=== PATIENT | male | born 1965 | race Caucasian/White ===

== ENCOUNTER 2018-06-09 11:32 | Emergency (ER) | payer OTHER, SELFPAY ==
--- OUTSIDE RECORDS SUMMARY | 2018-06-09 11:49 | XMS REPORT | Clinical Summary ---
:1965 Author Organization [facility] Address [address] [place] [address] Care Team Providers Name Role Phone Asked, No Pcp Primary Care Provider Unavailable Allergies No Known Allergies Medications Medication Sig Dispensed Refills Start Date End Date Status esomeprazole (NexIUM) Take 20 mg by 0 Active 20 MG capsule mouth daily before breakfast. VITAMIN E ACETATE Take 1 tablet by 0 Active (VITAMIN E ORAL) mouth daily. cetirizine (ZyrTEC) 10 Take 10 mg by 0 Active MG tablet mouth daily. ASCORBATE CALCIUM Take 1 tablet by 0 Active (VITAMIN C ORAL) mouth daily. KRILL OIL ORAL Take 1 capsule by 0 Active mouth daily. Lactobacillus Take 1 tablet by 0 Active acidoph-L.bulgar mouth daily. (FLORANEX) 1 million cell tablet aspirin (ECOTRIN) 81 MG Take 81 mg by 0 Active enteric coated tablet mouth daily. Active Problems Problem Noted Date Chest pain at rest 03/11/2016 Social History Tobacco Use Types Packs/Day Years Used Date Never Smoker Alcohol Use Drinks/Week oz/Week Comments No Sex Assigned at Date Recorded Not on file Job Start Date Occupation Industry Not on file Not on file Not on file Travel History Travel Start Travel End No recent travel history available. Last Filed Vital Signs Not on file Plan of Treatment Health Maintenance Due Date Last Done Comments COLON CANCER SCREENING 02/28/2014 SHINGLES VACCINES (#1) 02/28/2014 INFLUENZA VACCINE 09/23/2018 Results Not on fileafter 06/08/2017 Insurance Payer Benefit Plan / Group Subscriber ID Type Phone Address [facility] CHOICE/CHOICE + xxxxxxxxx HMO/PPO Advance Directives Patient has advance care planning documents on file. For more information, please contact:Robert Boles[address] [place] [address]
--- OUTSIDE RECORDS SUMMARY | 2018-06-09 11:49 | XMS REPORT ---
:1965 Author Organization [employer]Works Care Team Providers Name Role Phone Mauricio Dyer Provider Role Unavailable Allergies No Known Allergies Problems Problem Type Condition Code Onset Dates Condition Status Problem Diabetes type 2, controlled E11.9 Active Problem Family history of ischemic heart Z82.49 Active disease and other diseases of the circulatory system Problem History of cholecystectomy Z90.49 Active Assessment Anxiety disorder F41.9 Active Problem Malaise and fatigue R53.81 Active Problem Gastro-esophageal reflux disease K21.9 Active without esophagitis Problem HTN (hypertension), benign I10 Active Problem Hyperlipemia, mixed E78.2 Active Problem Sleep apnea, obstructive G47.33 Active Problem Anxiety disorder F41.9 Active Problem Family history of colon cancer Z80.0 Active Medications Medication Code Code Instructions Start End Status Dosage System Date Date BusPIRone HCl [facility] 38638955489 10 MG Orally Active 1 tablet Twice a day PRN Anxiety HydrOXYzine ND 60066446195 25 MG Orally Active 1 capsule Pamoate every 8 hrs PRN as needed Anxiety Results No Known Results Summary Purpose eClinicalWorks Submission
--- OUTSIDE RECORDS SUMMARY | 2018-06-09 11:49 | XMS REPORT ---
:1965 Author Organization [employer] Care Team Providers Name Role Phone Gomez Mauricio Provider Role Unavailable Allergies No Known Allergies Problems Problem Type Condition Code Onset Dates Condition Status Problem Diabetes type 2, controlled E11.9 Active Problem Family history of ischemic heart Z82.49 Active disease and other diseases of the circulatory system Problem History of cholecystectomy Z90.49 Active Problem Malaise and fatigue R53.81 Active Problem Gastro-esophageal reflux disease K21.9 Active without esophagitis Problem HTN (hypertension), benign I10 Active Problem Hyperlipemia, mixed E78.2 Active Problem Sleep apnea, obstructive G47.33 Active Problem Anxiety disorder F41.9 Active Problem Family history of colon cancer Z80.0 Active Assessment Hyperlipemia, mixed E78.2 Active Assessment Sleep apnea, obstructive G47.33 Active Assessment HTN (hypertension), benign I10 Active Assessment Diabetes type 2, controlled E11.9 Active Assessment Anxiety disorder F41.9 Active Assessment Otalgia, right ear H92.01 Active Medications Medication Code Code Instructions Start End Status Dosage System Date Date Vitamin C [facility] 47102328657 500 MG Orally Active not defined Flax Seed Oil ND 75583995373 1000 MG Orally Active not defined BusPIRone HCl ND 79338100819 10 MG Orally Active 1 tablet Twice a day PRN Anxiety HydrOXYzine ND 68150005218 25 MG Orally Active 1 capsule Pamoate every 8 hrs PRN as needed Anxiety Vitamin E ND 56935309357 100 UNIT Orally Active 1 capsule Once a day Nexium ND 50261254811 40 MG Orally Active 1 capsule Once a day CPAP Machine ND 0 max pressure Mar 20, Mar 15, Active CPAP cm of water 2017 2018 machine pressure setting 10-12 cm HxO Nightly Aspir-[address] [facility] 53394945735 81 MG Orally Active 1 tablet Once a day Sertraline HCl ND 96161997579 50 MG Orally Inactive Take 1/2 Once a day tab once a day x 1 week then 1 tab daily Probiotic ND 15383739633 - Orally Active not defined Vitamin D-[address] [facility] 24132624846 1000 UNIT Active 1 capsule Orally Once a day Results No Known Results Summary Purpose eClinicalWorks Submission
--- OUTSIDE RECORDS SUMMARY | 2018-06-09 11:49 | XMS REPORT ---
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 disorder without prior episode Problem Family history of colon cancer Z80.0 Active Problem Hyperlipemia, mixed E78.2 Active Problem Gastro-esophageal reflux disease K21.9 Active without esophagitis Problem Anxiety disorder F41.9 Active Assessment Current moderate episode of major F32.1 Active depressive disorder without prior episode Assessment Anxiety disorder F41.9 Active Assessment Screening for venereal disease Z11.3 Active Problem Diabetes type 2, controlled E11.9 Active Medications Medication Code Code Instructions Start End Status Dosage System Date Date HydrOXYzine ND 66522363170 25 MG Orally Active 1 capsule Pamoate every 8 hrs PRN as needed Anxiety BusPIRone HCl ND 20099087683 10 MG Orally Active 1 tablet Twice a day PRN Anxiety Vitamin E ND 93631831252 100 UNIT Orally Active 1 capsule Once a day Vitamin C ND 66420901143 500 MG Orally Active not defined CPAP Machine NDC 0 max pressure 9 Mar 20, Mar 15, Active CPAP cm of water 2017 2018 machine pressure setting 10-12 cm HxO Nightly Aspir-81 ND 49816412938 81 MG Orally Active 1 tablet Once a day Trintellix ND 78022792938 20 MG Orally September 07, Active Take 1/2 Once a day 2018 tab once a day x 1 week then 1 tab QD Probiotic ND 37889039808 - Orally Active not defined Flax Seed Oil ND 07008671558 1000 MG Orally Active not defined Nexium ND 22573781109 40 MG Orally Active 1 capsule Once a day Vitamin D-3 [facility] 82889747097 1000 UNIT Orally Active 1 capsule Once a day Results No Known Results Summary Purpose eClinicalWorks Submission
--- OUTSIDE RECORDS SUMMARY | 2018-06-09 11:49 | XMS REPORT | Continuity of Care Document ---
:1965 Author Organization Interface Problems Problem Status Onset Date Classification Date Comments Source Reported Medications Medication Details Route Status Patient Ordering Order Source Instructions Provider Date Allergies, Adverse Reactions, Alerts Substance Category Reaction Severity Reaction Status Date Comments Source type Reported Immunizations Immunization Date Given Site Status Last Updated Comments Source Results Order Results Value Reference Date Interpretation Comments Source Name Range Vital Signs Vital Sign Value Date Comments Source Encounters Location Location Encounter Encounter Reason Attending ADM DC Status Source Details Type Number For Provider Date Date Visit Outpatient [id number] ADELFO 12/29 [facility] [place] [facility] [id number] JUANI FRANCES 01/31 [facility] [place] [facility] [id number] DIOGENES 07/24 [facility] [place] Procedures Procedure Code Date Perfomer Comments Source
--- OUTSIDE RECORDS SUMMARY | 2018-06-09 11:49 | XMS REPORT ---
:1965 [facility] Team Providers Name Role Phone Gomez [...] history of colon cancer Z80.0 Active Assessment Sleep apnea, obstructive G47.33 Active Assessment Diabetes type 2, controlled E11.9 Active Assessment Anxiety disorder F41.9 Active Assessment HTN (hypertension), benign I10 Active Assessment Hyperlipemia, mixed E78.2 Active Medications Medication Code Code Instructions Start End Status Dosage System Date Date Flax Seed Oil [facility] 21224819723 1000 MG Orally Active not defined Vitamin E ND 57443627288 100 UNIT Orally Active 1 capsule Once a day CPAP Machine ND 0 max pressure 9 Mar 20, Mar 15, Active CPAP cm of water 2017 2018 machine pressure setting 10-12 cm HxO Nightly Sertraline HCl ND 65556616034 50 MG Orally May Active Take 1/2 Once a day 2017 tab once a day x 1 week then 1 tab daily Vitamin D-3 ND 91786801635 1000 UNIT Active 1 capsule Orally Once a day Vitamin C ND 29328898695 500 MG Orally Active not defined HydrOXYzine ND 07805521953 25 MG Orally May Active 1 capsule Pamoate every 8 hrs PRN 2017 as needed Anxiety BusPIRone HCl ND 32923751457 10 MG Orally Inactive 1 tablet Twice a day PRN Anxiety Aspir-81 ND 07710355082 81 MG Orally Active 1 tablet Once a day Probiotic ND 55662083098 - Orally Active not defined Nexium [facility] 76562900676 40 MG Orally Active 1 capsule Once a day Results No Known Results Summary Purpose eClinicalWorks Submission
--- OUTSIDE RECORDS SUMMARY | 2018-06-09 11:49 | XMS REPORT ---
[...] other diseases of the circulatory system Problem Diabetes type 2, controlled E11.9 Active Problem HTN (hypertension), benign I10 Active Problem Malaise and fatigue R53.81 Active Problem Current moderate episode of major F32.1 Active depressive disorder without prior episode Problem Family history of colon cancer Z80.0 Active Problem Hyperlipemia, mixed E78.2 Active Problem Gastro-esophageal reflux disease K21.9 Active without esophagitis Problem Anxiety disorder F41.9 Active Medications No Known Medications Results No Known Results Summary Purpose [employer] Music Submission
--- OUTSIDE RECORDS SUMMARY | 2018-06-09 11:50 | XMS REPORT ---
:1965 Author Organization eClinicalWorks Care Team Providers Name Role Phone DyerMauricio Provider Role Unavailable Allergies No Known Allergies [...] Medications Results No Known Results Summary Purpose [email or web address] Submission
--- OUTSIDE RECORDS SUMMARY | 2018-06-09 11:50 | XMS REPORT ---
:1965 Author Organization eClinicalWorks Care Team Providers Name Role Phone DyerMauricio Provider Role Unavailable Allergies, Adverse Reactions, Alerts Substance Reaction Event Type N.K.D.A. Info Not Available Non Drug Allergy Problems Problem Type Condition Code Onset Dates Condition Status Problem Family history of ischemic heart Z82.49 Active disease and other diseases of the circulatory system Problem Hyperlipemia, mixed E78.2 Active Problem Sleep apnea, obstructive G47.33 Active Problem Current moderate episode of major F32.1 Active depressive disorder without prior episode Problem HTN (hypertension), benign I10 Active Problem Osteoarthritis of right foot, M19.071 Active unspecified osteoarthritis type Problem Anxiety disorder F41.9 Active Problem Family history of colon cancer Z80.0 Active Problem Malaise and fatigue R53.81 Active Problem Gastro-esophageal reflux disease K21.9 Active without esophagitis Assessment Foot pain, right M79.671 Active Problem Diabetes type 2, controlled E11.9 Active Assessment Osteoarthritis of right foot, M19.071 Active unspecified osteoarthritis type Problem History of cholecystectomy Z90.49 Active Medications Medication Code Code Instructions Start End Date Status Dosage System Date Azithromycin [facility] 48858313402 500 MG Orally Nov 17, Active 2 tablet once 2017 Probiotic [facility] 58984986215 - Orally Active not defined BusPIRone HCl [facility] 21283389983 10 MG Orally Active 1 tablet Twice a day PRN Anxiety Nexium [facility] 71005948913 40 MG Orally Active 1 capsule Once a day Aspir-81 [facility] 79339818850 81 MG Orally Active 1 tablet Once a day Vitamin E [facility] 93133014091 100 UNIT Orally Active 1 capsule Once a day Vitamin C [facility] 90689544740 500 MG Orally Active not defined HydrOXYzine [facility] 16200410956 25 MG Orally Active 1 capsule Pamoate every 8 hrs PRN as needed Anxiety Trintellix [facility] 05265055811 20 MG Orally September 07, Active Take 1/2 Once a day 2018 tab once a day x 1 week then 1 tab QD Vitamin D-3 NDC 19573263353 1000 UNIT Active 1 capsule Orally Once a day Duexis [facility] 22312922591 800-26.6 MG April Active 1 tablet Orally Three 2018 times a day PRN Pain Flax Seed Oil [facility] 24917572123 1000 MG Orally Active not defined Results No Known Results Summary Purpose eClinicalWorks Submission
--- OUTSIDE RECORDS SUMMARY | 2018-06-09 11:50 | XMS REPORT ---
:1965 Author Organization eClinicalWorks Care Team Providers Name Role Phone DyerMauricio Provider Role Unavailable Allergies, Adverse Reactions, Alerts Substance Reaction Event Type N.K.D.A. Info Not Available Non Drug Allergy Problems Problem Type Condition Code Onset Dates Condition Status Problem Sleep apnea, obstructive G47.33 Active Problem Family history of colon cancer Z80.0 Active Problem Hyperlipemia, mixed E78.2 Active Problem Osteoarthritis of right foot, M19.071 Active unspecified osteoarthritis type Problem Current moderate episode of major F32.1 Active depressive disorder without prior episode Problem Adult BMI 35.0-35.9 kg/sq m Z68.35 Active Problem Gastro-esophageal reflux disease K21.9 Active without esophagitis Problem Anxiety disorder F41.9 Active Problem HTN (hypertension), benign I10 Active Problem Malaise and fatigue R53.81 Active Assessment Malaise and fatigue R53.81 Active Assessment Adult BMI 35.0-35.9 kg/sq m Z68.35 Active Assessment Encounter for screening for other Z13.89 Active disorder Problem Diabetes type 2, controlled E11.9 Active Assessment Screening for colon cancer Z12.11 Active Problem History of cholecystectomy Z90.49 Active Assessment Well adult on routine health check Z00.00 Active Problem Family history of ischemic heart Z82.49 Active disease and other diseases of the circulatory system Medications Medication Code Code Instructions Start End Date Status Dosage System Date Flax Seed Oil [facility] 77282685551 1000 MG Orally Active not defined Vitamin D-3 ND 83590169461 1000 UNIT Orally Active 1 capsule Once a day Probiotic ND 33114519419 - Orally Active not defined Vitamin C ND 55387683589 500 MG Orally Active not defined Vitamin E ND 15689814624 100 UNIT Orally Active 1 capsule Once a day Duexis [facility] 22491071340 800-26.6 MG April Active 1 tablet Orally Three 2018 times a day PRN Pain Aspir-81 ND 72348270297 81 MG Orally Active 1 tablet Once a day Results No Known Results Summary Purpose eClinicalWorks Submission
--- OUTSIDE RECORDS SUMMARY | 2018-06-09 11:50 | XMS REPORT ---
[...] esophagitis Problem Anxiety disorder F41.9 Active Assessment High risk heterosexual behavior Z72.51 Active Assessment Penile discharge R36.9 Active Assessment Increased frequency of urination R35.0 Active Problem Diabetes type 2, controlled E11.9 Active Medications Medication Code Code Instructions Start End Status Dosage System Date Date Vitamin C [facility] 24956723091 500 MG Orally Active not defined Flax Seed Oil ND 19737314115 1000 MG Orally Active not defined HydrOXYzine ND 50234290329 25 MG Orally Active 1 capsule Pamoate every 8 hrs PRN as needed Anxiety BusPIRone HCl ND 37979161375 10 MG Orally Active 1 tablet Twice a day PRN Anxiety Azithromycin ND 65743258400 500 MG Orally Nov 17, Active 2 tablet once 2018 Nexium ND 55580157471 40 MG Orally Active 1 capsule Once a day Vitamin D-3 ND 36553716842 1000 UNIT Active 1 capsule Orally Once a day CPAP Machine ND 0 max pressure Mar 20, Mar 15, Active CPAP cm of water 2017 2018 machine pressure setting 10-12 cm HxO Nightly Aspir-81 ND 35114709032 81 MG Orally Active 1 tablet Once a day Trintellix ND 59801880487 20 MG Orally September 07, Active Take 1/2 Once a day 2018 tab once a day x 1 week then 1 tab QD Probiotic NDC 21235084526 - Orally Active not defined Vitamin E [facility] 23327039147 100 UNIT Orally Active 1 capsule Once a day Results Name Result Date Reference Range Unit Abnormality Flag UA W/MICROSCOPIC EXAM ----Glucose Neg 20171117 ----Ketone Neg 20171117 ----Specific [place] 1.020 20171117 ----Blood Neg 20171117 ----Leukocytes Neg 20171117 ----Nitrite Neg 20171117 ----Protein Neg 20171117 ----pH 6.5 20171117 Summary Purpose eClinicalWorks Submission
[2018-06-09 12:01] LABS: Absolute Lymphocytes (CBC) 2.6 K/uL (0.7-4.9); Absolute Monocytes 0.6 K/uL (0.1-1.3); Absolute Neutrophil 4.8 K/uL (1.8-8.0); Basophils % 0.5 % (0-1.3); Eosinophils % 2.9 % (0-4.4); Hematocrit 45.7 % (39.6-49.0); Lymphocytes % 31.1 % (15.3-44.8); MPV 10.7 fL (7.6-11.3); Monocytes % 7.4 % (3.3-12.3); RBC Red Blood Cell Count 5.19 M/uL (4.33-5.43)
--- NOTE | 2018-06-09 12:21 | RAD REPORT ---
EXAM DESCRIPTION: CT - Head Brain Wo Cont - 06/09/2018 12:11 pm CLINICAL HISTORY: headache, confusion Headache, drowsiness COMPARISON: Head angio dated 12/14/2015; Head Brain Wo Cont dated 10/28/2015 TECHNIQUE: All CT scans are performed using dose optimization technique as appropriate and may inclu de automated exposure control or mA/KV adjustment according to patient size. FINDINGS: No intracranial hemorrhage, hydrocephalus or extra-axial fluid collection.Streak artifact is present from left posterior communicating artery coil.No areas of brain edema or evidence of midli ne shift. The paranasal sinuses and mastoids are clear. The calvarium is intact. IMPRESSION: No acute intracranial abnormality.
[2018-06-09 12:23] LABS: Protime INR 0.96
[2018-06-09 12:33] LABS: BUN Blood Urea Nitrogen 17 mg/dL (7-18); Bicarbonate 29 mmol/L (21-32); CKMB Creatine Kinase MB < 1.0 ng/mL (0.3-3.6); Creatine Phosphokinase 130 U/L (39-308); Glucose Level 124 mg/dL (74-106); Magnesium 2.2 mg/dL (1.8-2.4); Potassium 4.1 mmol/L (3.5-5.1); Sodium Level 142 mmol/L (136-145); Troponin (Emerg Dept Use Only) < 0.02 ng/mL (0.0-0.045)
[2018-06-09 12:58] LABS: Urine Blood NEGATIVE (NEG); Urine Glucose NEGATIVE (NEG); Urine Protein NEGATIVE (NEG); Urine Specific Gravity 1.015 (1.005-1.030); Urine pH 6.5 (5.0-7.0)
[2018-06-09] MEDS ORDERED: DIPHENHYDRAMINE 50 MG/ML VIAL ONE (13:02)
--- NOTE | 2018-06-09 13:55 | RAD REPORT ---
EXAM DESCRIPTION: CT - Head angio - 06/09/2018 1:44 pm CLINICAL HISTORY: headache, confused, hx of aneurysm COMPARISON: Head Brain Wo Cont dated 06/09/2018; Head angio dated 12/14/2015 TECHNIQUE: CT angiography of the head was performed with MIPs. All CT scans are performed using dose optimization technique as appropriate and may include automated exposure control or mA/KV adjustment according to patient size. FINDINGS: Coils are present in the region of the left posterior communicating artery, presumably rel ated to previous aneurysm coiling. No evidence of aneurysm is detected. No flow-limiting stenosis or vascular malformation identified. Antegrade flow is seen in the vertebral arteries. The vertebral arteries are codominant. The visualized dural venous sinuses are patent. IMPRESSION: No significant flow abnormality is detected. Evidence of previous coiling procedure in t he region left posterior communicating artery.
--- NOTE | 2018-06-09 13:59 | RAD REPORT ---
EXAM DESCRIPTION: CT - Neck Angio - 06/09/2018 1:44 pm CLINICAL HISTORY: headache, confusion, hx of aneurysm COMPARISON: No comparisons TECHNIQUE: CT angiography of the neck vessels was performed with MIPs. All CT scans are performed using dose optimization technique as appropriate and may include automated exposure control or mA/KV adjustment according to patient size. FINDINGS: The aortic arch is incompletely included on the examination. No significant flow abnormality is seen of the common carotid bilaterally. No significant stenosis is identified involving the cervical segments of both internal carotid arteri es. Normal flow is seen within both vertebral arteries. IMPRESSION: No significant flow abnormality of the neck vessels is identified.
--- NOTE | 2018-06-09 14:26 | ER ---
Nurse's Notes [facility] Name: You Sanchez Age: 53 yrs Sex: Male : 1965 Arrival Date: 06/09/2018 Time: 11:35 Bed 3 Private MD: Diagnosis: Headache;Dizziness and giddiness Presentation: 06/09 11:39 Presenting complaint: Patient states: dizziness and confusion started Thursday and went sv away and today he woke up around 0730 and noticed an occipital headache, dizziness and confusion. Transition of care: patient was not received from another setting of care. Onset of symptoms was June 05, 2018. Care prior to arrival: None. 11:39 Method Of Arrival: Wheelchair sv 11:39 Acuity: SEPIDEH 3 sv 11:40 Risk Assessment: Do you want to hurt yourself or someone else? Patient reports no aa5 desire to harm self or others. Initial Sepsis Screen: Does the patient meet any 2 criteria? No. Patient's initial sepsis screen is negative. Does the patient have a suspected source of infection? No. Patient's initial sepsis screen is negative. Triage Assessment: 11:40 Headache History: The patient has had previous headaches and this one is different than aa5 previous episodes, and this one is less severe than previous episodes. Historical: - Allergies: 11:44 No Known Allergies; sv - PMHx: 11:44 Aneurysm; Sleep Apnea; sv - PSHx: 11:44 Cholecystectomy; Brain aneurysm; sv - Family history:: not pertinent. - Ebola Screening: : No symptoms or risks identified at this time. - Hospitalizations: : No recent hospitalization is reported. Screenin:50 Abuse screen: Denies threats or abuse. Nutritional screening: No deficits noted. aa5 Tuberculosis screening: No symptoms or risk factors identified. Fall Risk None identified. Assessment: 11:39 VAN Scoring: Arm Drift: Patients demonstrates NO arm weakness. Patient is VAN Negative. sv Visual Disturbance: No visual disturbance noted. Aphasia: No aphasia noted. Neglect: No neglect noted. 11:40 General: Appears comfortable, Behavior is calm, cooperative. Pain: Complains of pain in aa5 right occipital area Pain currently is 0 out of 10 on a pain scale. Quality of pain is described as aching, Pain began 2-3 days ago. Pt states "I only get the headache when I am walking and doing stuff" Alleviated by rest. Neuro: Level of Consciousness is awake, alert, obeys commands, Oriented to person, place, time, situation, Electrolog Operator are equal bilaterally Moves all extremities. Speech is normal, Facial symmetry appears normal, Pupils are PERRLA, Pt reports confusion and states "my head feels foggy" . Cardiovascular: Heart tones S1 S2 present Rhythm is regular. Respiratory: Airway is patent Respiratory effort is even, unlabored, Respiratory pattern is regular, symmetrical. GI: No signs and/or symptoms were reported involving the gastrointestinal system. : No signs and/or symptoms were reported regarding the genitourinary system. EENT: No signs and/or symptoms were reported regarding the EENT system. Derm: Skin is pink, warm \\T\\ dry. Musculoskeletal: Range of motion: intact in all extremities. 12:02 Reassessment: Pt taken to CT via stretcher . aa5 12:22 Reassessment: Patient and/or family updated on plan of care and expected duration. Pain aa5 level reassessed. Patient is alert, oriented x 3, equal unlabored respirations, skin warm/dry/pink. 12:22 Cardiovascular: Rhythm is sinus rhythm. aa5 13:30 Reassessment: Patient is alert, oriented x 3, equal unlabored respirations, skin aa5 warm/dry/pink. Pt to CTA via stretcher . 14:15 Reassessment: Patient is alert, oriented x 3, equal unlabored respirations, skin aa5 warm/dry/pink. Vital Signs: 11:39 BP 149 / 68; sv 11:50 BP 140 / 90; Pulse 72; Resp 18 S; Temp 98.3(O); Pulse Ox 99% on R/A; Pain 0/10; aa5 12:22 BP 126 / 82; Pulse 62; Resp 18 S; Pulse Ox 98% on R/A; aa5 12:59 BP 142 / 88; Pulse 72; Resp 16 S; Pulse Ox 97% on R/A; aa5 13:12 BP 140 / 88; Pulse 64; Resp 16; Pulse Ox 99% on R/A; aa5 14:15 BP 125 / 76; Pulse 65; Resp 16 S; Pulse Ox 98% on R/A; Pain 0/10; aa5 Surinder Coma Score: 14:22 Eye Response: spontaneous(4). Verbal Response: oriented(5). Motor Response: obeys rn commands(6). Total: 15. ED Course: 11:35 Patient arrived in ED. mr 11:39 Juan Ramon Crocker MD is Attending Physician. rn 11:39 Arm band placed on Patient placed in an exam room, on a stretcher, on cafeteria monitor, sv on pulse oximetry. 11:40 Dnona Honeycutt RN is Primary Nurse. aa5 11:40 Patient has correct armband on for positive identification. Placed in gown. Bed in low aa5 position. Call light in reach. Side rails up X2. surveillance system monitor on. Pulse ox on. NIBP on. 11:43 Triage completed. sv 11:45 Initial lab(s) drawn, by me, sent to lab. Inserted saline lock: 20 gauge in right aa5 forearm, using aseptic technique. Blood collected. 11:45 No provider procedures requiring assistance completed. aa5 12:[address] via stretcher. ls3 12:13 CT Head Brain wo Cont In Process Unspecified. EDMS 12:19 EKG done, by diet technician registered. reviewed by Juan Ramon Crocker MD. sm3 12:51 Radiology exam delayed due to pt to be pre medicated. to call when ready. kw1 13:45 CT Head Angio In Process Unspecified. EDMS 13:[address] In Process Unspecified. EDMS 14:24 Bakari Collier MD is Referral Physician. rn 14:25 IV discontinued, intact, bleeding controlled, No redness/swelling at site. Pressure aa5 dressing applied. Administered Medications: 12:55 Drug: Benadryl 50 mg Route: IVP; Site: right forearm; aa5 13:05 Follow up: Response: No adverse reaction aa5 Point of Care Testing: Blood Glucose: 11:49 Blood Glucose: 140 mg/dL; jl7 Ranges: Outcome: 14:25 Discharge ordered by MD. rn 14:30 Discharged to home ambulatory, with significant other. aa5 14:30 Condition: stable 14:30 Discharge instructions given to patient, Instructed on discharge instructions, follow up and referral plans. Demonstrated understanding of instructions, follow-up care. 14:40 Patient left the ED. aa5 Signatures: Dispatcher [employer] EDMS Zaria Mcdaniel RN RN sv Rivera, Mary mr Juan Ramon Crocker MD MD rn Calderon, Audri RN RN aa5 Manjula Lynn RN RN jl7 Liv Macdonald wi Mignon Watts 1 Kim Berkowitz 3 Annette Lockett 3 Corrections: (The following items were deleted from the chart) 14:38 13:12 BP 155 / 97; Pulse 64bpm; Resp 16bpm; Pulse Ox 99% RA; mt aa5
--- NOTE | 2018-06-09 14:26 | EDPHYS ---
Physician Documentation [facility] Name: You Sanchez Age: 53 yrs Sex: Male : 1965 Arrival Date: 06/09/2018 Time: 11:35 Bed 3 Private MD: ED Physician Juan Ramon Crocker HPI: 06/09 12:00 This 53 yrs old Male presents to ER via Wheelchair with complaints of rn Headache, Dizziness, Altered Mental Status. 12:00 The patient complains of pain to the right occipital area. The patient describes the rn headache as aching. Onset: The symptoms/episode began/occurred 1 week(s) ago. Severity of symptoms: At its worst the pain was moderate, in the emergency department the pain has improved. The symptoms are alleviated by nothing. the symptoms are aggravated by nothing. The patient has experienced a previous episode. Reports hx of aneurysm, this feels different, states more pain last time, no focal neurological complaint, + headache and slow thought process, reports dizziness when standing, but not having trouble walking. . Historical: - Allergies: 11:44 No Known Allergies; sv - PMHx: 11:44 Aneurysm; Sleep Apnea; sv - PSHx: 11:44 Cholecystectomy; Brain aneurysm; sv - Family history:: not pertinent. - Ebola Screening: : No symptoms or risks identified at this time. - Hospitalizations: : No recent hospitalization is reported. ROS: 12:00 Constitutional: Negative for fever, chills, and weight loss, Eyes: Negative for injury, rn pain, redness, and discharge, Neck: Negative for injury, pain, and swelling, Cardiovascular: Negative for chest pain, palpitations, and edema, Respiratory: Negative for shortness of breath, cough, wheezing, and pleuritic chest pain, Abdomen/GI: Negative for abdominal pain, nausea, vomiting, diarrhea, and constipation, Back: Negative for injury and pain, : Negative for injury, bleeding, discharge, and swelling, MS/Extremity: Negative for injury and deformity, Skin: Negative for injury, rash, and discoloration, Neuro: Negative for weakness, numbness, tingling, and seizure. Exam: 12:00 Constitutional: This is a well developed, well nourished patient who is awake, alert, rn and in no acute distress. Head/Face: Normocephalic, atraumatic. Eyes: Pupils equal round and reactive to light, extra-ocular motions intact. Lids and lashes normal. Conjunctiva and sclera are non-icteric and not injected. Cornea within normal limits. Periorbital areas with no swelling, redness, or edema. ENT: dry MM Neck: Trachea midline, no thyromegaly or masses palpated, and no cervical lymphadenopathy. Supple, full range of motion without nuchal rigidity, or vertebral point tenderness. No Meningismus. Cardiovascular: Regular rate and rhythm. No pulse deficits. Respiratory: Lungs have equal breath sounds bilaterally, clear to auscultation. No increased work of breathing, no retractions or nasal flaring. Abdomen/GI: soft, non-tender MS/ Extremity: Pulses equal, no cyanosis. Neurovascular intact. Full, normal range of motion. Equal circumference. Neuro: Awake and alert, GCS 15, oriented to person, place, time, and situation. Cranial nerves II-XII grossly intact. Motor strength 5/5 in all extremities. Sensory grossly intact. Cerebellar exam normal. Vital Signs: 11:39 BP 149 / 68; sv 11:50 BP 140 / 90; Pulse 72; Resp 18 S; Temp 98.3(O); Pulse Ox 99% on R/A; Pain 0/10; aa5 12:22 BP 126 / 82; Pulse 62; Resp 18 S; Pulse Ox 98% on R/A; aa5 12:59 BP 142 / 88; Pulse 72; Resp 16 S; Pulse Ox 97% on R/A; aa5 13:12 BP 140 / 88; Pulse 64; Resp 16; Pulse Ox 99% on R/A; aa5 14:15 BP 125 / 76; Pulse 65; Resp 16 S; Pulse Ox 98% on R/A; Pain 0/10; aa5 Surinder Coma Score: 14:22 Eye Response: spontaneous(4). Verbal Response: oriented(5). Motor Response: obeys rn commands(6). Total: 15. MDM: 11:39 Patient medically screened. rn 11:50 ED course: Onset of symptoms Thursday per patient, family member with him states this rn has been going on for about 1.5 weeks, NIH 0. Other than slow to respond and self reported confusion, normal neuro exam. . 12:56 ED course: Pt without known allergy to contrast, states had tuna the other day, and rn broke out in rash, after this discussion given benadryl 50mg IV to be cautious. . 14:22 Differential diagnosis: hypertensive headache, intracerebral hemorrhage, migraine, rn subarachnoid bleed, tension headache, vasomotor headache, cerebral aneurysm. Data reviewed: vital signs, nurses notes, lab test result(s), EKG, radiologic studies, CT scan, and as a result, I will discharge patient. Counseling: I had a detailed discussion with the patient and/or guardian regarding: the historical points, exam findings, and any diagnostic results supporting the discharge/admit diagnosis, lab results, radiology results, the need for outpatient follow up, to return to the emergency department if symptoms worsen or persist or if there are any questions or concerns that arise at home. Response to treatment: the patient's symptoms have markedly improved after treatment, and as a result, I will discharge patient. Special discussion: I discussed with the patient/guardian in detail that at this point there is no indication for admission to the hospital. It is understood, however, that if the symptoms persist or worsen the patient needs to return immediately for re-evaluation. Based on the history and exam findings, there is no indication for further emergent testing or inpatient evaluation. I discussed with the patient/guardian the need to see the neurologist for further evaluation of the symptoms. ED course: Pt improved, no acute findings on w/u including ct head without and angio. Trop and ecg normal. Ambulatory to bathroom without difficulty. Still normal neuro exam. . 06/09 11:50 Order name: Basic Metabolic Panel 06/09 11:50 Order name: CBC with Diff; Complete Time: 12:06/09 11:50 Order name: Ckmb; Complete Time: 12:06/09 11:50 Order name: CPK; Complete Time: 12:38 06/09 11:50 Order name: Magnesium; Complete Time: 12:38 06/09 11:50 Order name: Protime (+inr); Complete Time: 12:06/09 11:50 Order name: CT Head Brain wo Cont; Complete Time: 12:06/09 11:50 Order name: Ptt, Activated; Complete Time: 12:06/09 11:50 Order name: Troponin (emerg Dept Use Only); Complete Time: 12:06/09 11:50 Order name: AMMONIA; Complete Time: 12:38 rn 06/09 11:50 Order name: Basic Metabolic Panel; Complete Time: 12:38 EDMS 06/09 12:38 Order name: CT Head Angio; Complete Time: 14:01 rn 06/09 12:39 Order name: Neck Angio CT; Complete Time: 14:01 rn 06/09 12:44 Order name: Urine Dipstick--Ancillary (enter results); Complete Time: 14:01 bd 06/09 11:50 Order name: EKG; Complete Time: 11:51 rn 06/09 11:50 Order name: Cardiac monitoring; Complete Time: 11:52 rn 06/09 11:50 Order name: EKG - Nurse/Tech; Complete Time: 12:24 rn 06/09 11:50 Order name: IV Saline Lock; Complete Time: 11:51 rn 06/09 11:50 Order name: Labs collected and sent; Complete Time: 11:51 rn 06/09 11:50 Order name: NPO; Complete Time: 11:51 rn 06/09 11:50 Order name: O2 Per Protocol; Complete Time: 11:51 rn 06/09 11:50 Order name: O2 Sat Monitoring; Complete Time: 11:51 rn 06/09 11:50 Order name: Urine Dipstick-Ancillary (obtain specimen); Complete Time: 12:59 rn 06/09 11:50 Order name: Glucose Level; Complete Time: 11:51 rn Administered Medications: 12:55 Drug: Benadryl 50 mg Route: IVP; Site: right forearm; aa5 13:05 Follow up: Response: No adverse reaction aa5 Point of Care Testing: Blood Glucose: 11:49 Blood Glucose: 140 mg/dL; jl7 Ranges: Critical Glucose Levels:Adult <50 mg/dl or >400 mg/dl <40 mg/dl or >180 mg/dl Disposition: 06/09/18 14:25 Discharged to Home. Impression: Headache, Dizziness and giddiness. - Condition is Stable. - Discharge Instructions: Dizziness, General Headache Without Cause. - Medication Reconciliation Form, Thank You Letter, Antibiotic Education, Prescription Opioid Use form. - Follow up: Bakari Collier MD; When: As needed; Reason: Recheck today's complaints, Re-evaluation by your physician. - Problem is an ongoing problem. - Symptoms have improved. Signatures: Dispatcher [employer] Zaria Ventura RN RN sv Nieto, Roman, MD MD rn Calderon, Audri, RN RN aa5 Corrections: (The following items were deleted from the chart) 14:40 14:25 06/09/2018 14:25 Discharged to Home. Impression: Headache; Dizziness and aa5 giddiness. Condition is Stable. Forms are Medication Reconciliation Form, Thank You Letter, Antibiotic Education, Prescription Opioid Use. Follow up: Bakari Collier; When: As needed; Reason: Recheck today's complaints, Re-evaluation by your physician. Problem is an ongoing problem. Symptoms have improved. rn
[2018-06-09 14:52] VITALS: TEMP 98.3
[2018-06-09 14:57] VITALS: BP 125/76; O2SAT 98
--- NOTE | 2018-06-09 17:50 | EKG ---
Test Date: 2018-06-09 Test Time: 12:15:50 Trench Trimmer Fine: VALERIE MEASUREMENT RESULTS: Intervals: Rate: 67 WV: 160 QRSD: 86 QT: 380 QTc: 401 [place]: P: 34 WV: 160 QRS: 40 T: 51 INTERPRETIVE STATEMENTS: Normal sinus rhythm with sinus arrhythmia Normal ECG Compared to ECG 02/27/2017 23:49:30 No significant changes Electronically Signed On 06-09-18 17:49:52 CDT by Bean Lara
== END 2018-06-09 14:40 | disposition home or self-care (01) ==
LOC: ER 11:32
DX: R51 Headache (principal); R42 Dizziness and giddiness
CPT/HCPCS: 36415; 70450; 70496; 70498; 80048; 81003; 82140; 82550; 82553; 82962; 83735; 84484; 85025; 85610; 85730; 93005; 96374; 99285

== ENCOUNTER 2019-03-02 19:30 | Emergency (ER) | payer OTHER ==
--- OUTSIDE RECORDS SUMMARY | 2019-03-02 19:32 | XMS REPORT ---
:1965 Author Organization e[employer]Works Care Team Providers Name Role Phone Gomez Mauricio Provider Role Unavailable Allergies, Adverse Reactions, Alerts Substance Reaction Event Type N.K.D.A. Info Not Available Non Drug Allergy Problems Problem Type Condition Code Onset Dates Condition Status Problem Family history of colon cancer Z80.0 Active Problem Gastro-esophageal reflux disease K21.9 Active without esophagitis Problem Anxiety disorder F41.9 Active Problem Adult BMI 36.0-36.9 kg/sq m Z68.36 Active Assessment HTN (hypertension), benign I10 Active Problem Adult BMI 35.0-35.9 kg/sq m Z68.35 Active Assessment Vitamin D deficiency E55.9 Active Assessment Adult BMI 36.0-36.9 kg/sq m Z68.36 Active Problem Vitamin D deficiency E55.9 Active Problem HTN (hypertension), benign I10 Active Problem Malaise and fatigue R53.81 Active Problem Osteoarthritis of right foot, M19.071 Active unspecified osteoarthritis type Problem Current moderate episode of major F32.1 Active depressive disorder without prior episode Assessment Hyperlipemia, mixed E78.2 Active Assessment Diabetes type 2, controlled E11.9 Active Assessment Sleep apnea, obstructive G47.33 Active Assessment Anxiety disorder F41.9 Active Problem History of cholecystectomy Z90.49 Active Problem Family history of ischemic heart Z82.49 Active disease and other diseases of the circulatory system Problem Sleep apnea, obstructive G47.33 Active Assessment Need for influenza vaccination Z23 Active Problem Diabetes type 2, controlled E11.9 Active Problem Hyperlipemia, mixed E78.2 Active Medications Medication Code Code Instructions Start End Status Dosage System Date Date Vitamin D-3 [facility] 61050546394 1000 UNIT Orally Active 1 capsule Once a day Vitamin C ND 47004641977 500 MG Orally Active not defined Flax Seed Oil ND 67803814006 1000 MG Orally Active not defined Lipitor ND 82182385523 10 MG Orally Active 1 tablet Once a day Vitamin E ND 25791598106 100 UNIT Orally Active 1 capsule Once a day Aspir-81 NDC 27241431307 81 MG Orally Active 1 tablet Once a day MetFORMIN HCl [facility] 51458201428 500 MG Orally Active 2 tabs ER BID Lipitor [facility] 13325325988 10 MG Orally Active 1 tablet Once a day Losartan [facility] 62106660689 25 MG Orally Active take 1 tab Potassium Once a day Probiotic [facility] 30124773256 - Orally Active not defined Results No Known Results Immunizations Vaccine Administration Date Afluria Nov 04, 2018 Summary Purpose [employer]ClinicalWorks Submission
--- OUTSIDE RECORDS SUMMARY | 2019-03-02 19:32 | XMS REPORT ---
[...] BMI 36.0-36.9 kg/sq m Z68.36 Active Problem Adult BMI 35.0-35.9 kg/sq m Z68.35 Active Problem Vitamin D deficiency E55.9 Active Problem HTN (hypertension), benign I10 Active Problem Malaise and fatigue R53.81 Active Problem Osteoarthritis of right foot, M19.071 Active unspecified osteoarthritis type Problem Current moderate episode of major F32.1 Active depressive disorder without prior episode Assessment Hyperlipemia, mixed E78.2 Active Assessment Diabetes type 2, controlled E11.9 Active Problem History of cholecystectomy Z90.49 Active Problem Family history of ischemic heart Z82.49 Active disease and other diseases of the circulatory system Problem Sleep apnea, obstructive G47.33 Active Problem Diabetes type 2, controlled E11.9 Active Problem Hyperlipemia, mixed E78.2 Active Medications No Known Medications Results No Known Results Summary Purpose [employer] Submission
--- OUTSIDE RECORDS SUMMARY | 2019-03-02 19:33 | XMS REPORT ---
[...] Start End Status Dosage System Date Date Lipitor ND 86236095022 10 MG Orally Active 1 tablet Once a day MetFORMIN HCl ER ND 85820645374 500 MG Orally Active 2 tabs BID Atorvastatin ND 54097543815 10 MG Active TAKE 1 Calcium TABLET BY MOUTH EVERY DAY Losartan ND 21060345186 25 MG Orally Active take 1 tab Potassium Once a day Probiotic FORMER[facility] NAMED [facility] 45182470446 - Orally Active not defined Vitamin E FORMERLY NAMED [facility] 67508618468 100 UNIT Orally Active 1 capsule Once a day MetFORMIN HCl ER FORMERLY NAMED [facility] 70045168261 500 MG Active TAKE 2 TABLETS BY MOUTH TWICE A DAY Flax Seed Oil FORMERLY NAMED [facility] 29187985053 1000 MG Orally Active not defined Vitamin D-3 FORMERLY NAMED [facility] 30424635412 1000 UNIT Active 1 capsule Orally Once a day Aspir-81 FORMERLY NAMED [facility] 62641476645 81 MG Orally Active 1 tablet Once a day Vitamin C FORMERLY NAMED [facility] 76282748162 500 MG Orally Active not defined Results No Known Results Summary Purpose [employer]ClinicalWorks Submission
--- OUTSIDE RECORDS SUMMARY | 2019-03-02 19:33 | XMS REPORT ---
[...] Active depressive disorder without prior episode Problem History of cholecystectomy Z90.49 Active Problem Family history of ischemic heart Z82.49 Active disease and other diseases of the circulatory system Problem Sleep apnea, obstructive G47.33 Active Problem Diabetes type 2, controlled E11.9 Active Problem Hyperlipemia, mixed E78.2 Active Medications No Known Medications Results No Known Results Summary Purpose [employer]ClinicalWorks Submission
[2019-03-02] MEDS ORDERED: NA CHLORIDE 0.9% 1,000 ML ONE (20:12)
[2019-03-02 20:24] LABS: Absolute Lymphocytes (CBC) 1.7 K/uL (0.7-4.9); Basophils % 0.4 % (0-1.3); Hematocrit 43.5 % (39.6-49.0); Lymphocytes % 16.9 % (15.3-44.8); MPV 10.1 fL (7.6-11.3); RBC Red Blood Cell Count 4.93 M/uL (4.33-5.43)
--- NOTE | 2019-03-02 20:36 | RAD REPORT ---
EXAM DESCRIPTION: [facility] Single View03/02/2019 8:22 pm CLINICAL HISTORY: Chest pain COMPARISON: 2017 FINDINGS: The lungs appear clear of acute infiltrate. The heart is normal size IMPRESSION: No acute abnormalities displayed
[2019-03-02 20:47] LABS: ALT/SGPT 41 U/L (12-78); AST/SGOT 21 U/L (15-37); Albumin 4.4 g/dL (3.4-5.0); Alkaline Phosphatase 113 U/L (45-117); BUN Blood Urea Nitrogen 9 mg/dL (7-18); Bicarbonate 28 mmol/L (21-32); Bilirubin Direct 0.1 mg/dL (0-0.2); Bilirubin Total 0.6 mg/dL (0.2-1.0); Glucose Level 168 mg/dL (74-106); Lipase 126 U/L (73-393); Potassium 3.6 mmol/L (3.5-5.1); Protein, Total 8.5 g/dL (6.4-8.2); Sodium Level 136 mmol/L (136-145); Troponin (Emerg Dept Use Only) < 0.02 ng/mL (0.0-0.045)
--- NOTE | 2019-03-02 21:07 | EDPHYS ---
Physician Documentation [facility] Name: You Sanchez Age: 54 yrs Sex: Male : 1965 Arrival Date: 03/02/2019 Time: 19:33 Bed 6 Private MD: ED Physician Juan Ramon Crocker HPI: 03/02 20:16 This 54 yrs old Male presents to ER via Ambulatory with complaints of abd rn pain. 20:16 The patient presents with abdominal pain that is diffuse. Onset: The symptoms/episode rn began/occurred 3 hour(s) ago. The symptoms radiate to chest. The symptoms are described as crampy. Modifying factors: The symptoms are alleviated by nothing, the symptoms are aggravated by nothing. Severity of pain: At its worst the pain was moderate in the emergency department the pain has resolved. The patient has experienced a previous episode. 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 No fever/sob/cough/vomiting. + non-bloody diarrhea. No water today. Has had before, seen here, with neg workup, never happened again. Currently asymptomatic. . Historical: - Allergies: 19:52 No Known Allergies; bb - Home Meds: 19:52 losartan oral oral [Active]; Metformin Oral [Active]; atorvastatin oral oral [Active]; bb Nexium Oral [Active]; Zyrtec Oral [Active]; - PMHx: 19:52 Aneurysm; Sleep Apnea; Diabetes - NIDDM; GERD; Anxiety; bb - PSHx: 19:52 Brain aneurysm surgery; Cholecystectomy; bb - Immunization history:: Adult Immunizations up to date, Flu vaccine is up to date. - Social history:: Smoking status: Patient/guardian denies using tobacco, Patient/guardian denies using alcohol. - Ebola Screening: : No symptoms or risks identified at this time. - Family history:: not pertinent. - Hospitalizations: : No recent hospitalization is reported. ROS: 20:16 Constitutional: Negative for fever, chills, and weight loss, Eyes: Negative for injury, rn pain, redness, and discharge, Neck: Negative for injury, pain, and swelling, Cardiovascular: Negative for palpitations, and edema, Respiratory: Negative for shortness of breath, cough, wheezing, and pleuritic chest pain, Abdomen/GI: Negative for nausea, vomiting, and constipation, Back: Negative for injury and pain, MS/Extremity: Negative for injury and deformity, Skin: Negative for injury, rash, and discoloration, Neuro: Negative for headache, numbness, tingling, and seizure. Exam: 20:16 Constitutional: This is a well developed, well nourished patient who is awake, alert, rn and in no acute distress. Head/Face: Normocephalic, atraumatic. Eyes: Pupils equal round and reactive to light, extra-ocular motions intact. Lids and lashes normal. Conjunctiva and sclera are non-icteric and not injected. Cornea within normal limits. Periorbital areas with no swelling, redness, or edema. ENT: dry MM Cardiovascular: Regular rate and rhythm. No pulse deficits. Respiratory: No increased work of breathing, no retractions or nasal flaring. Abdomen/GI: soft, non-tender MS/ Extremity: Pulses equal, no cyanosis. Neurovascular intact. Full, normal range of motion. Equal circumference. Neuro: Awake and alert, GCS 15, oriented to person, place, time, and situation. Cranial nerves II-XII grossly intact. Motor strength 5/5 in all extremities. Sensory grossly intact. 21:03 ECG was reviewed by the Attending Physician. rn Vital Signs: 19:52 BP 161 / 89; Pulse 85; Resp 14 S; Temp 97.5(O); Pulse Ox 98% on R/A; Weight 108.86 kg bb (R); Height 5 ft. 9 in. (175.26 cm) (R); Pain 0/10; 20:20 BP 139 / 75; Pulse 71; Resp 18; Pulse Ox 97% on R/A; ea 21:00 BP 129 / 74; Pulse 74; Resp 18; Temp 97.4; Pulse Ox 96% on R/A; ea 19:52 Body Mass Index 35.44 (108.86 kg, 175.26 cm) bb MDM: 19:43 Patient medically screened. rn 21:03 Differential diagnosis: gastroesophageal reflux disease, non-specific abd pain, rn pancreatitis, cramping, gas pain, indigestion. Data reviewed: vital signs, nurses notes, lab test result(s), radiologic studies, plain films, and as a result, I will discharge patient. Counseling: I had a detailed discussion with the patient and/or guardian regarding: the historical points, exam findings, and any diagnostic results supporting the discharge/admit diagnosis, lab results, radiology results, the need for outpatient follow up, to return to the emergency department if symptoms worsen or persist or if there are any questions or concerns that arise at home. Response to treatment: the patient's symptoms have markedly improved after treatment, the patient's condition has returned to base line, and as a result, I will discharge patient. Special discussion: Based on the patient's history, exam, and Dx evaluation, there is no indication for emergent intervention or inpatient Tx. It is understood by the patient/guardian that if the Sx's persist or worsen they need to return immediately for re-evaluation. Based on the patient's Hx, exam, and Dx evaluation, there is no indication for emergent surgery or inpatient Tx. It is understood by the patient/guardian that if the Sx's persist or worsen they need to return immediately for re-evaluation. I discussed with the patient/guardian in detail that at this point there is no indication for admission to the hospital. It is understood, however, that if the symptoms persist or worsen the patient needs to return immediately for re-evaluation. 03/02 19:56 Order name: Glucose, Ancillary Testing; Complete Time: 21: EDOR 03/02 19:59 Order name: CBC with Diff; Complete Time: : rn 03/02 19:59 Order name: Basic Metabolic Panel; Complete Time: 21: rn 03/02 19:59 Order name: Troponin (emerg Dept Use Only); Complete Time: 21: rn 03/02 19:59 Order name: Hepatic Function; Complete Time: 21: rn 03/02 19:59 Order name: Lipase; Complete Time: 21: rn 03/02 19:59 Order name: IV Start; Complete Time: 20: rn 03/02 19:59 Order name: Labs collected and sent; Complete Time: 20: rn 03/02 19:59 Order name: XRAY Chest (1 view); Complete Time: 21: rn 03/02 19:59 Order name: EKG; Complete Time: 20:00 rn 03/02 19:59 Order name: EKG - Nurse/Tech; Complete Time: 20:07 rn 03/02 19:59 Order name: Urine Dipstick-Ancillary (obtain specimen); Complete Time: 20:18 rn 03/02 20:14 Order name: Urine Dipstick--Ancillary (enter results); Complete Time: 21:18 ar5 EC:03 Rate is 81 beats/min. Rhythm is regular. QRS [place] is Normal. [place] interval is normal. QRS rn interval is normal. QT interval is normal. No Q waves. T waves are Normal. No ST changes noted. Clinical impression: Normal ECG. Interpreted by me. Reviewed by me. Administered Medications: :18 Drug: NS 0.9% 1000 ml Route: IV; Rate: 1000 ml; Site: right antecubital; ea Point of Care Testing: Blood Glucose: 19:52 Blood Glucose: 155 mg/dL; bb Ranges: Critical Glucose Levels:Adult <50 mg/dl or >400 mg/dl <40 mg/dl or >180 mg/dl Disposition: 03/02/19 21:06 Discharged to Home. Impression: Unspecified abdominal pain, Chest pain, unspecified, Hyperventilation. - Condition is Stable. - Discharge Instructions: Abdominal Pain, Adult, Nonspecific Chest Pain, Hyperventilation, Pain Without a Known Cause. - Medication Reconciliation Form, Thank You Letter, Antibiotic Education, Prescription Opioid Use form. - Follow up: Private Physician; When: As needed; Reason: Recheck today's complaints, Re-evaluation by your physician. - Problem is new. - Symptoms have improved. Signatures: Dispatcher [employer] EDMS Tiffany Balderas RN RN Juan Ramon Thorpe MD MD rn Antunez, Elena, RN RN ea Corrections: (The following items were deleted from the chart) 21:35 21:06 03/02/2019 21:06 Discharged to Home. Impression: Unspecified abdominal pain; ea Chest pain, unspecified; Hyperventilation. Condition is Stable. Forms are Medication Reconciliation Form, Thank You Letter, Antibiotic Education, Prescription Opioid Use. Follow up: Private Physician; When: As needed; Reason: Recheck today's complaints, Re-evaluation by your physician. Problem is new. Symptoms have improved. rn
--- NOTE | 2019-03-02 21:07 | ER ---
Nurse's Notes [facility] Name: You Sanchez Age: 54 yrs Sex: Male : 1965 Arrival Date: 03/02/2019 Time: 19:33 Bed 6 Private MD: Diagnosis: Unspecified abdominal pain;Chest pain, unspecified;Hyperventilation Presentation: 03/02 19:47 Presenting complaint: Patient states: he was at his desk at work and felt a sudden bb chest and abdominal pain "like a shock" lasting a few seconds he took 2 baby aspirin then started feeling week, he thought his blood sugar may be low and ate at [employer] on the way here, he is just not feeling right. Transition of care: patient was not received from another setting of care. Onset of symptoms was March 02, 2019 at 17:00. Risk Assessment: Do you want to hurt yourself or someone else? Patient reports no desire to harm self or others. Initial Sepsis Screen: Does the patient meet any 2 criteria? No. Patient's initial sepsis screen is negative. Does the patient have a suspected source of infection? No. Patient's initial sepsis screen is negative. Care prior to arrival: Medication(s) given: ASA, 81 mg, x 2. 19:47 Method Of Arrival: Ambulatory bb 19:47 Acuity: SEPIDEH 3 bb Historical: - Allergies: 19:52 No Known Allergies; bb - Home Meds: 19:52 losartan oral oral [Active]; Metformin Oral [Active]; atorvastatin oral oral [Active]; bb Nexium Oral [Active]; Zyrtec Oral [Active]; - PMHx: 19:52 Aneurysm; Sleep Apnea; Diabetes - NIDDM; GERD; Anxiety; bb - PSHx: 19:52 Brain aneurysm surgery; Cholecystectomy; bb - Immunization history:: Adult Immunizations up to date, Flu vaccine is up to date. - Social history:: Smoking status: Patient/guardian denies using tobacco, Patient/guardian denies using alcohol. - Ebola Screening: : No symptoms or risks identified at this time. - Family history:: not pertinent. - Hospitalizations: : No recent hospitalization is reported. Screenin:20 Abuse screen: Denies threats or abuse. Nutritional screening: No deficits noted. ea Tuberculosis screening: No symptoms or risk factors identified. Fall Risk IV access (20 points). Assessment: 20:18 General: Appears in no apparent distress. Behavior is calm, cooperative. Pain: ea Complains of pain in chest. Neuro: Level of Consciousness is awake, alert, obeys commands, Oriented to person, place, time, situation. Respiratory: Airway is patent Respiratory effort is even, unlabored, Respiratory pattern is regular, symmetrical. Derm: Skin is pink, warm \\T\\ dry. 21:33 Reassessment: Patient and/or family updated on plan of care and expected duration. Pain ea level reassessed. Patient is alert, oriented x 3, equal unlabored respirations, skin warm/dry/pink. Discharge instruction given to patient, verbalized the understanding of instruction. Pt left ED ambulatory accompanied by family. Vital Signs: 19:52 BP 161 / 89; Pulse 85; Resp 14 S; Temp 97.5(O); Pulse Ox 98% on R/A; Weight 108.86 kg bb (R); Height 5 ft. 9 in. (175.26 cm) (R); Pain 0/10; 20:20 BP 139 / 75; Pulse 71; Resp 18; Pulse Ox 97% on R/A; ea 21:00 BP 129 / 74; Pulse 74; Resp 18; Temp 97.4; Pulse Ox 96% on R/A; ea 19:52 Body Mass Index 35.44 (108.86 kg, 175.26 cm) bb ED Course: 19:33 Patient arrived in ED. cf2 19:43 Juan Ramon Crocker MD is Attending Physician. rn 19:45 EKG done, by ED staff, reviewed by Juan Ramon Crocker MD. ds4 19:50 Triage completed. bb 19:52 Arm band placed on Patient placed in an exam room, on a stretcher, on baseball hand sewer, bb on pulse oximetry. Family accompanied patient. 20:18 Flora Garcia, CANDIDO is Primary Nurse. ea 20:20 Inserted saline lock: 20 gauge in right antecubital area, using aseptic technique. ds4 Blood collected. 20:20 Patient has correct armband on for positive identification. Bed in low position. Call ea light in reach. 20:22 XRAY Chest (1 view) In Process Unspecified. EDMS 21:25 IV discontinued, intact, bleeding controlled, No redness/swelling at site. Pressure ea dressing applied. 21:34 No provider procedures requiring assistance completed. ea Administered Medications: 20:18 Drug: NS 0.9% 1000 ml Route: IV; Rate: 1000 ml; Site: right antecubital; elizabeth Point of Care Testing: Blood Glucose: 19:52 Blood Glucose: 155 mg/dL; madhavi Ranges: Outcome: 21:06 Discharge ordered by . rn 21:34 Discharged to home ambulatory, with family. elizabeth 21:34 Condition: stable 21:34 Discharge instructions given to patient, Instructed on discharge instructions, follow up and referral plans. Demonstrated understanding of instructions, follow-up care. 21:35 Patient left the ED. ea Signatures: Dispatcher [employer] Tiffany Casanova RN RN bb Nieto, Roman, MD MD rn Swanson, Donovan ds4 Flora Garcia RN RN ea Frazier, Celesta cf2
[2019-03-02 21:13] LABS: Urine Blood NEGATIVE (NEG); Urine Glucose NEGATIVE (NEG); Urine Protein NEGATIVE (NEG); Urine Specific Gravity 1.015 (1.005-1.030); Urine pH 6.5 (5.0-7.0)
[2019-03-02 21:52] VITALS: BP 161/89; TEMP 97.5; O2SAT 98
--- NOTE | 2019-03-03 06:45 | EKG ---
Test Date: 2019-03-02 Test Time: 19:45:46 Cardiothoracic Icu Rn: BRENDA MEASUREMENT RESULTS: Intervals: Rate: 81 VA: 156 QRSD: 84 QT: 372 QTc: 432 [place]: P: 53 VA: 156 QRS: 46 T: 54 INTERPRETIVE STATEMENTS: Normal sinus rhythm Normal ECG Compared to ECG 06/09/2018 12:15:50 Sinus arrhythmia no longer present Electronically Signed On 03-03-19 06:44:59 DATABASE TESTER by Jae Howard
== END 2019-03-02 21:35 | disposition home or self-care (01) ==
LOC: ER 19:30
DX: R06.4 Hyperventilation (principal); R07.9 Chest pain, unspecified; E11.9 Type 2 diabetes mellitus without complications; F41.9 Anxiety disorder, unspecified; K21.9 Gastro-esophageal reflux disease without esophagitis
CPT/HCPCS: 93005; 85025; 80048; 36415; 82947; 80076; 81003; 84484; 83690; 71045; 99284; J7030

== ENCOUNTER 2019-03-22 16:44 | Emergency (ER) | payer OTHER ==
--- OUTSIDE RECORDS SUMMARY | 2019-03-22 16:49 | XMS REPORT ---
[...] Status Dosage System Date Date Vitamin D-3 [facility] 06753132149 1000 UNIT Orally Active 1 capsule Once a day Vitamin C ND 80816371717 500 MG Orally Active not defined Flax Seed Oil ND 03735267744 1000 MG Orally Active not defined Lipitor ND 61450869074 10 MG Orally Active 1 tablet Once a day Vitamin E ND 85468597260 100 UNIT Orally Active 1 capsule Once a day Aspir-81 NDC 35311316896 81 MG Orally Active 1 tablet Once a day MetFORMIN HCl [facility] 33597391068 500 MG Orally Active 2 tabs ER BID Lipitor [facility] 17785082765 10 MG Orally Active 1 tablet Once a day Losartan [facility] 53792964775 25 MG Orally Active take 1 tab Potassium Once a day Probiotic [facility] 97957165598 - Orally Active not defined Results No Known Results Immunizations Vaccine Administration Date Afluria Nov 04, 2018 Summary Purpose eClinicalWorks Submission
--- OUTSIDE RECORDS SUMMARY | 2019-03-22 16:49 | XMS REPORT ---
[...] Medications Results No Known Results Summary Purpose [facility] Submission
--- OUTSIDE RECORDS SUMMARY | 2019-03-22 16:50 | XMS REPORT ---
[...] Status Dosage System Date Date Lipitor ND 44485879587 10 MG Orally Active 1 tablet Once a day MetFORMIN HCl ER ND 59092711162 500 MG Orally Active 2 tabs BID Atorvastatin ND 50788354239 10 MG Active TAKE 1 Calcium TABLET BY MOUTH EVERY DAY Losartan ND 43398514686 25 MG Orally Active take 1 tab Potassium Once a day Probiotic [facility] 85680855887 - Orally Active not defined Vitamin E [facility] 41498432281 100 UNIT Orally Active 1 capsule Once a day MetFORMIN HCl ER [facility] 52227043534 500 MG Active TAKE 2 TABLETS BY MOUTH TWICE A DAY Flax Seed Oil [facility] 00508575224 1000 MG Orally Active not defined Vitamin D-3 [facility] 37437788892 1000 UNIT Active 1 capsule Orally Once a day Aspir-81 [facility] 11016246432 81 MG Orally Active 1 tablet Once a day Vitamin C [facility] 62151294724 500 MG Orally Active not defined Results No Known Results Summary Purpose eClinicalWorks Submission
--- OUTSIDE RECORDS SUMMARY | 2019-03-22 16:50 | XMS REPORT ---
[...] Hyperlipemia, mixed E78.2 Active Medications Medication Code System Code Instructions Start End Date Status Dosage Date Tamiflu [facility] 02741880997 75 MG Orally once Mar 21, Active 1 capsule a day 2019 Results No Known Results Summary Purpose eClinicalWorks Submission
[2019-03-22 17:36] LABS: Absolute Lymphocytes (CBC) 1.7 K/uL (0.7-4.9); Basophils % 0.5 % (0-1.3); Hematocrit 42.8 % (39.6-49.0); Lymphocytes % 18.6 % (15.3-44.8); MPV 10.5 fL (7.6-11.3); RBC Red Blood Cell Count 4.92 M/uL (4.33-5.43)
--- NOTE | 2019-03-22 17:56 | RAD REPORT ---
EXAM DESCRIPTION: RAD - Chest Single View - 03/22/2019 5:21 pm CLINICAL HISTORY: COUGH COMPARISON: Chest Single View dated 03/02/2019; Chest Single View dated 02/27/2017 TECHNIQUE: AP portable chest image was obtained 03/22/2019 5:21 pm . FINDINGS: Low lung volumes noted. No acute lung parenchymal process. Interstitial pattern matches co mparison. Heart and vasculature are normal. No measurable pleural effusion and no pneumothorax. No ac deepika bony abnormality seen. No acute aortic findings suspected. IMPRESSION: No acute cardiopulmonary process. No significant interval change.
[2019-03-22 17:58] LABS: ALT/SGPT 30 U/L (12-78); AST/SGOT 13 U/L (15-37); Albumin 3.9 g/dL (3.4-5.0); Alkaline Phosphatase 95 U/L (45-117); BUN Blood Urea Nitrogen 13 mg/dL (7-18); Bicarbonate 28 mmol/L (21-32); Bilirubin Direct 0.1 mg/dL (0-0.2); Bilirubin Total 0.4 mg/dL (0.2-1.0); Glucose Level 128 mg/dL (74-106); Magnesium 2.1 mg/dL (1.8-2.4); NT PRO-BNP 20 pg/mL (<125); Potassium 3.8 mmol/L (3.5-5.1); Protein, Total 7.8 g/dL (6.4-8.2); Sodium Level 139 mmol/L (136-145); Troponin (Emerg Dept Use Only) < 0.02 ng/mL (0.0-0.045)
[2019-03-22] MEDS ORDERED: NA CHLORIDE 0.9% 1,000 ML ONE (18:17)
--- NOTE | 2019-03-22 18:38 | RAD REPORT ---
EXAM DESCRIPTION: CT - Chest For Pe Angio - 03/22/2019 6:16 pm CLINICAL HISTORY: CHEST PAIN COMPARISON: Chest Single View dated 03/22/2019; Neck Angio dated 06/09/2018 TECHNIQUE: Dynamically enhanced 3 mm thick images of the chest were obtained during administration o f approximately 150mL Isovue 370 IV contrast. Coronal and oblique MIP reconstruction images were gene rated and reviewed. Exam utilizes a protocol to evaluate the pulmonary arterial tree. All CT scans are performed using dose optimization technique as appropriate and may include automated exposure control or mA/KV adjustment according to patient size. FINDINGS: No pulmonary emboli are identified. Far peripheral branch assessment in each base limited due to motion. Likelihood of pulmonary embolic disease is felt to be low. The aorta as imaged shows no acute or suspicious finding. No pericardial thickening or effusion. No mass or consolidation. Interstitial minimal edema or infiltrate changes are possible. No pleural e ffusion or pleural thickening. No mediastinal or hilar suspicious masses. No chest wall masses or abnormal axillary lymphadenopathy. IMPRESSION: No pulmonary emboli identified. No other significant or suspicious findings.
[2019-03-22 20:12] LABS: Urine Blood NEGATIVE (NEG); Urine Glucose NEGATIVE (NEG); Urine Protein NEGATIVE (NEG); Urine Specific Gravity 1.015 (1.005-1.030)
--- NOTE | 2019-03-22 20:14 | ER ---
Nurse's Notes [facility] Name: You Sanchez Age: 54 yrs Sex: Male : 1965 Arrival Date: 03/22/2019 Time: 16:56 Bed 30 Private MD: Diagnosis: Other chest pain;Syncope and collapse-near Presentation: 03/22 18:35 Presenting complaint: EMS states: PT HAS BEEN SEEN FOR THIS A FEW TIMES. PT GETS A PAIN ls4 IN LEFT UPPER QUAD UNDER RIB CAGE, THEN IT TRAVELS UP TO HIS FACE. THIS GOES AWAY. PT WAS FOUND TO BE HYPERVENTILATING UPON EMS ARRIVAL AND HE RECEIVED 1 MG ATIVAN IV. Transition of care: patient was not received from another setting of care. Onset of symptoms is unknown. Risk Assessment: Do you want to hurt yourself or someone else? Patient reports no desire to harm self or others. Initial Sepsis Screen: Does the patient meet any 2 criteria? No. Patient's initial sepsis screen is negative. Does the patient have a suspected source of infection? No. Patient's initial sepsis screen is negative. Care prior to arrival: None. 18:35 Method Of Arrival: EMS: [facility] ls4 18:35 Acuity: SEPIDEH 3 ls4 Triage Assessment: 18:41 General: Appears in no apparent distress. Behavior is calm, cooperative. Pain: Denies ls4 pain. Historical: - Allergies: 18:41 No Known Allergies; ls4 - PMHx: 18:41 Aneurysm; Anxiety; Diabetes - NIDDM; GERD; Sleep Apnea; ls4 - PSHx: 18:41 Brain aneurysm surgery; Cholecystectomy; ls4 - Immunization history:: Adult Immunizations up to date, Last tetanus immunization: up to date. - Coronavirus screen:: The patient has NOT traveled to [place], [place], or [place] in the past 14 days. The patient has NOT had contact with known/suspected case of Coronavirus?. - Family history:: not pertinent. - Social history:: Smoking status: Patient denies any tobacco usage or history of. - Ebola Screening: : No symptoms or risks identified at this time. Screenin:35 Abuse screen: Denies threats or abuse. Denies injuries from another. ls4 18:35 Nutritional screening: No deficits noted. Tuberculosis screening: No symptoms or risk ls4 factors identified. Fall Risk None identified. Vital Signs: 17:00 BP 125 / 84; Pulse 73; Resp 14; Temp 98.4; Pulse Ox 99% ; Pain 0/10; ls4 18:00 BP 145 / 86; Pulse 91; Resp 14; Temp 98.3; Pulse Ox 94% ; Pain 0/10; ls4 19:00 BP 144 / 66; Pulse 84; Resp 14; Temp 98.3; Pulse Ox 94% on R/A; Pain 0/10; ls4 ED Course: 16:56 Patient arrived in ED. ls4 16:56 Tanvir Boone MD is Attending Physician. ashley 17:04 Pamela Marie, CANDIDO is Primary Nurse. ls4 17:21 XRAY Chest (1 view) In Process Unspecified. EDMS 17:30 Radiology exam delayed due to lab results not completed at this time. (BUN/Creatinine) nj IV insertion attempt and/or patient not having appropriate IV at this time. 17:59 Radiology exam delayed due to lab results not completed at this time. (BUN/Creatinine). vm2 18:19 CT Chest For PE Angio In Process Unspecified. EDMS 18:35 Patient has correct armband on for positive identification. Placed in gown. Bed in low ls4 position. Call light in reach. Side rails up X2. patient monitor on. Pulse ox on. NIBP on. Warm blanket given. Verbal reassurance given. Diet: Patient is NPO. 18:35 Arm band placed on. ls4 18:35 No provider procedures requiring assistance completed. Initial lab(s) drawn, by ak, ls4 sent to lab. EKG done, reviewed by Tanvir Boone MD. Maintain EMS IV. Dressing intact. Site clean \T\ dry. Gauge \T\ site: 20 G LAC. Patient maintains SpO2 saturation greater than 95% on room air. 18:37 Triage completed. ls4 20:14 Jae Howard MD is Referral Physician. ashley 21:41 IV discontinued, intact, bleeding controlled, No redness/swelling at site. Pressure ls4 dressing applied. Administered Medications: 17:35 Drug: NS 0.9% 1000 ml Route: IV; Rate: 1 bolus; Site: right antecubital; ls4 18:20 Drug: NS 0.9% 1000 ml Route: IV; Rate: 125 ml/hr; Site: right antecubital; ls4 Outcome: 20:14 Discharge ordered by . ashley 21:41 Patient left the ED. 21:41 Discharged to home ambulatory, with family. ls4 21:41 Condition: good ls4 21:41 Discharge instructions given to patient, family, Instructed on discharge instructions, follow up and referral plans. Demonstrated understanding of instructions, follow-up care, medications. Signatures: Dispatcher [employer] EDWA Tanvir Boone MD MD cha Chretien, Felicia, RN RN Alin Flower [facility] Pamela Marie RN RN ls4
--- NOTE | 2019-03-22 20:14 | EDPHYS ---
Physician Documentation [facility] Name: You Sanchez Age: 54 yrs Sex: Male : 1965 Arrival Date: 03/22/2019 Time: 16:56 Bed 30 Private MD: ED Physician Tanvir Boone HPI: 03/22 17:51 This 54 yrs old Male presents to ER via Unassigned with complaints of Near ashley Syncope. 17:51 The patient has experienced near-syncope, felt dizzy. Onset: The symptoms/episode ashley began/occurred just prior to arrival. Context: the episode(s) was witnessed, by a bystander. Associated injury: The patient did not suffer any apparent associated injury. Associated injury: Chest:. The patient has experienced similar episodes in the past, this week. 17:53 Duration: The patient has had multiple episodes, that last 5 second(s). Associated ashley signs and symptoms: Pertinent positives: chest pain, pleuritic chest pain. Historical: - Allergies: 18:41 No Known Allergies; ls4 - PMHx: 18:41 Aneurysm; Anxiety; Diabetes - NIDDM; GERD; Sleep Apnea; ls4 - PSHx: 18:41 Brain aneurysm surgery; Cholecystectomy; ls4 - Immunization history:: Adult Immunizations up to date, Last tetanus immunization: up to date. - Coronavirus screen:: The patient has NOT traveled to [place], [place], or [place] in the past 14 days. The patient has NOT had contact with known/suspected case of Coronavirus?. - Family history:: not pertinent. - Social history:: Smoking status: Patient denies any tobacco usage or history of. - Ebola Screening: : No symptoms or risks identified at this time. ROS: 17:51 Constitutional: Negative for fever, chills, and weight loss, Eyes: Negative for injury, ashley pain, redness, and discharge, ENT: Negative for injury, pain, and discharge, Neck: Negative for injury, pain, and swelling, Respiratory: Negative for shortness of breath, cough, wheezing, and pleuritic chest pain, Abdomen/GI: Negative for abdominal pain, nausea, vomiting, diarrhea, and constipation, Back: Negative for injury and pain, : Negative for injury, bleeding, discharge, and swelling, MS/Extremity: Negative for injury and deformity, Skin: Negative for injury, rash, and discoloration, Neuro: Negative for headache, weakness, numbness, tingling, and seizure, Psych: Negative for depression, anxiety, suicide ideation, homicidal ideation, and hallucinations, Allergy/Immunology: Negative for hives, rash, and allergies, Endocrine: Negative for neck swelling, polydipsia, polyuria, polyphagia, and marked weight changes, Hematologic/Lymphatic: Negative for swollen nodes, abnormal bleeding, and unusual bruising. 17:51 Cardiovascular: Positive for chest pain. Exam: 17:51 Constitutional: This is a well developed, well nourished patient who is awake, alert, ashley and in no acute distress. Head/Face: Normocephalic, atraumatic. Eyes: Pupils equal round and reactive to light, extra-ocular motions intact. Lids and lashes normal. Conjunctiva and sclera are non-icteric and not injected. Cornea within normal limits. Periorbital areas with no swelling, redness, or edema. ENT: Nares patent. No nasal discharge, no septal abnormalities noted. Tympanic membranes are normal and external auditory canals are clear. Oropharynx with no redness, swelling, or masses, exudates, or evidence of obstruction, uvula midline. Mucous membranes moist. Neck: Trachea midline, no thyromegaly or masses palpated, and no cervical lymphadenopathy. Supple, full range of motion without nuchal rigidity, or vertebral point tenderness. No Meningismus. Chest/axilla: Normal chest wall appearance and motion. Nontender with no deformity. No lesions are appreciated. Cardiovascular: Regular rate and rhythm with a normal S1 and S2. No gallops, murmurs, or rubs. Normal PMI, no JVD. No pulse deficits. Respiratory: Lungs have equal breath sounds bilaterally, clear to auscultation and percussion. No rales, rhonchi or wheezes noted. No increased work of breathing, no retractions or nasal flaring. Abdomen/GI: Soft, non-tender, with normal bowel sounds. No distension or tympany. No guarding or rebound. No evidence of tenderness throughout. Back: No spinal tenderness. No costovertebral tenderness. Full range of motion. Male : Normal genitalia with no discharge or lesions. Skin: Warm, dry with normal turgor. Normal color with no rashes, no lesions, and no evidence of cellulitis. MS/ Extremity: Pulses equal, no cyanosis. Neurovascular intact. Full, normal range of motion. Neuro: Awake and alert, GCS 15, oriented to person, place, time, and situation. Cranial nerves II-XII grossly intact. Motor strength 5/5 in all extremities. Sensory grossly intact. Cerebellar exam normal. Normal gait. Psych: Awake, alert, with orientation to person, place and time. Behavior, mood, and affect are within normal limits. 17:51 Musculoskeletal/extremity: Extremities: all appear grossly normal, with no appreciated pain with palpation, ROM: no acute changes, Circulation is intact in all extremities. DVT Exam: No signs of deep vein thrombosis. no pain, no swelling, no tenderness, negative Homans' sign noted on exam, no appreciated bluish discoloration, no erythema, no increased warmth. Vital Signs: 17:00 BP 125 / 84; Pulse 73; Resp 14; Temp 98.4; Pulse Ox 99% ; Pain 0/10; ls4 18:00 BP 145 / 86; Pulse 91; Resp 14; Temp 98.3; Pulse Ox 94% ; Pain 0/10; ls4 19:00 BP 144 / 66; Pulse 84; Resp 14; Temp 98.3; Pulse Ox 94% on R/A; Pain 0/10; ls4 MDM: 16:56 Patient medically screened. [facility] 17:54 Data reviewed: vital signs, nurses notes, lab test result(s), EKG, radiologic studies, [facility] CT scan, plain films. 03/22 17:05 Order name: Basic Metabolic Panel [facility] 03/22 17:05 Order name: CBC with Diff; Complete Time: 18:55 [facility] 03/22 17:05 Order name: LFT's [facility] 03/22 17:05 Order name: Magnesium [facility] 03/22 17:05 Order name: NT PRO-BNP [facility] 03/22 17:05 Order name: PT-INR [facility] 03/22 17:05 Order name: Troponin (emerg Dept Use Only) [facility] 03/22 17:05 Order name: XRAY Chest (1 view); Complete Time: 18:55 [facility] 03/22 17:05 Order name: EKG; Complete Time: 17:06 [facility] 03/22 17:05 Order name: Cardiac monitoring; Complete Time: 17:57 [facility] 03/22 17:05 Order name: EKG - Nurse/Tech; Complete Time: 17:57 [facility] 03/22 17:05 Order name: IV Saline Lock; Complete Time: 17:57 [facility] 03/22 17:05 Order name: Labs collected and sent; Complete Time: 17:57 [facility] 03/22 17:05 Order name: O2 Per Protocol; Complete Time: 17:57 [facility] 03/22 17:25 Order name: CT Chest For PE Angio; Complete Time: 18:55 [facility] 03/22 18:43 Order name: Urine Dipstick--Ancillary (enter results); Complete Time: 20:13 03/22 18:56 Order name: Troponin (emerg Dept Use Only): 730pm; Complete Time: 20:13 [facility] 03/22 17:05 Order name: O2 Sat Monitoring; Complete Time: 17:57 [facility] 03/22 17:05 Order name: Urine Dipstick-Ancillary (obtain specimen); Complete Time: 17:59 [facility] 03/22 17:16 Order name: Cardiac monitoring; Complete Time: 17:58 [facility] 03/22 17:16 Order name: EKG - Nurse/Tech; Complete Time: 17:58 [facility] 03/22 17:16 Order name: IV Saline Lock; Complete Time: 17:58 [facility] 03/22 17:16 Order name: Labs collected and sent; Complete Time: 17:58 [facility] 03/22 17:16 Order name: NPO; Complete Time: 17:58 [facility] 03/22 17:16 Order name: O2 Per Protocol; Complete Time: 17:58 [facility] 03/22 17:16 Order name: O2 Sat Monitoring; Complete Time: 17:58 [facility] 03/22 17:16 Order name: Urine Dipstick-Ancillary (obtain specimen); Complete Time: 17:59 4 Administered Medications: 17:35 Drug: NS 0.9% 1000 ml Route: IV; Rate: 1 bolus; Site: right antecubital; ls4 18:20 Drug: NS 0.9% 1000 ml Route: IV; Rate: 125 ml/hr; Site: right antecubital; ls4 Disposition: 03/22/19 20:14 Discharged to Home. Impression: Other chest pain, Syncope and collapse - near. - Condition is Stable. - Discharge Instructions: Nonspecific Chest Pain, Near-Syncope, Syncope, Weakness, Near-Syncope, Etep-up-[id number], Syncope, Kfzd-[id number]-Ciom, Weakness, Hrcu-ie-Jigk, Aspirin and Your Heart. - Medication Reconciliation Form, Thank You Letter, Antibiotic Education, Prescription Opioid Use, SBAR form form. - Follow up: Private Physician; When: 2 - 3 days; Reason: Recheck today's complaints, Continuance of care, Re-evaluation by your physician. Follow up: Jae Howard; When: 2 - 3 days; Reason: Recheck today's complaints, Continuance of care, Re-evaluation by your physician. - Problem is new. - Symptoms have improved. Signatures: Dispatcher [employer] EDMN Tanvir Boone MD MD cha Chretien, Felicia RN RN Pamela Vuong RN RN ls4 Corrections: (The following items were deleted from the chart) 19:23 17:17 BASIC METABOLIC PANEL+C.LAB.BRZ ordered. [facility] EDMN 19:23 17:17 CBC+H.LAB.BRZ ordered. [facility] EDMN 19:23 17:17 HEPATIC FUNCTION+C.LAB.BRZ ordered. [facility] EDMN 19:23 17:17 PROTIME (+INR)+COAG.LAB.BRZ ordered. [facility] 21:41 20:14 03/22/2019 20:14 Discharged to Home. Impression: Other chest pain; Syncope and fc collapse - near. Condition is Stable. Discharge Instructions: Nonspecific Chest Pain, Near-Syncope, Syncope, Weakness, Near-Syncope, Mhfq-kl-Sdbq, Syncope, Xzbd-ay-Dwtf, Weakness, Hyyk-ho-Wstq, Aspirin and Your Heart. Forms are SBAR form, Medication Reconciliation Form, Thank You Letter, Antibiotic Education, Prescription Opioid Use. Follow up: Private Physician; When: 2 - 3 days; Reason: Recheck today's complaints, Continuance of care, Re-evaluation by your physician. Follow up: Jae Howard; When: 2 - 3 days; Reason: Recheck today's complaints, Continuance of care, Re-evaluation by your physician. Problem is new. Symptoms have improved. ashley
[2019-03-22 22:06] VITALS: TEMP 98.3; O2SAT 94
[2019-03-22 22:08] VITALS: BP 144/66
[2019-03-22 22:33] LABS: CKMB Creatine Kinase MB < 1.0 ng/mL (0.3-3.6); Creatine Phosphokinase 122 U/L (39-308); Lipase 148 U/L (73-393)
--- NOTE | 2019-03-23 09:39 | EKG ---
Test Date: 2019-03-22 Test Time: 17:10:13 Crushing Machine Operator: TM MEASUREMENT RESULTS: Intervals: Rate: 79 WI: 152 QRSD: 80 QT: 360 QTc: 412 [place]: P: 41 WI: 152 QRS: 37 T: 54 INTERPRETIVE STATEMENTS: Normal sinus rhythm Normal ECG Compared to ECG 03/02/2019 19:45:46 No significant changes Electronically Signed On 03-23-19 09:38:43 FLIPPING MACHINE OPERATOR by Bean Lara
== END 2019-03-22 21:41 | disposition home or self-care (01) ==
LOC: ER 16:44
DX: R07.89 Other chest pain (principal)
CPT/HCPCS: 93005; 85025; 80048; 36415; 83735; 82550; 85610; 80076; 85730; 81003; 84484 ×2; 82553; 83690; 83880; 71275; 71045; 99285; Q9967; J7030

== ENCOUNTER 2020-03-27 17:21 | Emergency (ER) | payer BC, OTHER ==
--- OUTSIDE RECORDS SUMMARY | 2020-03-27 17:24 | XMS REPORT | Clinical Summary ---
:1965 Author Organization [facility] Address [address] [place] [address] Care Team Providers Name Role Phone Mauricio Dyer DO Primary Care Provider [phone] Allergies No Known Active Allergies Medications Medication Sig Dispensed Refills Start Date End Date Status esomeprazole Take 20 mg by 0 Act rebekah (NexIUM) 20 MG mouth daily capsule before breakfast. VITAMIN E ACETATE Take 1 tablet 0 Active (VITAMIN E ORAL) by mouth daily. cetirizine Take 10 mg by 0 Activ e (ZyrTEC) 10 MG mouth daily. tablet Lactobacillus Take 1 tablet 0 Ac tive acidoph-L.bulgar by mouth (FLORANEX) 1 daily. million cell tablet aspirin (ECOTRIN) Take 81 mg by 0 Active 81 MG enteric mouth daily. coated tablet atorvastatin Take 10 mg by 0 Act rebekah (LIPITOR) 10 MG mouth daily. tablet busPIRone (BUSPAR) Take 10 mg by 0 Active 10 MG tablet mouth 2 (two) times a day. losartan (COZAAR) Take 12.5 mg 0 Active 25 MG tablet by mouth daily. metFORMIN XR Take 500 mg 0 Activ e (GLUCOPHAGE-XR) by mouth 2 500 mg 24 hr (two) times a tablet day. cholecalciferol, Take 1 tablet 0 Active vitamin D3, by mouth (VITAMIN D3 ORAL) daily. divalproex Take 2 360 capsule 3 04/28/2019 04/28/19 Active (DEPAKOTE capsules (250 21 SPRINKLE) 125 mg mg total) by mouth 2 (two) times a day. ASCORBATE CALCIUM Take 1 tablet 0 04/27/19 Discontinued (VITAMIN C ORAL) by mouth 20 (Me d List daily. Cleanup) KRILL OIL ORAL Take 1 0 04/27/19 Disco ntinued capsule by 20 (Med List mouth daily. Cleanup ) Active Problems Problem Noted Date Acute confusion 04/27/2019 Chest pain at rest 03/11/2016 Encounters Date Type Specialty Care Team Description 03/26/2020 Emergency Emergency Baylee Tyler Elevated bl ood pressure reading (Primary Dx); Kim Jimenez MD Lightheadedness 03/26/2020 Travel 05/03/2019 Travel 05/02/2019 Patient Outreach Quality Molly Cramer RN 04/27/2019 - Emergency General Internal Bean Saab Acute con fusion (Primary Dx); 04/28/2019 Kim Richardson MD FH: cerebral aneurysm Gautam Davis MD after 03/27/2019 Surgical History Surgery Date Site/Laterality Comments CEREBRAL ANEURYSM REPAIR 05/22/2011 CHOLECYSTECTOMY 02/15/2016 Medical History Medical History Date Comments Brain aneurysm 2011 Diabetes mellitus (HCC) Social History Tobacco Use Types Packs/Day Years Used Date Never Smoker Smokeless Tobacco: Never Used Alcohol Use Drinks/Week oz/Week Comments No Sex Assigned at Date Recorded Not on file Job Start Date Occupation Industry Not on file Not on file Not on file COVID-19 Exposure Response Date Recorded In the last month, have you been in contact with No / Unsure 03/26/2020 6:58 PM COMMUNITY OUTREACH WORKER someone who was confirmed or suspected to have Coronavirus / COVID-19? Last Filed Vital Signs Vital Sign Reading Time Taken Comments Blood Pressure 141/77 03/26/2020 8:30 PM COMMUNITY OUTREACH WORKER Pulse 76 03/26/2020 8:30 PM COMMUNITY OUTREACH WORKER Temperature 36.7 C (98 F) 03/26/2020 6:27 PM COMMUNITY OUTREACH WORKER Respiratory Rate 18 03/26/2020 8:30 PM COMMUNITY OUTREACH WORKER Oxygen Saturation 99% 03/26/2020 8:30 PM COMMUNITY OUTREACH WORKER Inhaled Oxygen Concentration - - Weight 113 kg (250 lb) 03/26/2020 6:27 PM COMMUNITY OUTREACH WORKER Height 172.7 cm (5' 8") 03/26/2020 6:27 PM COMMUNITY OUTREACH WORKER Body Mass Index 38.01 03/26/2020 6:27 PM COMMUNITY OUTREACH WORKER Plan of Treatment Health Maintenance Due Date Last Done Comments DIABETES: RETINAL EYE EXAM 02/28/1974 DIABETIC FOOT EXAM 02/28/1974 URINE MICROALBUMIN 02/28/1974 COVID-19 VACCINE (1 of 2) 1980 COLONOSCOPY SCREENING 02/28/2014 SHINGLES VACCINES (#1) 02/28/2014 INFLUENZA VACCINE 09/24/2019 11/04/2018, 02/15/2016 Implants Implanted Type Area Loan Clerk Device Identifier Shelf Exp iration Model / Date Serial / L ot Aneurysm Coil Procedures Procedure Name Priority Date/Time Associated Comments Diagnosis URINALYSIS SCREEN AND STAT 03/26/2020 7:59 Re sults for this MICROSCOPY, WITH REFLEX PM COMMUNITY OUTREACH WORKER proc edure are in TO CULTURE the results section. URINE CULTURE STAT 03/26/2020 7:59 Results fo r this PM [employer]RE[employer] WORKER procedure are i n the results section. CT HEAD WO CONTRAST STAT 03/26/2020 7:21 Resu lts for this PM [employer]RE[employer] WORKER procedure are i n the results section. XR CHEST 1 VW PORTABLE STAT 03/26/2020 7:19 R esults for this PM COMM[employer]RE[employer] WORKER procedure are i n the results section. ECG 12-LEAD STAT 03/26/2020 7:01 Results for this PM COMM[employer]ITY OUTRE[employer] WORKER procedure are i n the results section. ESTIMATED GFR STAT 03/26/2020 7:01 Results fo r this PM COMM[employer]REACH WORKER procedure are i n the results section. B NATRIURETIC PEPTIDE STAT 03/26/2020 7:01 Re sults for this PM COMMUNITY OUTREACH WORKER procedure are i n the results section. TROPONIN STAT 03/26/2020 7:01 Results for this PM COMMUNITY OUTREACH WORKER procedure are i n the results section. COMPREHENSIVE METABOLIC STAT 03/26/2020 7:01 Results for this PANEL PM COMMUNITY OUTREACH WORKER procedure are i n the results section. CBC WITH PLATELET AND STAT 03/26/2020 7:01 Re sults for this DIFFERENTIAL PM COMMUNITY OUTREACH WORKER procedure are i n the results section. ECG ED PRELIMINARY Routine 03/26/2020 6:43 Resul ts for this INTERPRETATION PM COMMUNITY OUTREACH WORKER procedure are in the results section. POC GLUCOSE Routine 04/28/2019 11:23 Results for this AM COMMUNITY OUTREACH WORKER procedure are i n the results section. POC GLUCOSE Routine 04/28/2019 8:18 Results for this AM COMMUNITY OUTREACH WORKER procedure are i n the results section. MRI BRAIN W WO CONTRAST Routine 04/28/2019 5:11 Results for this AM COMMUNITY OUTREACH WORKER procedure are i n the results section. POC GLUCOSE Routine 04/27/2019 8:25 Results for this PM COMMUNITY OUTREACH WORKER procedure are i n the results section. EEG AWAKE/DROWSY LESS Routine 04/27/2019 7:08 Re sults for this THAN 41 MIN PM COMMUNITY OUTREACH WORKER procedure are i n the results section. HEMOGLOBIN A1C Routine 04/27/2019 4:40 Results f or this PM COMMUNITY [employer]RE[employer] WORKER procedure are i n the results section. SEDIMENTATION RATE Routine 04/27/2019 4:40 Resul ts for this PM COMMUNITY OUTREACH WORKER procedure are i n the results section. C-REACTIVE PROTEIN Routine 04/27/2019 4:40 Resul ts for this PM COMMUNITY OUTREACH WORKER procedure are i n the results section. FAISAL Routine 04/27/2019 4:40 Results for this PM COMMUNITY OUTREACH WORKER procedure are i n the results section. TROPONIN Timed 04/27/2019 4:40 Results for this PM COMMUNITY OUTREACH WORKER procedure are i n the results section. POC GLUCOSE Routine 04/27/2019 4:34 Results for this PM COMMUNITY OUTREACH WORKER procedure are i n the results section. WEST NILE VIRUS Routine 04/27/2019 3:10 Results for this ANTIBODY PANEL, CSF PM COMMUNITY OUTREACH WORKER procedur e are in the results section. WEST NILE VIRUS BY PCR, Routine 04/27/2019 3:10 Results for this CSF PM COMMUNITY OUTREACH WORKER procedure are i n the results section. OLIGOCLONAL BANDING, Routine 04/27/2019 3:10 Res ults for this CSF PM COMMUNITY OUTREACH WORKER procedure are i n the results section. HERPES SIMPLEX VIRUS BY Routine 04/27/2019 3:10 Results for this PCR PM COMMUNITY OUTREACH WORKER procedure are i n the results section. VDRL, CSF SCREEN Routine 04/27/2019 3:10 Results for this PM COMMUNITY OUTREACH WORKER procedure are i n the results section. IGG SYNTHESIS RATE Routine 04/27/2019 3:10 Resul ts for this STUDY PM COMMUNITY OUTREACH WORKER procedure are i n the results section. GLUCOSE LEVEL, CSF Routine 04/27/2019 3:10 Resul ts for this PM COMMUNITY OUTREACH WORKER procedure are i n the results section. PROTEIN, CSF Routine 04/27/2019 3:10 Results for this PM COMM[employer]ITY [employer]REACH WORKER procedure are i n the results section. CSF CELL COUNT WITH Routine 04/27/2019 3:10 Resu lts for this DIFFERENTIAL PM COMMUNITY OUTREACH WORKER procedure are i n the results section. CRYPTOCOCCAL ANTIGEN Routine 04/27/2019 3:10 Res ults for this SCREEN PM COMMUNITY OUTREACH WORKER procedure are i n the results section. IR LUMBAR PUNCTURE Routine 04/27/2019 3:05 Resul ts for this PM COMMUNITY OUTREACH WORKER procedure are i n the results section. GRAM STAIN Routine 04/27/2019 2:10 Results for this PM COMMUNITY OUTREACH WORKER procedure are i n the results section. AFB CULTURE Routine 04/27/2019 2:10 Results for this PM COMMUNITY OUTREACH WORKER procedure are i n the results section. FUNGUS CULTURE Routine 04/27/2019 2:10 Results f or this PM COMMUNITY OUTREACH WORKER procedure are i n the results section. CSF CULTURE Routine 04/27/2019 2:10 Results for this PM COMMUNITY OUTREACH WORKER procedure are i n the results section. HEMOGLOBIN A1C Routine 04/27/2019 1:07 Results f or this PM COMMUNITY [employer]REACH WORKER procedure are i n the results section. LIPID PANEL Routine 04/27/2019 1:07 Results for this PM COMMUNITY [employer]REACH WORKER procedure are i n the results section. T4, FREE Routine 04/27/2019 1:07 Results for this PM COMMUNITY OUTREACH WORKER procedure are i n the results section. THYROID STIMULATING Routine 04/27/2019 1:07 Resu lts for this HORMONE PM COMMUNITY OUTREACH WORKER procedure are i n the results section. VITAMIN B12 LEVEL Routine 04/27/2019 1:07 Result s for this PM COMMUNITY OUTREACH WORKER procedure are i n the results section. TROPONIN Timed 04/27/2019 1:07 Results for this PM COMMUNITY OUTREACH WORKER procedure are i n the results section. VITAMIN B1 LEVEL, WHOLE STAT 04/27/2019 12:28 Results for this BLOOD PM COMMUNITY OUTREACH WORKER procedure are i n the results section. CT ANGIOGRAM NECK W WO STAT 04/27/2019 10:55 R esults for this CONTRAST AM COMMUNITY OUTREACH WORKER procedure are i n the results section. CT ANGIOGRAM HEAD W WO STAT 04/27/2019 10:53 R esults for this CONTRAST AM COMMUNITY OUTREACH WORKER procedure are i n the results section. URINE DRUGS OF ABUSE Routine 04/27/2019 10:46 Res ults for this SCREEN AM COMMUNITY OUTREACH WORKER procedure are i n the results section. URINALYSIS SCREEN AND STAT 04/27/2019 10:46 Re sults for this MICROSCOPY, WITH REFLEX AM COMMUNITY OUTREACH WORKER proc edure are in TO CULTURE the results section. ECG 12-LEAD STAT 04/27/2019 10:40 Results for this AM COMMUNITY OUTREACH WORKER procedure are i n the results section. URINE CULTURE STAT 04/27/2019 10:35 Results fo r this AM COMMUNITY OUTREACH WORKER procedure are i n the results section. POC GLUCOSE Routine 04/27/2019 10:32 Results for this AM COMMUNITY OUTREACH WORKER procedure are i n the results section. CT STROKE BRAIN WO STAT 04/27/2019 10:24 Resul ts for this CONTRAST AM COMMUNITY OUTREACH WORKER procedure are i n the results section. CREATINE KINASE, TOTAL STAT 04/27/2019 10:14 R esults for this (CPK) AM COMMUNITY OUTREACH WORKER procedure are i n the results section. ESTIMATED GFR STAT 04/27/2019 10:14 Results fo r this AM COMMUNITY OUTREACH WORKER procedure are i n the results section. TROPONIN STAT 04/27/2019 10:14 Results for this AM COMMUNITY OUTREACH WORKER procedure are i n the results section. COMPREHENSIVE METABOLIC STAT 04/27/2019 10:14 Results for this PANEL AM COMMUNITY OUTREACH WORKER procedure are i n the results section. PROTHROMBIN TIME WITH STAT 04/27/2019 10:14 Re sults for this INR AM COMMUNITY OUTREACH WORKER procedure are i n the results section. PARTIAL THROMBOPLASTIN STAT 04/27/2019 10:14 R esults for this TIME (PTT) AM COMMUNITY OUTREACH WORKER procedure are i n the results section. HC COMPLETE BLD COUNT STAT 04/27/2019 10:14 Re sults for this W/AUTO DIFF AM COMMUNITY OUTREACH WORKER procedure are i n the results section. ECG ED PRELIMINARY Routine 04/27/2019 10:13 Resul ts for this INTERPRETATION AM COMMUNITY OUTREACH WORKER procedure are in the results section. after 03/27/2019 Results Urinalysis screen and microscopy, with reflex to culture (03/26/2020 7:59 PM COMMUNITY OUTREACH WORKER)Only the most recent of2 resultswithin the time period is included. Pathologist Sig nature Specimen site Clean catch [facility] Color, UA Straw [facility] Appearance, UA Clear [facility] Specific gravity, 1.017 1.001 - 1.[address] [facility] pH, UA 6.0 5.0 - 9.0 [facility] Protein, UA Negative Negative [facility] Glucose, UA 3+ (A) Negative [facility] Ketones, UA Trace (A) Negative [facility] Bilirubin, UA Negative Negative [facility] Blood, UA Negative Negative [facility] Nitrite, UA Negative Negative [facility] Urobilinogen, UA <2.0 <2.0 E.U./dL [facility] Leukocyte esterase, Negative Negative [facility] WBC, UA <1 0 - 1 /HPF [facility] RBC, UA 2 0 - 5 /HPF [facility] Bacteria, UA None seen None seen [facility] Yeast, UA None seen [facility] Yeast with None seen [facility] pseudohyphae, UA [facility] Specimen Urine Performing Organization Address City/[facility]/ZIP Code Phon e Number [facility] DEPARTMENT OF PATHOLOGY [id number] [facility]. [facility] X [address] [facility] [id number] [place] [address] X [address] [facility] Urine culture (03/26/2020 7:59 PM COMMUNITY OUTREACH WORKER)Only the most recent of2 resultswithin the time period is included. Pathologist Sig nature Urine culture SEE COMMENTComment: [facility] Bacteriuria screen [facility] negative. Specimen Performing Organization Address City/[facility] Phon e Number [facility] DEPARTMENT OF PATHOLOGY [address] [facility]. [facility] X [address] [facility] [id number] [place] [address] X [phone] [facility] CT Head Wo Contrast (03/26/2020 7:21 PM COMMUNITY OUTREACH WORKER) Specimen Narrative Performed At EXAMINATION: CT HEAD WO CONTRAST [facility] CLINICAL HISTORY: HTN dizziness COMPARISON: Brain MR April 28, 2019. He ad CT April 27, 2019 TECHNIQUE: Noncontrast head CT performed using radiati on dose reduction techniques. Technical factors are evaluated and adju sted to ensure appropriate moderation of exposure. Automated dose m anagement technology is applied to adjust radiatio n exposure while achieving a diagnostic quality reed ge. FINDINGS: No evidence of acute intracranial hemorrhage, mass, ma ss effect, midline shift, or acute infarct. Beam hardening artifact about the left terminal ICA aneurysm coiling. Ventricles and sulci are normal in appearance for colby ent's age. Basal cisterns are clear. Calvarium is intact. Orbits are normal in appearance. No significant parana ian sinus mucosal thickening. Mastoid air cells are clear. IMPRESSION: 1. No CT evidence of acute intracranial abnormality. [id number] Procedure Note Hm Interface, Radiology Results Incoming - 03/26/2020 7:30 PM COMMUNITY OUTREACH WORKER EXAMINATION: CT HEAD WO CONTRAST CLINICAL HISTORY: HTN dizziness COMPARISON: Brain MR April 28, 2019. Hea d CT April 27, 2019 TECHNIQUE: Noncontrast head CT performed using radiation dose reduction techniques. Technical factors are evaluated and adjusted to ensure appropriate moderation of exposure. Automated dose management technology is applied to adjust radiation exposure while achieving a diagnostic quality reed ge. FINDINGS: No evidence of acute intracranial hemorr cesar, mass, mass effect, midline shift, or acute infarct. Beam hardening artifact about the left terminal ICA aneurysm coiling. Ventricles and sulci are normal in appea gibran for patient's age. Basal cisterns are clear. Calvarium is intact. Orbits are normal in appearance. No sign ificant paranasal sinus mucosal thickening. Mastoid air cells are clear. IMPRESSION: 1. No CT evidence of acute intracranial abnormality. [id number] Performing Organization Address [facility]/ZIP Code Phon e Number [facility] [address] [place] [address] XR Chest 1 Vw Portable (03/26/2020 7:19 PM COMMUNITY OUTREACH WORKER) Specimen Narrative Performed At EXAMINATION: XR CHEST 1 VW PORTABLE [facility] CLINICAL HISTORY: HTN COMPARISON: 03/11/2016 IMPRESSION: No active disease in the chest. Lungs are clear. Cardiomediastinal silhouette is within n ormal limits. No effusion or pneumothorax noted. Visualized osseous structures are intact . [id number] Procedure Note Hm Interface, Radiology Results Incoming - 03/26/2020 7:28 PM COMMUNITY OUTREACH WORKER EXAMINATION: XR CHEST 1 VW PORTABLE CLINICAL HISTORY: HTN COMPARISON: 03/11/2016 IMPRESSION: No active disease in the chest. Lungs are clear. Cardiomediastinal silhouette is within n ormal limits. No effusion or pneumothorax noted. Visualized osseous structures are intact . [id number] Performing Organization Address [facility] Phon e Number [facility] [address] [place] [address] ECG 12 lead (03/26/2020 7:01 PM COMMUNITY OUTREACH WORKER)Only the most recent of2 resultswithin the time period is included. Pathologist Sig nature Ventricular rate 79 [facility] Atrial rate 79 [facility] SC interval 150 [facility] QRSD interval 86 [facility] QT interval 362 [facility] QTC interval 415 [facility] P axis 1 49 [facility] QRS axis 1 46 [facility] T wave axis 26 [facility] EKG impression Normal sinus [facility] rhythm-Normal ECG-In automated comparison with ECG of 27-APR-2019 10:40,-No significant change was found- Specimen Narrative Performed At This result has an attachment that is no t available. Performing Organization Address City/State/ZIP Code Phon e Number [facility] MUSE [address] [place] [address] Estimated GFR (03/26/2020 7:01 PM COMMUNITY OUTREACH WORKER)Only the most recent of2 resultswithin the time period is included. Estimated GFR >=90 mL/min/1.73 FLANAGAN RASTAFARI Comment: m2 [facility] [employer] Interpretation [facility]OS PITAL G1 >=90 Normal or high G2 60-89 Mildly decreased G3a 45-59 Mildly to moderately decreas ed G3b 30-44 Moderately to severely decre ased G4 15-29 Severely decreased G5 <15 Kidney failure The eGFR was calculated using the Chronic Kidney Disea se Epidemiology Collaboration (CKD-EPI) equation. Interpretation is based on recommendations of the National Kidney Foundation-Kidney Disease Outcomes Vinay lity Initiative (NKF-KDOQI) published in 2014. Specimen Performing Organization Address City/[facility]/ZIP Code Phon e Number [facility] DEPARTMENT OF PATHOLOGY [address] [facility] [place] [address] AND [facility] MEDICINE [facility] [address] [facility] [place] [address] HOSPITAL Troponin (03/26/2020 7:01 PM COMMUNITY OUTREACH WORKER)Only the most recent of4 resultswithin the time period is included. Pathologist [facility] Troponin <0.006 0.000 - 0.040 MASHA LESLIE Comment: ng/mL [facility] In patients suspected of having a myocardial infarctio n, along with all other appropriate clinical measures and actions includ ing ECG and other diagnostics as appropriate, measure Ultra TnI at 0 hrs and at 3 hrs. Myocardial infarction VERY LIKELY The 0 hr TnI level is > 0.10 ng/mL Myocardial infarction LIKELY The 0 hr TnI level is > 0.04 ng/mL and 3 hr level is i ncreased or decreased by at least 0.020 ng/mL Myocardial infarction VERY UNLIKELY Both the 0 hr and 3 hr TnI levels <= 0.04 ng/mL(within normal limits) OR 0 hr is > 0.04 ng/mL and 3 hr is increased OR decreased by less than 0.020 ng/mL Specimen Blood Performing Organization Address City/State/[facility] Code Phon e Number [facility] DEPARTMENT OF PATHOLOGY [address] [facility] X [address] AND GENOMIC MEDICINE [facility] [address] [facility] X [address] HOSPITAL CBC with platelet and differential (03/26/2020 7:01 PM COMMUNITY OUTREACH WORKER)Only the most recent of2 resultswithin the time period is included. WBC 10.2 4.5 - 11.0 k/uL [facility] RBC 5.11 4.40 - 6.00 [facility] m/uL [facility] HGB 14.8 14.0 - 18.0 [facility] g/dL [facility] HCT 45.5 41.0 - 51.0 % [facility] MCV 89.0 82.0 - 100.0 fL [facility] MCH 29.0 27.0 - 34.0 pg [facility] MCHC 32.5 31.0 - 37.0 [facility] g/dL [facility] RDW - SD 40.9 37.0 - 55.0 fL [facility] MPV 11.6 (H) 6.9 - 11.0 fL [facility] Platelet count 216 150 - 400 K/uL [facility] Nucleated RBC 0.00 /100 WBC [facility] Neutrophils 73.2 (H) 39.0 - 69.0 % [facility] Lymphocytes 18.8 (L) 25.0 - 45.0 % [facility] Monocytes 6.2 0.0 - 10.0 % [facility] Eosinophils 1.1 0.0 - 5.0 % [facility] Basophils 0.3 0.0 - 1.0 % [facility] Immature granulocytes 0.4 0.0 - 1.0 % [facility] Specimen Blood Performing Organization Address City/[facility]/ZIP Code Phon e Number [facility] DEPARTMENT OF PATHOLOGY [id number] [place] [address] [facility] [id number] [place] [address] B natriuretic peptide (03/26/2020 7:01 PM COMMUNITY OUTREACH WORKER) Pathologist Sig nature BNP 17 0 - 100 pg/mL [facility] Specimen Blood Performing Organization Address City/[facility]/ZIP Code Phon e Number [facility] DEPARTMENT OF PATHOLOGY [id number] [place] [address] Comprehensive metabolic panel (03/26/2020 7:01 PM COMMUNITY OUTREACH WORKER)Only the most recent of2 resultswithin the time period is included. Pathologist Sig [facility] Sodium 136 135 - 148 mEq/L [facility] Potassium 4.0 3.5 - 5.0 mEq/L [facility] Chloride 101 98 - 112 mEq/L [facility] CO2 25 24 - 31 mEq/L [facility] Anion gap 10@ANIO 7 - 15 mEq/L [facility] BUN 9 6 - 20 mg/dL [facility] Creatinine 0.85 0.70 - 1.20 [facility] mg/dL [facility] Glucose 125 (H) 65 - 99 mg/dL [facility] Calcium 10.3 (H) 8.3 - 10.2 [facility] mg/dL [facility] Protein 8.2 6.3 - 8.3 g/dL [facility] Albumin 4.6 3.5 - 5.0 g/dL [facility] A/G ratio 1.3 0.7 - 3.8 [facility] Alkaline phosphatase 101 40 - 129 U/L [facility] AST 24 10 - 50 U/L [facility] ALT 31 5 - 50 U/L [facility] Total bilirubin 0.7 0.2 - 1.2 mg/dL [facility] Specimen Blood Performing Organization Address City/[facility]/ZIP [place] [facility] Phon e Number [facility] DEPARTMENT OF PATHOLOGY [address] [facility]. [facility] [facility] [address] [facility] [id number] [place] [id number] [place] [address] ECG ED Preliminary Interpretation - Not an Order (03/26/2020 6:43 PM COMMUNITY OUTREACH WORKER)Only the most recent of2 resultswithin the time period is included. Narrative Performed At Baylee Tyler MD 021 11:23 PM ECG ED Preliminary Interpretation - Not an Order Performed by: Lorna Contreras PA-C Authorized by: Baylee Tyler MD ECG reviewed by ED Physician in the abse nce of a web search evaluator: yes Rate: ECG rate: 79 ECG rate assessment: normal Rhythm: Rhythm: sinus rhythm QRS: QRS intervals: Normal Conduction: Conduction: normal ST segments: ST segments: Normal T waves: T waves: normal POC glucose (04/28/2019 11:23 AM COMMUNITY OUTREACH WORKER)Only the most recent of5 resultswithin the time period is included. Pathologist Sig nature POC glucose 158 (H) 65 - 99 mg/dL [facility] Comment: [facility] Package Sealer Machine Name: Virgilio Colon Device ID: [id number] Chartable: RN Notified Specimen Performing Organization Address City/[facility] Code Phon e Number [facility] DEPARTMENT OF PATHOLOGY [address] [facility] [place] [address] [place] [address] [facility] MRI Brain W Wo Contrast (04/28/2019 5:11 AM COMMUNITY OUTREACH WORKER) Specimen Narrative Performed At This result has an attachment that is no t available. EXAMINATION: MRI BRAIN W WO CONTRAST HM [facility] CLINICAL HISTORY: Focal neuro deficit > 6 hrs stroke suspected, Altered level of consciousness (LOC) unexplained, PLEASE SCREEN FOR CEREBRAL ANEURYSM COILS COMPARISON: CT 04/27/2019. TECHNIQUE: Multiplanar and multisequence MRI imaging of the brain was obtained with and without contrast. FINDINGS: No diffusion restriction to suggest acut e ischemia. Pre and postcontrast enhanced images shows no intracranial mass or abnormal enhancing brain lesion. Susceptibility in left paraclinoid region related to embolization coils. No other abnormal susceptibility to suggest intracranial hemorrhage. Brain volume is normal. No acute hydrocephalus or extra-axial fl uid collection identified. Midline structures are maintained. Major flow voids in the skull base are identified. Paranasal sinuses and mastoid air cells are clear. Orbits are normal. Visualized soft tissue shows no gross abnormalities. IMPRESSION: No acute intracranial abnormality identified. No enhan cing lesion appreciated. [facility]-[id number] Procedure Note Hm Interface, Radiology Results Incoming - 04/28/2019 5:20 AM COMMUNITY OUTREACH WORKER EXAMINATION: MRI BRAIN W WO CONTRAST CLINICAL HISTORY: Focal neuro deficit > 6 hrs stroke suspected, Altered level of consciousness (LOC) unexplained, PLEASE SCREEN FOR CEREBRAL ANEURYSM COILS COMPARISON: CT 04/27/2019. TECHNIQUE: Multiplanar and multisequence MRI imaging of the brain was obtained with and without contrast. FINDINGS: No diffusion restriction to suggest acut e ischemia. Pre and postcontrast enhanced images shows no intracranial mass or abnormal enhancing brain lesion. Susceptibility in left paraclinoid region related to embolization coils. No other abnormal susceptibility to suggest intracranial h emorrhage. Brain volume is normal. No acute hydrocephalus or extra-axial fl uid collection identified. Midline structures are maintained. Major flow voids in the skull base are identified. Paranasal sinuses and mastoid air cells are clear. Orbits are normal. Visualized soft tissue shows no gross abnormalities. IMPRESSION: No acute intracranial abnormality identi fied. No enhancing lesion appreciated. [facility]-[id number] Performing Organization Address City/State/ZIP Code Phon e Number [facility] [address] [place] [address] EEG (routine) (04/27/2019 7:08 PM COMMUNITY OUTREACH WORKER) Narrative Performed At This result has an attachment that is no t available. Date of Study Completion: April 27, 2019 Date of Interpretation: April 28, 2019 Ordering Provider: Dr. Abhijit Alexander Inpatient Electroencephalogram Report History: 54 year old man being treated for a brain les ion leading to periods of encephalopathy. Please evaluate the underly ing cerebral activity and rule out interictal epileptiform discharg es. Technical Description: The recording was started at 17:42 and ended at 18:02 on 04/27/2019. It was a digitally recorded multi-montage EEG with 21 electro ayaz placed according to the International 10/20 system. An EKG strip was re corded continuously. True eye leads were not employed. True temporal lead s were not employed. EEG Description: When maximally aroused, the awake background was ludwig cterized by a well-developed 9 to 10 Hz, 20 to 40 microvolts symmetr ic posterior rhythm that attenuated appropriately to eye opening. The colby ent becomes drowsy over the course of the recording as evidenced by the d ropout of the posterior rhythm and the emergence of a diffuse 2 to 7 Hz, 40 to 60 microvolts irregular slow activity. No definitive interictal epileptiform discharges or el ectrographic seizures were appreciated. Sleep Recording: Stage II sleep was not recorded. Activation Procedures: Hyperventilation was not attempted. Photic stimulation utilizing flash frequencies ranging from 5 to 30 Hz did not elicit a d riving response. EEG Interpretation: This was a normal awake and drow sy EEG. 1. No paroxysmal discharges were observed. Clinical Correlation: 1. The absence of interictal epileptiform discharges d oes not rule out an underlying tendency for unprovoked seizures (epilepsy) . Note, however, that an EEG recording preceded by sleep deprivation or a prolonged recording during sleep would increase the statistical likelihood of detecting interictal discharges, and should be conside red if pursuing a diagnosis of epilepsy. Sedimentation rate (04/27/2019 4:40 PM COMMUNITY OUTREACH WORKER) [facility]ologist [facility] Sedimentation rate 9 0 - 10 mm/hr [facility] Specimen Blood Performing Organization Address [facility] Phon e Number [facility] DEPARTMENT OF PATHOLOGY [address] [facility] X [address] [facility] [id number] [place] [id number] [place] [address] C-reactive protein (04/27/2019 4:40 PM COMMUNITY OUTREACH WORKER) [facility] CRP <0.30 0.00 - 0.50 mg/dL [facility] Specimen Plasma specimen Performing Organization Address [facility]/ZIP [facility] Phon e Number [facility] DEPARTMENT OF PATHOLOGY AND [address] [place], [place] [address] [address] FAISAL (04/27/2019 4:40 PM COMMUNITY OUTREACH WORKER) Pathologist [facility] FAISAL screen Negative Negative [facility] Comment: HOSPITAL Test performed using NOVA YABUYe DAPI FAISAL kit (Indirect Immunofluorescence Assay) for Anti-Nuclear Antibody on ExopriseA-Lyser 160 Analyzer. Specimen Blood Performing Organization Address City/[facility]/ZIP [facility] Phon e Number [facility] DEPARTMENT OF PATHOLOGY AND [address] [place] [address] [phone] [address] Hemoglobin A1c (04/27/2019 4:40 PM COMMUNITY OUTREACH WORKER)Only the most recent of2 resultswithin the time period is included. Hemoglobin A1C 6.6 (H) 4.0 - 5.6 % [facility] Comment: [facility] HbA1c cutoffs for diagnosing diabetes: HO SPITAL 4.0% - 5.6% = normal 5.7% - 6.4% = increased risk for diabetes (prediabetes )9 >=6.5% = diabetes9 Goals for glycemic control (ADA 2016) < 7.0% Target for non adults with diabetes. More or less stringent targets may be appropriate for individual patients. <7.5% Target for Children and adolescents with type 1 diabetes. Specimen Blood Performing Organization Address [facility] Phon e Number [facility] DEPARTMENT OF PATHOLOGY [address] [facility] [place] [address] [facility] [address] [facility] [address] HOSPITAL IgG synthesis rate study (04/27/2019 3:10 PM COMMUNITY OUTREACH WORKER) Pathologist Sig nature IgG albumin ratio, 0.14 0.00 - 0.23 [facility] IgG index, CSF 0.41 0.01 - 0.63 [facility] IgG synthetic rate -1.73 -9.90 - 3.30 [facility] mg/day HOSPITAL Q-albumin ratio, CSF 5.98 2.00 - 7.50 [facility] IgG, CSF 3.11 (H) 1.00 - 3.00 [facility] mg/dL HOSPITAL Albumin, CSF 22.71 10.00 - 30.00 [facility] mg/dL HOSPITAL IgG 1,281 700 - 1,600 [facility] mg/dL [facility] Albumin, S 3,800.0 3,640.0 - [facility] 5,304.0 mg/dL HOSPITAL Specimen Serum Performing Organization Address City/[facility]/ZIP [facility] Phon e Number [facility] DEPARTMENT OF PATHOLOGY AND [address] [place], [place] [address] [place] [address] West Nile virus by PCR, CSF (04/27/2019 3:10 PM COMMUNITY OUTREACH WORKER) West Nile virus Not-Detected Not-Detected [facility] PCR, CSF [facility] West Nile virus See link below [facility] PCR, CSF for PDF Lab HOSPITAL ReportComment: Specimen Cerebrospinal fluid Performing Organization Address City/State/ZIP Code Phon e Number [facility] DEPARTMENT OF PATHOLOGY AND [address] [place], [place] [address] GENOMIC MEDICINE [facility] [address] [place] [address] [facility] West Nile virus antibody panel, CSF (04/27/2019 3:10 PM COMMUNITY OUTREACH WORKER) West Nile IgG, 0.09 <=1.29 IV [facility] CSF Comment: INTERPRETIVE INFORMATION: West Nile Virus Ab IgG by ESME GIBBONS, CSF 1.29 IV or less ....... Negative: No significant level of West N ile virus IgG antibody de tected. 1.30 - 1.49 IV ........ Equivocal: Questionable presence of Tani t Nile virus IgG antib mercedez detected. Repeat testing in 10-14 days may be helpful. 1.50 IV or greater .... Positive: Presence of IgG antibody to Tani t Nile virus detected, sugge stive of current or past infection. This test is intended to be used as a semi-quantitativ e means of detecting West Nile virus-specific IgG in CSF samples in which there is a clinical suspicion of West Nile Virus infec tion. This test should not be used solely for quantitative purpos es, nor should the results be used without correlation to clin ical history or other data. Because other members of the Flavivirid ae family, such as [place] encephalitis virus, show extensive cross-reactivity with West Nile virus, serologic testi ng specific for these species should be considered. The detection of antibodies to West Nile virus in cere brospinal fluid may indicate central nervous system infection. H owever, consideration must be given to possible contamination by blood or transfer of serum antibodies across the blood-brain ba rrier. Test developed and characteristics determined by [employer]. See Compliance Statement B: [email or web address] STEPHAN West Nile IgM, 0.00 <=0.89 IV [facility] CSF Comment: INTERPRETIVE INFORMATION: West Nile Virus Ab IgM by ESME SHAI, CSF 0.89 IV or less ...... Negative - No significant level of West Nile virus I gM antibody detected. 0.90-1.10 IV ......... Equivocal - Questionable presen ce of West Nile virus I gM antibody detected. Repeat tamie ting in 10-14 days may be he lpful. 1.11 IV or greater ... Positive - Presence of IgM antibody to West Nil e virus detected, suggestive of current or recent infection. This test is intended to be used as a semi-quantitativ e means of detecting West Nile virus-specific IgM in CSF samples in which there is a clinical suspicion of West Nile virus infec tion. This test should not be used solely for quantitative purpos es, nor should the results be used without correlation to clin ical history or other data. Because other members of the Flavivirid ae family, such as [place] encephalitis virus, show extensive cross-reactivity with West Nile virus, serologic testi ng specific for these species should be considered. The detection of antibodies to West Nile virus in cere brospinal fluid may indicate central nervous system infection. H owever, consideration must be given to possible contamination by blood or transfer of serum antibodies across the blood-brain ba rrier. Test developed and characteristics determined by [employer]. See Compliance Statement B: [email or web address]/ CS Performed by [employer], [address] [place] [id number] [email or web address], Chi Pugh MD, Lab. Director Specimen Cerebrospinal fluid Performing Organization Address City/[facility] Phon e Number [facility] [address] [place] [address] [facility] [address] [place] [address] Herpes simplex virus by PCR (04/27/2019 3:10 PM COMMUNITY OUTREACH WORKER) Herpes virus, PCR Not-Detected Not-Detected [facility] Herpes virus, PCR See link below [facility] for PDF Lab HOSPITAL ReportComment: Specimen Performing Organization Address City/[facility] Phon e Number [facility] DEPARTMENT OF PATHOLOGY AND [address] [place] [phone] GENOMIC MEDICINE [address] [address] [facility] Cryptococcal antigen, screen (04/27/2019 3:10 PM COMMUNITY OUTREACH WORKER) Cryptococcal Ag Negative - No Cryptococcus antigen detected. MASHA MALAGONIST Comment: HOSPITAL Specimen Information Specimen Source: CSF (Spinal Fluid) Specimen Site: Lumbar puncture Specimen Cerebrospinal fluid - Lumbar puncture Performing Organization Address [facility] Phon e Number [facility] DEPARTMENT OF PATHOLOGY AND [address] [place] [address] [phone] [address] Oligoclonal banding, CSF (04/27/2019 3:10 PM COMMUNITY OUTREACH WORKER) Pathologist Jenn Protein, CSF 37 15 - 45 [facility] mg/dL [facility] Prealbumin, CSF (%) 3.6 3.5 - 11.1 % [facility] Albumin, CSF 61.8 40.8 - 66.2 [facility] Alpha 1, CSF (%) 2.6 2.3 - 6.4 % [facility] Alpha 2, CSF (%) 7.8 6.1 - 12.6 % [facility] Beta, CSF (%) 15.8 11.7 - 24.1 [facility] Gamma, CSF (%) 8.4 5.6 - 12.2 % [facility] CSF extended See [facility] interpretation CommentComment: An [facility] normal [facility] CSF protein study. No oligoclonal bands seen. CSF interpretation See [facility] CommentComment: RASTAFARI Morales Noble MD; [facility] Sasha Wang, PhD; Suhail Fuentes MD, PhD Specimen Cerebrospinal fluid Performing Organization Address City/[facility] Phon e Number [facility] DEPARTMENT OF PATHOLOGY AND [address] [place] [address] [phone] [address] CSF cell count with differential (04/27/2019 3:10 PM COMMUNITY OUTREACH WORKER) Pathologist Sig nature CSF tube number Tube 2 [facility] Color, CSF Colorless [facility] Appearance, CSF Clear [facility] RBC, CSF 1 0 - 1 /CMM [facility] WBC, CSF 2 0 - 5 /CMM [facility] CSF mononuclear cell 2/CMM [facility] Specimen Cerebrospinal fluid Performing Organization Address City/[facility]/ZIP [facility] Phon e Number [facility] DEPARTMENT OF PATHOLOGY [id number] [place] [address] VDRL, CSF screen (04/27/2019 3:10 PM COMMUNITY OUTREACH WORKER) Pathologist Sig nature VDRL, CSF screen Non-reactive Non-reactive [facility] Specimen Cerebrospinal fluid Performing Organization Address City/[facility]/ZIP [facility] Phon e Number [facility] DEPARTMENT OF PATHOLOGY AND [address] [place] [address] [phone] [address] Protein, CSF (04/27/2019 3:10 PM COMMUNITY OUTREACH WORKER) Pathologist Sig nature Protein, CSF 43 15 - 45 mg/dL [facility] Specimen Cerebrospinal fluid Performing Organization Address City/[facility] Phon e Number [facility] DEPARTMENT OF PATHOLOGY [id number] [place] [address]. [place] [address] Glucose level, CSF (04/27/2019 3:10 PM COMMUNITY OUTREACH WORKER) Pathologist Sig nature Glucose, CSF 93 (H) 40 - 70 mg/dL [facility] Specimen Cerebrospinal fluid Performing Organization Address City/[facility] Phon e Number [facility] DEPARTMENT OF PATHOLOGY [id number] [place] [address] IR Lumbar Puncture by Radiology (04/27/2019 3:05 PM COMMUNITY OUTREACH WORKER) Specimen Narrative Performed At EXAMINATION: IR LUMBAR PUNCTURE HM [facility] CLINICAL HISTORY: Cerebral aneurysm SAH cerebral vasospasm eval, Headache acute severe worst GUERRERO of life COMPARISON: None. TECHNIQUE: Informed consent was obtained from the patient prior t o exam. Total fluoroscopy time registered 0 minutes. Total radiation dosage was 1.9 mGy. 2 images were stored during fluoroscopy to docu ment the level of needle placement. The patient was prepped in a sterile fashion in the pr one position. 1% Xylocaine was utilized for local anesthesia. 1 mg P.O. Ativan was given for sedation. Utilizing fluoroscopic guidance, a 22-gauge spinal nee dle was placed into the subarachnoid space at the L2-3 level. The o pening pressure was 12 cm. 20 mL of cerebrospinal fluid was withdrawn and sent to the laboratory for analysis. There were no complications. The primary surgeon was Dr. Gan. The re were no assistants. There was no significant blood loss. The patient was sent to the recovery room after the procedure and discharge d after he met discharge criteria. IMPRESSION: Successful fluoroscopic-guided lumbar puncture to eval uate the patient's headaches and treated aneurysm. [facility]-[id number] Procedure Note Hm Interface, Radiology Results Incoming - 04/27/2019 4:07 PM COMMUNITY OUTREACH WORKER EXAMINATION: IR LUMBAR PUNCTURE CLINICAL HISTORY: Cerebral aneurysm SA H cerebral vasospasm eval, Headache acute severe worst GUERRERO of life COMPARISON: None. TECHNIQUE: Informed [facility]. Total fluoroscopy time registered 0 minutes. Total radiation dosage was 1.9 mGy. 2 images were stored during fluoroscopy to document the level of needle placement. The patient was prepped in a sterile fas hion in the prone position. 1% Xylocaine was utilized for local anesthesia. 1 mg P.O. Ativan was given for sedation. Utilizing fluoroscopic guidance, a 22-ga uge spinal needle was placed into the subarachnoid space at the L2-3 level. The opening pressure was 12 cm. 20 mL of cerebrospinal fluid was withdrawn and sent to the laboratory for analysis. There were no complications. The primary surgeon was Brandt Gan. There were no assistants. There was no significant blood loss. The patient was sent to the recovery room after the procedure and discharged after he met discharge criteria. IMPRESSION: Successful fluoroscopic-guided lumbar pu ncture to evaluate the patient's headaches and treated aneurysm. [facility]-[id number] Performing Organization Address City/State/ZIP Code Phon e Number [facility] [address] [place] [address] AFB culture (04/27/2019 2:10 PM COMMUNITY OUTREACH WORKER) AFB culture No growth after 6 weeks of incubation. VJ LESLIE isolate Comment: HOSPITAL Specimen Information Specimen Source: CSF (Spinal Fluid) Specimen Site: Lumbar puncture Specimen Cerebrospinal fluid - Lumbar puncture Performing Organization Address City/State/ZIP Code Phon e Number [facility] DEPARTMENT OF PATHOLOGY AND [address] [place] [address] [phone] [address] Gram stain (04/27/2019 2:10 PM COMMUNITY OUTREACH WORKER) Gram stain isolate No WBC's or organisms seen. MASHA LESLIE Comment: HOSPITAL Specimen Information Specimen Source: CSF (Spinal Fluid) Specimen Site: Lumbar puncture Specimen Cerebrospinal fluid - Lumbar puncture Performing Organization Address [facility] Phon e Number [facility] DEPARTMENT OF PATHOLOGY AND [address] [place] [address] [phone] [address] CSF culture (04/27/2019 2:10 PM COMMUNITY OUTREACH WORKER) CSF culture No growth after 3 days. MASHA LESLIE isolate Comment: HOSPITAL Specimen Information Specimen Source: CSF (Spinal Fluid) Specimen Site: Lumbar puncture Specimen Cerebrospinal fluid - Lumbar puncture Performing Organization Address [facility] Phon e Number [facility] DEPARTMENT OF PATHOLOGY AND [address] [place] [address] [phone] [address] Fungus culture (04/27/2019 2:10 PM COMMUNITY OUTREACH WORKER) Fungus culture No growth after 4 weeks of incubation. MASHA LESLIE isolate Comment: HOSPITAL Specimen Information Specimen Source: CSF (Spinal Fluid) Specimen Site: Lumbar puncture Specimen Cerebrospinal fluid - Lumbar puncture Performing Organization Address [facility] Phon e Number [facility] DEPARTMENT OF PATHOLOGY AND [address] [place] [address] [phone] [address] Thyroid stimulating hormone (04/27/2019 1:07 PM COMMUNITY OUTREACH WORKER) Pathologist Sig nature TSH 1.32 0.27 - 4.20 uIU/mL [facility] Specimen Blood Performing Organization Address City/[facility]/ZIP [facility] Phon e Number [facility] DEPARTMENT OF PATHOLOGY [address] [facility] [address] [facility] [address] [facility] [place] [address] [facility] T4, free (04/27/2019 1:07 PM COMMUNITY OUTREACH WORKER) Pathologist Sig nature T4, free 1.1 0.9 - 1.7 ng/dL [facility] Specimen Blood Performing Organization Address City/[facility] Phon e Number [facility] DEPARTMENT OF PATHOLOGY [address] [facility] [place] [address] AND [facility] MEDICINE [facility] [address] [facility] [place] [address] HOSPITAL Vitamin B12 level (04/27/2019 1:07 PM COMMUNITY OUTREACH WORKER) Vitamin B12 516 211 [phone] 946 [facility] Comment: pg/mL [facility] Significant overlap exists between normal and deficien cy states. However, most patients with deficiencies will have Ser um B12 <200 pg/mL. Specimen Serum Performing Organization Address [facility] Phon e Number [facility] DEPARTMENT OF PATHOLOGY AND [address] [place], [place] [address] [facility] [address] [place] [address] Lipid panel (04/27/2019 1:07 PM COMMUNITY OUTREACH WORKER) Cholesterol 137 0 - 199 [place] mg/dL [facility] Triglycerides 111 0 - 149 [place] mg/dL [facility] HDL cholesterol 47 40 - 99,999 [place] mg/dL [facility] LDL cholesterol 82 0 - 99 mg/dL [facility] Lipid panel See below [place] interpretation Comment: [facility] Total Cholesterol (mg/dL) [facility] <200 Desirable 200-239 Borderline-high >=240 High Triglycerides (mg/dL) <150 Normal 150-199 Borderline-high 200-499 High >=500 Very high HDL Cholesterol (mg/dL) <40 Low (male) <50 Low (female) LDL Cholesterol (mg/dL) <100 Optimal 100-129 Near or above optimal 130-159 Borderline-high 160-189 High >=190 Very high Risk Catergories that modify LDL goals. Risk Catergories LDL goal (mg/d L) CHD and CHD risk equivalent <100 (10-year risk >20%) Multiple (2+) risk factors <130 (10-year risk =<20%) 0-1 risk factors <160 (<10-year risk) Defining levels of lipids in metabolic syndrome Triglycerides >=150 mg/dL HDL Cholesterol Men <40 mg /dL Women <50 mg/ dL Non-HDL cholesterol is a second target for therapy in persons with high triglycerides (>=200 mg/dL) Specimen Blood Performing Organization Address City/[facility]/ZIP [facility] Phon e Number [facility] DEPARTMENT OF PATHOLOGY [address] [facility] [address] [place] [address] AND GENOMIC MEDICINE [place] [facility] [place] [address] [facility] [address] [place] [address] [facility] Vitamin B1 level, whole blood (04/27/2019 12:28 PM COMMUNITY OUTREACH WORKER) Vitamin B1 128 70 - 180 [facility] Comment: nmol/L INTERPRETIVE INFORMATION: Vitamin B1, Whole Blood This assay measures the concentration of thiamine diph osphate (TDP), the primary active form of vitamin B1. Approxim ately 90 percent of vitamin B1 present in whole blood is TDP. T hiamine and thiamine monophosphate, which comprise the remaining 1 0 percent, are not measured. Test developed and characteristics determined by [facility]. See Compliance Statement B: [employer]/ CS Performed by [facility], [address] [place] [address] [email or web address] Chi Pugh MD, Lab. Director Specimen Plasma specimen Performing Organization Address City/State/ZIP Code Phon e Number [facility] [address] [place] [address] [facility] [address] [place] [address] CTA Neck W Wo Contrast (04/27/2019 10:55 AM COMMUNITY OUTREACH WORKER) Specimen Narrative Performed At EXAMINATION: CT ANGIOGRAM NECK W WO CONT RAST [facility] CLINICAL HISTORY: STROKE COMPARISON: None TECHNIQUE: Imaging of the cervical circulation was obt ained from the upper thorax to the skull base during the arterial pha se of enhancement. Postprocessing was performed with MIP multiplanar and 3D reconstructed images. CT imaging was performed with iterative reconstruction technique and/or automated ex posure control to reduce radiation dose. FINDINGS: Visualized upper mediastinum shows no mass lesion. Deisy g apices are clear. Visualized soft tissues shows no mass, a denopathy or fluid collection. Visualized osseous structures shows no a cute fracture or dislocation. The common carotid arteries, carotid bulbs, internal c arotid arteries and external carotid arteries are opacified with 0% st enosis by NASCET criteria. The vertebral arteries are patent throughout the visua lized cervical segments without significant stenosis. The right vertebral artery is dominant. Visualized intracranial regions left paraclinoid coils are noted with some streak artifacts. Please see CTA he ad for further details. IMPRESSION: No hemodynamically significant narrowing of the cervic al vessels by NASCET criteria. [facility]-[id number] Procedure Note Hm Interface, Radiology Results Incoming - 04/27/2019 11:03 AM COMMUNITY OUTREACH WORKER EXAMINATION: CT ANGIOGRAM NECK W WO CONTRAST CLINICAL HISTORY: STROKE COMPARISON: None TECHNIQUE: Imaging of the cervical circu lation was obtained from the upper thorax to the skull base during the arterial phase of enhancement. Postprocessing was performed with MIP multiplanar and 3D reconstructed images. CT imaging was performed with iterative reconstruction technique and/o r automated exposure control to reduce radiation dose. FINDINGS: Visualized upper mediastinum shows no ma ss lesion. Lung apices are clear. Visualized soft tissues shows no mass, a denopathy or fluid collection. Visualized osseous structures shows no a cute fracture or dislocation. The common carotid arteries, carotid bul bs, internal carotid arteries and external carotid arteries are opacified with 0% stenosis by NASCET criteria. The vertebral arteries are patent throug hout the visualized cervical segments without significant stenosis. The right vertebral artery is dominant. Visualized intracranial regions left par aclinoid coils are noted with some streak artifacts. Please see CTA head for further details. IMPRESSION: No hemodynamically significant narrowing of the cervical vessels by NASCET criteria. [facility]-[id number] Performing Organization Address City/State/ZIP Code Phon e Number [facility] [address] [place] [address] CTA Head W Wo Contrast (04/27/2019 10:53 AM COMMUNITY OUTREACH WORKER) Specimen Narrative Performed At EXAMINATION: CT ANGIOGRAM HEAD W WO CONT RAST [facility] CLINICAL HISTORY: STROKE COMPARISON: CT brain dated April 26 TECHNIQUE: Imaging of the intracranial circulation w as obtained from the skull base to the vertex during the arterial phase of enhancement. Postprocessing was performed with MIP multiplanar and 3D reconstructed images. CT imaging was performed with iterative reconstruction technique and/or automated ex posure control to reduce radiation dose. FINDINGS: There are no gross brain parenchymal abnormalities. Th ere is no midline shift, hydrocephalus or extra-axial flui d collection. The major dural sinuses are opacified no rmally. Soft tissue shows no evidence of lacerat ion or hematoma. No hemodynamically significant stenosis is identified of the intracranial internal carotid arteries, middle cerebra l arteries, anterior cerebral arteries, intracranial vertebral art eries, basilar artery or posterior cerebral arteries. T here is no aneurysmal dilatation or vascular malfor mation of the [place]. Note is made of multiple embolization coils in the lef t paraclinoid region. No residual aneurysm is appreciated but there is some streak artifact in this area limiting evaluation of the vesse ls directly adjacent to the coils. IMPRESSION: No hemodynamically significant narrowing of the [place] vessels. Multiple embolization coils are noted in the left paraclinoid region with no discrete aneurysm identif ied. [facility]-[id number] Procedure Note Hm Interface, Radiology Results Incoming - 04/27/2019 11:15 AM COMMUNITY OUTREACH WORKER EXAMINATION: CT ANGIOGRAM HEAD W WO CONTRAST CLINICAL HISTORY: STROKE COMPARISON: CT brain dated April 26 0 TECHNIQUE: Imaging of the intracranial circulation was obtained from the skull base to the vertex during the arterial phase of enhancement. Postprocessing was performed with MIP multiplanar and 3D reconstructed images. CT imaging was performed with iterative reconstruction technique and/o r automated exposure control to reduce radiation dose. FINDINGS: There are no gross brain parenchymal abn ormalities. There is no midline shift, hydrocephalus or extra-axial fluid collection. The major dural sinuses are opacified no rmally. Soft tissue shows no evidence of lacerat ion or hematoma. No hemodynamically significant stenosis is identified of the intracranial internal carotid arteries, middle cerebral arteries, anterior cerebral arteries, intracranial vertebral arteries, basilar artery or posterior cerebral arteries. There is no aneurysmal dilatation or vascular malfor mation of the [place]. Note is made of multiple embolization co ils in the left paraclinoid region. No residual aneurysm is appreciated but there is some streak artifact in this area limiting evaluation of the vessels directly adjacent to the coils. IMPRESSION: No hemodynamically significant narrowing of the [place] vessels. Multiple embolization coils are noted in the left paraclinoid region with no discrete aneurysm identified. [facility]-[id number] Performing Organization Address City/State/ZIP Code Phon e Number [facility] [address] [place] [address] Urine drugs of abuse screen (04/27/2019 10:46 AM COMMUNITY OUTREACH WORKER) Amphetamine screen, Negative [place] urine [facility] Barbiturate screen, Negative [place] urine [facility] Benzodiazepine Negative [place] screen, urine [facility] Cocaine screen, urine Negative [facility] Methadone metabolite Negative [place] (EDDP), urine [facility] Opiates screen, urine Negative [facility] Phencyclidine screen, Negative [place] urine [facility] Tricyclic screen, Negative [place] urine [facility] Cannabinoid screen, Negative [place] urine Comment: [facility] Drug screen minimum concentration of detectability [facility] Amphetamines 1000 ng/mL Barbiturates 200 ng/mL Benzodiazepines 300 ng/mL Cocaine 300 ng/mL Methadone 300 ng/mL Opiates 300 ng/mL Phencyclidine 25 ng/mL Cannabinoids 50 ng/mL Tricyclics 1000 ng/mL Results are from screening tests and should only be used for medical evaluation. Drug testing for legal purposes requires definitive (or confirmatory) testing methods, which are available upon request. Contact the laboratory if definitive testing is requir ed. Specimen Urine Performing Organization Address City/State/ZIP Code Phon e Number [facility] DEPARTMENT OF PATHOLOGY [address] [facility], [place] [address] AND GENOMIC MEDICINE [facility] [address] [facility] [place] [address] [facility] [address] Stroke Brain Wo Contrast (04/27/2019 10:24 AM COMMUNITY OUTREACH WORKER) Specimen Narrative Performed At EXAMINATION: CT STROKE BRAIN WO CONTRA [facility] CLINICAL HISTORY: STROKE COMPARISON: CT of the head dated May 19, 2001 FINDINGS: There is no evidence of acute hemorrhage, mass lesion, or midline shift. The appiah-white matter differentiation is preserved wit h no evidence of acute territorial infarction. Ventricles, sulci, and c isterns are age-appropriate in size and configuratio n. There is no extra-axial fluid collection . 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 Visualized paranasal sinuses and mastoid air cells are clear. Bones, orbits, and soft tissues are unremarkabl e All CT images were acquired using low-dose technique w ith automated exposure control. IMPRESSION: No acute intracranial hemorrhage or mass effect. Findings discussed with Dr. SAAB on 04/27/2019 10:2 7 AM , and he verbalized understanding of the report. [facility]-[id number] Procedure Note Interface, Radiology Results Incoming - 04/27/2019 10:32 AM COMMUNITY OUTREACH WORKER EXAMINATION: CT STROKE BRAIN WO CONTRAST CLINICAL HISTORY: STROKE COMPARISON: CT of the head dated May 19, 2001 FINDINGS: There is no evidence of acute hemorrhage , mass lesion, or midline shift. The appiah-white matter differentiation is preserved with no evidence of acute territorial infarction. Ventricles, sulci, and cisterns are age-appropriate in size and configuratio n. There is no extra-axial fluid collection . 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 Visualized paranasal sinuses and mastoid air cells are clear. Bones, orbits, and soft tissues are unremarkable All CT images were acquired using low-do se technique with automated exposure control. IMPRESSION: No acute intracranial hemorrhage or mass effect. Findings discussed with Dr. SAAB on 04/27/2019 10:27 AM , and he verbalized understanding of the report. [facility]-[id number] Performing Organization Address [facility] Code Phon e Number [facility] [address] [place] [address] Partial thromboplastin time, activated (04/27/2019 10:14 AM COMMUNITY OUTREACH WORKER) PTT 29.7 23.0 - 36.0 [place] [facility] Comment: [facility] PTT therapeutic range for unfractionated heparin is HOSPITAL 61.0-112.0 seconds which corresponds to Anti-Xa 0.3-0.7 U/ml. Specimen Blood Performing Organization Address [facility] Phon e Number [facility] DEPARTMENT OF PATHOLOGY [address] [place] [address] [place] [id number] [facility] Prothrombin time with INR (04/27/2019 10:14 AM COMMUNITY OUTREACH WORKER) Prothrombin time 13.0 11.5 - 14.5 [facility] INR 1.0 [place] Comment: MARIAMA CORREIA [facility] International Normalized Ratio (INR) is a [facility] monitoring tool for patients who are stable on oral anticoagulant therapy. An INR of 2.0-3.0 is suggested for deep vein thrombosis/pulmonary embolism. Specimen Blood Performing Organization Address City/[facility] Code Phon e Number [facility] DEPARTMENT OF PATHOLOGY [address] [place] [address] [place] [id number] [facility] Creatine kinase, total (CPK) (04/27/2019 10:14 AM COMMUNITY OUTREACH WORKER) Pathologist Sig nature Creatine kinase 169 39 - 308 U/L [facility] Specimen Plasma specimen Performing Organization Address City/State/ZIP Code Phon e Number [facility] DEPARTMENT [facility] [address] [facility] [place] [address] AND GENOMIC MEDICINE [place] [address] [facility] [place], [place] [address] HOSPITAL after 03/27/2019 Advance Directives For more information, please contact: [phone] Type Date Recorded Patient Hydropulper Operator Explanati on Advance Directives, Living Will 04/27/2019 11:27 AM and Medical Power of Sticker Hand
--- OUTSIDE RECORDS SUMMARY | 2020-03-27 17:24 | XMS REPORT | Continuity of Care Document ---
:1965 Author Organization [facility] t Address [address] [place] [address] Care Team Providers Name Role Phone Musa Dyer DO Primary Care Physician Tony Tyler MD Attending Clinician Shoaib REY Attending Clinician Unavailable Debra Enriquez MD Attending Clinician Tanya PANIAGUA Attending Clinician TANYA Admitting Clinician Unavailable Payers Payer Name Policy Type Policy Effective Date Expiration Date Sour ce Number [id number] 2019 [place] ACTIVECARE 00:00:00 [employer] PRIMARY /HMO BLUE ESSENTIALSxxxxxx [id number] 2019-P resentHMO Problems Condition Condition Condition Status Onset Resolution Last Treating Co mments Source Name Details Category Date Date Treatment Clinician Date Acute Acute Disease Active [place] confusion confusion 3-04 Meth regla 00:00: st 00 Chest pain Chest pain Disease Active [place] at rest at rest -17 Methodi 00:00: st 00 Allergies, Adverse Reactions, Alerts This patient has no known allergies or adverse reactions. Social History Social Habit Start Date Stop Date Quantity Comments Source Sex Assigned At [place] M ethodist Exposure to Not sure [place] Metho dist SARS-CoV-2 (event) Tobacco use and 2020-03-26 2020-03-26 Never used Robert Snow ethodist exposure 00:00:00 00:00:00 Alcohol intake 2020-03-26 2020-03-26 Current Robert Novak thodist 00:00:00 00:00:00 non-drinker of alcohol (finding) Smoking Status Start Date Stop Date Source Never smoker Robert Helmis t Medications Ordered Filled Start Stop Current Ordering Indication Dosage Frequency Signature Comments Components Source Medication Medication Date Date Medication? Clinician (SIG) Name Name esomeprazol 2020-0 Yes 20mg QD Take 20 mg Jones e (NexIUM) 3-05 by mouth Metho di 20 MG 16:30: daily st capsule 48 before breakfast. VITAMIN E 2020-0 Yes 1{tbl} QD Take 1 [place] ACETATE 3-05 tablet by Methodi (VITAMIN E 16:30: mouth st ORAL) 48 daily. cetirizine 2020-0 Yes 10mg QD Take 10 mg [place] (ZyrTEC) 10 3-05 by mouth Meth regla MG tablet 16:30: daily. st 48 Lactobacill 2020-0 Yes 1{tbl} QD Take 1 [place] us 3-05 tablet by Methodi acidoph-L.b 16:30: mouth st ulgar 48 daily. (FLORANEX) 1 million cell tablet aspirin 2020-0 Yes 81mg QD Take 81 mg [place] (ECOTRIN) 3-05 by mouth Method i 81 MG 16:30: daily. st enteric 48 coated tablet atorvastati 2020-0 Yes 10mg QD Take 10 mg Jones n (LIPITOR) 3-05 by mouth Meth regla 10 MG 16:30: daily. st tablet 48 busPIRone 2020-0 Yes 10mg Q.5D Take 10 mg [place] (BUSPAR) 10 3-05 by mouth 2 Me thodi MG tablet 16:30: (two) st 48 times a day. losartan 2020-0 Yes 12.5mg QD Take 12.5 [place] (COZAAR) 25 3-05 mg by Methodi MG tablet 16:30: mouth st 48 daily. metFORMIN 2020-0 Yes 500mg Q.5D Take [address] XR 3-05 mg by Methodi (GLUCOPHAGE 16:30: mouth 2 st -XR) 500 mg 48 (two) 24 hr times a tablet day. cholecalcif 2020-0 Yes 1{tbl} QD Take 1 [place] sonia, 3-05 tablet by Methodi vitamin D3, 16:30: mouth st (VITAMIN D3 48 daily. ORAL) divalproex 2020- No 250mg Q.5D Take 2 [address] [facility] (DEPAKOTE 3-05 03-05 capsules Metho di SPRINKLE) 00:00: 23:59 ([address] 125 mg 00 :00 total) by mouth 2 (two) times a day. KRILL OIL 2019- No 1{capsu QD Take 1 [place] ORAL 3-04 03-04 le} capsule by Methodi 13:29: 00:[address] 01 :00 daily. ASCORBATE 2019- No 1{tbl} QD Take 1 [facility] CALCIUM 3-04 03-04 tablet by Method i (VITAMIN C 13:28: 00:[address] ORAL) 40 :00 daily. BusPIRone BusPIRone Yes Mauricio [address] [facility] HCl HCl 1-29 [facility] Vitamin D-3 Vitamin D-3 Yes Mauricio [address] [facility] Probiotic Probiotic Yes Mauricio not [facility] MetFORMIN MetFORMIN Yes Mauricio [address] [facility] HCl ER HCl ER [facility] Lipitor Lipitor Yes Mauricio [address] [facility] Vitamin E Vitamin E Yes Mauricio [address] [facility] Vitamin C Vitamin C Yes Mauricio not [facility] Flax Seed Flax Seed Yes Mauricio not [facility] Oil Oil [facility] Losartan Losartan Yes Mauricio take [address] [facility] Potassium Potassium [facility] Aspir-81 Aspir-81 Yes Mauricio [address] [facility] Accu-Chek Accu-Chek Yes Mauricio USE TO C HI [facility] FastClix FastClix [facility] - Lancets Lancets GLUCOSE [facility] Depakote Depakote Yes Mauricio [address] [facility] Accu-Chek Accu-Chek Yes Mauricio USE TO C HI [facility] Guide Guide [facility] - GLUCOSE Memoria TWICE l DAILY [facility] ent [facility] Immunizations Ordered Filled Immunization Date Status Comments Sour e Immunization Name Name Cecille Oden 2018-11-[address] [facility]00 [facility] Vital Signs Vital Name Observation Time Observation Value Comments Source Systolic blood 2020-03-26 20:30:00 141 mm[Hg] Gilmar Boles pressure Diastolic blood 2020-03-26 20:30:00 77 mm[Hg] Mason Boles pressure Heart rate 2020-03-26 20:30:00 76 /min Robert Boles Respiratory rate 2020-03-26 20:30:00 18 /min Agustin Boles Oxygen saturation in 2020-03-26 20:30:00 99 /min Robert Boles Arterial blood by Pulse oximetry Body temperature 2020-03-26 18:27:00 36.67 Ankita Agustin Boles Body height 2020-03-26 18:27:00 172.7 cm Robert Boles Body weight 2020-03-26 18:27:00 113.399 kg Robert Boles BMI 2020-03-26 18:27:00 38.01 kg/m2 Robert Boles Procedures Procedure Date / Time Performing Clinician Source Performed URINE CULTURE 2020-03-26 19:59:00 Lorna Contreras URINALYSIS SCREEN AND 2020-03-26 19:59:00 Lorna Contreras MICROSCOPY, WITH REFLEX TO CULTURE CT HEAD WO CONTRAST 2020-03-26 19:21:11 Lorna Contreras XR CHEST 1 VW PORTABLE 2020-03-26 19:19:06 Lorna Contreras ECG 12-LEAD 2020-03-26 19:01:04 Lorna Contreras CBC WITH PLATELET AND 2020-03-26 19:01:00 Lorna Contreras DIFFERENTIAL COMPREHENSIVE METABOLIC 2020-03-26 19:01:00 Lorna Contreras PANEL TROPONIN 2020-03-26 19:01:00 Ben Lornamichael coon B NATRIURETIC PEPTIDE 2020-03-26 19:01:00 Lorna Contreras n Judaism ESTIMATED GFR 2020-03-26 19:01:00 Ben Lorna Robert Tse odjosé antonio ECG ED PRELIMINARY 2020-03-26 18:43:08 Ben Lornamichael Snow ethodist INTERPRETATION POC GLUCOSE 2019-04-28 11:23:00 Gautam Davis ethodist POC GLUCOSE 2019-04-28 08:18:00 Gautam Davis ethodist MRI BRAIN W WO CONTRAST 2019-04-28 05:11:09 Abhijit Alexander Judaism POC GLUCOSE 2019-04-27 20:25:00 Gautam Davis ethodist EEG AWAKE/DROWSY LESS THAN 2019-04-27 19:08:33 Abhijit Alexander 41 MIN TROPONIN 2019-04-27 16:40:00 Bean Enriquez De thodist FAISAL 2019-04-27 16:40:00 Mj Segura De thodist C-REACTIVE PROTEIN 2019-04-27 16:40:00 Mj Segura SEDIMENTATION RATE 2019-04-27 16:40:00 Mj Segura HEMOGLOBIN A1C 2019-04-27 16:40:00 Mj Segura Me thodist POC GLUCOSE 2019-04-27 16:34:00 Gautam Davis ethodist CRYPTOCOCCAL ANTIGEN 2019-04-27 15:10:00 Abhijit Alexander SCREEN CSF CELL COUNT WITH 2019-04-27 15:10:00 Abhijit Alexander DIFFERENTIAL PROTEIN, CSF 2019-04-27 15:10:00 Abhijit Alexander GLUCOSE LEVEL, CSF 2019-04-27 15:10:00 Abhijit Alexander IGG SYNTHESIS RATE STUDY 2019-04-27 15:10:00 Abhijit Alexander VDRL, CSF SCREEN 2019-04-27 15:10:00 Abhijit Alexander HERPES SIMPLEX VIRUS BY 2019-04-27 15:10:00 Abhijit Alexander PCR OLIGOCLONAL BANDING, CSF 2019-04-27 15:10:00 Abhijit Alexander [place] VIRUS BY PCR, 2019-04-27 15:10:00 Abhijit Alexander CSF [place] VIRUS ANTIBODY 2019-04-27 15:10:00 Abhijit Alexander PANEL, CSF IR LUMBAR PUNCTURE 2019-04-27 15:05:46 Abhijit Alexander M ethodist CSF CULTURE 2019-04-27 14:10:00 Abhijit Alexander odist FUNGUS CULTURE 2019-04-27 14:10:00 Abhijit Alexander odjosé antonio AFB CULTURE 2019-04-27 14:10:00 Abhijit Aelxander GRAM STAIN 2019-04-27 14:10:00 Abhijit Alexander odist TROPONIN 2019-04-27 13:07:00 Bean Enriquez De thodist VITAMIN B12 LEVEL 2019-04-27 13:07:00 Abhijit Alexander thodist THYROID STIMULATING 2019-04-27 13:07:00 Abhijit Alexander HORMONE T4, FREE 2019-04-27 13:07:00 Abhijit Alexander LIPID PANEL 2019-04-27 13:07:00 Abhijit Alexander HEMOGLOBIN A1C 2019-04-27 13:07:00 Abhijit Alexander VITAMIN B1 LEVEL, WHOLE 2019-04-27 12:28:[address] ANGIOGRAM NECK W WO 2019-04-27 10:55:[address] ANGIOGRAM HEAD W WO 2019-04-27 10:53:06 Bean Enriquez CONTRAST URINALYSIS SCREEN AND 2019-04-27 10:46:00 Bean Enriquez MICROSCOPY, WITH REFLEX TO CULTURE URINE DRUGS OF ABUSE 2019-04-27 10:46:00 Abhijit Alexander SCREEN ECG 12-LEAD 2019-04-27 10:40:32 Bean Enriquez De thodist URINE CULTURE 2019-04-27 10:35:00 Bean Enriquez De thodist POC GLUCOSE 2019-04-27 10:32:00 Bean Enriquez De thodist CT STROKE BRAIN WO 2019-04-27 10:24:59 Bean Enriquez CONTRAST HC COMPLETE BLD COUNT 2019-04-27 10:14:00 Bean Enriquez W/AUTO DIFF PARTIAL THROMBOPLASTIN 2019-04-27 10:14:00 Bean Enriquez TIME (PTT) PROTHROMBIN TIME WITH INR 2019-04-27 10:14:00 Bean Enriquez COMPREHENSIVE METABOLIC 2019-04-27 10:14:00 Bean Enriquez PANEL TROPONIN 2019-04-27 10:14:00 Bean Enriquez thodist ESTIMATED GFR 2019-04-27 10:14:00 Bean Enriquez De joséodi CREATINE KINASE, TOTAL 2019-04-27 10:14:00 Bean Enriquez (CPK) ECG ED PRELIMINARY 2019-04-27 10:13:35 Bean Enriquez INTERPRETATION Plan of Care Planned Activity Planned Date Details Comments Source Future Scheduled 2019-09-24 INFLUENZA VACCINE [place] [facility] 00:00:00 [code = INFLUENZA VACCINE] Future Scheduled 2014-02-28 COLONOSCOPY SCREENING [place] [facility] 00:00:00 [code = COLONOSCOPY SCREENING] Future Scheduled 2014-02-28 SHINGLES VACCINES (#1) [place] [facility] Test 00:00:00 [code = SHINGLES VACCINES (#1)] Future Scheduled 1980 COVID-19 VACCINE (1 of [place] [facility] Test 00:00:00 2) [code = COVID-19 VACCINE (1 of 2)] Future Scheduled 1974-02-28 DIABETES: RETINAL EYE [place] [facility] 00:00:00 EXAM [code = DIABETES: RETINAL EYE EXAM] Future Scheduled 1974-02-28 DIABETIC FOOT EXAM [place] [facility] 00:00:00 [code = DIABETIC FOOT EXAM] Future Scheduled 1974-02-28 URINE MICROALBUMIN [place] [facility] 00:00:00 [code = URINE MICROALBUMIN] Encounters Start End Encounter Admission Attending Care Care Encounter Source Date/Time Date/Time Type Type Clinicians Facility Department ID 2020-03-26 2020-03-26 Emergency [facility], [facility] [id number] [place] [address] 00:00:00 00:00:00 BAYLEE Kebede [facility] 2020-03-06 2020-03-06 Outpatient [facility] [id number] 2020-03-05 2020-03-05 Outpatient [facility] [id number] [facility] 2020-02-27 2020-02-27 Outpatient [facility] [id number] [facility] 2020-01-03 2020-01-03 Outpatient [facility] [id number] [facility] 2019-11-29 2019-11-29 Outpatient [facility] [id number] [facility] 2019-08-31 2019-08-31 [facility] [id number] [facility] 09:30:00 09:30:00 t [employer] s - Drive [facility] Out[facility] Clinics 2019-08-15 2019-08-15 [facility] [id number] 10:15:00 10:15:00 t [employer] s - [facility] Clin[facility] 2019-08-10 2019-08-10 [facility] [id number] 08:15:00 08:15:00 t [employer] s - [facility] 2019-05-12 2019-05-12 [facility] [id number] [facility] 08:15:00 08:15:00 t [employer] s - Drive [facility] Clin[facility] 2019-05-02 2019-05-02 [facility] [id number] 14:16:00 14:16:00 t [place] Viigo LuAvesthagen s - Drive [facility] Medicine Medicine Outpati ent Clinics 2019-04-27 2019-04-28 Outpatient TANYA [facility] [id number] 3332 [place] 00:00:00 00:00:00 GAUTAM Morris Meth regla st 2019-04-27 2019-04-27 [facility] [id number] 08:34:00 08:34:00 t [place] Viigo LuAvesthagen s - Drive [facility] Medicine l Medicine Outpati ent Clinics 2019-03-23 2019-03-23 [facility] [id number] 13:15:00 13:15:00 t [place] Viigo LuAvesthagen s - Drive [facility] l Medicine Outpati ent Clinics 2019-03-21 2019-03-21 [facility] [id number] 15:24:00 15:24:00 t [place] Viigo LuAvesthagen s - Drive [facility] Medicine Outpati ent Clinics 2019-03-21 2019-03-21 [facility] [id number] 10:23:00 10:23:00 t [place] Viigo LuAvesthagen s - Drive [facility] Medicine Medicine Outpati ent Clinics 2019-03-09 2019-03-09 [facility] [id number] 16:04:00 16:04:00 t [place] Viigo LuAvesthagen s - Drive [facility] Medicine l Medicine Outpati ent Clinics 2019-03-03 2019-03-03 [facility] [id number] [facility] 17:22:00 17:22:00 t [place] Viigo LuAvesthagen s - Drive [facility] Medicine l Medicine Outpati ent Clinics 2019-02-10 2019-02-10 [facility] [id number] 08:00:00 08:00:00 t [place] Viigo LuAvesthagen s - Drive [facility] l Medicine Outpati ent Clinics 2019-02-04 2019-02-04 [facility] [id number] 11:43:00 11:43:00 t [place] Viigo LuAvesthagen s - Drive [facility] Medicine Outpati ent Clinics 2019-02-03 2019-02-03 [facility] [id number] [facility] 16:19:00 16:19:[address] Luke s - Drive [facility] l Medicine Outpati ent Clinics 2018-11-04 2018-11-04 [facility] [id number] 09:30:00 09:30:[address] Luke s - Drive [facility] Medicine l Medicine Outpati ent Clinics 2018-10-06 2018-10-06 [facility] [id number] 08:12:00 08:12:[address] Luke s - Drive [facility] Medicine l Medicine Outpati ent Clinics 2018-10-01 2018-10-01 [facility] [id number] 14:25:00 14:25:[address] Luke s - Drive [facility] Medicine l Medicine Outpati ent Clinics 2018-09-13 2018-09-13 [facility] [id number] 10:05:00 10:05:[address] Luke s - Drive [facility] Medicine l Medicine Outpati ent Clinics 2018-09-06 2018-09-06 [facility] [id number] 10:45:00 10:45:[address] Luke s - Drive [facility] Medicine Medicine Outpati ent Clinics 2018-09-03 2018-09-03 [facility] [id number] 13:08:00 13:08:[address] Luke s - Drive [facility] Medicine l Medicine Outpati ent Clinics 2018-08-13 2018-08-13 [facility] [id number] 10:01:00 10:01:[address] Luke s - Drive [facility] Medicine l Medicine Outpati ent Clinics 2018-08-04 2018-08-04 [facility] [id number] 13:45:00 13:45:[address] Luke s - Drive [facility] Medicine l Medicine Outpati ent Clinics 2018-05-25 2018-05-25 [facility] [id number] 09:30:00 09:30:[address] Luke s - [facility] 2018-05-04 2018-05-04 [facility] [id number] 11:00:00 11:00:00 t [place] Viigo LuAvesthagen s - Drive [facility] Medicine l Medicine Outpati ent Clinics 2017-11-20 2017-11-20 [facility] [id number] 10:09:00 10:09:00 t [place] Viigo LuAvesthagen s - Drive [facility] Medicine Medicine Outpati ent Clinics 2017-11-17 2017-11-17 [facility] [id number] 08:30:00 08:30:00 t [place] Viigo LuAvesthagen s - Drive [facility] Medicine l Medicine Outpati ent Clinics 2017-09-17 2017-09-17 [facility] [id number] 10:02:00 10:02:00 t [place] Devario s - Drive [facility] Medicine l Medicine Outpati ent Clinics 2017-09-07 2017-09-07 [facility] [id number] 10:00:00 10:00:00 [place] Devario s - Drive [facility] Medicine Medicine Outpati ent Clinics 2017-08-20 2017-08-20 [facility] [id number] 13:48:00 13:48:00 [place] Devario s - Drive [facility] Medicine l Medicine Outpati ent Clinics 2017-08-05 2017-08-05 [facility] [id number] 08:45:00 08:45:00 [place] Devario s - Drive [facility] Medicine Medicine Outpati ent Clinics 2017-06-17 2017-06-17 [facility] [id number] 09:15:00 09:15:00 t [place] Devario s - Drive [facility] Medicine Medicine Outpati ent Clinics 2017-05-11 2017-05-11 [facility] [id number] 11:15:00 11:15:00 t [place] Devario s - Drive [facility] Medicine Medicine Outpati ent Clinics Results Test Description Test Time Test Comments Results Result Comments Source ECG 12 lead 2020-03-27 11:13:01 Test Item Value Reference Range Interpretation Comme nts Ventricular rate (test code = 253) 79 Atrial rate (test code = 255) 79 DC interval (test code = 266) 150 QRSD interval (test code = 260) 86 QT interval (test code = 264) 362 QTC interval (test code = 265) 415 P axis 1 (test code = 267) 49 QRS axis 1 (test code = 268) 46 T wave axis (test code = 270) 26 EKG impression (test code = 273) Normal sinus rhythm-Normal ECG-In automated comparison with ECG of 27-APR-2019 10:40,-No significant change was found- Robert BolesUrine [id number] 20:22:35 Test Item Value Reference Range Interpretation Comments Urine culture (test SEE COMMENT Bacteriu frandy screen code = 1274607) negative. Robert MethodistUrinalysis screen and microscopy, with reflex to culture 2020-03-26 20:22:35 Test Item Value Reference Range Interpretation Comments Specimen site (test code = Clean catch 3434167) Color, UA (test code = 5778-6) Straw Appearance, UA (test code = Clear 5767-9) Specific gravity, UA (test code = 1.017 1.001-1.030 5811-5) pH, UA (test code = 5803-2) 6.0 5.0-9.0 Protein, UA (test code = 40613-5) Negative Negative Glucose, UA (test code = 51765-7) 3+ Negative A Ketones, UA (test code = 2514-8) Trace Negative A Bilirubin, UA (test code = Negative Negative 5770-3) Blood, UA (test code = 5794-3) Negative Negative Nitrite, UA (test code = 5802-4) Negative Negative Urobilinogen, UA (test code = <2.0 <2.0 E.U./dL 00748-3) Leukocyte esterase, UA (test code Negative Negative = 5799-2) WBC, UA (test code = 5821-4) <1 0- 1 /HPF RBC, UA (test code = 52581-7) 2 0- 5 /HPF Bacteria, UA (test code = None seen None seen 01962-7) Yeast, UA (test code = 80453-1) None seen Yeast with pseudohyphae, UA (test None seen code = 87684-8) Lab Interpretation (test code = Abnormal 99090-0) Jones JudaismB natriuretic [id number] 19:38:00 Test Item Value Reference Range Interpretation Comments BNP (test code = 97620-7) 17 pg/mL 0-100 [place] [id number] 19:37:37 Test Item Value Reference Range Interpretation Comments Troponin (test code = <0.006 0-0.04 [place] [address]-9) having a myocar dial infarction, lamont ng with all other appro priate clinical measur es and actions includi ng ECG and other diagnosti cs as appropriate, me asure Ultra TnI at 0 hrs and at 3 hrs.Myocardia l infarction VERY LIKELYThe 0 hr TnI level is > 0.10 ng/mL --Myocardial in farction LIKELYThe 0 hr TnI level is > 0.04 ng/mL and 3 hr level is increa sed or decreased by at least 0.020 ng/mL -------Yung cardial infarct ion VERY UNLIKELYBoth th e 0 hr and 3 hr TnI levels <= 0.04 ng/mL(within no rmal limits) OR 0 hr is > 0.04 ng/mL and 3 hr is increased OR de creased by less than 0.020 ng/mL [place] Methodjosé antonioComprehensive metabolic [id number] 19:31:39 Test Item Value Reference Range Interpretation Comments Sodium (test code = 2951-2) 136 135- 148 mEq/L Potassium (test code = 2823-3) 4.0 3.5- 5.0 mEq/L Chloride (test code = 5-0) 101 98- 112 mEq/L CO2 (test code = 2027-9) 25 24- 31 mEq/L Anion gap (test code = 24949-7) 10@ANIO 7- 15 mEq/L BUN (test code = 3094-0) 9 mg/dL 6-20 Creatinine (test code = 2160-0) 0.85 mg/dL 0.7-1.2 Glucose (test code = 2345-7) 125 mg/dL 65-99 H Calcium (test code = 38529-6) 10.3 mg/dL 8.3-10.2 H Protein (test code = 2885-2) 8.2 g/dL 6.3-8.3 Albumin (test code = 1751-7) 4.6 g/dL 3.5-5 A/G ratio (test code = 1759-0) 1.3 0.7-3.8 Alkaline phosphatase (test code = 101 U/L 40-129 6768-6) AST (test code = 1920-8) 24 U/L 10-50 ALT (test code = 1742-6) 31 U/L 5-50 Total bilirubin (test code = 0.7 mg/dL 0.2-1.2 1974-03) Lab Interpretation (test code = Abnormal 79768-6) Robert MethodistEstimated [id number] 19:31:39 Test Item Value Reference Range Interpretation Comments Estimated GFR (test >=90 mL/min/1.73 m2 [facility] or Units code = 5488) InterpretationG 1 >=90 Normal or highG2 60-89 Mildly cmevckxygE6f 45-59 Mildly to mode rately vuuetzizsQ1l 30-44 Moderately to severely decreasedG4 15-29 Severely decre asedG5 <15 Kidn ey failureThe eGFR was calculated philippe gimenez the Chronic Kidney Disease Epidemiology Co llaboration (CKD-EPI) equat ion. Interpretation is based on recommendations of the National Kidney Foundation-Kidn ey Disease Outcomes Qualit y Initiative (NKF-KDOQI) pub lished in 2014. Robert MethodistCT Head Wo [id number] 19:27:01Hm Interface, Radiology Results 03/26/2020 7:30 PM CSTEXAMINATION: CT HEAD WO CONTRASTCL INICAL HISTORY: HTN dizzinessCOMPARISON: Brain MR April 28, 2019. Head CT April 27, 2019TECHNIQUE: Noncontrast head CT performed using radiation dose reduction techniques. Technical factors are evaluated and adjusted to ensure appropriate moderation of exposure. Automated dose management technologyis applied to adjust radiation exposure while achieving a diagnostic quality image. FINDINGS:No evidence of acute intracranial hemorrhage, mass, mass effect, midline shift, or acute infarct. Beam hardening artifact about the left terminal ICA aneurysm coiling.Ventricles and sulci are normal in appearance for patient's age. Basal cisterns are clear. Calvarium is intact.Orbits are normal in appearance. No significant paranasal sinus mucosal thickening. Mastoid air cells are clear. IMPRESSION:1. No CT evidence of acute intracranial abnormality.[id number] MethodistXR Chest 1 Vw [id number] 19:25:08Hm Interface, Radiology Results - 03/26/2020 7:28 PM CSTEXAMINATION: XR CHEST 1 PORTABLECLINICAL HISTORY: HTNCOMPARISON: 03/11/2016IMPRESSION:No active disease in the chest.Lungs are clear. Cardiomediastinal silhouette is within normal limits.No effusion or pneumothorax noted.Visualized osseous structures are intact.[id number] Judaism CBC with platelet and [id number] 19:08:49 Test Item Value Reference Range Interpretation Comments WBC (test code = 87853-4) 10.2 4.5- 11.0 k/uL RBC (test code = 85284-0) 5.11 m/uL 4.4-6 HGB (test code = 718-7) 14.8 g/dL 14-18 HCT (test code = 4544-3) 45.5 % 41-51 MCV (test code = 787-2) 89.0 fL 82-100 MCH (test code = 785-6) 29.0 pg 27-34 MCHC (test code = 786-4) 32.5 g/dL 31-37 RDW - SD (test code = 31038-1) 40.9 fL 37-55 MPV (test code = 46250-9) 11.6 fL 6.9-11 H Platelet count (test code = 216 K/uL 150-400 98886-7) Nucleated RBC (test code = 88032-9) 0.00 /100 WBC Neutrophils (test code = 77512-4) 73.2 % 39-69 H Lymphocytes (test code = 55124-4) 18.8 % 25-45 L Monocytes (test code = 86057-3) 6.2 % 0-10 Eosinophils (test code = 78786-5) 1.1 % 0-5 Basophils (test code = 03548-0) 0.3 % 0-1 Immature granulocytes (test code = 0.4 % 0-1 76581-0) Lab Interpretation (test code = Abnormal 55468-9) [place] [facility] Preliminary Interpretation - Not an [id number] 18:43:08Baylee Tyler MD 03/26/2020 11:23 [facility] [place], [place] ED Preliminary Interpretation - Not an OrderPerformed by: Lorna Contreras PA-CAuthorized by: Baylee Tyler MD ECG reviewed by ED Physician in the absence of a draw operator: yes Rate: ECG rate: 79 ECG rate assessment: normal Rhythm: Rhythm: sinus rhythm QRS: QRS intervals: NormalConduction: Conduction: normal ST segments: ST segments: NormalT waves: T waves: normalD[place] MethodistAFB [id number] 00:14:26 Test Item Value Reference Range Interpretation Comments AFB culture No growth Specimen isolate (test after 6 weeks InformationSp ecimen code = 543-9) of Source: CSF (S malissa incubation. Fluid)Specimen Site: Lumbar puncture [place] MethodistFungus [id number] 00:16:10 Test Item Value Reference Range Interpretation Comments Fungus culture No growth Specimen isolate (test after 4 weeks InformationSp ecimen code = 1441) of Source: CSF (Sp inal incubation. Fluid)Specimen Site: Lumbar puncture [place] MethodistGram [id number] 10:47:17 Test Item Value Reference Range Interpretation Comments Gram stain No WBC's or Specimen isolate (test organisms seen. Information Specimen code = 1469) Source: CSF (Sp inal Fluid)Specimen Site: Lumbar puncture [place] MethodistCSF [id number] 10:47:13 Test Item Value Reference Range Interpretation Comments CSF culture No growth Specimen isolate (test after 3 days. InformationSp ecimen code = 606-4) Source: CSF (S malissa Fluid)Specimen Site: Lumbar puncture [place] JudaismVitamin B1 level, whole [id number] 09:08:14 Test Item Value Reference Range Interpretation Comments Vitamin B1 (test 128 nmol/L 70-180 INTERPRETIV E INFORMATION: code = 48894-7) Vitamin B1, Whole BloodThis assay measures the concentrati on of thiamine diphos phate (TDP), the prim veronika active form of vitamin B1. Approximately 9 0 percent of vitamin B1 p resent in whole blood is TDP. Thiamine and th iamine monophosphate, which comprise the re maining 10 percent, are no t measured.Test d eveloped and characteris tics determined by [facility]. S ee Compliance Stat ement B: [employer] erformed by MARIO rowland,[address] [facility], [place] [address] iky .[employer] Chi dobson do, MD, Lab. Director [facility] CenterWest Nile virus antibody panel, [id number] 00:48:15 Test Item Value Reference Range Interpretation Comments West Nile IgG, CSF 0.09 <=1.29 IV INTERPRET ROSAS INFORMATION: (test code = [place] [address]-7) ANNIE, CSF 1.2 9 IV or less ....... Negativ e: No significant level of West Nile virus IgG antibody d etected. 1.30 - 1.49 IV ..... ... Equivocal: Questionable presenc e of West Nile virus IgG antib mercedez detected. Repeat testing in 10-14 days may be helpful. 1. 50 IV or greater .... Po sitive: Presence of IgG anti body to West Nile virus detected, suggestive of current or past infection.This test is intended to be used as a semi-quantitati ve means of detecting West Nile virus-specific IgG in CSF samples in [facility] h there is a clinical suspic ion of West Nile Virus infe ction. This test should not be used solely for lian titative purposes, nor s hould the results be used without correlation to clinical history or othe r data. Because other m embers of the Flaviviridae fa shyam, such as Gilmer encep halitis virus, show extensive cross-reactivit y with West Nile virus, ser ologic testing specific for th michelle species should be consi dered.The detection of an tibodies to West Nile virus in cerebrospinal f luid may indicate centra l nervous system infectio n. However, consideration m ust be given to possible con tamination by blood or transf er of serum antibodies acro ss the blood-brain bar rier.Test developed and c haracteristics determined by [facility]. S ee Compliance Statement B: [employer]/ West Nile IgM, CSF 0.00 <=0.89 IV INTERPRET ROSAS INFORMATION: (test code = [place] [address]-5) ANNIE, CSF0.89 IV or less ...... Negative - No significant lev el of W est Nile virus IgM antibody detected. 0.90-1.10 IV ......... Equiv ocal - Questionable pr esence of West Nile virus IgM antib mercedez det ected. Repeat testing in 10-14 days may be helpful.1.11 IV or greater ... Positive - Presence of IgM antibody to Tani t Nile virus detected, suggestive of c urrent o r recent infection.This test is intended to be used as a semi-quantitati ve means of detecting West Nile virus-specific IgM in CSF samples in ic h there is a clinical suspic ion of West Nile virus infe ction. This test should not be used solely for lian titative purposes, nor s hould the results be used without correlation to clinical history or othe r data. Because other m embers of the Flaviviridae fa shyam, such as Gilmer encep halitis virus, show extensive cross-reactivit y with West Nile virus, ser ologic testing specific for th michelle species should be consi dered.The detection of an tibodies to West Nile virus in cerebrospinal f luid may indicate centra l nervous system infectio n. However, consideration m ust be given to possible con tamination by blood or transf er of serum antibodies acro ss the blood-brain bar rier.Test developed and c haracteristics determined by [facility]. S ee Compliance Statement B: [employer]/[facility] erformed by [employer] Alexis ,[address] [facility],[place] [address] .[employer], Chi Pugh MD, Lab. Director [place] Volodymyrjosé antonioWest Nile virus by PCR, [id number] 07:02:47 Test Item Value Reference Range Interpretation Comments West Nile virus Not-Detected Not-Detected PCR, CSF (test code = 41838-8) West Nile virus See link below for Case N umber: PCR, CSF (test PDF Lab Report [id number] 4 code = 2510) [place] MethodistOligoclonal banding, [id number] 19:46:59 Test Item Value Reference Range Interpretation Comments Protein, CSF (test code 37 mg/dL 15-45 = 2880-3) Prealbumin, CSF (%) 3.6 % 3.5-11.1 (test code = 18289-0) Albumin, CSF (test code 61.8 % 40.8-66.2 = 58753-3) Alpha 1, CSF (%) (test 2.6 % 2.3-6.4 code = 94717-1) Alpha 2, CSF (%) (test 7.8 % 6.1-12.6 code = 32731-4) Beta, CSF (%) (test 15.8 % 11.7-24.1 code = 76487-3) Gamma, CSF (%) (test 8.4 % 5.6-12.2 code = 02131-0) CSF extended See Comment An essentially interpretation (test normal CSF protein code = 99921-4) study. No oligoclonal ban ds seen. CSF interpretation See Comment Morales shukla MD; (test code = 1163) Derian Fermin ; Suhail Fuentes MD, Ph D [place] MethodistCryptococcal antigen, [id number] 18:36:50 Test Item Value Reference Interpretation Comments Range Cryptococcal Ag Negative - No Specimen (test code = Cryptococcus InformationSpec imen 9820-2) antigen detected. Source: CS F (Spinal Fluid)Specimen Site: Lumbar puncture [place] MethodistHerpes simplex virus by [id number] 15:46:51 Test Item Value Reference Range Interpretation Comments Herpes virus, PCR Not-Detected Not-Detected (test code = 95396-4) Herpes virus, PCR See link below Case Num evan: (test code = 1523) for PDF Lab [id number] Report Robert [id number] 15:10:33 Test Item Value Reference Range Interpretation Comments FAISAL screen (test Negative Negative Test perfor med using NOVA code = 550) Lite DAPI FAISAL k it (Indirect Immunofluoresce nce Assay) for Anti-Nuclea r Antibody on [employer] QUANTA-Ly ser 160 Analyzer. Robert BolesST. [facility] [id number] 11:24:50 Test Item Value Reference Range Interpretation Comments POC glucose (test code = 158 mg/dL 65-99 H Ope rator Name: Virgilio 92818-8) [employer] ID: [id number] able: RN Notified Lab Interpretation (test Abnormal code = 82117-3) Robert BolesEEG (routine)2019-04-28 07:43:40Date of Study Completion: April 27, 2019Date of Interpretation: April 28, 2019Ordering Provider: Dr. Abhijit Alexander Inpatient Electroencephalogram Report History: 54 year old man being treated for a brain lesion leading to periods of encephalopathy. Please evaluate the underlying cerebral activity and rule out interictal epileptiform discharges. Technical Description: The recording was started at 17:42 and ended at 18:02 on 04/27/2019. It was a digitally recorded multi-montage EEG with 21 electrodes placedaccording to the International 10/20 system. An EKG strip was recorded continuously. True eye leads were not employed. True temporal leads were not employed. EEG Description:When maximally aroused, the awake background was characterized by a well-developed 9 to 10 Hz, 20 to 40 microvolts symmetric pos terior rhythm that attenuated appropriately to eye opening. The patient becomes drowsy over the course of the recording as evidenced by the dropout of the posterior rhythm and the emergence of a diffuse 2 to 7 Hz, 40 to 60 microvolts irregular slow activity. No definitive interictal epileptiform discharges or electrographic seizures were appreciated. Sleep Recording:Stage II sleep was not recorded.Activation Procedures:Hyperventilation was not attempted. Photic stimulation utilizing flash frequencies ranging from 5 to 30 Hz did not elicit a driving response. EEG Interpretation: This was a normal awake and drowsy EEG.1. No paroxysmal discharges were observed. Clinical Correlation:1. The absenceof interictal epileptiform discharges does not rule out an underlying tendency for unprovoked seizures (epilepsy). Note, however, that an EEG recording preceded by sleep deprivation or a prolonged recording during sleep would increase the statistical likelihood of detecting interictal discharges, andshould be considered if pursuing a diagnosis of epilepsy.[facility] CenterMRI Brain W Wo [id number] 05:17:23Hm Interface, Radiology Results 04/28/2019 5:20 AM CSTEXAMINATION: MRI BRAIN W WO CONTRASTCLINICAL HISTORY: Focal neuro deficit > 6 hrs stroke suspected, Altered level of consciousness(LOC) unexplained, PLEASE SCREEN FOR CEREBRAL ANEURYSM COILSCOMPARISON: CT 04/27/2019.TECHNIQUE: Multiplanar and multisequence MRI imaging of the brain was obtained with and without contrast.FINDINGS:No diffusion restriction to suggest acute ischemia. Pre and postcontrast enhanced images shows no intracranial mass or abnormal enhancing brain lesion. Susceptibility in left paraclinoid region related to embolization coils. No other abnormal susceptibility to suggest intracranial hemorrhage.Brain volume is normal.No acute hydrocephalus or extra- axial fluid collection identified. Midline structures aremaintained. Major flow voids in the skull base are identified. Paranasal sinuses and mastoid air cells are clear. Orbits are normal. Visualized soft tissue shows no gross abnormalities. IMPRESSION:No acute intracranial abnormality identified. No enhancing lesion appreciated.[facility]-[id number] MethodistC-reactive protein 2019-04-28 01:09:58 Test Item Value Reference Range Interpretation Comments CRP (test code = 1988-5) <0.30 0-0.5 [place] MethodistVDRL, CSF [id number] 20:51:39 Test Item Value Reference Range Interpretation Comments VDRL, CSF screen (test code = Non-reactive Non-reactive 3046) [place] MethodistHemoglobin [id number] 20:26:21 Test Item Value Reference Range Interpretation Comments Hemoglobin A1C (test 6.6 % 4-5.6 H HbA1c c utoffs for code = 23344-2) diagnosing diabetes:4.0% - 5.6% = normal5.7% - 6.4% = increased risk for diabetes (prediabetes)9> =6.5% = eturiqch1Nwaw s for glycemic contro l (ADA 2016)< 7.0% Ta rget for non adults with iker betes. More or less stringent targe ts may be appropriate for individual colby ents. <7.5% Target for Children and adolescents wit h type 1 diabetes. Lab Interpretation (test Abnormal code = 52373-5) Robert BolesIgG synthesis rate [id number] 19:53:07 Test Item Value Reference Range Interpretation Comments IgG albumin ratio, CSF (test 0.14 0.00-0.23 code = 1588) IgG index, CSF (test code = 0.41 0.01-0.63 93865-4) IgG synthetic rate (test -1.73 -9.90 - 3.30 mg-day code = 25682-4) Q-albumin ratio, CSF (test 5.98 2.00-7.50 code = 1756-6) IgG, CSF (test code = 3.11 mg/dL 1-3 H 2464-6) Albumin, CSF (test code = 22.71 mg/dL 10-30 56578-8) IgG (test code = 2465-3) 1281 mg/dL 700-1600 Albumin, S (test code = 3800.0 mg/dL 3153-6988 00377-6) Lab Interpretation (test Abnormal code = 19228-9) Robert HelmistSedimentation [id number] 18:59:41 Test Item Value Reference Range Interpretation Comments Sedimentation rate (test code = 9 0- 10 mm/hr 78134-3) Robert BolesCSF cell count with [id number] 16:44:34 Test Item Value Reference Range Interpretation Comments CSF tube number (test code = Tube 2 2608442) Color, CSF (test code = 55192-0) Colorless Appearance, CSF (test code = Clear 23458-0) RBC, CSF (test code = 43966-4) 1 0- 1 /CMM WBC, CSF (test code = 27024-5) 2 0- 5 /CMM CSF mononuclear cell (test code = 2/CMM 23712-6) Robert BolesGlucose level, [id number] 16:25:04 Test Item Value Reference Range Interpretation Comments Glucose, CSF (test code = 2342-4) 93 mg/dL 40-70 H Lab Interpretation (test code = Abnormal 57540-2) Robert BolesProtein, [id number] 16:25:04 Test Item Value Reference Range Interpretation Comments Protein, CSF (test code = 2880-3) 43 mg/dL 15-45 Robert BolesVitamin B12 [id number] 16:08:12 Test Item Value Reference Range Interpretation Comments Vitamin B12 (test 516 pg/mL 211-946 Significan t overlap code = 2132-9) exists betwee n normal and deficiency states.However, most patients with deficiencies wi ll have Serum B12 <2 00 pg/mL. Robert BolesIR Lumbar Puncture by [id number] 16:04:12Hm Interface, Radiology Results - 04/27/2019 4:07 PM CSTEXAMINATION: IR LUMBAR PUNCTURECLINICAL HISTORY: Cerebral aneurysm SAH cerebral vasospasm eval, Headache acute severe worst GUERRERO of lifeCOMPARISON: None.TECHNIQUE:Informed consent was obtained from the patient prior to exam. Totalfluoroscopy time registered 0 minutes. Total radiation dosage was 1.9 mGy. 2 images were stored during fluoroscopy to document the level of needle placement.The patient was prepped in a sterile fashion in the prone position. 1% Xylocaine was utilized for local anesthesia. 1 mg P.O. Ativan was given for sedation.Utilizing fluoroscopic guidance, a 22-gauge spinal needle was placed into the subarachnoid space at the L2-3 level. The opening pressure was 12 cm. 20 mL of cerebrospinal fluid was withdrawn and sent to the laboratory for analysis. There were no complications. The primary surgeon was Dr. Gan. There were no assistants. There was no significant blood loss. The patient was sent to the recovery room after the procedure and discharged after he met discharge criteria.IMPRESSION:Successful fluoroscopic-guided lumbar puncture to evaluate the patient's headaches and treated aneurysm.[facility]-[id number] Methodist Thyroid stimulating [id number] 13:50:36 Test Item Value Reference Range Interpretation Comments TSH (test code = 3016-3) 1.32 0.27- 4.20 uIU/mL Robert BolesT4, [id number] 13:50:35 Test Item Value Reference Range Interpretation Comments T4, free (test code = 3024-7) 1.1 ng/dL 0.9-1.7 Robert Mendoza drugs of abuse [id number] 13:42:53 Test Item Value Reference Interpretation Comments Range Amphetamine screen, Negative urine (test code = 3349-8) Barbiturate screen, Negative urine (test code = 3377-9) Benzodiazepine Negative screen, urine (test code = 3390-2) Cocaine screen, Negative urine (test code = 3397-7) Methadone Negative metabolite (EDDP), urine (test code = 44724-8) Opiates screen, Negative urine (test code = 3879-4) Phencyclidine Negative screen, urine (test code = 3936-2) Tricyclic screen, Negative urine (test code = 68595-4) Cannabinoid screen, Negative Drug scr een minimum urine (test code = concentra tion of 3427-2) detectabilityAm phetamines 1000 ng/mLBarbiturat es 200 ng/mLBe nzodiazepines 300 ng/mLCocaine 300 ng/mLMethadone 300 ng/mLOp iates 300 ng/mLPhencyclid ine 25 ng/mLCa nnabinoids 50 ng/mLTricyclics 1000 ng/mLRe sults are from screening tests and should only be used fo r medical evaluation. Narinder gimenez testing for legal purposes requires definitive (or confirmatory) testing methods , which are available upon request. Contact the lab oratory if definitive test ing is required. [place] MethodistLipid [id number] 13:39:52 Test Item Value Reference Interpretation Comments Range Cholesterol (test 137 mg/dL 0-199 code = 2093-3) Triglycerides (test 111 mg/dL 0-149 code = 2571-8) HDL cholesterol 47 mg/dL 40-51388 (test code = 2085-9) LDL cholesterol 82 mg/dL 0-99 (test code = 2089-1) Lipid panel See below Total Cholester ol (mg/dL) interpretation (test < 200 code = 46356-6) Desirable 200-239 Borderline -high >=240 Hi gh Triglyceri ayaz (mg/dL) <150 No rmal 150-199 Borderline-high 200-499 High >=500 Very high HDL Choles terol (mg/dL) <40 Low (male) < 50 Low (female) L DL Cholesterol (mg /dL) <100 Optimal 1 00-129 Near or above o ptimal 130-159 Borderline-high 160-189 High >=190 Very high Risk Cat ergories that modify LDL goals.Risk Catergories LDL goal (mg/dL )CHD and CHD risk equiva lent <100 (10-year risk >20%)Multiple ( 2+) risk factors < 130 (10-year risk = <20%)0-1 risk factors <160 (<10-ye ar risk) Defining levels of lipids in metabolic syndromeTriglyc erides > =150 mg/dLHDL Choles terol Men <40 mg/dL Women <50 mg/dL Non-HDL cholest sonia is a second target f or therapy in personswith high triglycerides ( >=200 mg/dL) [facility] MethodistCTA Head W Wo [id number] 11:11:58Hm Interface, Radiology Results 04/27/2019 11:15 AM CSTEXAMINATION: CT ANGIOGRAM HEAD W WO CONTRASTCLINICAL HISTORY: STROKECOMPARISON: CT brain dated April 27, 2019TECHNIQUE: Imaging of theintracranial circulation was obtained from the skull base to the vertex during the arterial phase ofenhancement. Postprocessing was performed with MIP multiplanar and 3D reconstructed images. CT imaging was performed with iterative reconstruction technique and/or automated exposure control to reduceradiation dose.FINDINGS:There are no gross brain parenchymal abnormalities. There is no midline shift, hydrocephalus or extra-axial fluid collection.The major dural sinuses are opacified normally.Soft tissue shows no evidence of laceration or hematoma.No hemodynamically significant stenosis is identified of the intracranial internal carotid arteries, middle cerebral arteries, anterior cerebral arteries, intracranial vertebral arteries, basilar artery or posterior cerebral arteries. There is no aneurysmal dilatation or vascular malformation of the tetlin of [place].Note is made of multiple embolization coils in the left paraclinoid region. No residual aneurysm is appreciated but there is some streakartifact in this area limiting evaluation of the vessels directly adjacent to the coils.IMPRESSION:No hemodynamically significant narrowing of the tetlin of [place] vessels. Multiple embolization coils are noted in the left paraclinoid region with no discrete aneurysm identified.[facility]-[id number] MethodistCTA Neck W Wo [id number] 11:00:09Hm Interface, Radiology Results 04/27/2019 11:03 AM CSTEXAMINATION: CT ANGIOGRAM NECK W WO CONTRASTCLINICAL HISTORY: STROKECOMPARISON: NoneTECHNIQUE: Imaging of the cervical circulation was obtained from the upper thorax to the skull base during the arterial phase of enhancement. Postprocessing was performed with MIP multiplanar and 3D reconstructed images. CT imaging was performed with iterative reconstruction technique and/or automated exposure control to reduce radiation dose.FINDINGS :Visualized upper mediastinum shows no mass lesion. Lung apices are clear.Visualized soft tissues shows no mass, adenopathy or fluid collection.Visualized osseous structures shows no acute fracture or d islocation.The common carotid arteries, carotid bulbs, internal carotid arteries and external carotid arteries are opacified with 0% stenosis by NASCET criteria. The vertebral arteries are patent throughout the visualized cervical segments without significant stenosis.The right vertebral artery is dominant.Visualized intracranial regions left paraclinoid coils are noted with some streak artifacts. Please see CTA head for further details.IMPRESSION:No hemodynamically significant narrowing of the cervical vessels by NASCET criteria.[facility]-[id number] [place] MethodistCreatine kinase, total (CPK)2019-04-27 10:47:44 Test Item Value Reference Range Interpretation Comments Creatine kinase (test code = 2157-6) 169 U/L 39-308 [place] MethodistPartial thromboplastin time, [id number] 10:38:45 Test Item Value Reference Range Interpretation Comments PTT (test code = 29.7 23.0- 36.0 sec PTT thera peutic range for 3173-2) unfractionated heparin is61.0-112.0 se conds which corresponds to Anti-Xa0.3-0.7 U/ml. [place] VolodymyristProthrombin time with [id number] 10:38:38 Test Item Value Reference Range Interpretation Comments Prothrombin time (test 13.0 11.5- 14.5 sec code = 5902-2) INR (test code = 1.0 The Interna tional 85701-9) Normalized Rati o (INR) is a therapeutic m onitoring tool for patien ts who are stable on oral anticoagulant t herapy. An INR of 2.0-3.0 is suggested for d eep vein thrombosis/pulm onary embolism. Robert BolesCT Stroke Brain Wo [id number] 10:29:22Hm Interface, Radiology Results - 04/27/2019 10:32 AM CSTEXAMINATION: CT STROKE BRAIN WO CONTRASTCLINICAL HISTORY: STROKECOMPARISON: CT of the head dated May 19, 2001FINDINGS: There is noevidence of acute hemorrhage, mass lesion, or midline shift. The appiah-white matter differentiation is preserved with no evidence of acute territorial infarction. Ventricles, sulci, and cisterns are age-appropriate in size and configuration. There is no extra-axial fluid collection.Endovascular aneurysm coiling is seen in the left supraclinoid ICA with associated surrounding streak artifact.Visualizedparanasal sinuses and mastoid air cells are clear. Bones, orbits, and soft tissues are unremarkableAll CT images were acquired using low-dose technique with automated exposure control.IMPRESSION: No acute intracranial hemorrhage or mass effect.Findings discussed with Dr. ENRIQUEZ on 04/27/2019 10:27 AM , and he verbalized understanding of the report.[facility]-[id number] Methodist
--- OUTSIDE RECORDS SUMMARY | 2020-03-27 17:25 | XMS REPORT ---
:1965 Author Organization [facility] Address [address], [address] [place] [address] Care Team Providers Name Role Phone Dyer Unavailable [phone] PROBLEMS Type Condition ICD9-CM [id number] Onset Condition SNOMED Code Notes Code Code Dates Status Problem History of Z90.49 Active 601669486 cholecystectomy Problem Family history of Z82.49 Active 778388390 ischemic heart disease and other diseases of the circulatory system Problem Diabetes type 2, E11.9 Active 924641309 controlled Problem Hyperlipemia, E78.2 Active 576921549 mixed Problem Sleep apnea, G47.33 Active 97737657 obstructive Problem Anxiety disorder F41.9 Active 888318967 Problem Family history of Z80.0 Active 001345412 colon cancer Problem HTN I10 Active 92603431 (hypertension), benign Problem Current moderate F32.1 Active 00535328 episode of major depressive disorder without prior episode Problem Osteoarthritis of M19.071 Active 11227270056016 00 right foot, unspecified osteoarthritis type Problem CPAP (continuous Z99.89 Active 171397035 positive airway pressure) dependence Problem Malaise and R53.81 Active 670250240 fatigue Problem Erectile N52.9 Active 667662609 dysfunction, unspecified erectile dysfunction type Problem Gastro-esophageal K21.9 Active 854555995 reflux disease without esophagitis Problem Adult BMI Z68.35 Active 856307990 35.0-35.9 kg/sq m Problem Vitamin D E55.9 Active 22275566 deficiency Problem Adult BMI Z68.36 Active 778177274 36.0-36.9 kg/sq m Problem Complicated G43.109 Active 319183139 migraine ALLERGIES No Known Allergies ENCOUNTERS from 1965 to 2020-03-02 Encounter Location Date Provider Diagnosis [facility] Ravi Cook [address], [place] [address] IMMUNIZATIONS Vaccine Route Administration Date Status Afluria IM Intramuscular Nov 04, 2018 Administered Rocephin (Ceftriaxone) IM Intramuscular Nov 17, 2017 Administ ered SOCIAL HISTORY Tobacco Use: Social History Observation Description Date Details (start date - stop date) Never Smoker Sex Assigned At : Social History Observation Description Sex Assigned At Unknown Alcohol Screen Question Answer Notes Did you have a drink containing alcohol in Yes the past year? Points 4 Interpretation Positive How many drinks did you have on a typical 1 or 2 (0 points) day when you were drinking in the past year? How often did you have a drink containing Four or more times a week (4 points) alcohol in the past year? Tobacco Use/Smoking Question Answer Notes Are you a never smoker REASON FOR REFERRAL No Information VITAL SIGNS No information MEDICATIONS Medication SIG (Take, Route, Notes Start Date End Date Status Frequency, Duration) Lipitor 10 MG 1 tablet Orally Once a Active day for 30 day(s) Accu-Chek FastClix USE TO CHECK GLUCOSE Active Lancets - TWICE A DAY Accu-Chek Guide - USE TO CHECK GLUCOSE Active TWICE DAILY MetFORMIN HCl ER 500 MG TAKE 1 TABLET BY MOUTH Active TWICE A DAY Sildenafil Citrate 50 MG 1 tablet as needed Active Orally Once a day for 25 Vitamin E 100 UNIT 1 capsule Orally Once a Active day Aspir-81 81 MG 1 tablet Orally Once a Not-Taking day Dicyclomine HCl 20 MG TAKE 1 TABLET BY MOUTH Active THREE TIMES A DAY Flax Seed Oil 1000 MG Orally Act rebekah Lipitor 10 MG 1 tablet Orally Once a Active day for 90 Depakote 250 MG 1 tablet Orally Once a Active day Losartan Potassium 25 MG take 1 tab Orally Once Active a day for 90 Vitamin C 500 MG Orally Active Vitamin D-3 1000 UNIT 1 capsule Orally Once a Active day Losartan Potassium 25 MG take 1 tab Orally Once Active a day for 30 days PROCEDURES No Information RESULTS No Results REASON FOR VISIT 02/28sore on foot MEDICAL (GENERAL) HISTORY Type Description Date Medical History Diabetes type 2, controlled Medical History History of cholecystectomy Medical History Gastro-esophageal reflux disease without esophagitis Medical History Family history of colon cancer Medical History Malaise and fatigue Medical History Family history of ischemic heart disease and other diseases of the circulatory system Medical History Hyperlipemia, mixed Medical History Anxiety disorder Medical History HTN (hypertension), benign Surgical History Neurosugery-Brain aneurysm 2002 Surgical History Cholecystectomy Hospitalization History No Hospitalization history informati on Goals Section No Information Health Concerns No Information MEDICAL EQUIPMENT No Information MENTAL STATUS No Information FUNCTIONAL STATUS No Information ASSESSMENTS No Information PLAN OF TREATMENT Medication Medication Name Sig Start Date Stop Date Vitamin E 100 UNIT 1 capsule Orally Once a day Vitamin C 500 MG Orally Sildenafil Citrate 50 MG 1 tablet as needed Orally Once a day for 25 Losartan Potassium 25 MG take 1 tab Orally Once a day for 30 days MetFORMIN HCl ER 500 MG TAKE 1 TABLET BY MOUTH TWICE A DAY Lipitor 10 MG 1 tablet Orally Once a day for 30 day(s) Dicyclomine HCl 20 MG TAKE 1 TABLET BY MOUTH THREE TIMES A DAY Accu-Chek FastClix Lancets - USE TO CHECK GLUCOSE TWICE A DAY Flax Seed Oil 1000 MG Orally Accu-Chek Guide - USE TO CHECK GLUCOSE TWICE DAILY Depakote 250 MG 1 tablet Orally Once a day Vitamin D-3 1000 UNIT 1 capsule Orally Once a day Next Appt Details Provider Name:[facility] Edy Dyer, 2020-03-05 08:50:00 AM, [address], [place], [address], Insurance Providers Payer Name Payer Payer Insured Name Patient Coverage Covera End Address Phone Relationship to Start Date Kamar e Insured [employer] [phone] Warner Sanchez 2020 and Marcello [id number] [place] [id number]
--- OUTSIDE RECORDS SUMMARY | 2020-03-27 17:25 | XMS REPORT ---
:1965 Author Organization [facility] Address [address], [address] [place] [address] Care Team Providers Name Role Phone Dyer Unavailable [phone] PROBLEMS Type Condition ICD9-CM [id number] Onset Condition SNOMED Code Notes Code Code Dates Status Problem Diabetes type 2, E11.9 Active 841863569 controlled Problem Family history of Z82.49 Active 576960857 ischemic heart disease and other diseases of the circulatory system Problem History of Z90.49 Active 188474050 cholecystectomy Problem Hyperlipemia, E78.2 Active 610693362 mixed Problem Sleep apnea, G47.33 Active 26830070 obstructive Problem Anxiety disorder F41.9 Active 714539914 Problem Family history of Z80.0 Active 381571118 colon cancer Problem Current moderate F32.1 Active 12031786 episode of major depressive disorder without prior episode Problem Osteoarthritis of M19.071 Active 25038017922460 00 right foot, unspecified osteoarthritis type Problem Adult BMI Z68.35 Active 611868620 35.0-35.9 kg/sq m Problem Erectile N52.9 Active 055772929 dysfunction, unspecified erectile dysfunction type Problem HTN I10 Active 03760771 (hypertension), benign Problem GERD without K21.9 Active 817696880 esophagitis Problem Malaise and R53.81 Active 483344642 fatigue Problem Adult BMI Z68.36 Active 041563420 36.0-36.9 kg/sq m Problem Vitamin D E55.9 Active 63512775 deficiency Problem Complicated G43.109 Active 897912927 migraine Problem CPAP (continuous Z99.89 Active 333011375 positive airway pressure) dependence ALLERGIES No Known Allergies ENCOUNTERS from 1965 to 2020-03-05 Encounter Location Date Provider Diagnosis [facility] [address], [facility] [address], [facility] [address], [address] ; [place] [address] Complicated mi graine G43.109 ; Hyperlipemia, m ixed E78.2 ; Anxiety disorder F41.9 ; Malaise and fat igue R53.81 ; Sleep apnea, obstructive G47 .33 ; HTN (hypertensi on), benign I10 ; Vi tamin D deficiency E5 5.9 ; CPAP (continuou s positive airway pressure) depen dence Z99.89 ; Erecti le dysfunction, unspecified ere ctile dysfunction typ e N52.9 ; Adult B AL 35.0-35.9 kg/sq m Z68.35 ; GERD w ithout esophagitis K21 .9 and Family history of cancer Z80.9 IMMUNIZATIONS Vaccine Route Administration Date Status Afluria [...] REASON FOR REFERRAL No Information VITAL SIGNS Height 69 in Feb, Weight 251.5 lbs Feb, Temperature 97.2 degrees Fahrenheit Feb, BMI 37.14 kg/m2 Feb, Oximetry 98 % Feb, Respiratory Rate 17 /min Feb, Blood pressure systolic 138 mm Hg Feb, Blood pressure diastolic 76 mm Hg Feb, MEDICATIONS Medication SIG (Take, Route, Notes Start Date End Date Status Frequency, Duration) Flax Seed Oil 1000 MG Orally Act rebekah Accu-Chek Guide - USE TO CHECK GLUCOSE Active TWICE DAILY Vitamin D-3 1000 UNIT 1 capsule Orally Active Once a day Losartan Potassium 25 take 1 tab Orally Active MG Once a day for 90 Aspir-81 81 MG 1 tablet Orally Once Not-Taking a day Lipitor 10 MG 1 tablet Orally Once A ctive a day for 30 day(s) Omeprazole 40 MG 1 capsule 30 minutes Feb, Active before morning meal Orally Once a day for 30 day(s) Sildenafil Citrate 50 1 tablet as needed Active MG Orally Once a day for 25 Dicyclomine HCl 20 MG TAKE 1 TABLET BY Active MOUTH THREE TIMES A DAY Lipitor 10 MG 1 tablet Orally Once A ctive a day for 90 Depakote 250 MG 1 tablet Orally Once Active a day Fish Oil 1000 MG 1 capsule Orally Ac tive Once a day Vitamin E 100 UNIT 1 capsule Orally Active Once a day MetFORMIN HCl ER 500 TAKE 1 TABLET BY Active MG MOUTH TWICE A DAY Losartan Potassium 25 take 1 tab Orally Active MG Once a day for 30 days Accu-Chek FastClix USE TO CHECK GLUCOSE Active Lancets - TWICE A DAY Vitamin C 500 MG Orally Active Multi Vitamin Active Synjardy XR 10-1000 MG 1 tablet with Feb, Mar, Active breakfast Orally Once a day for 90 days PROCEDURES No Information RESULTS No Results REASON FOR VISIT 3 [facility] lab f/u MEDICAL (GENERAL) HISTORY Type Description Date Medical [...] HTN (hypertension), benign Surgical History Neurosugery-Brain aneurysm 2001 Surgical History Cholecystectomy Hospitalization History No Hospitalization history informati on Goals Section No Information Health Concerns No Information MEDICAL EQUIPMENT No Information MENTAL STATUS No Information FUNCTIONAL STATUS No Information ASSESSMENTS Encounter Date Diagnosis Assessment Notes Treatment Notes Treatm ent Clinical Notes Feb, Diabetes type 2, Wanting to resume controlled (ICD-10 Synjardy. Side - E11.9) effect panel discussed extensively. Stop Metformin.. Diabetes Education Diabetes is a disorder that disrupts the way your body uses glucose (sugar). It is a chronic medication condition that requires regular monitoring and treatment throughout your life. Treatment includes: lifestyle modification, self-care measures, and medication. Fortunately, these treatments can keep the blood sugar levels close to normal and minimize the risk of developing complications. The primary blood test to measure the progress of diabetes is the Hemoglobin A1c. Normal levels is less than 7.0 but less than 6.5 is considered excellent control. Fasting blood sugars should be in the range of 80-120 while random blood sugars should range below 200 especially after meals. Carbohydrate (sugar) intake for diabetics should be below 45 grams per meal and 15 grams per snack. Diabetic preventive care is vital to prevent complications, so it is important to have yearly diabetic eye and foot exams with specialists. If your diabetes is not controlled, then contact your doctor to further address.Medication may need to be adjusted and/or added. Feb, Complicated Recent admission at [facility] (ICD-10 - [facility]. Medical G43.109) release form signed. Patient taking Depakote. Managed by neurology. Feb, Hyperlipemia, Continue Lipitor due mixed (ICD-10 - to Dx od DM. Side E78.2) effect discussed. Will monitor. , Hyperlipidemia Education: Hyperlipidemia refers to increased levels of lipids(fats) in the blood, including cholesterol and triglycerides. This can significantly increase your risk of developing coronary artery disease and peripheral artery disease. This can cause chest pain, heart attack, stroke, and fatigue. Treatment is recommended to decrease your risk. Treatment includes: lifestyle modification, low salt/low fat diet, exercise, tobacco cessation, low alcohol intake and sometimes medication. Blood tests (TC,TG, HDL, LDL) are utilized to determine treatment regimens. TC(Total cholesterol) should be below 200. TG(Total Triglycerides) should be below 150. HDL(Good cholesterol) should be above 40. LDL(Bad Cholesterol) should be below 130(if you have one risk factor) or less than 100( if you have more than one risk factor or have DM/CAD/PVD). Compliance with medication and treatment is vital. If you have questions, talk to your doctor. Feb, Anxiety disorder Stopped BuSpar while (ICD-10 - F41.9) being on Depakote. Side effect panel discussed. Instructions given , -- Anxiety Education: Anxiety is a feeling of anxiousness or nervousness. Being extremely anxious or worried on most days for 6 months or longer is not normal. This is a type of anxiety disorder. This disorder can make it hard to do everyday tasks. Other types of anxiety include: post traumatic stress disorder, panic disorder, and phobias. Symptoms of anxiety may include: feeling worried or on the edge, trouble sleeping, or forgetting things. Feelings of stomach aches or chest tightness is another common symptom. Medicine, exercise, and other treatments like counseling, talk therapy, yoga, and massages maybe necessary to treat this disorder. Feb, Malaise and fatigue (ICD-10 - R53.81) Feb, Sleep apnea, Reports of compliant obstructive with CPAP. (ICD-10 - G47.33) Feb, HTN Start Losartan for (hypertension), renal protection + benign (ICD-10 - HTN. Side effect I10) discussed. , DASH Diet discussed. Instructed to measure BP at home and bring in log to f/u appt. Instructions and logs given. Education given. Feb, Vitamin D Discussed on causes deficiency (ICD-10 of Vit D Def. - E55.9) Increase sunlight + Hydration + Exercise + Food High in Vit D and OTC supplements. Feb, CPAP (continuous positive airway pressure) dependence (ICD-10 - Z99.89) Feb, Erectile Discussed DDX. dysfunction, Education given. Will unspecified trial Viagra. Side erectile effect discussed. dysfunction type Instructions given. (ICD-10 - N52.9) Feb, Adult BMI Counseling given. 35.0-35.9 kg/sq m Education given. (ICD-10 - Z68.35) Discussed weight, diet, exercise with patient in relation to health conditions. Used motivational interviewing to illcit change talk and establised initial goals with patient, including but not limited to : Walking daily, reducing soda and increased hydration with water of at least 64 ounces. the pateint expressed a desire to change. Feb, GERD without Will try omeprazole. esophagitis Discussed long-term (ICD-10 - K21.9) impact of PPI usage. Side panel discussed., We have discussed the pathophysiology of reflux disease and we discussed lifestyle modifications to avoid reflux that include elevation head of the bed, avoid alcohol, avoid caffeine, avoid maintenance, avoid tight clothing, avoid eating within 3-4 hours before bedtime, and avoiding smoking. Feb, Family history of . Referral to cancer (ICD-10 - genetic counseling Z80.9) and testing Feb, Other -- Medication reviewed and updated. -- Dietary and Lifestyle modifications addressed regarding diet, exercise and weight managemen t. -- Treatment options, risks and benefits, side effects reviewed in detail. -- Advised on signs/symptoms to monitor and when to call clinic and/or visit the nearest ER. Patient verbalized understanding and agreeable with plan. PLAN OF TREATMENT Medication Medication Name Sig Start Date Stop Date Losartan Potassium 25 MG take 1 tab Orally Once a day for 30 days Lipitor 10 MG 1 tablet Orally Once a day for 30 day(s) Omeprazole 40 MG 1 capsule 30 minutes before Feb, morning meal Orally Once a day for 30 day(s) Synjardy XR 10-1000 MG 1 tablet with breakfast Orally Feb,Mar, Once a day for 90 days Treatment Notes Assessment Notes Clinical Notes Diabetes type 2, controlled Wanting to resume Synjardy. Wolf e effect panel discussed extensively. Stop Metformin.. Diabetes Education Diabetes is a disorder that disrupts the way your body uses glucose (sugar). It is a chronic medication condition that requires regular monitoring and treatment throughout your life. Treatment includes: lifestyle modification, self-care measures, and medication. Fortunately, these treatments can keep the blood sugar levels close to normal and minimize the risk of developing complications. The primary blood test to measure the progress of diabetes is the Hemoglobin A1c. Normal levels is less than 7.0 but less than 6.5 is considered excellent control. Fasting blood sugars should be in the range of 80-120 while random blood sugars should range below 200 especially after meals. Carbohydrate (sugar) intake for diabetics should be below 45 grams per meal and 15 grams per snack. Diabetic preventive care is vital to prevent complications, so it is important to have yearly diabetic eye and foot exams with specialists. If your diabetes is not controlled, then contact your doctor to further address.Medication may need to be adjusted and/or added. Complicated migraine Recent admission at [facility]. Medical release form signed. Patient taking Depakote. Managed by neurology. Hyperlipemia, mixed Continue Lipitor due to Dx od DM. Side effect discussed. Will monitor. , Hyperlipidemia Education: Hyperlipidemia refers to increased levels of lipids(fats) in the blood, including cholesterol and triglycerides. This can significantly increase your risk of developing coronary artery disease and peripheral artery disease. This can cause chest pain, heart attack, stroke, and fatigue. Treatment is recommended to decrease your risk. Treatment includes: lifestyle modification, low salt/low fat diet, exercise, tobacco cessation, low alcohol intake and sometimes medication. Blood tests (TC,TG, HDL, LDL) are utilized to determine treatment regimens. TC(Total cholesterol) should be below 200. TG(Total Triglycerides) should be below 150. HDL(Good cholesterol) should be above 40. LDL(Bad Cholesterol) should be below 130(if you have one risk factor) or less than 100( if you have more than one risk factor or have DM/CAD/PVD). Compliance with medication and treatment is vital. If you have questions, talk to your doctor. Anxiety disorder Stopped BuSpar while being on Depakote. Side effect panel discussed. Instructions given , -- Anxiety Education: Anxiety is a feeling of anxiousness or nervousness. Being extremely anxious or worried on most days for 6 months or longer is not normal. This is a type of anxiety disorder. This disorder can make it hard to do everyday tasks. Other types of anxiety include: post traumatic stress disorder, panic disorder, and phobias. Symptoms of anxiety may include: feeling worried or on the edge, trouble sleeping, or forgetting things. Feelings of stomach aches or chest tightness is another common symptom. Medicine, exercise, and other treatments like counseling, talk therapy, yoga, and massages maybe necessary to treat this disorder. Sleep apnea, obstructive Reports of compliant with CPAP. HTN (hypertension), benign Start Losartan for renal protecti on + HTN. Side effect discussed. , DASH Diet discussed. Instructed to measure BP at home and bring in log to f/u appt. Instructions and logs given. Education given. Vitamin D deficiency Discussed on causes of Vit D Def. Increase sunlight + Hydration + Exercise + Food High in Vit D and OTC supplements. Erectile dysfunction, unspecified Discussed DDX. Education pernell callaway. Will erectile dysfunction type trial Viagra. Side effect discusse d. Instructions given. Adult BMI 35.0-35.9 kg/sq m Counseling given. Education give n. Discussed weight, diet, exercise with patient in relation to health conditions. Used motivational interviewing to illcit change talk and establised initial goals with patient, including but not limited to : Walking daily, reducing soda and increased hydration with water of at least 64 ounces. the pateint expressed a desire to change. GERD without esophagitis Will try omeprazole. Discussed long-term impact of PPI usage. Side panel discussed., We have discussed the pathophysiology of reflux disease and we discussed lifestyle modifications to avoid reflux that include elevation head of the bed, avoid alcohol, avoid caffeine, avoid maintenance, avoid tight clothing, avoid eating within 3-4 hours before bedtime, and avoiding smoking. Family history of cancer . Referral to genetic counseling a nd testing Treatment Notes Test Name Order Date Lipid Panel With LDL/HDL Ratio 2020-03-05 Microalbumin/Creat Ratio, Random Ur 2020-03-05 Hemoglobin A1c 2020-03-05 Comp. Metabolic Panel (14) (CMP) 2020-03-05 Vitamin D, 25-Hydroxy 2020-03-05 Next Appt Details 3 Months + Labs 1 week Reason: Insurance Providers Payer Name Payer Payer Insured Name Patient Coverage Covera ge End Address Phone Relationship to Start Date Kamar e Insured [employer] [phone] Warner Sanchez and Marcello [id number] [facility] [phone]
--- OUTSIDE RECORDS SUMMARY | 2020-03-27 17:25 | XMS REPORT ---
:1965 Author Organization [facility] Address [address] [place], [address] [place] [address] Care Team Providers Name Role Phone Didi Unavailable [phone] PROBLEMS Type Condition ICD9-CM [id number] Onset Condition SNOMED Code Notes Code Code Dates Status Problem History of Z90.49 Active 266850823 cholecystectomy Problem Family history of Z82.49 Active 204732490 ischemic heart disease and other diseases of the circulatory system Problem Diabetes type 2, E11.9 Active 623041474 controlled Problem Hyperlipemia, E78.2 Active 381654198 mixed Problem Sleep apnea, G47.33 Active 46167255 obstructive Problem Anxiety disorder F41.9 Active 605647496 Problem Family history of Z80.0 Active 514537930 colon cancer Problem HTN I10 Active 92927944 (hypertension), benign Problem Current moderate F32.1 Active 95188519 episode of major depressive disorder without prior episode Problem Osteoarthritis of M19.071 Active 21090705382662 00 right foot, unspecified osteoarthritis type Problem CPAP (continuous Z99.89 Active 271860050 positive airway pressure) dependence Problem Malaise and R53.81 Active 187315155 fatigue Problem Erectile N52.9 Active 912327347 dysfunction, unspecified erectile dysfunction type Problem Gastro-esophageal K21.9 Active 300874192 reflux disease without esophagitis Problem Adult BMI Z68.35 Active 748547381 35.0-35.9 kg/sq m Problem Vitamin D E55.9 Active 51100162 deficiency Problem Adult BMI Z68.36 Active 576059207 36.0-36.9 kg/sq m Problem Complicated G43.109 Active 149862419 migraine ALLERGIES No Known Allergies ENCOUNTERS from 1965 to 2020-01-03 Encounter Location Date Provider Diagnosis [facility] [address] [place] Dec, Suzanne Tolbert Blo ating R14.0 ; Family Medicine [address] [place], [place] [address] [address] controlled E11 .9 ; Complicated martha ana G43.109 ; Hyperlipemia, m ixed E78.2 ; Anxiety disorder F41.9 ; Malaise and fat igue R53.81 ; Sleep apnea, obstructive G47 .33 ; HTN (hypertensi on), benign I10 ; Vi tamin D deficiency E5 5.9 ; CPAP (continuou s positive airway pressure) depen anishce Z99.89 ; Erecti le dysfunction, unspecified ere ctile dysfunction typ e N52.9 and Adult BMI 35.0-35.9 kg/sq m Z68.35 IMMUNIZATIONS Vaccine Route Administration Date Status Afluria [...] No Information VITAL SIGNS Height 69 in Dec, Weight 245.8 lbs Dec, Temperature 97.5 degrees Fahrenheit Dec, BMI 36.29 kg/m2 Dec, Oximetry 94 % Dec, Respiratory Rate 18 /min Dec, Blood pressure systolic 135 mm Hg Dec, Blood pressure diastolic 83 mm Hg Dec, MEDICATIONS Medication SIG (Take, Route, Start Date End Date Status Frequency, Duration) Losartan Potassium 25 MG take 1 tab Orally Once Active a day for 90 Vitamin D-3 1000 UNIT 1 capsule Orally Once a Active day Accu-Chek Guide - USE TO CHECK GLUCOSE Ac tive TWICE DAILY Flax Seed Oil 1000 MG Orally Active Vitamin E 100 UNIT 1 capsule Orally Once a Active day Dicyclomine HCl 20 MG 1 tablet Orally Three 10 Dec, 2019 10 Dec, 20 20 Active times a day for 30 day(s) Lipitor 10 MG 1 tablet Orally Once a Acti ve day for 90 Depakote 250 MG 1 tablet Orally Once a Ac tive day Lipitor 10 MG 1 tablet Orally Once a Acti ve day for 30 day(s) Aspir-81 81 MG 1 tablet Orally Once a Not -Taking day Losartan Potassium 25 MG take 1 tab Orally Once Active a day for 30 days Vitamin C 500 MG Orally Active Accu-Chek FastClix USE TO CHECK GLUCOSE A ctive Lancets - TWICE A DAY MetFORMIN HCl ER 500 MG 1 tablet l Orally BID Active for 30 days PROCEDURES No Information RESULTS No Results REASON FOR VISIT bloated stomach, requesting to be seen today [facility] MED[facility] (GENERAL) HISTORY Type Description Date Medical [...] STATUS No Information ASSESSMENTS Encounter Date Diagnosis Notes Dec, Sleep apnea, obstructive (ICD-10 - G47.3 3) Dec, Malaise and fatigue (ICD-10 - R53.81) Dec, Vitamin D deficiency (ICD-10 - E55.9) Dec, HTN (hypertension), benign (ICD-10 - I10 ) Dec, Complicated migraine (ICD-10 - G43.109) Dec, Anxiety disorder (ICD-10 - F41.9) Dec, Hyperlipemia, mixed (ICD-10 - E78.2) Dec, Erectile dysfunction, unspecified erecti le dysfunction type (ICD-10 - N52.9) Dec, CPAP (continuous positive airway pressur e) dependence (ICD-10 - Z99.89) Dec, Diabetes type 2, controlled (ICD-10 - E1 1.9) Dec, Bloating (ICD-10 - R14.0) Dec, Adult BMI 35.0-35.9 kg/sq m (ICD-10 - Z6 8.35) PLAN OF TREATMENT Medication Medication Name Sig Start Date Stop Date Vitamin E 100 UNIT 1 capsule Orally Once a day Vitamin C 500 MG Orally Flax Seed Oil 1000 MG Orally MetFORMIN HCl ER 500 MG 1 tablet l Orally BID for 30 days Accu-Chek Guide - USE TO CHECK GLUCOSE TWICE DAILY Lipitor 10 MG 1 tablet Orally Once a day for 30 day(s) Losartan Potassium 25 MG take 1 tab Orally Once a day for 30 days Depakote 250 MG 1 tablet Orally Once a day Vitamin D-3 1000 UNIT 1 capsule Orally Once a day Dicyclomine HCl 20 MG 1 tablet Orally Three times a Dec, Jan, day for 30 day(s) Accu-Chek FastClix Lancets - USE TO CHECK GLUCOSE TWICE A DAY Treatment Notes Assessment Notes Clinical Notes Bloating imrpoving per ptreassured most likely not liver CA due to normal LFTs for the past two years. no heptomegaly or juandice on examstop the probiotics which may be worsening his symptomshigh fiber dietavoid beans and legumesrx supportive med. make sure DM is under control.RTC in 2-4 weeks if no improvement, consider xray (U/S not ideal when gassy) Diabetes type 2, controlled Resumed metformin 1 tablet twice daily. Diabetes Education Diabetes is a disorder that [...] and/or added. Complicated migraine Recent admission at [facility]. Medical release form signed. Patient taking Depakote. Managed by neurology.requesting referral to go back Hyperlipemia, mixed Continue Lipitor due to Dx [...] compliant with CPAP. HTN (hypertension), benign Start Lisinopril for renal protection + HTN. Side effect discussed. , DASH Diet discussed. Instructed to measure BP at home and bring in log to f/u appt. Instructions and logs given. Education given. Vitamin D deficiency Discussed on causes of Vit D Def. Increase sunlight + Hydration + Exercise + Food High in Vit D and OTC supplements. CPAP (continuous positive airway as mentioned above pressure) dependence Erectile dysfunction, unspecified Discussed DDX. Education perenll call[place]. Will erectile dysfunction type trial Viagra. [...] the pateint expressed a desire to change. Next Appt Details Provider Name:Mauricio Gomez, 2020-02-28 0 9:00:00 AM, [address], [address], [place], [address], Provider Name:Mauricio Dyer 2020-03-05 0 8:50:00 AM, [address], [address], [place], [address], Insurance Providers Payer Name Payer Payer Insured Name Patient Coverage Covera ge End Address Phone Relationship to Start Date Kamar e Insured [employer] [phone] Warner Sanchez 2020 and Marcello [id number] [address] [place] [id number]
--- OUTSIDE RECORDS SUMMARY | 2020-03-27 17:25 | XMS REPORT ---
:1965 Author Organization [facility] Address [address] [place], [address] [place] [address] Care Team Providers Name Role Phone Dyer Unavailable [phone] PROBLEMS Type Condition ICD9-CM IHT45-PV Onset Condition SNOMED Code Notes Code Code Dates Status Problem Diabetes type 2, E11.9 Active 826538161 controlled Problem Family history of Z82.49 Active 535974871 ischemic heart disease and other diseases of the circulatory system Problem History of Z90.49 Active 440270636 cholecystectomy Problem Hyperlipemia, E78.2 Active 245227653 mixed Problem Sleep apnea, G47.33 Active 30900872 obstructive Problem Anxiety disorder F41.9 Active 618968297 Problem Family history of Z80.0 Active 471709052 colon cancer Problem Current moderate F32.1 Active 34232119 episode of major depressive disorder without prior episode Problem Osteoarthritis of M19.071 Active 54170056749944 00 right foot, unspecified osteoarthritis type Problem Adult BMI Z68.35 Active 414411857 35.0-35.9 kg/sq m Problem Erectile N52.9 Active 392254857 dysfunction, unspecified erectile dysfunction type Problem HTN I10 Active 06604231 (hypertension), benign Problem GERD without K21.9 Active 840458023 esophagitis Problem Malaise and R53.81 Active 156278065 fatigue Problem Adult BMI Z68.36 Active 659230360 36.0-36.9 kg/sq m Problem Vitamin D E55.9 Active 35922627 deficiency Problem Complicated G43.109 Active 426352613 migraine Problem CPAP (continuous Z99.89 Active 999631901 positive airway pressure) dependence ALLERGIES No Known Allergies ENCOUNTERS from 1965 to 2020-03-06 Encounter Location Date Provider Diagnosis [facility] [address] [place] Feb, [facility] [place] [address], Family Medicine [address], control led E11.9 ; [place] [address] Complicated mi graine G43.109 ; Hyperlipemia, m ixed E78.2 ; Anxiety disorder F41.9 ; Malaise and fat igue R53.81 ; Sleep apnea, obstructive G47 .33 ; HTN (hypertensi on), benign I10 ; Vi tamin D deficiency E5 5.9 ; CPAP (continuou s positive airway pressure) depen dence Z99.89 ; Erecti le dysfunction, unspecified ere ctile dysfunction typ e N52.9 ; Adult B NV 35.0-35.9 kg/sq m Z68.35 ; GERD w ithout esophagitis K21 .9 ; Family history of cancer Z80.9 an d Lesion of nose J34.89 IMMUNIZATIONS Vaccine Route Administration Date Status Afluria [...] VITAL SIGNS Height 69 in Feb, Weight 249.2 lbs Feb, Temperature 97.2 degrees Fahrenheit Feb, BMI 36.8 kg/m2 Feb, Oximetry 98 % Feb, Respiratory Rate 18 /min Feb, Blood pressure systolic 134 mm Hg Feb, Blood pressure diastolic 70 mm Hg Feb, MEDICATIONS Medication SIG (Take, Route, Notes Start Date End Date Status Frequency, Duration) Synjardy XR 10-1000 MG 1 tablet with breakfast Active Orally Once a day for 90 days Vitamin C 500 MG Orally Active Flax Seed Oil 1000 MG Orally Act rebekah Depakote 250 MG 1 tablet Orally Once a Active day Vitamin D-3 1000 UNIT 1 capsule Orally Once a Active day Lipitor 10 MG 1 tablet Orally Once a Active day for 30 day(s) Lipitor 10 MG 1 tablet Orally Once a Not-Taking day for 90 Sildenafil Citrate 50 MG 1 tablet as needed Active Orally Once a day for 25 Losartan Potassium 25 MG take 1 tab Orally Once Not-Taking a day for 90 Dicyclomine HCl 20 MG TAKE 1 TABLET BY MOUTH Active THREE TIMES A DAY MetFORMIN HCl ER 500 MG TAKE 1 TABLET BY MOUTH Active TWICE A DAY Accu-Chek Guide - USE TO CHECK GLUCOSE Active TWICE DAILY Accu-Chek FastClix USE TO CHECK GLUCOSE Active Lancets - TWICE A DAY Multi Vitamin Active Omeprazole 40 MG 1 capsule 30 minutes Active before morning meal Orally Once a day for 30 day(s) Vitamin E 100 UNIT 1 capsule Orally Once a Active day Fish Oil 1000 MG 1 capsule Orally Once a Active day Aspir-81 81 MG 1 tablet Orally Once a Not-Taking day Losartan Potassium 25 MG take 1 tab Orally Once Active a day for 30 days PROCEDURES No Information RESULTS No Results REASON FOR VISIT DM Check Sugar elevated MEDICAL (GENERAL) HISTORY Type Description Date Medical [...] Feb, Diabetes type 2, Wanting to resume Sample s given. controlled Synjardy. Side Side effect (ICD-10 - E11.9) effect panel panel discu ssed. discussed Encourage extensively. Stop patient t o check Metformin.. Diabetes sugars daily and Education Diabetes is make d ietary a disorder that lifestyle disrupts the way your change s. Call body uses glucose clinic wit hin 1 (sugar). It is a week with chronic medication results. condition that Patient requires regular vocalized monitoring and understanding . treatment throughout Advised on signs your life. Treatment symptom s to includes: lifestyle monitor when to modification, visit the self-care measures, nearest ED. and medication. Fortunately, these treatments can keep [...] and/or added. Feb, Complicated Recent admission at [facility] (ICD-10 [facility] Medical - G43.109) release form signed. Patient taking Depakote. [...] Feb, Vitamin D Discussed on causes deficiency of Vit D Def. (ICD-10 - E55.9) Increase sunlight + Hydration + [...] - genetic counseling Z80.9) and testing Feb, Lesion of nose Referral to (ICD-10 - J34.89) dermatolog y for further evaluation management. Feb, Other -- Medication reviewed and updated. [...] Medication Name Sig Start Date Stop Date Omeprazole 40 MG 1 capsule 30 minutes before morning meal Orally Once a day for 30 day(s) Lipitor 10 MG 1 tablet Orally Once a day for 30 day(s) Synjardy XR 10-1000 MG 1 tablet with breakfast Orally Once a day for 90 days Losartan Potassium 25 MG take 1 tab Orally Once a day for 30 days Treatment Notes Assessment Notes Clinical Notes Diabetes type 2, controlled Wanting to resume Synjardy. Samp les given. Side effect Side effect panel discussed panel discus sed. Encourage extensively. Stop Metformin.. patient t o check sugars Diabetes Education Diabetes is daily and make dietary a disorder that disrupts the lifestyle c hanges. Call way your body uses glucose clinic within 1 week with (sugar). It is a chronic results. Patie nt vocalized medication condition that understanding. Advised on requires regular monitoring and signs sy mptoms to monitor treatment throughout your life. when to visit the nearest Treatment includes: lifestyle ED. modification, self-care measures, and medication. Fortunately, these [...] and/or added. Complicated migraine Recent admission at [facility]. Medical release form signed. Patient taking Depakote. [...] HTN (hypertension), benign Start Losartan for renal protection + HTN. Side effect discussed. , DASH Diet discussed. Instructed to measure BP at home and bring in log to f/u appt. Instructions and logs given. Education given. Vitamin D deficiency Discussed on causes of Vit D Def. Increase sunlight + Hydration + Exercise + Food High in Vit D and OTC supplements. Erectile dysfunction, Discussed DDX. Education given. unspecified erectile Will trial Viagra. Side effect dysfunction type discussed. Instructions given. Adult BMI 35.0-35.9 kg/sq m Counseling given. Education given. Discussed weight, diet, exercise with patient in [...] 3-4 hours before bedtime, and avoiding smoking. Lesion of nose Referral to dermatol gary for further evaluation management. Family history of cancer . Referral to genetic counseling and testing Treatment Notes Test Name Order Date Lipid Panel With LDL/HDL Ratio 2020-03-06 Microalbumin/Creat Ratio, Random Ur 2020-03-06 Hemoglobin A1c 2020-03-06 Comp. Metabolic Panel (14) (CMP) 2020-03-06 CBC With Differential/Platelet 2020-03-06 Vitamin D, 25-Hydroxy 2020-03-06 Next Appt Details as scheduled Reason: Provider Name:[facility] Dyer, 2020-06-04 11:30:00 AM, [address], [address], [place], [address], Insurance Providers Payer Name Payer Payer Insured Name Patient Coverage Covera ge End Address Phone Relationship to Start Date Kamar e Insured [employer] [phone] Warner Sanchez [id number] [place], [place] [address]O [facility] [id number]
--- NOTE | 2020-03-27 22:16 | ER ---
Nurse's Notes [facility] Name: You Sanchez Age: 55 yrs Sex: Male : 1965 Arrival Date: 03/27/2020 Time: 17:23 Bed 27 Private MD: Mauricio Dyer Diagnosis: Presentation: 03/27 17:53 Chief complaint: Patient states: BP was 199 systolic and he took two of his losartans iw that he is prescribed for diabetes, was seen at [facility] for high BP and had EKG, CT, labs done and was told everything was normal .Pt is having headache when he stands and pain behind his eyes and his smart watch it said "Afib". Coronavirus screen: At this time, the client does not indicate any symptoms associated with coronavirus-19. Ebola Screen: Patient negative for fever greater than or equal to 101.5 degrees Fahrenheit, and additional compatible Ebola Virus Disease symptoms Patient denies exposure to infectious person. Patient denies travel to an Ebola-affected area in the 21 days before illness onset. No symptoms or risks identified at this time. Initial Sepsis Screen: Does the patient meet any 2 criteria? No. Patient's initial sepsis screen is negative. Does the patient have a suspected source of infection? No. Patient's initial sepsis screen is negative. Risk Assessment: Do you want to hurt yourself or someone else? Patient reports no desire to harm self or others. Onset of symptoms was March 27, 2020. 17:53 Method Of Arrival: Ambulatory iw 17:53 Acuity: SEPIDEH 3 iw Historical: - Allergies: 18:00 No Known Allergies; iw - Home Meds: 18:00 Zyrtec 10 mg oral cap daily [Active]; losartan 25 mg oral tab 1 tab once daily iw [Active]; synjardy xr daily [Active]; divalproex 250 mg oral Tb24 once daily [Active]; - PMHx: 17:52 Aneurysm; Anxiety; Diabetes - NIDDM; GERD; Sleep Apnea; iw - PSHx: 17:52 Brain aneurysm surgery; Cholecystectomy; iw - Immunization history:: Adult Immunizations not up to date. - Social history:: Smoking status: Patient denies any tobacco usage or history of. Assessment: 22:13 Reassessment: called to come to room, no answer. em Vital Signs: 17:53 BP 163 / 88; Pulse 88; Resp 16 S; Temp 98.4; Pulse Ox 97% on R/A; Weight 111.13 kg; iw Height 5 ft. 9 in. (175.26 cm); 17:53 Body Mass Index 36.18 (111.13 kg, 175.26 cm) iw ED Course: 17:23 Patient arrived in ED. mr 17:23 Mauricio Dyer, is Private Physician. mr 17:56 Triage completed. iw 18:00 Arm band placed on. iw Administered Medications: No medications were administered Outcome: 22:16 Patient left the ED. em Signatures: Gisel Kumar mr Maxime Arredondo, RN RN em Mara Lynn RN RN iw
[2020-03-27 22:42] VITALS: BP 163/88; TEMP 98.4; O2SAT 97
== END 2020-03-27 22:16 | disposition left against medical advice (07) ==
LOC: ER 17:21
DX: R51.9 Headache, unspecified (principal); E11.9 Type 2 diabetes mellitus without complications; F41.9 Anxiety disorder, unspecified; K21.9 Gastro-esophageal reflux disease without esophagitis; G47.33 Obstructive sleep apnea (adult) (pediatric); Z53.21 Procedure and treatment not carried out due to patient leaving prior to being seen by health care provider
CPT/HCPCS: 99281

== ENCOUNTER 2020-04-02 10:41 | Day surgery (SDC) | payer BC ==
[2020-03-30 16:14] LABS: Protime INR 0.97
[2020-04-02] MEDS ORDERED: NA CHLORIDE 0.9% 500 ML ONE (10:59)
[2020-04-02] MEDS ORDERED: HEPA 1000U/500MLS 2,000 UNIT/1,000 ML BAG IV ONE (11:31)
[2020-04-02] MEDS ORDERED: LIDOCAINE 1% MPF 30 ML VIAL ONE (11:31)
[2020-04-02] MEDS ORDERED: MIDAZOLAM HCL 2 MG/2 ML INJ ONE (12:05)
[2020-04-02] MEDS ORDERED: HEPARIN 5000 UNIT/ML 1 ML VIAL ONE (12:05)
[2020-04-02] MEDS ORDERED: NITROGLYCERIN 100 MCG/ML SYR (for cath lab use only) IV ONE (12:06)
[2020-04-02] MEDS ORDERED: VERAPAMIL HCL 10 MG/4 ML VIAL IV ONE (12:06)
[2020-04-02] MEDS ORDERED: FENTANYL CITR 100 MCG/2 ML ONE (12:06)
[2020-04-02] MEDS ORDERED: NITROGLYCERIN/D5W 25 MG/250 ML BTL IV ONE (12:06)
[2020-04-02] MEDS ORDERED: ATROPINE SULF 1 MG/10 ML SYR IV ONE (12:06)
[2020-04-02 14:12] VITALS: O2SAT 96
[2020-04-02 14:41] VITALS: BP 121/68; TEMP 98
--- NOTE | 2020-04-02 17:54 | OP ---
Date of Procedure: 04/02/2020 Surgeon: SHASHI CASTAÑEDA Procedure Performed: 1.Selective coronary angiogram. 2.Left heart catheterization. Indication: Unstable angina and shortness of breath. Access: Right radial artery 6-Bruneian closed with TR band. Complications: None. Bleeding: Less than 5 mL. Description Of Procedure: After risks, benefits, and alternatives were explained, patient agreed to proceed and signed informed consent. We brought the patient to the cardiac catheterization laborator y, prepped and draped in usual sterile fashion. Then used fentanyl Versed in incremental doses and a chieved adequate moderate sedation. Then, we accessed the right radial artery using pediatric microp uncture kit and placed slender sheath and then took 5-Bruneian Pierpont catheter into the aortic root, eng aged the right coronary artery, took standard views and could not engage the left coronary system. U sing a Pierpont or a JL3.5 and was exchanged for EBU 3.5 and engaged the left coronary system and took s tandard views. Catheter also was pushed over the wire across the aortic valve to measure the LVEDP a nd then upon pullback, there was no difference in gradient. Catheter was removed. Sheath was remove d and placed TR band with good hemostasis. Findings: 1.Left main, large, long and normal. 2.LAD, moderate size and normal. 3.Left circumflex, moderate size and normal. 4.RCA large dominant and normal. 5.LVEDP of 14 mmHg. Impression: 1.Normal coronary arteries. 2.Borderline elevated LVEDP of 14 mmHg. Recommendations: 1.Medical management. Low-salt diet. One might use low-dose diuretics as an outpatient. 2.Discharge home once criteria met. SR/MODL Voice ID: [id number] Report ID: [id number]
--- OUTSIDE RECORDS SUMMARY | 2020-04-03 21:43 | XMS REPORT | Clinical Summary ---
:1965 Author Organization [facility] Address [address] [place] [address] Care Team Providers Name Role Phone Mauricio Dyer DO Primary Care Provider [phone] Allergies No Known Active Allergies Medications [...] FH: cerebral aneurysm Gautam Davis MD after 04/03/2019 Surgical History Surgery Date Site/Laterality Comments CEREBRAL [...] with No / Unsure 03/26/2020 6:58 PM ALUMINUM CAN COLLECTOR someone who was confirmed or suspected to have Coronavirus / COVID-19? Last Filed Vital Signs Vital Sign Reading Time Taken Comments Blood Pressure 141/77 03/26/2020 8:30 PM ALUMINUM CAN COLLECTOR Pulse 76 03/26/2020 8:30 PM ALUMINUM CAN COLLECTOR Temperature 36.7 C (98 F) 03/26/2020 6:27 PM ALUMINUM CAN COLLECTOR Respiratory Rate 18 03/26/2020 8:30 PM ALUMINUM CAN COLLECTOR Oxygen Saturation 99% 03/26/2020 8:30 PM ALUMINUM CAN COLLECTOR Inhaled Oxygen Concentration - - Weight 113 kg (250 lb) 03/26/2020 6:27 PM ALUMINUM CAN COLLECTOR Height 172.7 cm (5' 8") 03/26/2020 6:27 PM ALUMINUM CAN COLLECTOR Body Mass Index 38.01 03/26/2020 6:27 PM ALUMINUM CAN COLLECTOR Plan of Treatment Health Maintenance Due Date Last Done Comments DIABETES: RETINAL EYE EXAM 02/28/1974 DIABETIC FOOT EXAM 02/28/1974 URINE MICROALBUMIN 02/28/1974 COVID-19 VACCINE (1 of 2) 1980 HEPATITIS C SCREENING 02/28/1982 COLONOSCOPY SCREENING 02/28/2014 SHINGLES VACCINES (#1) 02/28/2014 INFLUENZA VACCINE 09/24/2019 11/04/2018, 02/15/2016 Implants Implanted Type Area Roof Painter Device Identifier Shelf Exp iration Model / Date Serial / L ot Aneurysm Coil Procedures Procedure Name Priority Date/Time Associated Comments Diagnosis URINALYSIS SCREEN AND STAT 03/26/2020 7:59 Re sults for this MICROSCOPY, WITH REFLEX PM ALUMINUM CAN COLLECTOR proc edure are in TO CULTURE the results section. URINE CULTURE STAT 03/26/2020 7:59 Results fo r this PM [employer]UM CAN COLLECTOR procedure are i n the results section. CT HEAD WO CONTRAST STAT 03/26/2020 7:21 Resu lts for this PM AL[employer]INUM CAN COLLECTOR procedure are i n the results section. XR CHEST 1 VW PORTABLE STAT 03/26/2020 7:19 R esults for this PM [employer]UM CAN COLLECTOR procedure are i n the results section. ECG 12-LEAD STAT 03/26/2020 7:01 Results for this PM AL[employer]INUM CAN COLLECTOR procedure are i n the results section. ESTIMATED GFR STAT 03/26/2020 7:01 Results fo r this PM [employer]INUM CAN COLLECTOR procedure are i n the results section. B NATRIURETIC PEPTIDE STAT 03/26/2020 7:01 Re sults for this PM [employer]INUM CAN COLLECTOR procedure are i n the results section. TROPONIN STAT 03/26/2020 7:01 Results for this PM AL[employer]INUM CAN COLLECTOR procedure are i n the results section. COMPREHENSIVE METABOLIC STAT 03/26/2020 7:01 Results for this PANEL PM ALUMINUM CAN COLLECTOR procedure are i n the results section. HC COMPLETE BLD COUNT STAT 03/26/2020 7:01 Re sults for this W/AUTO DIFF PM [employer]INUM CAN COLLECTOR procedure are i n the results section. ECG ED PRELIMINARY Routine 03/26/2020 6:43 Resul ts for this INTERPRETATION PM AL[employer]INUM CAN COLLECTOR procedure are in the results section. POC GLUCOSE Routine 04/28/2019 11:23 Results for this AM ALUMINUM CAN COLLECTOR procedure are i n the results section. POC GLUCOSE Routine 04/28/2019 8:18 Results for this AM ALUMINUM CAN COLLECTOR procedure are i n the results section. MRI BRAIN W WO CONTRAST Routine 04/28/2019 5:11 Results for this AM AL[employer]INUM CAN COLLECTOR procedure are i n the results section. POC GLUCOSE Routine 04/27/2019 8:25 Results for this PM ALUMINUM CAN COLLECTOR procedure are i n the results section. EEG AWAKE/DROWSY LESS Routine 04/27/2019 7:08 Re sults for this THAN 41 MIN PM ALUMINUM CAN COLLECTOR procedure are i n the results section. HEMOGLOBIN A1C Routine 04/27/2019 4:40 Results f or this PM ALUMINUM CAN COLLECTOR procedure are i n the results section. SEDIMENTATION RATE Routine 04/27/2019 4:40 Resul ts for this PM ALUMINUM CAN COLLECTOR procedure are i n the results section. C-REACTIVE PROTEIN Routine 04/27/2019 4:40 Resul ts for this PM ALUMINUM CAN COLLECTOR procedure are i n the results section. FAISAL Routine 04/27/2019 4:40 Results for this PM ALUMINUM CAN COLLECTOR procedure are i n the results section. TROPONIN Timed 04/27/2019 4:40 Results for this PM AL[employer]INUM CAN COLLECTOR procedure are i n the results section. POC GLUCOSE Routine 04/27/2019 4:34 Results for this PM ALUMINUM CAN COLLECTOR procedure are i n the results section. WEST NILE VIRUS Routine 04/27/2019 3:10 Results for this ANTIBODY PANEL, CSF PM ALUMINUM CAN COLLECTOR procedur e are in the results section. WEST NILE VIRUS BY PCR, Routine 04/27/2019 3:10 Results for this CSF PM ALUMINUM CAN COLLECTOR procedure are i n the results section. OLIGOCLONAL BANDING, Routine 04/27/2019 3:10 Res ults for this CSF PM ALUMINUM CAN COLLECTOR procedure are i n the results section. HERPES SIMPLEX VIRUS BY Routine 04/27/2019 3:10 Results for this PCR PM ALUMINUM CAN COLLECTOR procedure are i n the results section. VDRL, CSF SCREEN Routine 04/27/2019 3:10 Results for this PM ALUMINUM [employer] COLLECTOR procedure are i n the results section. IGG SYNTHESIS RATE Routine 04/27/2019 3:10 Resul ts for this STUDY PM ALUMINUM CAN COLLECTOR procedure are i n the results section. GLUCOSE LEVEL, CSF Routine 04/27/2019 3:10 Resul ts for this PM ALUMINUM CAN COLLECTOR procedure are i n the results section. PROTEIN, CSF Routine 04/27/2019 3:10 Results for this PM ALUMINUM [employer] COLLECTOR procedure are i n the results section. CSF CELL COUNT WITH Routine 04/27/2019 3:10 Resu lts for this DIFFERENTIAL PM ALUMINUM CAN COLLECTOR procedure are i n the results section. CRYPTOCOCCAL ANTIGEN Routine 04/27/2019 3:10 Res ults for this SCREEN PM ALUMINUM CAN COLLECTOR procedure are i n the results section. IR LUMBAR PUNCTURE Routine 04/27/2019 3:05 Resul ts for this PM ALUMINUM CAN COLLECTOR procedure are i n the results section. GRAM STAIN Routine 04/27/2019 2:10 Results for this PM ALUMINUM CAN COLLECTOR procedure are i n the results section. AFB CULTURE Routine 04/27/2019 2:10 Results for this PM ALUMINUM CAN COLLECTOR procedure are i n the results section. FUNGUS CULTURE Routine 04/27/2019 2:10 Results f or this PM ALUMINUM CAN COLLECTOR procedure are i n the results section. CSF CULTURE Routine 04/27/2019 2:10 Results for this PM ALUMINUM CAN COLLECTOR procedure are i n the results section. HEMOGLOBIN A1C Routine 04/27/2019 1:07 Results f or this PM ALUMINUM CAN COLLECTOR procedure are i n the results section. LIPID PANEL Routine 04/27/2019 1:07 Results for this PM ALUMINUM CAN COLLECTOR procedure are i n the results section. T4, FREE Routine 04/27/2019 1:07 Results for this PM ALUMINUM CAN COLLECTOR procedure are i n the results section. THYROID STIMULATING Routine 04/27/2019 1:07 Resu lts for this HORMONE PM ALUMINUM CAN COLLECTOR procedure are i n the results section. VITAMIN B12 LEVEL Routine 04/27/2019 1:07 Result s for this PM AL[employer]INUM CAN COLLECTOR procedure are i n the results section. TROPONIN Timed 04/27/2019 1:07 Results for this PM ALUMINUM CAN COLLECTOR procedure are i n the results section. VITAMIN B1 LEVEL, WHOLE STAT 04/27/2019 12:28 Results for this BLOOD PM ALUMINUM CAN COLLECTOR procedure are i n the results section. CT ANGIOGRAM NECK W WO STAT 04/27/2019 10:55 R esults for this CONTRAST AM ALUMINUM CAN COLLECTOR procedure are i n the results section. CT ANGIOGRAM HEAD W WO STAT 04/27/2019 10:53 R esults for this CONTRAST AM ALUMINUM CAN COLLECTOR procedure are i n the results section. URINE DRUGS OF ABUSE Routine 04/27/2019 10:46 Res ults for this SCREEN AM ALUMINUM CAN COLLECTOR procedure are i n the results section. URINALYSIS SCREEN AND STAT 04/27/2019 10:46 Re sults for this MICROSCOPY, WITH REFLEX AM ALUMINUM CAN COLLECTOR proc edure are in TO CULTURE the results section. ECG 12-LEAD STAT 04/27/2019 10:40 Results for this AM ALUMINUM CAN COLLECTOR procedure are i n the results section. URINE CULTURE STAT 04/27/2019 10:35 Results fo r this AM ALUMINUM CAN COLLECTOR procedure are i n the results section. POC GLUCOSE Routine 04/27/2019 10:32 Results for this AM ALUMINUM CAN COLLECTOR procedure are i n the results section. CT STROKE BRAIN WO STAT 04/27/2019 10:24 Resul ts for this CONTRAST AM ALUMINUM CAN COLLECTOR procedure are i n the results section. CREATINE KINASE, TOTAL STAT 04/27/2019 10:14 R esults for this (CPK) AM ALUMINUM CAN COLLECTOR procedure are i n the results section. ESTIMATED GFR STAT 04/27/2019 10:14 Results fo r this AM ALUMINUM CAN COLLECTOR procedure are i n the results section. TROPONIN STAT 04/27/2019 10:14 Results for this AM ALUMINUM CAN COLLECTOR procedure are i n the results section. COMPREHENSIVE METABOLIC STAT 04/27/2019 10:14 Results for this PANEL AM ALUMINUM CAN COLLECTOR procedure are i n the results section. PROTHROMBIN TIME WITH STAT 04/27/2019 10:14 Re sults for this INR AM ALUMINUM CAN COLLECTOR procedure are i n the results section. PARTIAL THROMBOPLASTIN STAT 04/27/2019 10:14 R esults for this TIME (PTT) AM ALUMINUM CAN COLLECTOR procedure are i n the results section. HC COMPLETE BLD COUNT STAT 04/27/2019 10:14 Re sults for this W/AUTO DIFF AM ALUMINUM CAN COLLECTOR procedure are i n the results section. ECG ED PRELIMINARY Routine 04/27/2019 10:13 Resul ts for this INTERPRETATION AM ALUMINUM CAN COLLECTOR procedure are in the results section. after 04/03/2019 Results Urinalysis screen and microscopy, with reflex to culture (03/26/2020 7:59 PM ALUMINUM CAN COLLECTOR)Only the most recent of2 resultswithin the time period is included. Pathologist Sig nature Specimen site Clean catch [facility] Color, UA Straw [facility] Appearance, UA Clear [facility] Specific gravity, 1.017 1.001 - 1.030 [facility] pH, UA 6.0 5.0 - 9.0 [facility] Protein, UA Negative Negative [facility] Glucose, UA 3+ (A) Negative [facility] Ketones, UA Trace (A) Negative [facility] Bilirubin, UA Negative Negative [facility] Blood, UA Negative Negative [facility] Nitrite, UA Negative Negative [facility] Urobilinogen, UA <2.0 <2.0 E.U./dL [facility] Leukocyte esterase, Negative Negative [facility] WBC, UA <1 0 - 1 /HPF [facility] RBC, UA 2 0 - 5 /HPF [facility] Bacteria, UA None seen None seen [facility] Yeast, UA None seen [facility] Yeast with None seen [facility] pseudohyphae, UA [facility] Specimen Urine Performing Organization Address City/[facility]/ZIP Code Phon e Number [facility] DEPARTMENT OF PATHOLOGY [id number] [place] [address] X [phone] [address] [facility] [id number] [place] [address] X [address] [facility] Urine culture (03/26/2020 7:59 PM ALUMINUM CAN COLLECTOR)Only the most recent of2 resultswithin the time period is included. Pathologist Sig nature Urine culture SEE COMMENTComment: [facility] Bacteriuria screen [facility] negative. Specimen Performing Organization Address City/[facility] Phon e Number [facility] DEPARTMENT OF PATHOLOGY [id number] [place] [address] X [address] AND [facility] [id number] [place] [address] X [address] [facility] [address] Head Wo Contrast (03/26/2020 7:21 PM ALUMINUM CAN COLLECTOR) Specimen Narrative Performed At EXAMINATION: CT HEAD [...] No CT evidence of acute intracranial abnormality. [id number] Procedure Note Hm Interface, Radiology Results Incoming - 03/26/2020 7:30 PM ALUMINUM CAN COLLECTOR EXAMINATION: CT HEAD WO CONTRAST CLINICAL HISTORY: [...] No CT evidence of acute intracranial abnormality. [id number] Performing Organization Address [facility] Phon e Number [facility] [address] [place] [address] XR Chest 1 Vw Portable (03/26/2020 7:19 PM ALUMINUM CAN COLLECTOR) Specimen Narrative Performed At EXAMINATION: XR CHEST 1 VW PORTABLE HM [facility] CLINICAL HISTORY: HTN COMPARISON: 03/11/2016 IMPRESSION: No active disease in the chest. Lungs are clear. Cardiomediastinal silhouette is within n ormal limits. No effusion or pneumothorax noted. Visualized osseous structures are intact . [id number] Procedure Note Hm Interface, Radiology Results Incoming - 03/26/2020 7:28 PM ALUMINUM CAN COLLECTOR EXAMINATION: XR CHEST 1 VW PORTABLE CLINICAL HISTORY: HTN COMPARISON: 03/11/2016 IMPRESSION: No active disease in the chest. Lungs are clear. Cardiomediastinal silhouette is within n ormal limits. No effusion or pneumothorax noted. Visualized osseous structures are intact . [id number] Performing Organization Address [facility] Phon e Number [facility] [address] [place] [address] ECG 12 lead (03/26/2020 7:01 PM ALUMINUM CAN COLLECTOR)Only the most recent of2 resultswithin the time period is included. Pathologist Sig nature Ventricular rate 79 [facility]USE Atrial rate 79 [facility] AK interval 150 [facility] QRSD interval 86 [...] Organization Address City/State/ZIP Code Phon e Number [facility] MUSE [address] [place] [address] Estimated GFR (03/26/2020 7:01 PM ALUMINUM CAN COLLECTOR)Only the most recent of2 resultswithin the time period is included. Estimated GFR >=90 mL/min/1.73 MASHA LESLIE Comment: m2 [place] Catergory Units Interpretation HOS PITAL G1 >=90 [...] published in 2014. Specimen Performing Organization Address City/[facility]/ZIP Code Phon e Number [facility] DEPARTMENT OF PATHOLOGY [address] [facility] [address] AND GENOMIC MEDICINE [facility] [place] [address] [facility] [address] HOSPITAL Troponin (03/26/2020 7:01 PM ALUMINUM CAN COLLECTOR)Only the most recent of4 resultswithin the time period is included. Pathologist [facility] Troponin <0.006 0.000 - 0.040 MASHA LESLIE Comment: ng/mL [facility] In patients suspected of having a myocardial [...] 0.020 ng/mL Specimen Blood Performing Organization Address City/State/ZIP Code Phon e Number [facility] DEPARTMENT OF PATHOLOGY [address] [facility] X [address] AND GENOMIC MEDICINE [facility] [place] [address] [facility] X [address] HOSPITAL CBC with platelet and differential (03/26/2020 7:01 PM ALUMINUM CAN COLLECTOR)Only the most recent of2 resultswithin the time period is included. WBC 10.2 4.5 - 11.0 k/uL [facility] RBC 5.11 4.40 - 6.00 [facility] m/uL [facility] HGB 14.8 14.0 - 18.0 [facility] g/dL [facility] HCT 45.5 41.0 - 51.0 % [facility] MCV 89.0 82.0 - 100.0 fL [facility] MCH 29.0 27.0 - 34.0 pg [facility] MCHC 32.5 31.0 - 37.0 [facility] g/dL [facility] RDW - SD 40.9 37.0 - 55.0 fL [facility] MPV 11.6 (H) 6.9 - 11.0 fL [facility] Platelet count 216 150 - 400 K/uL [facility] Nucleated RBC 0.00 /100 WBC [facility] Neutrophils 73.2 (H) 39.0 - 69.0 % [facility] Lymphocytes 18.8 (L) 25.0 - 45.0 % [facility] Monocytes 6.2 0.0 - 10.0 % [facility] Eosinophils 1.1 0.0 - 5.0 % [facility] Basophils 0.3 0.0 - 1.0 % [facility] Immature granulocytes 0.4 0.0 - 1.0 % [facility] Specimen Blood Performing Organization Address City/State/ZIP Code Phon e Number [facility] DEPARTMENT OF PATHOLOGY [id number] [place] [address] B natriuretic peptide (03/26/2020 7:01 PM ALUMINUM CAN COLLECTOR) Pathologist [facility] BNP 17 0 - 100 pg/mL [facility] Specimen Blood Performing Organization Address City/[facility]/ZIP Code Phon e Number [facility] DEPARTMENT OF PATHOLOGY [address] [place] [address] Comprehensive metabolic panel (03/26/2020 7:01 PM ALUMINUM CAN COLLECTOR)Only the most recent of2 resultswithin the time period is included. Pathologist Sig [facility] Sodium 136 135 - 148 mEq/L [facility] Potassium 4.0 3.5 - 5.0 mEq/L [facility] Chloride 101 98 - 112 mEq/L [facility] CO2 25 24 - 31 mEq/L [facility] Anion gap 10@ANIO 7 - 15 mEq/L [facility] BUN 9 6 - 20 mg/dL [facility] Creatinine 0.85 0.70 - 1.20 [facility] mg/dL [facility] Glucose 125 (H) 65 - 99 mg/dL [facility] Calcium 10.3 (H) 8.3 - 10.2 [facility] mg/dL [facility] Protein 8.2 6.3 - 8.3 g/dL [facility] Albumin 4.6 3.5 - 5.0 g/dL [facility] A/G ratio 1.3 0.7 - 3.8 [facility] Alkaline phosphatase 101 40 - 129 U/L [facility] AST 24 10 - 50 U/L [facility] ALT 31 5 - 50 U/L [facility] Total bilirubin 0.7 0.2 - 1.2 mg/dL [facility] Specimen Blood Performing Organization Address City/[facility]/ZIP [facility] Phon e Number [facility] DEPARTMENT OF PATHOLOGY [address] [facility] [address] [address] [facility] [id number] [place] [phone] [place] [address] ECG ED Preliminary Interpretation - Not an Order (03/26/2020 6:43 PM ALUMINUM CAN COLLECTOR)Only the most recent of2 resultswithin the time period is included. 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 Pathologist Sig nature POC glucose 158 (H) 65 - 99 mg/dL [facility] Comment: [facility] Pantograph I Engraver Name: Virgilio Colon Device ID: [id number] Chartable: RN Notified Specimen Performing Organization Address City/[facility]/ZIP Code Phon e Number [facility] DEPARTMENT OF PATHOLOGY [address] [facility] [id number] [place] [address] MRI Brain W Wo Contrast (04/28/2019 5:11 AM ALUMINUM CAN COLLECTOR) Specimen Narrative Performed At This result has [...] abnormality identified. No enhan cing lesion appreciated. [facility]-[id number] Procedure Note Hm Interface, Radiology Results Incoming - 04/28/2019 5:20 AM ALUMINUM CAN COLLECTOR EXAMINATION: MRI BRAIN W WO CONTRAST CLINICAL [...] abnormality identi fied. No enhancing lesion appreciated. [facility]-[id number] Performing Organization Address City/State/ZIP Code Phon e Number [facility] [address] [place] [address] EEG (routine) (04/27/2019 7:08 PM ALUMINUM CAN COLLECTOR) Narrative Performed At This result has an [...] of epilepsy. Sedimentation rate (04/27/2019 4:40 PM ALUMINUM CAN COLLECTOR) Pathologist [facility] Sedimentation rate 9 0 - 10 mm/hr [facility] Specimen Blood Performing Organization Address [facility] Phon e Number [facility] DEPARTMENT OF PATHOLOGY [address] [facility] X [address] [address] [facility] [id number] [place] [address] X [address] HOSPITAL C-reactive protein (04/27/2019 4:40 PM ALUMINUM CAN COLLECTOR) Pathologist [facility] CRP <0.30 0.00 - 0.50 mg/dL [facility] Specimen Plasma specimen Performing Organization Address [facility]/ZIP Code Phon e Number [facility] DEPARTMENT OF PATHOLOGY AND [address] [place], [place] [address] [address] FAISAL (04/27/2019 4:40 PM ALUMINUM CAN COLLECTOR) FAISAL screen Negative Negative [facility] Comment: HOSPITAL Test performed using NOVA Jump or Falle DAPI FAISAL kit (Indirect Immunofluorescence Assay) for Anti-Nuclear Antibody on TerranovaA-Lyser 160 Analyzer. Specimen Blood Performing Organization Address City/State/ZIP Code Phon e Number [facility] DEPARTMENT OF PATHOLOGY AND [address] [place] [address] [address] [address] Hemoglobin A1c (04/27/2019 4:40 PM ALUMINUM CAN COLLECTOR)Only the most recent of2 resultswithin the time period is included. Hemoglobin A1C 6.6 (H) 4.0 - 5.6 % [facility] Comment: [place] HbA1c cutoffs for diagnosing diabetes: HO SPITAL [...] 1 diabetes. Specimen Blood Performing Organization Address City/[facility] Code Phon e Number [facility] DEPARTMENT OF PATHOLOGY [address] [facility] [place] [address] AND [facility] [id number] [place] [address], X [address] HOSPITAL IgG synthesis rate study (04/27/2019 3:10 PM ALUMINUM CAN COLLECTOR) Pathologist Sig nature IgG albumin ratio, 0.14 0.00 - 0.23 [facility] IgG index, CSF 0.41 0.01 - 0.63 [facility] IgG synthetic rate -1.73 -9.90 - 3.30 [facility] mg/day [facility] Q-albumin ratio, CSF 5.98 2.00 - 7.50 [facility] IgG, CSF 3.11 (H) 1.00 - 3.00 [facility] mg/dL HOSPITAL Albumin, CSF 22.71 10.00 - 30.00 [facility] mg/dL HOSPITAL IgG 1,281 700 - 1,600 [facility] mg/dL [facility] Albumin, S 3,800.0 3,640.0 - [facility] 5,304.0 mg/dL HOSPITAL Specimen Serum Performing Organization Address City/[facility]/ZIP Code Phon e Number [facility] DEPARTMENT OF PATHOLOGY AND [address] [place], [place] [address] [facility] [address] [place] [address] West Nile virus by PCR, CSF (04/27/2019 3:10 PM ALUMINUM CAN COLLECTOR) West Nile virus Not-Detected Not-Detected [facility] PCR, CSF [facility] West Nile virus See link below [facility] PCR, CSF for PDF Lab HOSPITAL ReportComment: Specimen Cerebrospinal fluid Performing Organization Address City/State/ZIP Code Phon e Number [facility] DEPARTMENT OF PATHOLOGY AND [address] [place] [phone] [facility] [address] [place] [address] [facility] West Nile virus antibody panel, CSF (04/27/2019 3:10 PM ALUMINUM CAN COLLECTOR) Pathologist [facility] West Nile IgG, 0.09 <=1.29 IV [facility] REF LAB CSF Comment: INTERPRETIVE INFORMATION: West [...] of the Flavivirid ae family, such as Saline encephalitis virus, show extensive cross-reactivity with West [...] rrier. Test developed and characteristics determined by [employer]. See Compliance Statement B: [employer]kn[employer].CONEXANCE MD/ CS West Nile IgM, 0.00 <=0.89 IV AR REF LAB CSF Comment: INTERPRETIVE INFORMATION: West Nile Virus Ab IgM by ESME GIBBONS, CSF 0.89 IV or less ...... Negative [...] of the Flavivirid ae family, such as Saline encephalitis virus, show extensive cross-reactivity with West [...] rrier. Test developed and characteristics determined by [employer]. See Compliance Statement B: [employer]CONEXANCE MD/ CS Performed by [employer], [address] [place] [id number] [email or web address], Chi Pugh MD, Lab. Director Specimen Cerebrospinal fluid Performing Organization Address City/[facility] Phon e Number [facility] [address] [place] [address] [facility] RE[facility] LAB [address] [place] [address] Herpes simplex virus by PCR (04/27/2019 3:10 PM ALUMINUM CAN COLLECTOR) Herpes virus, PCR Not-Detected Not-Detected [facility] Herpes virus, PCR See link below [facility] for PDF Lab HOSPITAL ReportComment: Specimen Performing Organization Address City/[facility] Phon e Number [facility] DEPARTMENT OF PATHOLOGY AND [address] [place] [address] [address] [address] [facility] Cryptococcal antigen, screen (04/27/2019 3:10 PM ALUMINUM CAN COLLECTOR) Pathologist [facility] Cryptococcal Ag Negative - No Cryptococcus antigen detected. [facility] Comment: HOSPITAL Specimen Information Specimen Source: CSF (Spinal Fluid) Specimen Site: Lumbar puncture Specimen Cerebrospinal fluid - Lumbar puncture Performing Organization Address [facility] Phon e Number [facility] DEPARTMENT OF PATHOLOGY AND [address] [place] [address] [address] Oligoclonal banding, CSF (04/27/2019 3:10 PM ALUMINUM CAN COLLECTOR) [facility] Protein, CSF 37 15 - 45 [place] mg/dL [facility] Prealbumin, CSF (%) 3.6 3.5 - 11.1 % [facility] Albumin, CSF 61.8 40.8 - 66.2 [place] % [facility] Alpha 1, CSF (%) 2.6 2.3 - 6.4 % [facility] Alpha 2, CSF (%) 7.8 6.1 - 12.6 % [facility] Beta, CSF (%) 15.8 11.7 - 24.1 [facility] Gamma, CSF (%) 8.4 5.6 - 12.2 % [facility] CSF extended See [place] interpretation CommentComment: An [facility] normal [facility] CSF protein study. No oligoclonal bands seen. CSF interpretation See [place] CommentComment: BAPTISTBEA Noble MD; MAYR Wang, PhD; Suhail Fuentes MD, PhD Specimen Cerebrospinal fluid Performing Organization Address City/[facility] Phon e Number [facility] DEPARTMENT OF PATHOLOGY AND [address] [place] [address] [address] CSF cell count with differential (04/27/2019 3:10 PM ALUMINUM CAN COLLECTOR) Pathologist Nasir saucedo CSF tube number Tube 2 [facility] Color, CSF Colorless [facility] Appearance, CSF Clear [facility] RBC, CSF 1 0 - 1 /CMM [facility] WBC, CSF 2 0 - 5 /CMM [facility] CSF mononuclear cell 2/CMM [facility] Specimen Cerebrospinal fluid Performing Organization Address City/[facility] Phon e Number [facility] DEPARTMENT OF PATHOLOGY [id number] [place] [address] VDRL, CSF screen (04/27/2019 3:10 PM ALUMINUM CAN COLLECTOR) Pathologist Sig nature VDRL, CSF screen Non-reactive Non-reactive [facility] Specimen Cerebrospinal fluid Performing Organization Address City/[facility] Phon e Number [facility] DEPARTMENT OF PATHOLOGY AND [address] [place], [place] [address] [address] Protein, CSF (04/27/2019 3:10 PM ALUMINUM CAN COLLECTOR) Pathologist Sig sheryl Protein, CSF 43 15 - 45 mg/dL [facility] Specimen Cerebrospinal fluid Performing Organization Address City/[facility]/ZIP [facility] Phon e Number [facility] DEPARTMENT OF PATHOLOGY [id number] [place] [address] Glucose level, CSF (04/27/2019 3:10 PM ALUMINUM CAN COLLECTOR) Pathologist Sig sheryl Glucose, CSF 93 (H) 40 - 70 mg/dL [facility] Specimen Cerebrospinal fluid Performing Organization Address [facility] Phon e Number [facility] DEPARTMENT OF PATHOLOGY [id number] [place] [address] IR Lumbar Puncture by Radiology (04/27/2019 3:05 PM ALUMINUM CAN COLLECTOR) Specimen Narrative Performed At EXAMINATION: IR LUMBAR [...] uate the patient's headaches and treated aneurysm. [facility]-[id number] Procedure Note Hm Interface, Radiology Results Incoming - 04/27/2019 4:07 PM ALUMINUM CAN COLLECTOR EXAMINATION: IR LUMBAR PUNCTURE CLINICAL HISTORY: Cerebral aneurysm SA H cerebral vasospasm eval, Headache acute severe worst GUERRERO of life COMPARISON: None. TECHNIQUE: Informed consent was obtained from the p atient prior to exam. Total fluoroscopy time registered [...] evaluate the patient's headaches and treated aneurysm. [facility]-[id number] Performing Organization Address City/State/ZIP Code Phon e Number [facility] [address] [place] [address] AFB culture (04/27/2019 2:10 PM ALUMINUM CAN COLLECTOR) AFB culture No growth after 6 weeks of incubation. VJ AGUIRRE [facility] isolate Comment: HOSPITAL Specimen Information Specimen Source: CSF (Spinal Fluid) Specimen Site: Lumbar puncture Specimen Cerebrospinal fluid - Lumbar puncture Performing Organization Address City/State/ZIP Code Phon e Number [facility] DEPARTMENT OF PATHOLOGY AND [address] [place] [address] [address] [address] Gram stain (04/27/2019 2:10 PM ALUMINUM CAN COLLECTOR) Gram stain isolate No WBC's or organisms seen. MASHA LESLIE Comment: HOSPITAL Specimen Information Specimen Source: CSF (Spinal Fluid) Specimen Site: Lumbar puncture Specimen Cerebrospinal fluid - Lumbar puncture Performing Organization Address City/[facility] Phon e Number [facility] DEPARTMENT OF PATHOLOGY AND [address] [place] [address] [address] [address] CSF culture (04/27/2019 2:10 PM ALUMINUM CAN COLLECTOR) CSF culture No growth after 3 days. MASHA LESLIE isolate Comment: HOSPITAL Specimen Information Specimen Source: CSF (Spinal Fluid) Specimen Site: Lumbar puncture Specimen Cerebrospinal fluid - Lumbar puncture Performing Organization Address [facility] Phon e Number [facility] DEPARTMENT OF PATHOLOGY AND [address] [place] [address] [address] [address] Fungus culture (04/27/2019 2:10 PM ALUMINUM CAN COLLECTOR) Fungus culture No growth after 4 weeks of incubation. MASHA LESLIE isolate Comment: HOSPITAL Specimen Information Specimen Source: CSF (Spinal Fluid) Specimen Site: Lumbar puncture Specimen Cerebrospinal fluid - Lumbar puncture Performing Organization Address [facility] Phon e Number [facility] DEPARTMENT OF PATHOLOGY AND [address] [place] [address] [address] [address] Thyroid stimulating hormone (04/27/2019 1:07 PM ALUMINUM CAN COLLECTOR) Pathologist Sig nature TSH 1.32 0.27 - 4.20 uIU/mL [facility] Specimen Blood Performing Organization Address City/[facility]/ZIP [facility] Phon e Number [facility] DEPARTMENT OF PATHOLOGY [address] [facility] X [address] AND [facility] [address] [facility] X [address] [facility] T4, free (04/27/2019 1:07 PM ALUMINUM CAN COLLECTOR) Pathologist Sig nature T4, free 1.1 0.9 - 1.7 ng/dL [facility] Specimen Blood Performing Organization Address City/State/ZIP Code Phon e Number [facility] DEPARTMENT OF PATHOLOGY [address] [facility] [place] [address] AND [facility] [address] [facility] [place] [address] [facility] Vitamin B12 level (04/27/2019 1:07 PM ALUMINUM CAN COLLECTOR) Vitamin B12 516 211 - 946 [facility] Comment: pg/mL HOSPITAL Significant overlap exists between normal and deficien cy states. However, most patients with deficiencies will have Ser um B12 <200 pg/mL. Specimen Serum Performing Organization Address City/State/ZIP Code Phon e Number [facility] DEPARTMENT OF PATHOLOGY AND [address] [place], [place] [address] [facility] [address] [place] [address] Lipid panel (04/27/2019 1:07 PM ALUMINUM CAN COLLECTOR) Cholesterol 137 0 - 199 [place] mg/dL [facility] Triglycerides 111 0 - 149 [place] mg/dL [facility] HDL cholesterol 47 40 - 99,999 [place] mg/dL [facility] LDL cholesterol 82 0 - 99 mg/dL [facility] Lipid panel See below [place] interpretation Comment: BAPTIST SUGAR Total Cholesterol (mg/dL) [facility] <200 Desirable 200-239 Borderline-high >=240 High [...] (>=200 mg/dL) Specimen Blood Performing Organization Address City/State/ZIP Code Phon e Number [facility] DEPARTMENT OF PATHOLOGY [address] [facility] [place] [place] [address] AND [facility]OMIC [facility] [place] [address] [facility] [place] [address] [facility] Vitamin B1 level, whole blood (04/27/2019 12:28 PM ALUMINUM CAN COLLECTOR) Vitamin B1 128 70 - 180 HM [...] measured. Test developed and characteristics determined by [employer]. See Compliance Statement B: [employer]/ CS Performed by [employer], [address] [place] [address] [email or web address], Chi Pugh MD, Lab. Director Specimen Plasma specimen Performing Organization Address City/[facility]/ZIP Code Phon e Number [facility] [address] [place] [address] [facility] [address] [place] [address] CTA Neck W Wo Contrast (04/27/2019 10:55 AM ALUMINUM CAN COLLECTOR) Specimen Narrative Performed At EXAMINATION: CT ANGIOGRAM [...] the cervic al vessels by NASCET criteria. [facility]-[id number] Procedure Note Hm Interface, Radiology Results Incoming - 04/27/2019 11:03 AM ALUMINUM CAN COLLECTOR EXAMINATION: CT ANGIOGRAM NECK W WO CONTRAST [...] of the cervical vessels by NASCET criteria. [id number] Performing Organization Address City/State/ZIP Code Phon e Number [facility] [address] [place] [address] CTA Head W Wo Contrast (04/27/2019 10:53 AM ALUMINUM CAN COLLECTOR) Specimen Narrative Performed At EXAMINATION: CT ANGIOGRAM [...] dilatation or vascular malfor mation of the [place]. Note is made of multiple embolization coils in the lef t paraclinoid region. No residual aneurysm is appreciated but there is some streak artifact in this area limiting evaluation of the vesse ls directly adjacent to the coils. IMPRESSION: No hemodynamically significant narrowing of the [place] vessels. Multiple embolization coils are noted in the left paraclinoid region with no discrete aneurysm identif ied. [id number] Procedure Note Interface, Radiology Results Incoming - 04/27/2019 11:15 AM ALUMINUM CAN COLLECTOR EXAMINATION: CT ANGIOGRAM HEAD W WO CONTRAST [...] dilatation or vascular malfor mation of the [place]. Note is made of multiple embolization co ils in the left paraclinoid region. No residual aneurysm is appreciated but there is some streak artifact in this area limiting evaluation of the vessels directly adjacent to the coils. IMPRESSION: No hemodynamically significant narrowing of the [place] vessels. Multiple embolization coils are noted in the left paraclinoid region with no discrete aneurysm identified. [facility]-[id number] Performing Organization Address City/State/ZIP Code Phon e Number [facility] [address] [place] [address] Urine drugs of abuse screen (04/27/2019 10:46 AM ALUMINUM CAN COLLECTOR) [facility] Amphetamine screen, Negative [place] urine [facility] Barbiturate screen, Negative [place] urine [facility] Benzodiazepine Negative [place] screen, urine [facility] Cocaine screen, urine Negative [facility] Methadone metabolite Negative [place] (EDDP), urine [facility] Opiates screen, urine Negative [facility] Phencyclidine screen, Negative [place] urine [facility] Tricyclic screen, Negative [place] urine [facility] Cannabinoid screen, Negative [place] urine Comment: [facility] Drug screen minimum concentration of detectability [facility] Amphetamines 1000 ng/mL Barbiturates 200 ng/mL Benzodiazepines [...] Organization Address City/State/ZIP Code Phon e Number [facility] DEPARTMENT OF PATHOLOGY [address] [facility] [address] AND GENOMIC MEDICINE [facility] [place] [address] [facility] [address] [facility] [address] Stroke Brain Wo Contrast (04/27/2019 10:24 AM ALUMINUM CAN COLLECTOR) Specimen Narrative Performed At EXAMINATION: CT STROKE BRAIN WO CONTRA ST [facility] CLINICAL HISTORY: STROKE COMPARISON: CT of [...] and he verbalized understanding of the report. [facility]-[id number] Procedure Note Hm Interface, Radiology Results Incoming - 04/27/2019 10:32 AM ALUMINUM CAN COLLECTOR EXAMINATION: CT STROKE BRAIN WO CONTRAST CLINICAL [...] and he verbalized understanding of the report. [facility]-[id number] Performing Organization Address [facility] Phon e Number [facility] [address] [place] [address] Partial thromboplastin time, activated (04/27/2019 10:14 AM ALUMINUM CAN COLLECTOR) PTT 29.7 23.0 - 36.0 [place] [facility] Comment: [facility] PTT therapeutic range for unfractionated heparin is HOSPITAL 61.0-112.0 seconds which corresponds to Anti-Xa 0.3-0.7 U/ml. Specimen Blood Performing Organization Address [facility] Phon e Number [facility] DEPARTMENT OF PATHOLOGY [address] [place] [address] Prothrombin time with INR (04/27/2019 10:14 AM ALUMINUM CAN COLLECTOR) Prothrombin time 13.0 11.5 - 14.5 [facility] INR 1.0 [place] Comment: [facility] International Normalized Ratio (INR) is a [facility] monitoring tool for patients who are stable on oral anticoagulant therapy. An INR of 2.0-3.0 is suggested for deep vein thrombosis/pulmonary embolism. Specimen Blood Performing Organization Address [facility] Phon e Number [facility] DEPARTMENT OF PATHOLOGY [address] [place] [address] Creatine kinase, total (CPK) (04/27/2019 10:14 AM ALUMINUM CAN COLLECTOR) Pathologist Sig nature Creatine kinase 169 39 - 308 U/L [facility] Specimen Plasma specimen Performing Organization Address City/State/ZIP Code Phon e Number [facility] DEPARTMENT OF PATHOLOGY [address] [facility] [address] AND GENOMIC MEDICINE [place] [address] 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
--- OUTSIDE RECORDS SUMMARY | 2020-04-03 21:45 | XMS REPORT | Continuity of Care Document ---
:1965 Author Organization [facility] t Address [address] [place] [address] Care Team Providers Name Role Phone Dyer Musa NIEVES Primary Care Physician Tony Tyler MD Attending Clinician Shoaib REY Attending Clinician Unavailable Debra Saab MD Attending Clinician Tanya PANIAGUA Attending Clinician TANYA Admitting Clinician Unavailable Payers Payer Name Policy Type Policy Effective Date Expiration Date Sour ce Number [id number] 2019 [place] ACTIVECARE 00:00:00 [facility] PRIMARY /HMO BLUE ESSENTIALSxxxxxx [id number] 2019-P resentHMO Problems Condition Condition Condition Status Onset Resolution Last Treating Co mments Source Name Details Category Date Date Treatment Clinician Date Acute Acute Disease Active [place] confusion confusion 3-04 Meth regla 00:00: st 00 Chest pain Chest pain Disease Active [place] at rest at rest 1-17 [facility] 00:00: st 00 Allergies, Adverse Reactions, Alerts This patient has no known allergies or adverse reactions. Social History Social Habit Start Date Stop Date Quantity Comments Source Sex Assigned At [place] M ethodist Exposure to Not sure [place] Metho dist SARS-CoV-2 (event) Alcohol intake 2020-03-26 2020-03-26 Current Robert Novak thodist 00:00:00 00:00:00 non-drinker of alcohol (finding) Tobacco use and 2020-03-26 2020-03-26 Never used Robert Snow ethodist exposure 00:00:00 00:00:00 Smoking Status Start Date Stop Date Source [...] 24 hr times a tablet day. cholecalcif Yes 1{tbl} QD Take 1 [place] sonia, 3-05 tablet by Methodi vitamin D3, 16:30: mouth st (VITAMIN D3 48 daily. ORAL) divalproex 2020- No 250mg Q.5D Take [address] (DEPAKOTE 3-05 03-05 capsules Metho di SPRINKLE) 00:00: 23:59 ([address] 125 mg 00 :00 total) by mouth 2 (two) times a day. KRILL OIL No 1{capsu QD Take 1 [place] ORAL 3-04 03-04 le} capsule by Methodi 13:29: 00:[address] 01 :00 daily. ASCORBATE No 1{tbl} QD Take 1 [facility] [...] GLUCOSE Memori a TWICE A l DAY [facility] ent [facility] Depakote Depakote Yes Mauricio [address] [facility] Accu-Chek Accu-Chek Yes Mauricio USE TO C HI [facility] Guide Guide [facility] GLUCOSE Memoria TWICE l DAILY [facility] Immunizations Ordered Filled Immunization Date Status Comments Sourc e Immunization Name Name Cecille Oden 2018-11-[address] [facility] Vital Signs Vital Name Observation Time Observation [...] Contreras ECG 12-LEAD 2020-03-26 19:01:04 Lorna Contreras HC COMPLETE BLD COUNT 2020-03-26 19:01:00 Lorna Contreras W/AUTO DIFF COMPREHENSIVE METABOLIC 2020-03-26 19:01:00 Lorna Contreras [facility] PANEL TROPONIN 2020-03-26 19:01:00 Lorna Contreras B NATRIURETIC PEPTIDE 2020-03-26 19:01:00 Lorna Contreras ESTIMATED GFR 2020-03-26 19:01:00 Lorna Contreras odjosé antonio ECG ED PRELIMINARY 2020-03-26 18:43:08 Lorna Contreras ethodist INTERPRETATION POC GLUCOSE 2019-04-28 11:23:00 José ManuelGautam rodas ethodist POC GLUCOSE 2019-04-28 08:18:00 FaheemmarciaGautam rodas ethodist MRI BRAIN W WO CONTRAST 2019-04-28 05:11:09 Abhijit Alexander POC GLUCOSE 2019-04-27 20:25:00 Gautam Davis ethodist EEG AWAKE/DROWSY LESS THAN 2019-04-27 19:08:33 Abhijit Alexander 41 MIN TROPONIN 2019-04-27 16:40:00 Bean Saab Nv thodist FAISAL 2019-04-27 16:40:00 Mj Segura Nv thodist C-REACTIVE PROTEIN 2019-04-27 16:40:00 Mj Segura SEDIMENTATION RATE 2019-04-27 16:40:00 Mj Segura HEMOGLOBIN A1C 2019-04-27 16:40:00 Mj Segura Nv thodist POC GLUCOSE 2019-04-27 16:34:00 Fatimah Davisalessandra Snow ethodist CSF CELL COUNT WITH 2019-04-27 15:10:00 Abhijit [...] ANTIBODY 2019-04-27 15:10:00 Abhijit Alexander PANEL, CSF CRYPTOCOCCAL ANTIGEN 2019-04-27 15:10:00 Abhijit Alexander SCREEN IR LUMBAR PUNCTURE 2019-04-27 15:05:46 Abhijit Alexander ethodist CSF CULTURE 2019-04-27 14:10:00 Abhijit Alexander odjosé antonio FUNGUS CULTURE 2019-04-27 14:10:00 Abhijit Alexander odjosé antonio AFB CULTURE 2019-04-27 14:10:00 Abhijit Alexander GRAM STAIN 2019-04-27 14:10:00 Abhijit Alexander odjosé antonio TROPONIN 2019-04-27 13:07:00 Bean Saab Nv thodist VITAMIN B12 LEVEL 2019-04-27 13:07:00 Abhijit Alexander Nv thodist THYROID STIMULATING 2019-04-27 13:07:00 Abhijit Alexander HORMONE T4, FREE 2019-04-27 13:07:00 Abhijit Alexander LIPID PANEL 2019-04-27 13:07:00 Abhijit Alexander HEMOGLOBIN A1C 2019-04-27 13:07:00 Abhijit Alexander VITAMIN B1 LEVEL, WHOLE 2019-04-27 12:28:[address] ANGIOGRAM NECK W WO 2019-04-27 10:55:[address] ANGIOGRAM HEAD W WO 2019-04-27 10:53:06 Bean Saab CONTRAST URINALYSIS SCREEN AND 2019-04-27 10:46:00 Bean Saab MICROSCOPY, WITH REFLEX TO CULTURE URINE DRUGS OF ABUSE 2019-04-27 10:46:00 Abhijit Alxeander SCREEN ECG 12-LEAD 2019-04-27 10:40:32 Bean Saab Nv thodist URINE CULTURE 2019-04-27 10:35:00 Bean Saab Nv thodist POC GLUCOSE 2019-04-27 10:32:[address]v thodist [address] STROKE BRAIN WO 2019-04-27 10:24:59 Bean Saab CONTRAST HC COMPLETE BLD COUNT 2019-04-27 10:14:00 Bean Saab W/AUTO DIFF PARTIAL THROMBOPLASTIN 2019-04-27 10:14:00 Bean Saab TIME (PTT) PROTHROMBIN TIME WITH INR 2019-04-27 10:14:00 Bean Saab COMPREHENSIVE METABOLIC 2019-04-27 10:14:00 Bean Saab PANEL TROPONIN 2019-04-27 10:14:00 Bean Saab Nv thodist ESTIMATED GFR 2019-04-27 10:14:00 Bean Saab Nv thodist CREATINE KINASE, TOTAL 2019-04-27 10:14:00 Bean Saab (CPK) ECG ED PRELIMINARY 2019-04-27 10:13:35 Bean Saab INTERPRETATION Plan of Care Planned Activity Planned Date Details Comments Source Future Scheduled 2019-09-24 INFLUENZA VACCINE [place] [facility] 00:00:00 [code = INFLUENZA VACCINE] Future Scheduled 2014-02-28 COLONOSCOPY SCREENING [place] [facility] Test 00:00:00 [code = COLONOSCOPY SCREENING] Future Scheduled 2014-02-28 SHINGLES VACCINES (#1) [place] [facility] Test 00:00:00 [code = SHINGLES VACCINES (#1)] Future Scheduled 1982-02-28 Hepatitis C screening [place] [facility] Test 00:00:00 (procedure) [code = 143394907] Future Scheduled 1980 COVID-19 VACCINE (1 of [place] [facility] Test 00:00:00 2) [code = COVID-19 VACCINE (1 of 2)] Future Scheduled 1974-02-28 DIABETES: RETINAL EYE [place] [facility] Test 00:00:00 EXAM [code = DIABETES: RETINAL EYE EXAM] Future Scheduled 1974-02-28 DIABETIC FOOT EXAM [place] [facility] Test 00:00:00 [code = DIABETIC FOOT EXAM] Future Scheduled 1974-02-28 URINE MICROALBUMIN [place] [facility] Test 00:00:00 [code = URINE MICROALBUMIN] Encounters Start End Encounter Admission Attending Care Care Encounter Source Date/Time Date/Time Type Type Clinicians Facility Department ID 2020-03-27 2020-03-27 Outpatient [facility] [id number] 2020-03-26 2020-03-26 Emergency [place] [id number] [place] [address] 00:00:00 00:00:00 BAYLEE Segal[address] 2020-03-06 2020-03-06 Outpatient [facility] [id number] [facility] 2020-03-05 2020-03-05 Outpatient [facility] [id number] [facility] 2020-02-27 2020-02-27 Outpatient [facility] [id number] [facility] 2020-01-03 2020-01-03 Outpatient [facility] [id number] [facility] 2019-11-29 2019-11-29 Outpatient [facility] [id number] [facility] 2019-08-31 2019-08-31 [facility] [id number] [address] 09:30:00 09:30:00 t Herotainment [facility] l Medicine Outpati ent Clinics 2019-08-15 2019-08-15 [facility] [id number] 10:15:00 10:15:00 t Herotainment [facility] l Medicine Outpati ent Clinics 2019-08-10 2019-08-10 [facility] [id number] 08:15:00 08:15:00 t [employer] s - Drive [facility] Medicine Outpati ent Clinics 2019-05-12 2019-05-12 [facility] [id number] 08:15:00 08:15:00 [place] [employer] s - Drive [facility] l Medicine Outpati ent Clinics 2019-05-02 2019-05-02 [facility] [id number] 14:16:00 14:16:00 [place] [employer] s - Shape Collage [facility] Medicine Outpati ent Clinics 2019-04-27 2019-04-28 Outpatient [place] [id number] 5360 [place] 00:00:00 00:00:00 GAUTAM [address] 2019-04-27 2019-04-27 [facility] [id number] 08:34:00 08:34:00 t [employer] s - Shape Collage [facility] Medicine Outpati ent Clinics 2019-03-23 2019-03-23 [facility] [id number] 13:15:00 13:15:00 [place] [employer] One[employer] [facility] Medicine Outpati ent Clinics 2019-03-21 2019-03-21 [facility] [id number] 15:24:00 15:24:00 t [employer] s - Shape Collage [facility] l Medicine Outpati ent Clinics 2019-03-21 2019-03-21 [facility] [id number] 10:23:00 10:23:00 [place] [employer] s - [employer] [facility] Medicine Outpati ent Clinics 2019-03-09 2019-03-09 [facility] [id number] 16:04:00 16:04:00 [place] [employer] s - Drive [facility] l Medicine Outpati ent Clinics 2019-03-03 2019-03-03 [facility] [id number] 17:22:00 17:22:00 [place] [employer] s - Drive [facility] l Medicine Outpati ent Clinics 2019-02-10 2019-02-10 [facility] [id number] 08:00:00 08:00:[address] Luke s - Drive [facility] Medicine Medicine Outpati ent Clinics 2019-02-04 2019-02-04 [facility] [id number] 11:43:00 11:43:[address] Luke s - Drive [facility] l Medicine Outpati ent Clinics 2019-02-03 2019-02-03 [facility] [id number] 16:19:00 16:19:[address] Luke s - Drive [facility] Medicine l Medicine Outpati ent Clinics 2018-11-04 2018-11-04 [facility] [id number] 09:30:00 09:30:[address] Luke s - Drive [facility] Medicine Outpati ent Clinics 2018-10-06 2018-10-06 [facility] [id number] 08:12:00 08:12:[address] Luke s - Drive [facility] Medicine Outpati ent Clinics 2018-10-01 2018-10-01 [facility] [id number] 14:25:00 14:25:[address] Luke s - Drive [facility] Medicine Outpati ent Clinics 2018-09-13 2018-09-13 [facility] [id number] 10:05:00 10:05:00 [place] [employer] Luke s - Drive [facility] Medicine Outpati ent Clinics 2018-09-06 2018-09-06 [facility] [id number] 10:45:00 10:45:[address] Luke s - Drive [facility] Medicine Medicine Outpati ent Clinics 2018-09-03 2018-09-03 [facility] [id number] 13:08:00 13:08:[address] Luke s - Drive [facility] Medicine Outpati ent Clinics 2018-08-13 2018-08-13 [facility] [id number] 10:01:00 10:01:[address] Luke s - Drive [facility] Medicine Outpati ent Clinics 2018-08-04 2018-08-04 [facility] [id number] 13:45:00 13:45:[address] Luke s - Drive [facility] l Medicine Outpati ent Clinics 2018-05-25 2018-05-25 [facility] [id number] 09:30:00 09:30:[address] Luke s - Drive [facility] Medicine l Medicine Outpati ent Clinics 2018-05-04 2018-05-04 [facility] [id number] 11:00:00 11:00:[address] Luke s - Drive [facility] Medicine l Medicine Outpati ent Clinics 2017-11-20 2017-11-20 [facility] [id number] 10:09:00 10:09:[address] Luke s - Drive [facility] Medicine l Medicine Outpati ent Clinics 2017-11-17 2017-11-17 [facility] [id number] 08:30:00 08:30:[address] Luke s - Drive [facility] Medicine l Medicine Outpati ent Clinics 2017-09-17 2017-09-17 [facility] [id number] [facility] 10:02:00 10:02:[address] Luke s - Drive [facility] Medicine l Medicine Outpati ent Clinics 2017-09-07 2017-09-07 [facility] [id number] 10:00:00 10:00:00 [place] [employer] Luke s - Drive [facility] Medicine Medicine Outpati ent Clinics 2017-08-20 2017-08-20 [facility] [id number] 13:48:00 13:48:[address] Luke s - Drive [facility] Medicine l Medicine Outpati ent Clinics 2017-08-05 2017-08-05 [facility] [id number] 08:45:00 08:45:[address] Luke s - Drive [facility] Medicine l Medicine Outpati ent Clinics 2017-06-17 2017-06-17 [facility] [id number] 09:15:00 09:15:[address] Luke s - Drive [facility] Medicine Outpati ent [facility] 2017-05-11 2017-05-11 [facility] [id number] 11:15:00 11:15:00 [employer] [facility] Shape Collage [facility] [place] ent [facility] Results Test Description Test Time Test Comments Results Result Comments Source ECG 12 lead 2020-03-27 11:13:01 Test Item Value Reference Range Interpretation Comme nts Ventricular rate (test code = 253) 79 Atrial rate (test code = 255) 79 ME interval (test code = 266) 150 QRSD [...] 27-APR-2019 10:40,-No significant change was found- Robert Mendoza [id number] 20:22:35 Test Item Value Reference Range Interpretation Comments Urine culture (test SEE COMMENT Bacteriu frandy screen code = 6104963) negative. Robert MethodistUrinalysis screen and microscopy, with reflex to culture 2020-03-26 20:22:35 Test Item Value Reference Range Interpretation Comments Specimen site (test Clean catch code = 9778859) Color, UA (test code = Straw 5778-6) Appearance, UA (test Clear code = 5767-9) Specific gravity, UA 1.017 1.001-1.030 (test code = 5811-5) pH, UA (test code = 6.0 5.0-9.0 5803-2) Protein, UA (test code Negative Negative = 00893-4) Glucose, UA (test code 3+ Negative A = 11192-0) Ketones, UA (test code Trace Negative A = 2514-8) Bilirubin, UA (test Negative Negative code = 5770-3) Blood, UA (test code = Negative Negative 5794-3) Nitrite, UA (test code Negative Negative = 5802-4) Urobilinogen, UA (test <2.0 See_Comment [Aut omated code = 52392-2) message] The system which generated this result transmitted reference range : <2.0 E.U./dL. T he reference range was not used to interpret this result as normal/abnormal . Leukocyte esterase, UA Negative Negative (test code = 5799-2) WBC, UA (test code = <1 See_Comment [Autom ated 5821-4) message] The sy stem which generated this result transmitted reference range : 0 - 1 /HPF. The reference range was not used to interpret this result as normal/abnormal . RBC, UA (test code = 2 See_Comment [Autom ated 15630-9) message] The sy stem which generated this result transmitted reference range : 0 - 5 /HPF. The reference range was not used to interpret this result as normal/abnormal . Bacteria, UA (test code None seen None seen = 72656-4) Yeast, UA (test code = None seen 80502-9) Yeast with None seen pseudohyphae, UA (test code = 60673-5) Lab Interpretation Abnormal (test code = 89838-7) [place] [facility] natriuretic [id number] 19:38:00 Test Item Value Reference Range Interpretation Comments BNP (test code = 52403-0) 17 pg/mL 0-100 [facility] Re[id number] 19:37:37 Test Item Value Reference Range Interpretation Comments Troponin (test code = <0.006 0-0.04 [place] [address]-1) having a myocar dial infarction, lamont constantino with all other appro priate clinical measur [...] de creased by less than 0.020 ng/mL [place] MethodistComprehensive metabolic [id number] 19:31:39 Test Item Value Reference Range Interpretation Comments Sodium (test code = 136 See_Comment [Automa wade message] 305-2) The system [employer] generated this result transmit wade reference range : 135 - 148 mEq/L. Th e reference range was not used to interpret this result as normal/abnormal . Potassium (test code = 4.0 See_Comment [Aut omated message] 8143-3) The system [employer] generated this result transmit wade reference range : 3.5 - 5.0 mEq/L. Th e reference range was not used to interpret this result as normal/abnormal . Chloride (test code = 101 See_Comment [Auto mated message] ) The system [employer] generated this result transmit wade reference range : 98 - 112 mEq/L. Th e reference range was not used to interpret this result as normal/abnormal . CO2 (test code = 25 See_Comment [Automated message] 2027-10) The system [employer] generated this result transmit wade reference range : 24 - 31 mEq/L. The reference range was not used to interpret this result as normal/abnormal . Anion gap (test code = 10@ANIO See_Comment [Aut omated message] 10734-9) The system [employer] generated this result transmit wade reference range : 7 - 15 mEq/L. The reference range was not used to interpret this result as normal/abnormal . BUN (test code = 9 mg/dL 6-20 3094-0) Creatinine (test code = 0.85 mg/dL 0.7-1.2 2160-0) Glucose (test code = 125 mg/dL 65-99 H 2345-7) Calcium (test code = 10.3 mg/dL 8.3-10.2 H 15619-7) Protein (test code = 8.2 g/dL 6.3-8.3 2885-2) Albumin (test code = 4.6 g/dL 3.5-5 1751-7) A/G ratio (test code = 1.3 0.7-3.8 1759-0) Alkaline phosphatase 101 U/L 40-129 (test code = 6768-6) AST (test code = 24 U/L 10-50 1920-8) ALT (test code = 31 U/L 5-50 1742-6) Total bilirubin (test 0.7 mg/dL 0.2-1.2 code = 1974-) Lab Interpretation Abnormal (test code = 10480-3) [place] MethodistEstimated [id number] 19:31:39 Test Item Value Reference Range Interpretation Comments Estimated GFR (test >=90 mL/min/1.73 m2 [facility] ory Units code = 5488) InterpretationG 1 >=90 Normal or highG2 60-89 Mildly plfwdeiidX7i 45-59 Mildly to mode rately nkxswxibcY6v 30-44 Moderately to severely decreasedG4 15-29 Severely decre asedG5 <15 Kidn ey failureThe eGFR was calculated philippe gimenez the Chronic Kidney Disease Epidemiology Co llaboration (CKD-EPI) equat ion. Interpretation is based on recommendations of the National Kidney Foundation-Kidn ey Disease Outcomes Qualit y Initiative (NKF-KDOQI) pub lished in 2014. [place] MethodistCT Head Wo [id number] 19:27:01Hm Interface, Radiology Results 03/26/2020 7:30 PM [...] IMPRESSION:1. No CT evidence of acute intracranial abnormality.[id number] MethodistXR Chest 1 [id number] 19:25:08Hm Interface, Radiology Results - 03/26/2020 7:28 PM CSTEXAMINATION: XR CHEST 1 PORTABLECLINICAL HISTORY: HTNCOMPARISON: 03/11/2016IMPRESSION:No active disease in the chest.Lungs are clear. Cardiomediastinal silhouette is within normal limits.No effusion or pneumothorax noted.Visualized osseous structures are intact.[facility]-[id number] [facility] CBC with platelet and [id number] 19:08:49 Test Item Value Reference Range Interpretation Comments WBC (test code = 10.2 See_Comment [Automated message] 29941-8) The system [employer] generated this result transmit wade reference range : 4.5 - 11.0 k/uL. Th e reference range was not used to interpret this result as normal/abnormal . RBC (test code = 5.11 m/uL 4.4-6 03345-8) HGB (test code = 718-7) 14.8 g/dL 14-18 HCT (test code = 4544-3) 45.5 % 41-51 MCV (test code = 787-2) 89.0 fL 82-100 MCH (test code = 785-6) 29.0 pg 27-34 MCHC (test code = 786-4) 32.5 g/dL 31-37 RDW - SD (test code = 40.9 fL 37-55 12831-6) MPV (test code = 11.6 fL 6.9-11 H 75655-0) Platelet count (test 216 K/uL 150-400 code = 50479-5) Nucleated RBC (test code 0.00 See_Comment [A utomated message] = 53677-5) The system [employer] generated this result transmit wade reference range : /100 WBC. The reference range was not used to interpret this result as normal/abnormal . Neutrophils (test code = 73.2 % 39-69 H 04205-6) Lymphocytes (test code = 18.8 % 25-45 L 43725-7) Monocytes (test code = 6.2 % 0-10 30964-7) Eosinophils (test code = 1.1 % 0-5 95795-0) Basophils (test code = 0.3 % 0-1 31374-1) Immature granulocytes 0.4 % 0-1 (test code = 42215-5) Lab Interpretation (test Abnormal code = 30222-4) [place] MethodistECG ED Preliminary Interpretation - Not an [id number] 18:43:08Baylee Tyler MD 03/26/2020 11:23 [facility] ED Preliminary Interpretation - Not an OrderPerformed by: Lorna Contreras PA-CAuthorized by: Baylee Tyler MD ECG reviewed by ED Physician in the absence of a bioinformatics associate: yes Rate: ECG rate: 79 ECG rate assessment: normal Rhythm: Rhythm: sinus rhythm QRS: QRS intervals: NormalConduction: Conduction: normal ST segments: ST segments: NormalT waves: T waves: normalPear[place] MethodistAFB [id number] 00:14:26 Test Item Value Reference Range Interpretation Comments AFB culture No growth Specimen isolate (test after 6 weeks InformationSp ecimen code = 543-9) of Source: CSF (S malissa incubation. Fluid)Specimen Site: Lumbar puncture [place] MethodistFungus [id number] 00:16:10 Test Item Value Reference Range Interpretation Comments Fungus culture No growth Specimen isolate (test after 4 weeks InformationSp ecimen code = 1441) of Source: CSF (Sp inal incubation. Fluid)Specimen Site: Lumbar puncture [place] MethodistGram [id number] 10:47:17 Test Item Value Reference Range Interpretation Comments Gram stain No WBC's or Specimen isolate (test organisms seen. Information Specimen code = 1469) Source: CSF (Sp inal Fluid)Specimen Site: Lumbar puncture [place] MethodistCSF [id number] 10:47:13 Test Item Value Reference Range Interpretation Comments CSF culture No growth Specimen isolate (test after 3 days. InformationSp ecimen code = 606-4) Source: CSF (S malissa Fluid)Specimen Site: Lumbar puncture [place] MethodistVitamin B1 level, whole [id number] 09:08:14 Test Item Value Reference Range Interpretation Comments Vitamin B1 (test 128 nmol/L 70-180 INTERPRETIV E INFORMATION: code = 83931-3) Vitamin B1, Whole BloodThis assay measures the concentrati on of thiamine diphos phate (TDP), the prim veronika active form of vitamin B1. Approximately 9 0 percent of vitamin B1 p resent in whole blood is TDP. Thiamine and th iamine monophosphate, which comprise the re maining 10 percent, are no t measured.Test d eveloped and characteris tics determined by [facility]. S ee Compliance Stat ement B: FetchDog/CSP erformed by [employer] Jenny rowland,[address], [place] [address] lxd .[employer].c Chi dobson do, MD, Lab. Director [facility] Nile virus antibody panel, [id number] 00:48:15 Test Item Value Reference Range Interpretation Comments West Nile IgG, CSF 0.09 See_Comment INTERPRET ROSAS INFORMATION: (test code = [place] [address]-1) ANNIE, CSF 1.2 9 IV or less [...] Nile virus-specific IgG in CSF samples in [facility] h there is a clinical suspic ion of West Nile Virus infe ction. This test should not be used solely for lian titative purposes, nor s malik the results be used without correlation to clinical history or othe r data. Because other m embers of the Flaviviridae fa shyam, such as [employer] encep halitis virus, show extensive cross-reactivit y [...] developed and c haracteristics determined by [employer]. S ee Compliance Statement B: [email or web address]/CS [Automated mess age] The system which ge nerated this result transmit wade reference range: <=1.29 I V. The reference range was not used to interpret th is result as normal/abnormal . West Nile IgM, CSF 0.00 See_Comment INTERPRET ROSAS INFORMATION: (test code = [place] [address]-6) ANNIE, CSF0.89 IV or less ...... Negative [...] other m embers of the Flaviviridae fa [facility], such as [employer] encep halitis virus, show extensive cross-reactivit y [...] developed and c haracteristics determined by [employer]. S ee Compliance Statement B: [employer]/CSP erformed by [employer] Seni es,[address] [facility], [facility],[place] [address] jct .[employer], Chi Pugh MD, Lab. Director [Autom ated message] The system [employer] generated this result tra nsmitted reference range : <=0.89 IV. The reference r prisca was not used to interpr et this result as normal/abnor mal. [place] MethodistWest Nile virus by PCR, [id number] 07:02:47 Test Item Value Reference Range Interpretation Comments West Nile virus Not-Detected Not-Detected PCR, CSF (test code = 83569-2) West Nile virus See link below for Case N umber: PCR, CSF (test PDF Lab Report [id number] 4 code = 2510) [place] MethodistOligoclonal banding, [id number] 19:46:59 Test Item Value Reference Range Interpretation Comments Protein, CSF (test code 37 mg/dL - = 2880-3) Prealbumin, CSF (%) 3.6 % 3.5-11.1 (test code = 80389-2) Albumin, CSF (test code 61.8 % 40.8-66.2 = 89034-7) Alpha 1, CSF (%) (test 2.6 % 2.3-6.4 code = 29972-8) Alpha 2, CSF (%) (test 7.8 % 6.1-12.6 code = 57961-9) Beta, CSF (%) (test 15.8 % 11.7-24.1 code = 14700-4) Gamma, CSF (%) (test 8.4 % 5.6-12.2 code = 58870-2) CSF extended See Comment An essentially interpretation (test normal CSF protein code = 00155-4) study. No oligoclonal ban ds seen. CSF interpretation See Comment Morales shukla MD; (test code = 1163) Derian Fermin; Suhail Fuentes MD, Ph D [place] MethodistCryptococcal antigen, mhtskv1736-15-64 18:36:50 Test Item Value Reference Interpretation Comments Range Cryptococcal Ag Negative - No Specimen (test code = Cryptococcus InformationSpec imen 9820-2) antigen detected. Source: CS F (Spinal Fluid)Specimen Site: Lumbar puncture [place] MethodistHerpes simplex virus by [id number] 15:46:51 Test Item Value Reference Range Interpretation Comments Herpes virus, PCR Not-Detected Not-Detected (test code = 23546-9) Herpes virus, PCR See link below Case Num evan: (test code = 1523) for PDF Lab [id number] Report Robert [id number] 15:10:33 Test Item Value Reference Range Interpretation Comments FAISAL screen (test Negative Negative Test perfor med using NOVA code = 550) Lite DAPI FAISAL k it (Indirect Immunofluoresce nce Assay) for Anti-Nuclea r Antibody on [employer] QUANTA-Ly ser 160 Analyzer. [facility] xobfdqm4541-71-18 11:24:50 Test Item Value Reference Range Interpretation Comments POC glucose (test code = 158 mg/dL 65-99 H Ope rator Name: Virgilio 58944-9) [employer] ID: [id number] able: RN Notified Lab Interpretation (test Abnormal code = 73365-6) [facility])2019-04-28 07:43:40Date of Study Completion: April 27, [...] be considered if pursuing a diagnosis of epilepsy.[facility] Brain W Wo Maqadclf1260-20-18 05:17:23Hm Interface, Radiology Results 04/28/2019 5:20 AM [...] acute intracranial abnormality identified. No enhancing lesion appreciated.[facility]-[id number] MethodistC-reactive protein 2019-04-28 01:09:58 Test Item Value Reference Range Interpretation Comments CRP (test code = 1988-5) <0.30 0-0.5 [place] MethodistVDRL, CSF bzgqbb2303-42-28 20:51:39 Test Item Value Reference Range Interpretation Comments VDRL, CSF screen (test code = Non-reactive Non-reactive 3046) [facility]healthHemoglobin [id number] 20:26:21 Test Item Value Reference Range Interpretation Comments Hemoglobin A1C (test 6.6 % 4-5.6 H HbA1c c utoffs for code = 58276-5) diagnosing diabetes:4.0% - 5.6% = normal5.7% - 6.4% = increased risk for diabetes (prediabetes)9> =6.5% = eethvwtl7Feaq s for glycemic contro l (ADA 2016)< 7.0% Ta rget for non adults with iker betes. More or less stringent targe ts may be appropriate for individual colby ents. <7.5% Target for Children and adolescents wit h type 1 diabetes. Lab Interpretation (test Abnormal code = 14008-9) Jones MethodistIgG synthesis rate [id number] 19:53:07 Test Item Value Reference Range Interpretation Comments IgG albumin ratio, CSF 0.14 0.00-0.23 (test code = 1588) IgG index, CSF (test 0.41 0.01-0.63 code = 26887-0) IgG synthetic rate -1.73 See_Comment [Automat ed (test code = 43324-4) messag e] The system which generated this result transmitted reference range : -9.90 - 3.30 mg/day. The reference range was not used to interpret this result as normal/abnormal . Q-albumin ratio, CSF 5.98 2.00-7.50 (test code = 1756-6) IgG, CSF (test code = 3.11 mg/dL 1-3 H 2464-6) Albumin, CSF (test 22.71 mg/dL 10-30 code = 13651-3) IgG (test code = 1281 mg/dL 700-1600 2465-3) Albumin, S (test code 3800.0 mg/dL 7478-2183 = 70680-7) Lab Interpretation Abnormal (test code = 45346-4) Robert MethodistSedimentation [id number] 18:59:41 Test Item Value Reference Range Interpretation Comments Sedimentation rate (test 9 See_Comment [A utomated message] code = 52027-5) The system w [facility] generated this result transmitted ref erence range: 0 - 10 m m/hr. The reference r prisca was not used to int erpret this result as normal/abnormal . [facility] HelmistJ[facility] cell count with qehtwgdssfax7636-76-48 16:44:34 Test Item Value Reference Range Interpretation Comments CSF tube number (test Tube 2 code = 9044437) Color, CSF (test code Colorless = 15291-2) Appearance, CSF (test Clear code = 63201-5) RBC, CSF (test code = 1 See_Comment [Auto mated message] 41659-8) The system [employer] generated this result transmitted ref erence range: 0 - 1 /C MM. The reference range was not used to int erpret this result as normal/abnormal . WBC, CSF (test code = 2 See_Comment [Auto mated message] 45395-4) The system [employer] generated this result transmitted ref erence range: 0 - 5 /C MM. The reference range was not used to int erpret this result as normal/abnormal . CSF mononuclear cell 2/CMM (test code = 64956-8) [place] MethodistGlucose level, [id number] 16:25:04 Test Item Value Reference Range Interpretation Comments Glucose, CSF (test code = 2342-4) 93 mg/dL 40-70 H Lab Interpretation (test code = Abnormal 83488-3) [place] MethodistProtein, [id number] 16:25:04 Test Item Value Reference Range Interpretation Comments Protein, CSF (test code = 2880-3) 43 mg/dL 15-45 [place] MethodistVitamin B12 beags6198-41-88 16:08:12 Test Item Value Reference Range Interpretation Comments Vitamin B12 (test 516 pg/mL 211-946 Significan t overlap code = 2132-9) exists betwee n normal and deficiency states.However, most patients with deficiencies wi ll have Serum B12 <2 00 pg/mL. Robert BolesIR Lumbar Puncture by Egjopxbel2505-39-75 16:04:12Hm Interface, Radiology Results - 04/27/2019 4:07 [...] to evaluate the patient's headaches and treated aneurysm.[facility]-[id number] Uatsdin Thyroid stimulating yteaxqo4499-06-09 13:50:36 Test Item Value Reference Range Interpretation Comments TSH (test code = 1.32 See_Comment [Automated message] The 3016-3) system which ge nerated this result transmit wade reference range : 0.27 - 4.20 uIU/mL. Th e reference range was not u sed to interpret this result as normal/abnormal . Robert MethodistT4, [id number] 13:50:35 Test Item Value Reference Range Interpretation Comments T4, free (test code = 3024-7) 1.1 ng/dL 0.9-1.7 Robert BolesUrine drugs of abuse [id number] 13:42:53 Test Item Value Reference Interpretation Comments Range Amphetamine screen, Negative urine (test code = 3349-8) Barbiturate screen, Negative urine (test code = 3377-9) Benzodiazepine Negative screen, urine (test code = 3390-2) Cocaine screen, Negative urine (test code = 3397-7) Methadone Negative metabolite (EDDP), urine (test code = 84828-9) Opiates screen, Negative urine (test code = 3879-4) Phencyclidine Negative screen, urine (test code = 3936-2) Tricyclic screen, Negative urine (test code = 48299-4) Cannabinoid screen, Negative Drug scr een minimum [...] oratory if definitive test ing is required. Robert MethodistLipid [id number] 13:39:52 Test Item Value Reference Interpretation Comments Range Cholesterol (test 137 mg/dL 0-199 code = 2093-3) Triglycerides (test 111 mg/dL 0-149 code = 2571-8) HDL cholesterol 47 mg/dL 40-65730 (test code = 2085-9) LDL cholesterol 82 mg/dL 0-99 (test code = 2089-1) Lipid panel See below Total Cholester ol (mg/dL) interpretation (test < 200 code = 52200-3) Desirable 200-239 Borderline -high >=240 Hi gh [...] in personswith high triglycerides ( >=200 mg/dL) Robert MethodistCTA Head W Wo [id number] 11:11:58Hm Interface, Radiology Results - 04/27/2019 11:15 AM CSTEXAMINATION: CT ANGIOGRAM HEAD [...] aneurysmal dilatation or vascular malformation of the [place].Note is made of multiple embolization coils in the left paraclinoid region. No residual aneurysm is appreciated but there is some streakartifact in this area limiting evaluation of the vessels directly adjacent to the coils.IMPRESSION:No hemodynamically significant narrowing of the [place] vessels. Multiple embolization coils are noted in the left paraclinoid region with no discrete aneurysm identified.[facility]-[id number] MethodistCTA Neck W Wo [id number] 11:00:09Hm Interface, Radiology Results 04/27/2019 11:03 AM [...] narrowing of the cervical vessels by NASCET criteria.[facility]-[id number] [place] MethodistCreatine kinase, total (CPK)2019-04-27 10:47:44 Test Item Value Reference Range Interpretation Comments Creatine kinase (test code = 2157-6) 169 U/L 39-308 [place] MethodistPartial thromboplastin time, lwapghggv5980-42-05 10:38:45 Test Item Value Reference Range Interpretation Comments PTT (test code = 29.7 See_Comment PTT therape utic range for 3173-2) unfractionated heparin is61.0-112.0 se conds which corresponds to Anti-Xa0.3-0.7 U/ml. [Automat ed message] The system whic h generated this result tra nsmitted reference range : 23.0 - 36.0 sec. The refere nce range was not used to int erpret this result as ramos l/abnormal. Robert MethodistProthrombin time with [id number] 10:38:38 Test Item Value Reference Range Interpretation Comments Prothrombin time (test 13.0 See_Comment [Aut omated message] The code = 5902-2) system which generated this result tra nsmitted reference range : 11.5 - 14.5 sec. The r eference range was not u sed to interpret this result as normal/abnormal . INR (test code = 1.0 The Interna tional 62478-0) Normalized Rati o (INR) is a therapeutic m onitoring tool for patien ts who are stable on oral anticoagulant t herapy. An INR of 2.0-3.0 is suggested for d eep vein thrombosis/pulm onary embolism. Robert MethodistCT Stroke Brain Wo Iyrqqwbp0297-46-66 10:29:22Hm Interface, Radiology Results Incoming - 04/27/2019 10:32 AM CSTEXAMINATION: CT STROKE [...] hemorrhage or mass effect.Findings discussed with Dr. SAAB on 04/27/2019 10:27 AM , and he verbalized understanding of the report.[facility]-[id number] Uatsdin
--- OUTSIDE RECORDS SUMMARY | 2020-04-03 21:46 | XMS REPORT ---
:1965 Author Organization [facility] Address [address] [place], [address] [place] [address] Care Team Providers Name Role Phone Dyer Unavailable [phone] PROBLEMS Type Condition ICD9-CM CSM07-WB Onset Condition W/U Status Risk SNOM ED Notes Code Code Dates Status Code Problem Diabetes type E11.9 Active confirmed 148759 003 2, controlled Problem Family Z82.49 Active confirmed 061817658 history of ischemic heart disease and other diseases of the circulatory system Problem History of Z90.49 Active confirmed 851631616 cholecystecto my Problem Hyperlipemia, E78.2 Active confirmed 636026 003 mixed Problem Sleep apnea, G47.33 Active confirmed 5944327 9 obstructive Problem Anxiety F41.9 Active confirmed 506992494 disorder Problem Family Z80.0 Active confirmed 625424322 history of colon cancer Problem Current F32.1 Active confirmed 93773416 moderate episode of major depressive disorder without prior episode Problem Osteoarthriti M19.071 Active confirmed 26885 54169 s of right 246300 foot, unspecified osteoarthriti s type Problem Adult BMI Z68.35 Active confirmed 781885556 35.0-35.9 kg/sq m Problem Erectile N52.9 Active confirmed 383539961 dysfunction, unspecified erectile dysfunction type Problem HTN I10 Active confirmed 19694245 (hypertension ), benign Problem GERD without K21.9 Active confirmed 7027670 05 esophagitis Problem Malaise and R53.81 Active confirmed 66218766 6 fatigue Problem Adult BMI Z68.36 Active confirmed 423667971 36.0-36.9 kg/sq m Problem Vitamin D E55.9 Active confirmed 49059217 deficiency Problem Complicated G43.109 Active confirmed 1998898 06 migraine Problem CPAP Z99.89 Active confirmed 761898111 (continuous positive airway pressure) dependence ALLERGIES No Known Allergies ENCOUNTERS from 1965 to 2020-03-27 Encounter Location Date Provider Diagnosis [facility] [address], [place] [address] IMMUNIZATIONS Vaccine Route Administration Date Status Afluria [...] Start Date End Date Status Frequency, Duration) Vitamin D-3 1000 UNIT 1 capsule Orally Once a Active day Synjardy XR 10-1000 MG 1 tablet with breakfast Active Orally Once a day for 90 days Lipitor 10 MG 1 tablet Orally Once a Not-Taking day for 90 Depakote 250 MG 1 tablet Orally Once a Active day Flax Seed Oil 1000 MG Orally Act rebekah Lipitor 10 MG 1 tablet Orally Once a Active day for 30 day(s) Dicyclomine HCl 20 MG TAKE 1 TABLET BY MOUTH Active THREE TIMES A DAY Sildenafil Citrate 50 MG 1 tablet as needed Active Orally Once a day for 25 Losartan Potassium 25 MG 2 tablets Orally Once a Active day MetFORMIN HCl ER 500 MG TAKE 1 [...] 1 tablet Orally Once a Not-Taking day Vitamin C 500 MG Orally Active PROCEDURES No Information RESULTS No Results REASON FOR VISIT BP high MEDICAL (GENERAL) HISTORY Type Description Date Medical [...] Medication Name Sig Start Date Stop Date Lipitor 10 MG 1 tablet Orally Once a day for 30 day(s) Losartan Potassium 25 MG 2 tablets Orally Once a day Synjardy XR 10-1000 MG 1 tablet with breakfast Orally Once a day for 90 days Omeprazole 40 MG 1 capsule 30 minutes before morning meal Orally Once a day for 30 day(s) Next Appt Details Provider Name:[facility] Edy Dyer, 2020-06-04 11:30:00 AM, [address], [address], [place], [address], Insurance Providers Payer Name Payer Payer Insured Name Patient Coverage Covera End Address Phone Relationship to Start Date Kamar e Insured [employer] [phone] [place] and [place] [id number] [facility] [id number]
== END 2020-04-02 15:10 | disposition home or self-care (01) ==
LOC: CCL 10:41
PROVIDERS: ATTEND Internal Medicine
DX: I20.0 Unstable angina (principal); R06.02 Shortness of breath; Z20.822 Contact with and (suspected) exposure to COVID-19; E11.9 Type 2 diabetes mellitus without complications; E78.5 Hyperlipidemia, unspecified; I10 Essential (primary) hypertension; R00.2 Palpitations
CPT/HCPCS: 36415; 85610; 82947; 85730; 93458; U0002; C1893; J1644 ×2; J2250; J3010; J7040

== ENCOUNTER 2021-02-07 17:13 | Emergency (ER) | payer BC ==
--- OUTSIDE RECORDS SUMMARY | 2021-02-07 17:17 | XMS REPORT | Continuity of Care Document ---
:1965 Author Organization [facility] t Address [address] [place] [address] Care Team Providers Name Role Phone Osmany PANIAGUA Primary Care Physician OSMANY Attending Clinician Unavailable Linda DINERO Attending Clinician Unavailable Attending Clinician Unavailable MD CURTIS Attending Clinician Unavailable PHYSICIAN, ASSOCIATED Attending Clinician Unavailable 1, Interventional Consult Attending Clinician Unavailable JENNA Attending Clinician Unavailable Jude Forte MD Attending Clinician Jude FORTE Attending Clinician Unavailable Nurse, [facility] Attending Clinician Unavailable Jenna COMMERCIAL GLAZIER Attending Clinician Doctor Unassigned, Name Attending Clinician Unavailable Bar PANIAGUA, Linda Attending Clinician Pob, Lab Main Attending Clinician Unavailable Terence REY Attending Clinician Unavailable Jayson PANIAGUA, Tony Attending Clinician Linda DINERO Admitting Clinician Unavailable ANDRES Admitting Clinician Unavailable MD ANDRES Admitting Clinician Unavailable Jude FORTE Admitting Clinician Unavailable Linda Dinero MD Admitting Clinician Payers Payer Name Policy Type Policy Effective Date Expiration Date Sour Number BCBSTX BLUE [id number] 2019 ESSENTIALS/BLUE 00:00:00 ESSENTIALS ACCESS HMO BLUE ESSENTIALS [id number] 2019 HMO 00:00:00 BCBSTRS [id number] 2019 [facility]IV[facility] 00:00:00 Hospital PRIMARY /HMO BLUE ESSENTIALSxxxxxx [id number] 2019-P resentHMO Problems Condition Condition Condition Status Onset Resolution Last Treating Co mments Source Name Details Category Date Date Treatment Clinician Date 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[facility] artery artery 0-26 Health aneurysm aneurysm 00:00: 00 Nuclear Nuclear Disease Active 2020-02 [facility] sclerotic sclerotic 0- Heal cataract cataract 00:00: of left of left 00 eye eye Obesity Obesity Disease Active Univers (BMI (BMI 7-14 ity of 30-39.9) 30-39.9) 00:00: [place] 00 Medical Branch Cataract, Cataract, Disease Active [facility] bilateral bilateral 4- Heal th 00:00: 00 Infectious Infectious Disease Active U T folliculit folliculit 4-12 He alth is is 00:00: 00 Anxiety Anxiety Disease Active [facility] 3-25 Health 00:00: 00 Benign Benign Disease Active Last [facility] essential essential 3-25 Assessmen H ealth HTN HTN 00:00: t & Plan: 00 Formattin g of this note might be different from the original. Continue current treatment regimen. Dietary sodium restricti on along with low cholester ol/DASH diet reviewed. Recommend ed minimum 30 minutes of moderate exercise at 60-80% max HR for >5 days/week per AHA/ACSM guideline s Advised to keep an interval monitorin g schedule for blood pressures if symptomat ic or if uncontrol led. Seek medical care if experienc ing dizziness , double vision, chest pain, shortness of breath, headaches , or weakness/ numbness/ tingling in the hands/fee t. Mixed Mixed Disease Active [facility] hyperlipid hyperlipid 2- He alth emia emia 00:00: 00 Other Other Disease Active [facility] obesity obesity 2- Health due to due to 00:00: excess excess 00 calories calories Seasonal Seasonal Disease Active [facility] allergies allergies - Heal th 00:00: 00 Type 2 Type 2 Disease Active Last DC diabetes diabetes 2-26 Assessmen [facility] mellitus mellitus 00:00: t & Plan: with with 00 Formattin diabetic diabetic g of this polyneurop polyneurop note tami, tami, might be without without different long-term long-term from the current current original. use of use of Discussed insulin insulin general issues about diabetes pathophys iology and managemen t.Labs and/or medicatio ns have been updated based on today's visit.Enc ouraged aerobic exercise 30-40 minutes, 4-5 days/week at a moderate pace.Revi ewed medicatio ns for renal protectio n (MINH-I or ARB) and currently on medicatio n unless contra-in dicated.D iscussed statin therapy and patient currently on medicatio n unless contra-in dicated. Acute Acute Disease Active Methodi confusion confusion 3-04 [facility] l Chest pain Chest pain Disease Active M ethodi at rest at rest 03-11 00:00: Hospita 00 l Allergies, Adverse Reactions, Alerts Allergy Allergy Status Severity Reaction(s) Onset Inactive Treating Comm ents Source Name Type Date Date Clinician NO KNOWN Drug Active Univers ALLERGIE Class ity of S [facility] Social History Social Habit Start Date Stop Date Quantity Comments Source Exposure to Not sure [facility] SARS-CoV-2 (event) Alcohol intake 2020-12-31 2020-12-31 Ex-drinker [facility] 00:00:00 00:00:00 (finding) Tobacco use and 2020-09-03 2020-09-03 Never used Universit y of exposure 00:00:00 00:00:00 [facility] Sex Ass[birth year] Universit y of 00:00:00 00:00:00 [facility] Smoking Status Start Date Stop Date Source Unknown if ever smoked [facility] sm[facility] Medications Ordered Filled Start Stop Current Ordering Indication Dosage Frequency Signature Comments Components Source Medication Medication Date Date Medication? Clinician (SIG) Name Name iopamidol 2020-02- No [id number] 120mL 120 mL, Univers (ISOVUE 0-26 10-26 Intravenou ity o f 370-500 mL) 03:45: 02:35 s, ONCE, 1 [place] injection 00 :00 dose, On Medica l 120 mL Mon Branch 12/17/20 at 2245, Routine traMADol 2020-02 Yes UT (Ultram) 50 0-26 Health MG tablet 00:00: 00 traMADoL 2020-02 Yes [id number] 50mg Take 1 Univers (ULTRAM) 50 0-25 tablet by ity of mg tablet 00:00: mouth [place] 00 every 6 Medical (six) Branch hours as needed for Pain (scale 7-10). Indication s: acute pain buPROPion 2020-02 Yes TAKE 1 U T XL 0-11 TABLET BY Health (Wellbutrin 00:00: MOUTH XL) 150 MG 00 EVERY DAY 24 hr tablet busPIRone 2020-02 Yes TAKE 1 U T (Buspar) 5 0-11 TABLET BY Heal th MG tablet 00:00: MOUTH 00 THREE TIMES A DAY NEEDED FOR ANXIETY atorvastati 2021- Yes [id number] TAKE 1 UT n (Lipitor) 9-29 09-30 TABLET BY He alth 10 MG 00:00: 04:59 MOUTH tablet 00 :00 EVERY DAY DIRECTED losartan Yes [id number] TAKE 1 UT (Cozaar) 9-15 TABLET Health 100 MG 00:00: DAILY (DUE tablet 00 FOR APPOINTMEN T) amLODIPine Yes [id number] TAKE 1 U T (Norvasc) 9-15 TABLET BY Healt h 10 MG 00:00: MOUTH tablet 00 EVERY DAY metformin Yes Take by [facility] ers HCl 7-28 mouth. ity of (METFORMIN 16:10: [place] ORAL) 35 Medical Branch losartan Yes Take by Unive rs potassium 7-28 mouth. ity of (LOSARTAN 16:10: [place] ORAL) 35 Medical Branch atorvastati Yes Take by Un cash n calcium 7-28 mouth. ity of (ATORVASTAT 16:10: [place] IN ORAL) 35 Medical Branch buspirone Yes Take by Univ ers HCl (BUSPAR 7-28 mouth. ity of ORAL) 16:10: [place] 35 Medical Branch divalproex Yes Take by Uni vers sodium 7-28 mouth. ity of (DIVALPROEX 16:10: [place] ORAL) 35 Medical Branch bupropion Yes Take by Univ ers HCl 7-28 mouth at ity of (WELLBUTRIN 16:10: [place] 35 Medical Branch amLODIPine Yes 10mg Take 10 mg U nivers 10 mg 7-28 by mouth ity of tablet 16:10: at [place] 35 bedtime. Medical Branch metformin Yes Take by Univ ers HCl 7-28 mouth. ity of (METFORMIN 16:10: [place] ORAL) 35 Medical Branch losartan Yes Take by Unive rs potassium 7-28 mouth. ity of (LOSARTAN 16:10: [place] ORAL) 35 Medical Branch atorvastati Yes Take by Un cash n calcium 7-28 mouth. ity of (ATORVASTAT 16:10: [place] IN ORAL) 35 Medical Branch buspirone Yes Take by Univ ers HCl (BUSPAR 7-28 mouth. ity of ORAL) 16:10: [place] 35 Medical Branch divalproex Yes Take by Uni vers sodium 7-28 mouth. ity of (DIVALPROEX 16:10: [place] ORAL) 35 Medical Branch bupropion Yes Take by Univ ers HCl 7-28 mouth at ity of (WELLBUTRIN 16:10: [place] 35 Medical Branch amLODIPine Yes 10mg Take 10 mg U nivers 10 mg 7-28 by mouth ity of tablet 16:10: at [place] [id number] bedtime. Medical Branch metformin Yes Take by Univ ers HCl 7-28 mouth. ity of (METFORMIN 16:10: [place] ORAL) 35 Medical Branch losartan Yes Take by Unive rs potassium 7-28 mouth. ity of (LOSARTAN 16:10: [place] ORAL) 35 Medical Branch atorvastati Yes Take by Un cash n calcium 7-28 mouth. ity of (ATORVASTAT 16:10: [place] IN ORAL) 35 Medical Branch buspirone Yes Take by Univ ers HCl (BUSPAR 7-28 mouth. ity of ORAL) 16:10: [place] 35 Medical Branch divalproex Yes Take by Uni vers sodium 7-28 mouth. ity of (DIVALPROEX 16:10: [place] ORAL) 35 Medical Branch bupropion Yes Take by Univ ers HCl 09-19 mouth at ity of (WELLBUTRIN 16:10: [place] 35 [facility] amLODIPine Yes 10mg Take 10 mg U nivers 10 mg 09-19 by mouth ity of tablet 16:10: at [place] 35 bedtime. [facility] Branch neomycin-po 0 Yes PRN, Univer s lymyxin-dex 09-19 Starting ity of amethasone 15:37: Thu [place] (MAXITROL) 00 09/19/[address] mg/g-10,000 Until unit/g-0.1 Discontinu % ed, ophthalmic Routine, ointment Intra-op neomycin-po 0 2020- No PRN, Unive rs lymyxin-dex 09-19 Starting ity of amethasone 15:37: 18:15 Thu [place] (MAXITROL) 00 :42 09/19/[address] mg/g-10,000 Until Wed unit/g-0.1 09/19/20 at % 1315, ophthalmic Routine, ointment Intra-op sodium 0 Yes PRN, Univers chloride 09-19 Starting ity of (NS) 15:36: Thu [place] injection 09/19/[address] Until Discontinu ed, Routine, Intra-op dexamethaso 0 Yes PRN, Univer s ne 09-19 Starting ity of (DECADRON 15:36: Thu [place] PHOSPHATE) 09/19/20 at [facility] ica injection [address] [place] [address] Until Discontinu ed, Routine, Intra-op ceFAZolin 0 Yes PRN, Univers (ANCEF) 09-19 Starting ity of injection 15:36: Thu [place] 09/19/[address] Until Discontinu ed, BHARATHI, Intra-op sodium 2020-0 2020- No PRN, Univers chloride 09-19 Starting ity of (NS) 15:36: 18:15 Thu [place] injection 00 :42 09/19/20 at [facility] Until Thu09/19/20 at 1315, Routine, Intra-op dexamethaso 2020- No PRN, Unive rs ne 09-19 Starting ity of (DECADRON 15:36: 18:15 Thu PHOSPHATE) 00 :42 09/19/20 at Med ical injection 1036, Branch Until 09/19/20 at 1315, Routine, Intra-op ceFAZolin 2020- No PRN, Univers (ANCEF) 09-19 Starting ity of injection 15:36: 18:15 Wed [place] 00 :42 09/19/20 at Medical 1036, Branch Until Thu09/19/20 at 1315, BHARATHI, Intra-op DUOVISC Yes PRN, Univers (DUOVISC 09-19 Starting ity of VISCO 15:33: Thu ELASTIC) 3 00 09/19/20 at [facility] ical %-4 %(0.5 1033, Branch mL) 1 % Until (0.55 mL) Discontinu intraocular ed, injection Routine, Intra-op DUOVISC 2020- No PRN, Univers (DUOVISC 09-19 Starting ity of VISCO 15:33: 18:15 Thu [place] ELASTIC) 3 00 :42 09/19/20 at [facility] ical %-4 %(0.5 1033, Branch mL) 1 % Until Wed (0.55 mL) 09/19/20 at intraocular 1315, injection Routine, Intra-op carbachoL Yes PRN, Univers (MIOSTAT) 09-19 Starting ity of 0.01 % 15:32: Thu [place] intraocular 00 09/19/20 at Dc dical injection 1032, Branch Until Discontinu ed, Routine, Intra-op carbachoL 2020- No PRN, Univers (MIOSTAT) 09-19 Starting ity o f 0.01 % 15:32: 18:15 Thu [place] intraocular 00 :42 09/19/20 at Dc dical injection 1032, Branch Until Thu09/19/20 at 1315, Routine, Intra-op EPINEPHrine Yes PRN, Univer s 1:1,000 (1 09-19 Starting ity o f mg/mL) 15:25: Wed [place] (ADRENALIN) 00 09/19/20 at Dc dical injection 1025, Branch Until Discontinu ed, Routine, Intra-op balanced Yes PRN, Univers salt irrig 09-19 Starting ity o f soln comb1 15:25: Thu (BSS PLUS) 00 09/19/20 at [facility] ical ophthalmic 1025, Branch solution Until 500 mL bag Discontinu ed, Routine, Intra-op EPINEPHrine 2020- No PRN, Unive rs 1:1,000 (1 09-19 Starting ity of mg/mL) 15:25: 18:15 Thu [place] (ADRENALIN) 00 :42 09/19/20 at Dc dical injection 1025, Branch Until Thu09/19/20 at 1315, Routine, Intra-op balanced 2020- No PRN, Univers salt irrig 09-19 Starting ity of soln comb1 15:25: 18:15 Thu [place] (BSS PLUS) 00 :42 09/19/20 at [facility] ica ophthalmic 1025, Branch solution Until Thu 500 mL bag 09/19/20 at 1315, Routine, Intra-op water for Yes PRN, Univers irrigation 09-19 Starting ity o f irrigation 15:22: Thu [place] solution 09/19/20 at Medic al 1022, Branch Until Discontinu ed, Routine, Intra-op water for 2020- No PRN, Univers irrigation 09-19 Starting ity of irrigation 15:22: 18:15 Thu [place] solution 00 :42 09/19/20 at Medic al 1022, Branch Until Thu09/19/20 at 1315, Routine, Intra-op Hyaluronida Yes PRN, Univer s se, Human 09-19 Starting ity of Recomb. 15:16: Thu (HYLENEX) 00 09/19/20 at [facility] injection 1016, Branch Until Discontinu ed, Routine, Intra-op eye block Yes PRN, Univers syringe 11 09-19 Starting ity o f mL 15:16: Thu [place] 00 09/19/20 at [place] [id number], Branch Until Discontinu ed, Intra-op Hyaluronida 2020- No PRN, Unive rs se, Human 09-19 Starting ity o f Recomb. 15:16: 18:15 Thu [place] (HYLENEX) 00 :42 09/19/20 at [facility] jagdish injection 1016, Branch Until Thu09/19/20 at 1315, Routine, Intra-op eye block 2020- No PRN, Univers syringe 11 09-19 Starting ity of mL 15:16: 18:15 Thu [place] 00 :42 09/19/20 at [facility] 1016, Branch Until Thu09/19/20 at 1315, Intra-op lactated 2020- No 1000[facility] 09-19 mL/hr, ity of infusion 14:15: 14:28 1,000 mL, Rajendra as 1,000 mL 00 :00 IV Medical Infusion, [place] ONCE, 1 dose, Thu09/19/20 at 0915, Routine, DSU Pre-op mydriatic 2020- No .5mL 0.5 mL, [facility] ers #5 09-19 Left Eye, ity of ophthalmic 14:15: 14:30 ONCE, 1 [place] as solution 00 :00 dose, [facility] Medica l 0.5 mL 09/19/20 at Branch syringe 0915, Routine, DSU Pre-op lactated 2020- No 1000mL at 42 [facility] 09-19 mL/hr, ity of infusion 14:15: 14:28 1,000 mL, Rajendra as 1,000 mL 00 :00 IV Medical Infusion, Branch ONCE, 1 dose, Thu09/19/20 at 0915, Routine, DSU Pre-op mydriatic 2020- No .5mL 0.5 mL, Univ ers #5 09-19 Left Eye, ity of ophthalmic 14:15: 14:30 ONCE, 1 [place] as solution 00 :00 dose, [facility] Medica l 0.5 mL 09/19/20 at Branch syringe 0915, Routine, DSU Pre-op metformin Yes Take by [facility] ers HCl 09-19 mouth. ity of (METFORMIN 11:10: [place] ORAL) 35 [facility] losartan Yes Take by [facility] rs potassium 09-19 mouth. ity of (LOSARTAN 11:10: [place] ORAL) 35 [facility] atorvastati Yes Take by Un cash n calcium 7-28 mouth. ity of (ATORVASTAT 11:10: [place] IN ORAL) 35 Medical Branch buspirone Yes Take by Univ ers HCl (BUSPAR 7-28 mouth. ity of ORAL) 11:10: [place] 35 Medical Branch divalproex Yes Take by Uni vers sodium 7-28 mouth. ity of (DIVALPROEX 11:10: [place] ORAL) 35 Medical Branch bupropion Yes Take by Univ ers HCl 7-28 mouth at ity of (WELLBUTRIN 11:10: [place] 35 Medical Branch amLODIPine Yes 10mg Take 10 mg U nivers 10 mg 7-28 by mouth ity of tablet 11:10: at [place] 35 bedtime. Medical Branch metformin Yes Take by Univ ers HCl 7-28 mouth. ity of (METFORMIN 11:10: [place] ORAL) 35 Medical Branch losartan Yes Take by Unive rs potassium 7-28 mouth. ity of (LOSARTAN 11:10: [place] ORAL) 35 Medical Branch atorvastati Yes Take by Un cash n calcium 7-28 mouth. ity of (ATORVASTAT 11:10: [place] IN ORAL) 35 Medical Branch buspirone Yes Take by Univ ers HCl (BUSPAR 7-28 mouth. ity of ORAL) 11:10: [place] 35 Medical Branch divalproex Yes Take by Uni vers sodium 7-28 mouth. ity of (DIVALPROEX 11:10: [place] ORAL) 35 Medical Branch bupropion Yes Take by Univ ers HCl 7-28 mouth at ity of (WELLBUTRIN 11:10: [place]. [place] 35 Medical Branch amLODIPine Yes 10mg Take 10 mg U nivers 10 mg 7-28 by mouth ity of tablet 11:10: at [place] 35 bedtime. Medical Branch metformin Yes Take by Univ ers HCl 7-28 mouth. ity of (METFORMIN 11:10: [place] ORAL) 35 Medical Branch losartan Yes Take by Unive rs potassium 7-28 mouth. ity of (LOSARTAN 11:10: [place] ORAL) 35 Medical Branch atorvastati Yes Take by Un cash n calcium 7-28 mouth. ity of (ATORVASTAT 11:10: [place] IN ORAL) 35 Medical Branch buspirone Yes Take by Univ ers HCl (BUSPAR 7-28 mouth. ity of ORAL) 11:10: [place] 35 Medical Branch divalproex Yes Take by Uni vers sodium 7-28 mouth. ity of (DIVALPROEX 11:10: [place] ORAL) 35 Medical Branch bupropion Yes Take by Univ ers HCl 7-28 mouth at ity of (WELLBUTRIN 11:10: [place]. [place] 35 Medical Branch amLODIPine Yes 10mg Take 10 mg U nivers 10 mg 7-28 by mouth ity of tablet 11:10: at [place] 35 bedtime. Medical Branch metformin Yes Take by Univ ers HCl 7-14 mouth. ity of (METFORMIN 14:51: [place] ORAL) 57 Medical Branch losartan Yes Take by Unive rs potassium 7-14 mouth. ity of (LOSARTAN 14:51: [place] ORAL) 57 Medical Branch atorvastati Yes Take by Un cash n calcium 7-14 mouth. ity of (ATORVASTAT 14:51: [place] IN ORAL) 57 Medical Branch buspirone Yes Take by Univ ers HCl (BUSPAR 7-14 mouth. ity of ORAL) 14:51: [place] 57 Medical Branch divalproex Yes Take by Uni vers sodium 7-14 mouth. ity of (DIVALPROEX 14:51: [place] ORAL) 57 Medical Branch bupropion Yes Take by Univ ers HCl 7-14 mouth at ity of (WELLBUTRIN 14:51: [place]. [place] 57 Medical Branch amLODIPine Yes 10mg Take 10 mg U nivers 10 mg 7-14 by mouth ity of tablet 14:51: at [place] 57 bedtime. Medical Branch metformin Yes Take by Univ ers HCl 7-14 mouth. ity of (METFORMIN 14:51: [place] ORAL) 57 Medical Branch losartan Yes Take by Unive rs potassium 7-14 mouth. ity of (LOSARTAN 14:51: [place] ORAL) 57 Medical Branch atorvastati Yes Take by Un cash n calcium 7-14 mouth. ity of (ATORVASTAT 14:51: [place] IN ORAL) 57 Medical Branch buspirone Yes Take by Univ ers HCl (BUSPAR 7-14 mouth. ity of ORAL) 14:51: [place] 57 Medical Branch divalproex Yes Take by Uni vers sodium 7-14 mouth. ity of (DIVALPROEX 14:51: [place] ORAL) 57 Medical Branch bupropion Yes Take by Univ ers HCl 7-14 mouth at ity of (WELLBUTRIN 14:51: [place]. [place] 57 Medical Branch amLODIPine Yes 10mg Take 10 mg U nivers 10 mg 7-14 by mouth ity of tablet 14:51: at [place] 57 bedtime. Medical Branch metformin Yes Take by Univ ers HCl 7-14 mouth. ity of (METFORMIN 14:51: [place] ORAL) 57 Medical Branch losartan Yes Take by Unive rs potassium 7-14 mouth. ity of (LOSARTAN 14:51: [place] ORAL) 57 Medical Branch atorvastati Yes Take by Un cash n calcium 7-14 mouth. ity of (ATORVASTAT 14:51: [place] IN ORAL) 57 Medical Branch buspirone Yes Take by Univ ers HCl (BUSPAR 7-14 mouth. ity of ORAL) 14:51: [place] 57 Medical Branch divalproex Yes Take by Uni vers sodium 7-14 mouth. ity of (DIVALPROEX 14:51: [place] ORAL) 57 Medical Branch bupropion Yes Take by Univ ers HCl 7-14 mouth at ity of (WELLBUTRIN 14:51: [place]. [place] 57 Medical Branch amLODIPine Yes 10mg Take 10 mg U nivers 10 mg 7-14 by mouth ity of tablet 14:51: at [place] 57 bedtime. Medical Branch metformin Yes Take by Univ ers HCl 7-14 mouth. ity of (METFORMIN 14:51: [place] ORAL) 57 Medical Branch losartan Yes Take by Unive rs potassium 7-14 mouth. ity of (LOSARTAN 14:51: [place] ORAL) 57 Medical Branch atorvastati Yes Take by Un cash n calcium 7-14 mouth. ity of (ATORVASTAT 14:51: [place] IN ORAL) 57 Medical Branch buspirone Yes Take by Univ ers HCl (BUSPAR 7-14 mouth. ity of ORAL) 14:51: [place] 57 Medical Branch divalproex Yes Take by Uni vers sodium 7-14 mouth. ity of (DIVALPROEX 14:51: [place] ORAL) 57 Medical Branch bupropion Yes Take by Univ ers HCl 7-14 mouth at ity of (WELLBUTRIN 14:51: [place]. [place] 57 Medical Branch amLODIPine Yes 10mg Take 10 mg U nivers 10 mg 714 by mouth ity of tablet 14:51: at [place] 57 bedtime. Medical Branch metformin Yes Take by Univ ers HCl 7-14 mouth. ity of (METFORMIN 14:51: [place] ORAL) 57 Medical Branch losartan Yes Take by Unive rs potassium 7-14 mouth. ity of (LOSARTAN 14:51: [place] ORAL) 57 Medical Branch atorvastati Yes Take by Un cash n calcium 7-14 mouth. ity of (ATORVASTAT 14:51: [place] IN ORAL) 57 Medical Branch buspirone Yes Take by Univ ers HCl (BUSPAR 7-14 mouth. ity of ORAL) 14:51: [place] 57 Medical Branch divalproex Yes Take by Uni vers sodium 7-14 mouth. ity of (DIVALPROEX 14:51: [place] ORAL) 57 Medical Branch bupropion Yes Take by Univ ers HCl 7-14 mouth at ity of (WELLBUTRIN 14:51: [place]. [place] 57 Medical Branch amLODIPine Yes 10mg Take 10 mg U nivers 10 mg 7-14 by mouth ity of tablet 14:51: at [place] 57 bedtime. Medical Branch carbachoL Yes PRN, Univers (MIOSTAT) 7-14 Starting ity of 0.01 % 14:15: Wed [place] intraocular 00 09/05/20 at Dc dical injection 0915, Branch Until Discontinu ed, Routine, Intra-op ceFAZolin Yes PRN, Univers (ANCEF) 09-05 Starting ity of injection 14:15: Wed [place] 00 09/05/20 at Medical 0915, Branch Until Discontinu ed, BHARATHI, Intra-op carbachoL 2020- No PRN, Univers (MIOSTAT) 09-05 Starting ity o f 0.01 % 14:15: 16:57 Wed [place] intraocular 00 :05 09/05/20 at Dc dical injection 0915, Branch Until Thu09/05/20 at 1157, Routine, Intra-op ceFAZolin 2020- No PRN, Univers (ANCEF) 09-05 Starting ity of injection 14:15: 16:57 Wed [place] 00 :05 09/05/20 at [facility] 0915, Branch Until Thu09/05/20 at 1157, BHARATHI, Intra-op dexamethaso Yes [facility], [facility] 09-05 Starting ity of (DECADRON 14:14: Wed [place] PHOSPHATE) 00 09/05/20 at Med ical injection 14, Branch Until Discontinu ed, Routine, Intra-op DUOVISC Yes PRN, Univers (DUOVISC 09-05 Starting ity of VISCO 14:14: Wed [place] ELASTIC) 3 00 09/05/20 at Med ical %-4 %(0.5 0914, Branch mL) 1 % Until (0.55 mL) Discontinu intraocular ed, injection Routine, Intra-op dexamethaso 2020- No PRN, Unive ne 09-05 Starting ity of (DECADRON 14:14: 16:57 Wed [place] PHOSPHATE) 00 :05 09/05/20 at Med ical injection 0914, Branch Until Thu09/05/20 at 1157, Routine, Intra-op DUOVISC 2020- No PRN, Univers (DUOVISC 09-05 Starting ity of VISCO 14:14: 16:57 Wed [place] ELASTIC) 3 00 :05 09/05/20 at Med ical %-4 %(0.5 0914, Branch mL) 1 % Until Wed (0.55 mL) 09/05/20 at intraocular 1157, injection Routine, Intra-op neomycin-po 2020-0 Yes PRN, Univer s lymyxin-dex 09-05 Starting ity of amethasone 14:13: Thu [place] (MAXITROL) 00 09/05/20 at [facility] ica 3.5 0913, Branch mg/g-10,000 Until unit/g-0.1 Discontinu % ed, ophthalmic Routine, ointment Intra-op neomycin-po 2020-0 202- No PRN, Unive rs lymyxin-dex 09-05 Starting ity of amethasone 14:13: 16:57 Thu [place] (MAXITROL) 00 :05 09/05/20 at [facility] ica 3.5 0913, Branch mg/g-10,000 Until Wed unit/g-0.1 09/05/20 at % 1157, ophthalmic Routine, ointment Intra-op balanced 0 Yes PRN, Univers salt irrig 09-05 Starting ity o f soln comb1 14:06: Thu [place] (BSS PLUS) 00 09/05/20 at [facility] ophthalmic 0906, Branch solution Until 500 mL bag Discontinu ed, Routine, Intra-op EPINEPHrine 0 Yes PRN, Univer s 1:1,000 (1 09-05 Starting ity o f mg/mL) 14:06: Thu (ADRENALIN) 00 09/05/20 at Dc dical injection 0906, Branch Until Discontinu ed, Routine, Intra-op sodium 2020-0 Yes PRN, Univers chloride 09-05 Starting ity of (NS) 14:06: Thu [place] injection 00 09/05/20 at [facility] jagdish 0906, Branch Until Discontinu ed, Routine, Intra-op EPINEPHrine 2020-0 2020- No PRN, Unive rs 1:1,000 (1 09-05 Starting ity of mg/mL) 14:06: 16:57 [facility] (ADRENALIN) 00 :05 09/05/20 at Dc dical injection 0906, Branch Until 09/05/20 at 1157, Routine, Intra-op sodium 2020-0 202- No PRN, Univers chloride 09-05 Starting ity of (NS) 14:06: 16:57 Thu [place] injection 00 :05 09/05/20 at Medi jagdish 0906, Branch Until Thu09/05/20 at 1157, Routine, Intra-op balanced 2020- No PRN, Univers salt irrig 09-05 Starting ity of soln comb1 14:06: 16:57 [facility] (BSS PLUS) 00 :05 09/05/20 at [facility] ical ophthalmic 0906, Branch solution Until Thu 500 mL bag 09/05/20 at 1157, Routine, Intra-op water for Yes PRN, Univers irrigation 09-05 Starting ity o f irrigation 14:03: Thu [place] solution 00 09/05/20 at Medic al 0903, Branch Until Discontinu ed, Routine, Intra-op water for 2020- No PRN, Univers irrigation 09-05 Starting ity of irrigation 14:03: 16:57 [facility] solution 00 :05 09/05/20 at Medic al 0903, Branch Until Thu09/05/20 at 1157, Routine, Intra-op Hyaluronida Yes PRN, Univer s se, Human 09-05 Starting ity of Recomb. 13:58: Thu (HYLENEX) 00 09/05/20 at [facility] injection 0858, Branch Until Discontinu ed, Routine, Intra-op eye block Yes PRN, Univers syringe 11 09-05 Starting ity o f mL 13:58: Thu [place] 00 09/05/20 at [facility] 0858, Branch Until Discontinu ed, Intra-op Hyaluronida 2020- No PRN, Unive rs se, Human 09-05 Starting ity o f Recomb. 13:58: 16:57 [facility] (HYLENEX) 00 :05 09/05/20 at [facility] jagdish injection 0858, Branch Until Thu09/05/20 at 1157, Routine, Intra-op eye block 2020- No PRN, Univers syringe 11 09-05 Starting ity of mL 13:58: 16:57 [facility] 00 :05 09/05/20 at [facility] 0858, Branch Until Thu09/05/20 at 1157, Intra-op tetracaine 2021-0 Yes PRN, Univers (PONTOCAINE 09-05 Starting ity of ) 0.5 % 13:53: Wed [place] ophthalmic 00 09/05/20 at [facility] ical drops 0853, [place] Until Discontinu ed, Routine, Intra-op tetracaine 2020- No PRN, Univer s (PONTOCAINE 09-05 Starting ity of ) 0.5 % 13:53: 16:57 Wed [place] ophthalmic 00 :05 09/05/20 at [facility] ical drops 0853, [place] Until Thu09/05/20 at 1157, Routine, Intra-op mydriatic 2020- No .5mL 0.5 mL, Univ ers #5 09-05 Right Eye, ity of ophthalmic 12:45: 13:16 ONCE, 1 Rajendra as solution 00 :00 dose, [facility] Medica l 0.5 mL 09/05/20 at Branch syringe 0745, Routine lactated 2020- No 1000[facility] 09-05 mL/hr, ity of infusion 12:45: 13:00 1,000 mL, Rajendra as 1,000 mL 00 :00 IV Medical Infusion, [place] ONCE, 1 dose, Thu09/05/20 at 0745, Routine, DSU Pre-op mydriatic 2020- No .5mL 0.5 mL, [facility] ers #5 09-05 Right Eye, ity of ophthalmic 12:45: 13:16 ONCE, 1 Rajendra as solution 00 :00 dose, Wed Medica l 0.5 mL 09/05/20 at Branch syringe 0745, Routine lactated 2020- No 1000mL at 42 [facility] IV 09-05 mL/hr, ity of infusion 12:45: 13:00 1,000 mL, Rajendra as 1,000 mL 00 :00 IV Medical Infusion, [place] ONCE, 1 dose, Thu09/05/20 at 0745, Routine, DSU Pre-op metFORMIN 2021- No [id number] 500mg Take 0.5 UT (Glucophage 5-27 05-23 tablets ) 1000 MG 00:00: 04:59 (500 mg tablet 00 :00 total) by mouth 2 (two) times a day with meals. glucose 2021- No [id number] Accuchek U T blood test 07-17 Test Strip He alth strip 00:00: 04:59 00 :00 esomeprazol 2020-0 Yes 20mg QD Take 20 mg Methodi e (NexIUM) 3-[address] 20 MG 22:30: daily Hospita capsule 48 before l breakfast. VITAMIN E 2020-0 Yes 1{tbl} QD Take 1 Meth regla ACETATE 3-[address] (VITAMIN E 22:30: mouth Hospit a ORAL) 48 daily. l cetirizine 2020-0 Yes 10mg QD Take 10 mg M ethodi (ZyrTEC) 10 3-[address] MG tablet 22:30: daily. Hospit a 48 l Lactobacill 2020-0 Yes 1{tbl} QD Take 1 Me thodi us 3-[address] acidoph-L.b 22:30: mouth Hospi ta ulgar 48 daily. l (FLORANEX) 1 million cell tablet aspirin 2020-0 Yes 81mg QD Take 81 mg Meth regla (ECOTRIN) 3-[address] 81 MG 22:30: daily. Hospita enteric 48 l coated tablet atorvastati 2020-0 Yes 10mg QD Take 10 mg Methodi n (LIPITOR) 3-[address] 10 MG 22:30: daily. Hospita tablet 48 l busPIRone 2020-0 Yes 10mg Q.5D Take 10 mg Me thodi (BUSPAR) 10 3-[address] MG tablet 22:30: (two) Hospita 48 times a l day. losartan 2020-0 Yes 12.5mg QD Take 12.5 Me thodi (COZAAR) 25 3-[address] MG tablet 22:30: mouth Hospita 48 daily. l metFORMIN 2020-0 Yes 500mg Q.5D Take 500 Met hodi XR 3-[address] (GLUCOPHAGE 22:30: mouth 2 Hos lolly -XR) 500 mg 48 (two) l 24 hr times a tablet day. cholecalcif 2020-0 Yes 1{tbl} QD Take 1 Me thodi sonia, 3-[address] vitamin D3, 22:30: mouth Hospi ta (VITAMIN D3 48 daily. l ORAL) divalproex 2019-0 2020- No 250mg Q.5D Take 2 Met hodi (DEPAKOTE 3-05 03-[address] SPRINKLE) 00:00: 05:59 (250 mg Hosp keara 125 mg 00 :00 total) by l mouth 2 (two) times a day. BusPIRone BusPIRone Yes Mauricio 1 tablet [facility] [...] GLUCOSE [facility] TWICE A l DAY Outpati ent Clinics Depakote Depakote Yes Mauricio [address] [facility] Accu-Chek Accu-Chek Yes Mauricio USE TO C [facility] GLUCOSE [facility] TWICE l DAILY Outpati ent Clinics Immunizations Ordered Filled Immunization Date Status Comments Sourc e Immunization Name Name Covid-19 Moderna 2020-04-25 [facility] SARS-[facility]-2 00:00:00 Vaccination Covid-19 Moderna 2020-03-24 [facility] SARS-CoV-2 00:00:00 Vaccination Afluria Afluria 2018-11-[address] [facility] 00:00:00 [facility] Influenza, 2018-11-04 Completed [facility], 00:00:00 injectable, preservative free Influenza, 2016-02-15 Completed [facility] seasonal, 00:00:00 injectable, preservative free Vital Signs Vital Name Observation Time Observation Value Comments Source Systolic blood 2020-12-31 18:27:00 143 mm[Hg] [facility] Diastolic blood 2020-12-31 18:27:00 89 mm[Hg] [facility] Heart rate 2020-12-31 18:27:00 72 /min [facility] Systolic blood 2020-12-18 04:00:00 145 mm[Hg] Univer sity of [facility] Diastolic blood 2020-12-18 04:00:00 85 mm[Hg] Unive rsity of [facility] Heart rate 2020-12-18 04:00:00 79 /min [facility] Respiratory rate 2020-12-18 04:00:00 14 /min [facility] O[facility] saturation in 2020-12-18 04:00:00 95 /min [facility] Arterial blood by [facility] [place] Pulse oximetry Branch Body temperature 2020-12-18 01:16:00 36.5 Ankita [facility] Body height 2020-12-18 01:16:00 175.3 cm [facility] Body weight 2020-12-18 01:16:00 108.863 kg [facility] BMI 2020-12-18 01:16:00 35.44 kg/m2 [facility] Systolic blood 2020-12-18 00:38:00 137 mm[Hg] Univer sity of [facility] Diastolic blood 2020-12-18 00:38:00 84 mm[Hg] [facility] Heart rate 2020-12-18 00:38:00 87 /min [facility] Body temperature 2020-12-18 00:38:00 36.61 Ankita [facility] Respiratory rate 2020-12-18 00:38:00 16 /min [facility] Oxygen saturation in 2020-12-18 00:38:00 99 /min University of Arterial blood by [facility] jagdish Pulse oximetry Branch Systolic blood 2020-09-19 16:00:00 131 mm[Hg] Univer sity of pressure [place] [facility] Diastolic blood 2020-09-19 16:00:00 74 mm[Hg] Unive rsity of pressure [place] [facility] Heart rate 2020-09-19 16:00:00 66 /min Universi ty of [place] [facility] Respiratory rate 2020-09-19 16:00:00 9 /min Univ ersity of [place] [facility] Oxygen saturation in 2020-09-19 16:00:00 97 /min University of Arterial blood by [facility] [place] Pulse oximetry Branch Body temperature 2020-09-19 15:49:00 36.83 Ankita Univ ersity of [place] [facility] Body height 2020-09-14 18:58:00 175.3 cm Universi ty [facility] [place] [facility] Body weight 2020-09-14 18:58:00 106.6 kg Universi ty [facility] [place] [facility] BMI 2020-09-14 18:58:00 34.69 kg/m2 Universi ty [facility] [place] [facility] Systolic blood 2020-09-19 16:00:00 131 mm[Hg] Univer sity of pressure [place] [facility] Diastolic blood 2020-09-19 16:00:00 74 mm[Hg] Unive rsity of pressure [place] [facility] Heart rate 2020-09-19 16:00:00 66 /min [facility]i ty [facility] [place] [facility] Respiratory rate 2020-09-19 16:00:00 9 /min Univ ersity of [place] [facility] Oxygen saturation in 2020-09-19 16:00:00 97 /min University of Arterial blood by [facility] [place] Pulse oximetry Branch Body temperature 2020-09-19 15:49:00 36.83 Ankita Univ ersity of [place] [facility] Body height 2020-09-14 18:58:00 175.3 cm [facility]i [facility] [place] [facility] Body weight 2020-09-14 18:58:00 106.6 kg Universi ty [facility] [place] [facility] BMI 2020-09-14 18:58:00 34.69 kg/m2 Universi ty [facility] [place] [facility] Systolic blood 2020-09-19 14:06:00 135 mm[Hg] Univer sity of pressure [place] [facility] Diastolic blood 2020-09-19 14:06:00 76 mm[Hg] Unive rsity of pressure [place] [facility] Heart rate 2020-09-19 14:06:00 72 /min Universi ty [facility] [place] [facility] Body temperature 2020-09-19 14:06:00 36.78 Ankita Univ ersity of [place] [facility] Respiratory rate 2020-09-19 14:06:00 11 /min Univ ersity of [place] [facility] Oxygen saturation in 2020-09-19 14:06:00 97 /min University of Arterial blood by [place] [facility] jagdish Pulse oximetry Branch Body height 2020-09-14 18:58:00 175.3 cm Universi ty of [place] [facility] Body weight 2020-09-14 18:58:00 106.6 kg Universi ty [facility] [place] [facility] BMI 2020-09-14 18:58:00 34.69 kg/m2 Universi ty [facility] [place] [facility] Systolic blood 2020-09-19 14:06:00 135 mm[Hg] Univer sity of pressure [place] [facility] Diastolic blood 2020-09-19 14:06:00 76 mm[Hg] Unive rsity of pressure [place] [facility] Heart rate 2020-09-19 14:06:00 72 /min Universi ty [facility] [place] [facility] Body temperature 2020-09-19 14:06:00 36.78 Ankita Univ ersity of [place] [facility] Respiratory rate 2020-09-19 14:06:00 11 /min Univ ersity of [place] [facility] Oxygen saturation in 2020-09-19 14:06:00 97 /min University of Arterial blood by [place] [facility] jagdish Pulse oximetry Branch Body height 2020-09-14 18:58:00 175.3 cm [facility]i ty [facility] [place] [facility] Body weight 2020-09-14 18:58:00 106.6 kg [facility]i [facility] [place] [facility] BMI 2020-09-14 18:58:00 34.69 kg/m2 Universi ty of [place] [facility] Systolic blood 2020-09-05 14:40:00 136 mm[Hg] Univer sity of pressure [place] [facility] Diastolic blood 2020-09-05 14:40:00 82 mm[Hg] Unive rsity of pressure [place] [facility] Heart rate 2020-09-05 14:40:00 84 /min [facility]i [facility] [place] [facility] Respiratory rate 2020-09-05 14:40:00 13 /min Univ ersity of [place] [facility] Oxygen saturation in 2020-09-05 14:40:00 94 /min University of Arterial blood by [facility] [place] Pulse oximetry Branch Body temperature 2020-09-05 12:46:00 36.22 Ankita Univ ersity of [place] [facility] Body height 2020-09-03 16:45:00 175.3 cm Universi ty [facility] [place] [facility] Body weight 2020-09-03 16:45:00 106.595 kg Universi ty [facility] [place] [facility] BMI 2020-09-03 16:45:00 34.70 kg/m2 Universi ty [facility] [place] [facility] Systolic blood 2020-09-05 14:40:00 136 mm[Hg] Univer sity of pressure [place] [facility] Diastolic blood 2020-09-05 14:40:00 82 mm[Hg] Unive rsity of pressure [place] [facility] Heart rate 2020-09-05 14:40:00 84 /min Universi ty of [place] [facility] Respiratory rate 2020-09-05 14:40:00 13 /min Univ ersity of [place] [facility] Oxygen saturation in 2020-09-05 14:40:00 94 /min University of Arterial blood by [facility] [place] Pulse oximetry Branch Body temperature 2020-09-05 12:46:00 36.22 Ankita Univ ersity of [place] [facility] Body height 2020-09-03 16:45:00 175.3 cm Universi ty [facility] [place] [facility] Body weight 2020-09-03 16:45:00 106.595 kg Universi ty [facility] [place] [facility] BMI 2020-09-03 16:45:00 34.70 kg/m2 Universi ty [facility] [place] [facility] Systolic blood 2020-09-05 12:46:00 129 mm[Hg] Univer sity of pressure [place] [facility] Diastolic blood 2020-09-05 12:46:00 82 mm[Hg] Unive rsity of pressure [place] [facility] Heart rate 2020-09-05 12:46:00 74 /min Universi ty [facility] [place] [facility] Body temperature 2020-09-05 12:46:00 36.22 Ankita Univ ersity of [place] [facility] Respiratory rate 2020-09-05 12:46:00 18 /min Univ ersity of [place] [facility] Oxygen saturation in 2020-09-05 12:46:00 99 /min University of Arterial blood by [facility] [place] Pulse oximetry Branch Body height 2020-09-03 16:45:00 175.3 cm Universi ty of [place] [facility] [place] Body weight 2020-09-03 16:45:00 106.595 kg Universi ty of [facility] BMI 2020-09-03 16:45:00 34.70 kg/m2 Universi ty [facility] Systolic blood 2020-09-05 12:46:00 129 mm[Hg] Univer sity of pressure [facility] Diastolic blood 2020-09-05 12:46:00 82 mm[Hg] Unive rsity of pressure [facility] Heart rate 2020-09-05 12:46:00 74 /min Universi ty [facility] Body temperature 2020-09-05 12:46:00 36.22 Ankita [facility] Res[facility] rate 2020-09-05 12:46:00 18 /min [facility] Oxygen saturation in 2020-09-05 12:46:00 99 /min University of Arterial blood by [facility] [place] Pulse oximetry Branch Body height 2020-09-03 16:45:00 175.3 cm Universi ty [facility] Body weight 2020-09-03 16:45:00 106.595 kg Universi ty [facility] BMI 2020-09-03 16:45:00 34.70 kg/m2 Universi [facility] Systolic blood 2020-03-27 02:30:00 141 mm[Hg] [facility] pressure Diastolic blood 2020-03-27 02:30:00 77 mm[Hg] [facility] pressure Heart rate 2020-03-27 02:30:00 76 /min [facility] Respiratory rate 2020-03-27 02:30:00 18 /min [facility] Oxygen saturation in 2020-03-27 02:30:00 99 /min [facility] Arterial blood by Pulse oximetry Body temperature 2020-03-27 00:27:00 36.67 Ankita [facility] Body height 2020-03-27 00:27:00 172.7 cm [facility] Body weight 2020-03-27 00:27:00 113.399 kg [facility] BMI 2020-03-27 00:27:00 38.01 kg/m2 [facility] Procedures Procedure Date / Time Performing Source Performed Clinician CT ABDOMEN PELVIS W CONTRAST 2020-12-18 Kristie Forte [facility] 02:38:21 Medical Branch LIPASE 2020-12-18 Kristie Forte [facility] ex 01:37:00 Medical Branch COMP. METABOLIC PANEL ([id number]) 2020-12-18 [facility] 01[facility] CBC WITH DIFF 2020-12-18 Kristie Forte [facility] 01:37:00 Medical Branch URINALYSIS 2020-12-18 Kristie Forte [facility] 01:37:00 Medical Branch CONSENT/REFUSAL FOR DIAGNOSIS 2020-12-18 Doctor Unassigned, [facility] AND TREATMENT 00:47:57 [place] [facility] PHACOEMULSIFICATION OF 2020-09-19 Franck Dinero [facility] CATARACT WITH INTRAOCULAR 15:02:00 Medica l Branch LENS IMPLANT POCT GLUCOSE(AGE >30DAYS) 2020-09-19 Davidson Falcon [facility] 14:25:00 Medical Branch POCT GLUCOSE(AGE >30DAYS) 2020-09-19 [place] Falcon [facility] 14:25:00 Medical Branch POCT GLUCOSE (AUTOMATED) 2020-09-19 Franck Dinero [facility] 14:24:00 Medical Branch POCT GLUCOSE (AUTOMATED) 2020-09-19 Franck Dinero [facility] 14:24:00 Medical Branch DAY SURGERY - ADC 2020-09-19 Doctor Estherssdarnell, [facility] 05:01:00 [place] [facility] CONSENT/REFUSAL FOR DIAGNOSIS 2020-09-18 Doctor Unassigned, [facility] AND TREATMENT 17:05:36 [place] [facility] ASSIGNMENT OF BENEFITS 2020-09-18 Doctor Jocelyn [facility] 17:05:21 [place] [facility] EXTERNAL PROVIDER RECORDS 2020-09-14 Doctor Unassdarnell, [facility] 05:01:00 [place] [facility] PHACOEMULSIFICATION OF 2020-09-05 Franck Dinero [facility] CATARACT WITH INTRAOCULAR 13:46:00 Medica l Branch LENS IMPLANT POCT GLUCOSE(AGE >30DAYS) 2020-09-05 Iris Chairez [facility] 12:59:00 Medical Branch POCT GLUCOSE(AGE >30DAYS) 2020-09-05 Iris Chairez [facility] 12:59:00 Medical Branch POCT GLUCOSE (AUTOMATED) 2020-09-05 Franck Dinero [facility] 12:56:00 Medical Branch POCT GLUCOSE (AUTOMATED) 2020-09-05 Franck Dinero [facility] 12:56:00 Medical Branch DAY SURGERY - ADC 2020-09-05 Doctor Unassigned, [facility] 05:01:00 [place] [facility] [place] CBC WITH DIFF 2020-08-20 Franck Dinero [facility] 18:04:00 Medical Branch ASSIGNMENT OF BENEFITS 2020-08-20 Doctor Unassigned, [facility] 17:51:43 [place] [facility] [place] URINE CULTURE 2020-03-27 [facility] 01:59:00 URINALYSIS SCREEN AND 2020-03-27 [facility] MICROSCOPY, WITH REFLEX TO 01:59:[address] HEAD WO CONTRAST 2020-03-27 [facility] 01:21:11 XR CHEST 1 VW PORTABLE 2020-03-27 [facility] 01:19:06 ECG 12-LEAD 2020-03-27 [facility] COMPLETE BLD COUNT W/AUTO 2020-03-27 [facility] DIFF 01:01:00 COMPREHENSIVE METABOLIC PANEL 2020-03-27 [facility] 01:01:00 TROPONIN 2020-03-27 [facility] 01:[facility]00 B NATRIURETIC PEPTIDE 2020-03-27 [facility] 01:01:00 ESTIMATED GFR 2020-03-27 [facility] 01:[facility]:00 ECG ED PRELIMINARY 2020-03-27 [facility] INTERPRETATION 00:43:08 Plan of Care Planned Activity Planned Date Details Comments Source Future Scheduled Test DIABETES: RETINAL EYE [facility] EXAM [code = DIABETES: RETINAL EYE EXAM] Future Scheduled Test DIABETIC FOOT EXAM [facility] [code = DIABETIC FOOT EXAM] Future Scheduled Test URINE MICROALBUMIN [facility] [code = URINE MICROALBUMIN] Future Scheduled Test COVID-19 VACCINE (1) [facility] [code = COVID-19 VACCINE (1)] Future Scheduled Test Hepatitis C screening [facility] (procedure) [code = 749571969] Future Scheduled Test COLONOSCOPY SCREENING [facility] [code = COLONOSCOPY SCREENING] Future Scheduled Test SHINGLES VACCINES (#1) [facility] [code = SHINGLES VACCINES (#1)] Future Scheduled Test INFLUENZA VACCINE [code [facility] = INFLUENZA VACCINE] Encounters Start End Encounter Admission Attending Care Care Encounter Source Date/Time Date/Time Type Type Clinicians Facility Department ID 2021-01-21 Outpatient [facility] [id number] [place] 09:11:34 [facility] 2020-12-24 [facility] [id number] Univers 10:25:05 [facility] 2020-12-24 [facility] [id number] Univers 04:21:02 [facility] 2021-01-16 2021-01-18 [id number] 635 [place] 00:00:00 00:00:[address] JEFF [address] 2021-01-15 2021-01-15 Outpatient PHYSICIAN, [facility] [id number] [facility] 06:02:00 23:59:00 NON 2020-12-31 2020-12-31 Office 1, [facility] 6410 [id number] [place] 10:34:04 12:49:[address] [id number] Health nal Consult [id number] 2020-12-18 2020-12-18 Outpatient [facility] [id number] Univers 19:40:00 19:40:00 [id number] [facility] 2020-12-18 2020-12-18 Outpatient Vamsi [facility] [id number] Univers 19:40:00 19:40:00 DEEPA herculesy o f [facility] 2020-12-17 2020-12-17 Emergency [facility] [id number] Univers 20:10:00 23:34:00 [place] Roque Parvin [id number] ity [id number] [id number] [facility] 084 Branch 2020-12-17 2020-12-17 Emergency X [facility] ERT [id number] Univers 20:10:00 23:34:00 NINARADHALI ity [facility] 2020-12-17 2020-12-17 Nurse Nurse, [facility] [id number] Univers 19:37:02 19:45:51 Visit JennaKaseyDeepaChan [facility] [id number] ity of [place] [id number] Rajendra as Vinod?Blea [id number] [address] Medical Office Building 2020-12-17 2020-12-17 Outpatient R [facility] [id number] Univers 19:20:00 19:20:00 [id number] ity [facility] 2020-12-17 2020-12-17 Outpatient R [facility] [id number] Univers 19:20:00 19:20:00 DEEPA diomedesmarkos o [facility] 2020-12-17 2020-12-17 Orders Doctor PARRY [id number] Univers 00:00:00 00:00:00 Only Unassigned, [place] [id number] ity of [place] [facility] [id number] Rajendra as [id number] [facility] 009 Branch 2020-09-19 2020-09-19 [facility] [id number] 09:05:00 11:09:00 Encounter Franck Melendrez [id number] [place] [id number] Surgical [id number] Artie 07 2020-09-19 2020-09-19 [facility] [id number] Univers 09:05:00 11:09:00 Encounter Franck Melendrez [id number] [id number] [id number] [facility] [address] [place] 2020-09-19 2020-09-19 Surgery [facility] [id number] 09:58:00 10:40:00 [place] [id number] [place] [id number] Surgical [id number] [place] [address] 2020-09-19 2020-09-[address] [facility] [id number] [facility] 09:58:00 10:40:00 Franck Linda Melendrez [id number] [place]y [id number] [id number] [facility] [address] [place] 2020-09-19 2020-09-19 Orders Doctor PARRY [id number] 00:00:00 00:00:00 Only Unassigned, [place] [id number] [place] [facility] [id number] [id number] 009 2020-09-19 2020-09-19 Orders Doctor PARRY [id number] Univers 00:00:00 00:00:00 Only Unassigned, [place] [id number] ity of [place] [facility] [id number] Rajendra as [phone] [address] 2020-09-18 2020-09-18 Orders Doctor BRINDA [id number] 00:00:00 00:00:00 Only Unassigned, [place] [id number] [place] [facility] [id number] [id number] 009 2020-09-18 2020-09-18 Orders Doctor PARRY [id number] Univers 00:00:00 00:00:00 Only Unassigned, [place] [id number] ity of [place] [facility] [id number] Rajendra as [id number] [facility] 009 Branch 2020-09-14 2020-09-14 Orders Doctor PARRY [id number] 00:00:00 00:00:00 Only Unassigned, [place] [id number] [place] [facility] [id number] [id number] [id number] 2020-09-14 2020-09-14 Orders Doctor PARRY [id number] Univers 00:00:00 00:00:00 Only Unassigned, [place] [id number] ity of [place] [facility] [id number] Rajendra as [id number] [facility] [address] [place] 2020-09-05 2020-09-05 [facility] [id number] 07:39:00 09:51:00 Encounter Franck Melendrez [id number] [place] [id number] Surgical [id number] [place] [address] 2020-09-05 2020-09-05 [facility] [id number] [facility] 07:39:00 09:51:00 Encounter Franck Melendrez [id number] [id number] [id number] [facility] [address] [place] 2020-09-05 2020-09-05 [facility] [id number] 08:39:00 09:21:00 Parvin [id number] [place] [id number] Surgical [id number] Artie 020 2020-09-05 2020-09-05 [facility] 1.2.840.114 [id number] [facility] 08:39:00 09:21:00 Franck Linda Melendrez 350.1.13.10 [place] [id number] [facility] [address] [place] 2020-09-05 2020-09-05 Orders Doctor PARRY 1.2.840.114 [id number] 00:00:00 00:00:00 Only Unassigned, FATMATA 350.1.13.10 [place] [facility] 4.2.7.2.686 [id number] 009 2020-09-05 2020-09-05 Orders Doctor BRINDA 1.2.840.114 [id number] [facility] 00:00:00 00:00:00 Only Unassigned, FATMATA 350.1.13.10 ity of [place] [facility] 4.2.7.2.686 Rajendra as [id number] [address] 2020-08-30 2020-08-30 Refill Osmany SHANA RIDER 1.2.840.114 [id number] 00:00:00 00:00:00 Rehal TOWER 350.1.13.58 9.2.7.2.686 [id number] 2020-08-20 2020-08-20 Jig Hand Sha Aviles [facility] 1.2.840.114 [id number] 12:54:25 13:09:25 Visit Lab Main Parvin 350.1.13.10 [place] 4.2.7.2.686 Professio [id number] [address] 2020-08-20 2020-08-20 Jig Hand Sha Aviles Lab Main [facility] 1.2.8 40.114 [id number] [facility] 12:54:25 13:09:25 Visit Franck Dinero 350.1.13.1 0 [place] [id number] Me dical [address] 2020-08-20 2020-08-20 Outpatient R [facility] [id number] -[id number] Univers 13:00:00 13:00:00 [id number] ity [facility] 2020-08-20 2020-08-20 Outpatient R BAR [facility] [id number] Univers 13:00:00 13:00:00 FRANCK mcfarlane [facility] 2020-08-20 2020-08-20 Orders Doctor PARRY 1.2.840.114 [id number] 00:00:00 00:00:00 Only Unassigned, FATMATA 350.1.13.10 [place] [facility] 4.2.7.2.686 [id number] 009 2020-08-20 2020-08-20 Orders Doctor BRINDA 1.2.840.114 [id number] [facility] 00:00:00 00:00:00 Only Unassigned, FATMATA 350.1.13.10 ity of [place] [facility] 4.2.7.2.686 Rajendra as [id number] [facility] [address] 2020-08-15 2020-08-15 TelemedicSHANA Yoon 1.2.840.114 [id number] 13:00:00 13:30:00 ne Rehal TOWER 350.1.13.58 9.2.7.2.686 [id number] 1 2020-08-13 2020-08-13 Telephone SHANA Pratt 1.2.840.114 1 [id number] 00:00:00 00:00:00 Nadira TOWER 350.1.13.58 9.2.7.2.686 [id number] 2 2020-08-10 2020-08-10 Refill SHANA Ceron 1.2.840.114 [id number] 00:00:00 00:00:00 Rehal TOWER 350.1.13.58 9.2.7.2.686 [id number] 1 2020-07-18 2020-07-18 TelemedicSHANA Yoon 1.2.840.114 [id number] 09:30:00 09:40:00 ne Rehal TOWER 350.1.13.58 9.2.7.2.686 [id number] 1 2020-07-17 2020-07-17 Telephone SHANA Pratt 1.2.840.114 1 [id number] 00:00:00 00:00:00 Nadira TOWER 350.1.13.58 9.2.7.2.686 [id number] 2 2020-07-11 2020-07-11 Refill SHANA Ceron 1.2.840.114 [id number] 00:00:00 00:00:00 Rehal TOWER 350.1.13.58 9.2.7.2.686 [id number] 1 2020-05-18 2020-05-18 Outpatient [facility] [id number] [facility] 2020-04-23 2020-04-23 Outpatient [facility]ML[facility] [id number] [facility] 2020-04-18 2020-04-18 Outpatient [facility] [id number] [facility] 2020-04-06 2020-04-06 Outpatient [facility] [id number] [facility] 2020-04-04 2020-04-04 Out[facility] [id number] [facility] 2020-03-27 2020-03-27 Outpatient [facility] [id number] [facility] 2020-03-26 2020-03-26 Emergency [place], 1.2.840.1 [id number] Methodi 18:31:00 21:00:[address] Tony 3.430.2.7 Hospit a .[id number] l .8 2020-03-26 2020-03-26 Travel 1.2.840.1 1.2.236.113 2099 [id number] Methodi 00:00:00 00:00:[address] 3.430.2.7 0.2.7.3.698 Ho spita .[id number] 084.8 l .8 2020-03-06 2020-03-06 Outpatient [facility] [id number] [facility] 2020-03-05 2020-03-05 Outpatient [facility] [id number] [facility] 2020-02-27 2020-02-27 Outpatient [facility] [id number] [facility] 2020-01-03 2020-01-03 Outpatient [facility] [id number] [facility] 2019-11-29 2019-11-29 Outpatient [facility] [id number] [facility] 2019-08-31 2019-08-31 [facility] [id number] 09:30:00 09:30:00 t SKURA s - Drive [facility] l Medicine Outpati ent Clinics 2019-08-15 2019-08-15 [facility] [id number] 10:15:00 10:15:00 t [employer] s - Drive [facility] Medicine l Medicine Outpati ent Clinics 2019-08-10 2019-08-10 [facility] [id number] 08:15:00 08:15:00 t SKURA s - Drive [facility] Medicine l Medicine Outpati ent Clinics 2019-05-12 2019-05-12 [facility] [id number] 08:15:00 08:15:00 t [employer] s - Drive [facility] Medicine l Medicine Outpati ent Clinics 2019-05-02 2019-05-02 [facility] [id number] 14:16:00 14:16:00 t [employer] [employer] s - Drive [facility] Medicine l Medicine Outpati ent Clinics 2019-04-27 2019-04-27 [facility] [id number] 08:34:00 08:34:00 t SKURA s - Drive [facility] Medicine l Medicine Outpati ent Clinics 2019-03-23 2019-03-23 [facility] [id number] 13:15:00 13:15:00 t [employer] s - Drive [facility] Medicine Medicine Outpati ent Clinics 2019-03-21 2019-03-21 [facility] [id number] 15:24:00 15:24:00 [place] [employer] s - Drive [facility] Medicine l Medicine Outpati ent Clinics 2019-03-21 2019-03-21 [facility] [id number] 10:23:00 10:23:00 [place] [employer] s - Drive [facility] Medicine Outpati ent Clinics 2019-03-09 2019-03-09 [facility] [id number] 16:04:00 16:04:00 [place] [employer] s - Drive [facility] l Medicine Outpati ent Clinics 2019-03-03 2019-03-03 [facility] [id number] 17:22:00 17:22:00 [place] [employer] s - Drive [facility] Medicine Outpati ent Clinics 2019-02-10 2019-02-10 [facility] [id number] 08:00:00 08:00:00 [place] [employer] s - Drive [facility] Medicine l Medicine Outpati ent Clinics 2019-02-04 2019-02-04 [facility] [id number] 11:43:00 11:43:00 t [employer] [employer] s - Drive [facility] l Medicine Outpati ent Clinics 2019-02-03 2019-02-03 [facility] [id number] 16:19:00 16:19:00 [place] [employer] - Drive [facility] Medicine Medicine Outpati ent Clinics 2018-11-04 2018-11-04 [facility] [id number] 09:30:00 09:30:00 [place] [employer] s - Drive [facility] Medicine Outpati ent Clinics 2018-10-06 2018-10-06 [facility] [id number] 08:12:00 08:12:00 [place] [employer] s - Drive [facility] Medicine Outpati ent Clinics 2018-10-01 2018-10-01 [facility] [id number] 14:25:00 14:25:[address] [place] [address] - Drive [facility] Medicine Medicine Outpati ent Clinics 2018-09-13 2018-09-13 [facility] [id number] 10:05:00 10:05:[address] [place] s - Drive [facility] l Medicine Outpati ent Clinics 2018-09-06 2018-09-06 [facility] [id number] 10:45:00 10:45:[address] [place] s - Drive [facility] Medicine l Medicine Outpati ent Clinics 2018-09-03 2018-09-03 [facility] [id number] 13:08:00 13:08:[address] Luke s - Drive [facility] l Medicine Outpati ent Clinics 2018-08-13 2018-08-13 [facility] [id number] 10:01:00 10:01:[address] Luke s - Drive [facility] Medicine Outpati ent Clinics 2018-08-04 2018-08-04 [facility] [id number] 13:45:00 13:45:[address] Luke s - Drive [facility] Medicine l Medicine Outpati ent Clinics 2018-05-25 2018-05-25 [facility] [id number] 09:30:00 09:30:[address] Luke s - Drive [facility] l Medicine Outpati ent Clinics 2018-05-04 2018-05-04 [facility] [id number] 11:00:00 11:00:[address] Luke s - Drive [facility] Medicine Medicine Outpati ent Clinics 2017-11-20 2017-11-20 [facility] [id number] 10:09:00 10:09:[address] Luke s - Drive [facility] l Medicine Outpati ent Clinics 2017-11-17 2017-11-17 [facility] [id number] 08:30:00 08:30:[address] Luke s - Drive [facility] Medicine Outpati ent Clinics 2017-09-17 2017-09-17 [facility] [id number] 10:02:00 10:02:00 [place] [employer] s - Drive [facility] Outpati ent Clinics 2017-09-07 2017-09-07 [facility] [id number] 10:00:00 10:00:[address] Luke s - Drive [facility] Medicine Outpati ent Clinics 2017-08-20 2017-08-20 [facility] [id number] 13:48:00 13:48:00 [place] [employer] s - Drive [facility] Medicine Outpati ent Clinics 2017-08-05 2017-08-05 [facility] [id number] 08:45:00 08:45:00 [place] [employer] s - Drive [facility] Medicine Outpati ent Clinics 2017-06-17 2017-06-17 [facility] [id number] 09:15:00 09:15:00 [place] [employer] s - Drive [facility] Medicine Outpati ent Clinics 2017-05-11 2017-05-11 [facility] [id number] 11:15:00 11:15:00 t [employer] s - Drive [facility] Outpati ent Clinics Results Test Description Test Time Test Comments Results Result Comments Source SARS-CoV-2 (COVID-19) RNA [Presence] in Respiratory sp ecimen by 2021-01-17 07:32:29 SUNDAY with probe detection Test Item Value Reference Range Interpretation Comme nts SARS-CoV-2 (COVID-19) RNA [Presence] in Respiratory Not detected No t-Detected specimen by SUNDAY with probe detection (test code = 07140-0) Whether patient is employed in a healthcare setting (test code = 76621-7) Whether the patient has symptoms related to condition of interest (test code = 58143-3) Patient was hospitalized because of this condition (test code = 88738-5) Whether the patient was admitted to intensive care unit (ICU) for condition of interest (test code = 60794-2) Whether patient resides in a congregate care setting (test code = 69880-4) Complete Metabolic [id number] 02:05:38 Test Item Value Reference Range Interpretation Comments NA (test code = 135 mmol/L 135-145 6970423985) K (test code = 4.6 mmol/L 3.5-5.0 1765898550) CL (test code = 103 mmol/L 98-108 9908647790) CO2 TOTAL (test code = 23 mmol/L 23-31 9057260552) AGAP (test code = 2-16 0431455996) BUN (test code = 18 mg/dL 7-23 0980143395) GLUCOSE (test code = 123 mg/dL 70-110 H 4255219573) CREATININE (test code = 0.93 mg/dL 0.60-1.25 5437108722) TOTAL BILI (test code = 1.2 mg/dL 0.1-1.1 H 6952285409) CALCIUM (test code = 9.5 mg/dL 8.6-10.6 0660208602) T PROTEIN (test code = 8.3 g/dL 6.3-8.2 H 5090390587) ALBUMIN (test code = 5.0 g/dL 3.5-5.0 5603583543) ALK PHOS (test code = 91 U/L 34-122 6802521139) ALTv (test code = 31 U/L 5-50 1742-6) AST(SGOT) (test code = 34 U/L 13-40 8607686678) eGFR (test code = mL/min/1.73m2 1450488839) SVETLANA (test code = SVETLANA) Association of Glomerular Filtration Rate (GFR) and Staging of Kidney Disease* + --+ --+ ------+| GFR (mL/min/1.73 m2) ?| With Kidney Damage ?| ?Without Kidney Damage+ --------+ --------+ +| ?>90 ?| ?Stage one ?| ? Normal ?+ ---+ ---+ -------+| ?60-89 ?| ?Stage two ?| ? Decreased GFR ? + --+ --+ ------+| ?30-59 ?| ?Stage three ?| ? Stage three ? + --+ --+ ------+| ?15-29 ?| ?Stage four ? | ? Stage four ?+ ---+ ---+ -------+| ?<15 (or dialysis) ? ?| ?Stage five ? | ? Stage five ?+ ---+ ---+ -------+ *Each stage assumes the associated GFR level has been in effect for at least three months. ?Stages 1 to 5, with or without kidney disease, indicate chronic kidney disease. Notes: Determination of stages one and two (with eGFR >59mL/min/1.73 m2) requires estimation of kidney damage for at least three months as defined by structural or functional abnormalities of the kidney, manifested by either:Pathological abnormalities or Markers of kidney damage (including abnormalities in the composition of the blood or urine or abnormalities in imaging tests). Lab Interpretation Abnormal (test code = 86985-9) [facility] [id number] 02:05:18 Test Item Value Reference Range Interpretation Comments LIPASE (test code = 5018768279) 108 U/L 0-220 Lab Interpretation (test code = Normal 41592-3) [facility] with Kwbovxmqfqcz8920-96-39 01:50:56 Test Item Value Reference Range Interpretation Comments WBC (test code = See_Comment [Automated message] 8590-2) The system Adea generated this result transmitted ref erence range: 4.20 - 1 0.70 10*3/?L. The re ference range was not u sed to interpret this result as normal/abnor mal. RBC (test code = See_Comment [Automated message] 699-8) The system Adea generated this result transmitted ref erence range: 4.26 - 5 .52 10*6/?L. The re ference range was not u sed to interpret this result as normal/abnor mal. HGB (test code = 14.3 g/dL 12.2-16.4 718-7) HCT (test code = 43.4 % 38.4-49.3 4544-3) MCV (test code = 87.3 fL 81.7-95.6 787-2) MCH (test code = 28.8 pg 26.1-32.7 785-6) MCHC (test code = 32.9 g/dL 31.2-35.0 786-4) RDW-SD (test code 40.5 fL 38.5-51.6 = 92887-9) RDW-CV (test code 12.8 % 12.1-15.4 = 788-0) PLT (test code = See_Comment [Automated message] 777-3) The system whic h generated this result transmitted ref erence range: 150 - 32 8 10*3/?L. The re ference range was not u sed to interpret this result as normal/abnor mal. MPV (test code = 11.8 fL 9.8-13.0 94957-6) NRBC/100 WBC (test See_Comment [Automat ed message] code = 4043302090) The syste m which generated this result transmitted ref erence range: 0.0 - 10 .0 /100 WBCs. The refer ence range was not u sed to interpret this result as normal/abnor mal. NRBC x10^3 (test <0.01 See_Comment [Automated message] code = 6201957265) The syste m which generated this result transmitted ref erence range: 10*3/?L. The reference range was not used to interpr et this result as normal/abnormal . GRAN MAT (NEUT) % 64.9 % (test code = 770-8) IMM GRAN % (test 0.50 % code = 6211686465) LYMPH % (test code 22.9 % = 736-9) MONO % (test code 8.2 % = 5905-5) EOS % (test code = 2.8 % 713-8) BASO % (test code 0.7 % = 706-2) GRAN MAT 5.75 10*3/uL 1.99-6.95 x10^3(ANC) (test code = 0931884041) IMM GRAN x10^3 0.04 10*3/uL 0.00-0.06 (test code = 5446861944) LYMPH x10^3 (test 2.03 10*3/uL 1.09-3.23 code = 731-0) MONO x10^3 (test 0.73 10*3/uL 0.36-1.02 code = 742-7) EOS x10^3 (test 0.25 10*3/uL 0.06-0.53 code = 711-2) BASO x10^3 (test 0.06 10*3/uL 0.01-0.09 code = 704-7) [facility] GLUCOSE (AUTOMATED)2020-09-19 14:35:20 Test Item Value Reference Range Interpretation Comments POCT GLU (test code = 3336299204) 156 mg/dL 70-110 H Lab Interpretation (test code = Abnormal 42287-2) [facility] GLUCOSE (AUTOMATED)2020-09-19 14:35:20 Test Item Value Reference Range Interpretation Comments POCT GLU (test code = 1527435000) 156 mg/dL 70-110 H Lab Interpretation (test code = Abnormal 85171-1) [facility] [id number] 14:25:00 Test Item Value Reference Range Interpretation Comments POCT Glu (age>30days) (test code = 156 mg/dL 70-110 A 3342) Lab Interpretation (test code = Abnormal 57628-2) [facility] [id number] 14:25:00 Test Item Value Reference Range Interpretation Comments POCT Glu (age>30days) (test code = 156 mg/dL 70-110 A 3342) Lab Interpretation (test code = Abnormal 79312-0) [facility] GLUCOSE (AUTOMATED)2020-09-05 14:43:20 Test Item Value Reference Range Interpretation Comments POCT GLU (test code = 3372618726) 136 mg/dL 70-110 H Lab Interpretation (test code = Abnormal 13580-3) [facility] GLUCOSE (AUTOMATED)2020-09-05 14:43:20 Test Item Value Reference Range Interpretation Comments POCT GLU (test code = 9509844728) 136 mg/dL 70-110 H Lab Interpretation (test code = Abnormal 49594-4) [facility] Qgdcezz3718-23-79 12:59:00 Test Item Value Reference Range Interpretation Comments POCT Glu (age>30days) (test code = 136 mg/dL 70-110 A 3342) Lab Interpretation (test code = Abnormal 76263-8) [facility] [id number] 12:59:00 Test Item Value Reference Range Interpretation Comments POCT Glu (age>30days) (test code = 136 mg/dL 70-110 A 3342) Lab Interpretation (test code = Abnormal 31007-8) [facility] WITH [id number] 18:08:59 Test Item Value Reference Range Interpretation Comments WBC (test code = See_Comment [Automated 6690-2) message] The sy stem which generated this result transmitted reference range : 4.20 - 10.70 10*3/?L. The reference range was not used to interpret this result as normal/abnormal . RBC (test code = See_Comment [Automated 789-8) message] The sy stem which generated this result transmitted reference range : 4.26 - 5.52 10*6/?L. The reference range was not used to interpret this result as normal/abnormal . HGB (test code = 14.0 g/dL 12.2-16.4 718-7) HCT (test code = 43.6 % 38.4-49.3 4544-3) MCV (test code = 88.6 fL 81.7-95.6 787-2) MCH (test code = 28.5 pg 26.1-32.7 785-6) MCHC (test code = 32.1 g/dL 31.2-35.0 786-4) RDW-SD (test code = 42.6 fL 38.5-51.6 33886-7) RDW-CV (test code = 13.0 % 12.1-15.4 788-0) PLT (test code = See_Comment [Automated 777-3) message] The sy stem which generated this result transmitted reference range : 150 - 328 10*3/ ?L. The reference r prisca was not used to interpret this result as normal/abnormal . MPV (test code = 10.8 fL 9.8-13.0 32658-6) NRBC/100 WBC (test See_Comment [Automat ed code = 9176763167) message] The system which generated this result transmitted reference range : 0.0 - 10.0 /100 WBCs. The refer ence range was not u sed to interpret th is result as normal/abnormal . NRBC x10^3 (test code <0.01 See_Comment [Auto mated = 3177038784) message] The s ystem which generated this result transmitted reference range : 10*3/?L. The reference range was not used to interpret this result as normal/abnormal . GRAN MAT (NEUT) % 60.9 % (test code = 770-8) IMM GRAN % (test code 0.60 % = 8027322529) LYMPH % (test code = 20.0 % 736-9) MONO % (test code = 10.1 % 5905-5) EOS % (test code = 7.8 % 713-8) BASO % (test code = 0.6 % 706-2) GRAN MAT x10^3(ANC) 4.21 10*3/uL 1.99-6.95 (test code = 1560510210) IMM GRAN x10^3 (test 0.04 10*3/uL 0.00-0.06 code = 9025078599) LYMPH x10^3 (test code 1.38 10*3/uL 1.09-3.23 = 731-0) MONO x10^3 (test code 0.70 10*3/uL 0.36-1.02 = 742-7) EOS x10^3 (test code = 0.54 10*3/uL 0.06-0.53 H 711-2) BASO x10^3 (test code 0.04 10*3/uL 0.01-0.09 = 704-7) Lab Interpretation Abnormal (test code = 56402-7) [facility] 12 [id number] 17:13:01 Test Item Value Reference Range Interpretation Comments Ventricular rate (test code = 253) Atrial rate (test code = 255) DE interval (test code = 266) QRSD interval (test code = 260) QT interval (test code = 264) QTC interval (test code = 265) P axis 1 (test code = 267) QRS axis 1 (test code = 268) T wave axis (test code = 270) EKG impression (test Normal sinus code = 273) rhythm-Normal ECG-In automated comparison with ECG of 27-APR-2019 10:40,-No significant change was found- [facility] [id number] 02:22:35 Test Item Value Reference Range Interpretation Comments Urine culture (test code = SEE COMMENT 4360177) [facility] Wo [id number] 01:27:01EXAMINATION: CT HEAD WO CONTRAST CLINICAL HISTORY: HTN dizziness COMPARISON: Brain MR April 28, 2019. Head CT April 27, 2019 TECHNIQUE: Noncontrast head CT performed using radiation dose reduction techniques. Technical factors are evaluated and adjusted to ensure appropriate moderation of exposure. Automated dose management technology is applied to adjust radiation exposure while achieving a diagnostic quality image. FINDINGS: No evidence of acute intracranial hemorrhage, mass, mass effect, midline shift, or acute infarct. Beam hardening artifact about the left terminal ICA aneurysm coiling. Ventricles and sulci are normal in appearance for patient's age. Basal cisterns are clear. Calvariumis intact. Orbits are normal in appearance. No significant paranasal sinus mucosal thickening. Mastoid air cells are clear. IMPRESSION: 1. No CT evidence of acute intracranial abnormality. [id number] Interface, Radiology Results Incoming 03/26/2020 7:30 PM CST EXAMINATION: CT HEAD WO CONTRASTCLINICAL HISTORY: HTN dizzinessCOMPARISON: Brain MR April 28, 2019. Head CT April 27, 2019TECHNIQUE: Noncontrast head CT performed using radiation dose reduction techniques. Technical factors are evaluated and adjusted to ensure appropriatemoderation of exposure. Automated dose management technology is applied to adjust radiation exposure while achieving a diagnostic quality image. FINDINGS:No evidence of acute intracranial hemorrhage,mass, mass effect, midline shift, or acute infarct. Beam hardening artifact about the left terminal ICA aneurysm coiling.Ventricles and sulci are normal in appearance for patient's age. Basal cisternsare clear. Calvarium is intact.Orbits are normal in appearance. No significant paranasal sinus mucosal thickening. Mastoid air cells are clear. IMPRESSION:1. No CT evidence of acute intracranial abnormality.[id number] [facility] 1 Vw Vdcpzswc5033-04-83 01:25:08EXAMINATION: XR CHEST 1 VW PORTABLE CLINICAL HISTORY: HTN COMPARISON: 03/11/2016 IMPRESSION: No active disease in the chest. Lungs are clear. Cardiomediastinal silhouette is within normal limits.No effusion or pneumothorax noted.Visualized osseous structures are intact. [id number] Interface, Radiology Results Incoming - 03/26/2020 7:28 PM CST EXAMINATION: XR CHEST 1 VW PORTABLECLINICAL HISTORY: HTNCOMPARISON: 03/11/2016IMPRESSION:No active disease in the chest.Lungs are clear. Cardiomediastinal silhouette is within normal limits.No effusion or pneumothorax noted.Visualized osseous structures are intact.[id number] Preliminary Interpretation - Not an [id number] 00:43:08Baylee Tyler MD 03/26/2020 11:23 [facility] ED Preliminary Interpretation - Not an OrderPerformed by: Lorna Contreras PA-CAuthorized by: Baylee Tyler MD ECG reviewed by ED Physician in the absence of a manager ui: yes Rate: ECG rate: 79 ECG rate assessment: normal Rhythm: Rhythm: sinus rhythm QRS: QRS intervals: NormalConduction: Conduction: normal ST segments: ST segments: NormalT waves: T waves: normalChi [facility]"
--- NOTE | 2021-02-07 19:35 | ER ---
Nurse's Notes [facility] Name: You Sanchez Age: 55 yrs Sex: Male : 1965 Arrival Date: 02/07/2021 Time: 17:14 Bed 19 Private MD: Diagnosis: Hypertension resolved, generalized malaise Presentation: 02/07 17:28 Chief complaint: Patient states: palpitations began today at 1330, denies chest pain or vg1 headache. States shortness of breath and nausea. States had sx on 01/15/21 on spleen do to aneurysm and yesterday had a CT scan to assess spleen and was given contrast; has not taken metformin since 02/04/21. Coronavirus screen: Vaccine status: Patient reports receiving the 2nd dose of the covid vaccine. Client denies travel out of the [place] in the last 14 days. Ebola Screen: Patient negative for fever greater than or equal to 101.5 degrees Fahrenheit, and additional compatible Ebola Virus Disease symptoms. Initial Sepsis Screen: Does the patient meet any 2 criteria? No. Patient's initial sepsis screen is negative. Does the patient have a suspected source of infection? No. Patient's initial sepsis screen is negative. Risk Assessment: Do you want to hurt yourself or someone else? Patient reports no desire to harm self or others. Onset of symptoms was February 07, 2021. 17:28 Method Of Arrival: Ambulatory vg1 17:28 Acuity: SEPIDEH 3 vg1 Triage Assessment: 17:31 General: Appears in no apparent distress. uncomfortable, Behavior is calm, cooperative. vg1 Pain: Denies pain. 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 - Social history:: Smoking status: Patient denies any tobacco usage or history of. Screenin:17 Abuse screen: Denies threats or abuse. Nutritional screening: No deficits noted. ap3 Tuberculosis screening: No symptoms or risk factors identified. Fall Risk None identified. Assessment: 18:16 General: Appears in no apparent distress. comfortable, Behavior is calm, cooperative, ap3 appropriate for age. Pain: Denies pain. Neuro: Level of Consciousness is awake, alert, obeys commands, Oriented to person, place, time, situation, Appropriate for age Gait is steady, Speech is normal. Cardiovascular: Reports a fluttering feeling which he now believes could have been anxiety or gas. patient states he no longer feels the flutters. Cardiovascular: Pulses are all present. Rhythm is sinus rhythm. Respiratory: Airway is patent Respiratory effort is even, unlabored, Respiratory pattern is regular, symmetrical. Vital Signs: 17:28 BP 150 / 88; Pulse 95; Resp 16; Temp 98.6; Pulse Ox 100% ; Weight 108.86 kg; Height 5 vg1 ft. 9 in. (175.26 cm); Pain 0/10; 18:15 BP 146 / 82; Pulse 83; Resp 15; Pulse Ox 99% on R/A; ap3 18:57 BP 142 / 81; Pulse 89; Resp 16; Pulse Ox 100% on R/A; ap3 17:28 Body Mass Index 35.44 (108.86 kg, 175.26 cm) vg1 ED Course: 17:14 Patient arrived in ED. am2 17:31 Triage completed. vg1 17:31 Arm band placed on. EKG completed in triage. Results shown to MD. vg1 18:07 Thuy Sherman, RN is Primary Nurse. ap3 18:15 John Ragland MD is Attending Physician. kdr 18:17 Patient has correct armband on for positive identification. library monitor on. Pulse ap3 ox on. NIBP on. Door closed. Noise minimized. 19:09 Tanvir Olmstead PA is PHCP. cp 19:09 Bren Dyer MD is Attending Physician. cp 19:45 No provider procedures requiring assistance completed. Patient did not have IV access sm5 during this emergency room visit. Administered Medications: No medications were administered Outcome: 19:35 Discharge ordered by . sp3 19:45 Discharged to home ambulatory, with family. sm5 19:45 Condition: good 19:45 Discharge instructions given to patient, family, Instructed on discharge instructions, Demonstrated understanding of instructions. 19:46 Patient left the ED. sm5 Signatures: John Ragland MD MD kdr Tanvir Olmstead PA PA cp Moreno, Amanda am2 Prokisch, Amanda, RN RN ap3 Danna Boyer RN RN vg1 Bren Dyer MD MD sp3 Jenise Gomez RN RN sm5
--- NOTE | 2021-02-07 19:35 | EDPHYS ---
Physician Documentation [facility] Name: You Sanchez Age: 55 yrs Sex: Male : 1965 Arrival Date: 02/07/2021 Time: 17:14 Bed 19 Private MD: ED Physician Bren Dyer HPI: 02/07 19:30 This 55 yrs old Male presents to ER via Ambulatory with complaints of High sp3 Blood Pressure, Palpitations. 19:30 55-year-old male with a history of diabetes, hypertension, cerebral aneurysm in the sp3 past, generalized anxiety and obstructive sleep apnea presents to the ED for approximately 12 hours of increased blood pressure and generalized malaise which are now fully resolved after he took an additional dose of his amlodipine. Patient denies current headache, chest pain, shortness of breath, back pain, abdominal pain, nausea, vomiting, diarrhea, syncope, focal neuro deficit, rash, fever, known sick contacts, COVID-19 contacts, travel, trauma, any other ROS at this time. Patient initially had felt some "heart quivering" and he contacted his PCP who advised him to come to the ED to obtain an EKG. Patient is currently at his baseline and has no symptoms whatsoever.. 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 - Social history:: Smoking status: Patient denies any tobacco usage or history of. ROS: 19:32 Constitutional: Negative for fever, chills, and weight loss, Eyes: Negative for injury, sp3 pain, redness, and discharge, ENT: Negative for injury, pain, and discharge, Neck: Negative for injury, pain, and swelling, Cardiovascular: Negative for chest pain, palpitations, and edema, Respiratory: Negative for shortness of breath, cough, wheezing, and pleuritic chest pain, Abdomen/GI: Negative for abdominal pain, nausea, vomiting, diarrhea, and constipation, Back: Negative for injury and pain, MS/Extremity: Negative for injury and deformity, Skin: Negative for injury, rash, and discoloration, Neuro: Negative for headache, weakness, numbness, tingling, and seizure, Psych: Negative for depression, anxiety, suicide ideation, homicidal ideation, and hallucinations, Endocrine: Negative for neck swelling, polydipsia, polyuria, polyphagia, and marked weight changes, Hematologic/Lymphatic: Negative for swollen nodes, abnormal bleeding, and unusual bruising. 19:32 All other systems are negative. Exam: 19:33 Constitutional: This is a well developed, well nourished patient who is awake, alert, sp3 and in no acute distress. Head/Face: Normocephalic, atraumatic. Eyes: Pupils equal round and reactive to light, extra-ocular motions intact. Lids and lashes normal. Conjunctiva and sclera are non-icteric and not injected. Cornea within normal limits. Periorbital areas with no swelling, redness, or edema. ENT: Nares patent. No nasal discharge, no septal abnormalities noted. External auditory canals are clear. Oropharynx with no redness, swelling, or masses, exudates, or evidence of obstruction, uvula midline. Mucous membranes moist. Neck: Trachea midline, no thyromegaly or masses palpated, and no cervical lymphadenopathy. Supple, full range of motion without nuchal rigidity, or vertebral point tenderness. No Meningismus. Chest/axilla: Normal chest wall appearance and motion. Nontender with no deformity. No lesions are appreciated. Cardiovascular: Regular rate and rhythm with a normal S1 and S2. No gallops, murmurs, or rubs. Normal PMI, no JVD. No pulse deficits. Respiratory: Lungs have equal breath sounds bilaterally, clear to auscultation and percussion. No rales, rhonchi or wheezes noted. No increased work of breathing, no retractions or nasal flaring. Abdomen/GI: Soft, non-tender, with normal bowel sounds. No distension or tympany. No guarding or rebound. No evidence of tenderness throughout. Back: No spinal tenderness. No costovertebral tenderness. Full range of motion. Skin: Warm, dry with normal turgor. Normal color with no rashes, no lesions, and no evidence of cellulitis. MS/ Extremity: Pulses equal, no cyanosis. Neurovascular intact. Full, normal range of motion. Neuro: Awake and alert, GCS 15, oriented to person, place, time, and situation. Cranial nerves II-XII grossly intact. Motor strength 5/5 in all extremities. Sensory grossly intact. Cerebellar exam normal. Normal gait. Psych: Awake, alert, with orientation to person, place and time. Behavior, mood, and affect are within normal limits. Vital Signs: 17:28 BP 150 / 88; Pulse 95; Resp 16; Temp 98.6; Pulse Ox 100% ; Weight 108.86 kg; Height 5 vg1 ft. 9 in. (175.26 cm); Pain 0/10; 18:15 BP 146 / 82; Pulse 83; Resp 15; Pulse Ox 99% on R/A; ap3 18:57 BP 142 / 81; Pulse 89; Resp 16; Pulse Ox 100% on R/A; ap3 17:28 Body Mass Index 35.44 (108.86 kg, 175.26 cm) vg1 MDM: 19:12 Patient medically screened. sp3 19:33 Data reviewed: vital signs, nurses notes. ED course: EKG demonstrates normal sinus sp3 rhythm at 92 bpm with normal intervals, normal QRS, normal axis, normal ST/T-segment's without any evidence of ischemia. There are some nonspecific changes only isolated in lead III which are likely motion related.. ED course: Given baseline status and normal EKG, no further work-up is indicated at this time. I have strongly encouraged patient to return if he develops any symptoms whatsoever including recurrent malaise, headache, increased blood pressure, chest pain, shortness of breath, or any concerns at all. He adamantly denies all of these things at this time. He stated he would return for further work-up including blood work and x-rays and possible admission if any other symptoms return. We will discharge patient home at this time.. 02/07 17:40 Order name: Glucose, Ancillary Testing; Complete Time: 19:35 EDMS Administered Medications: No medications were administered Disposition Summary: 02/07/21 19:35 Discharge Ordered Location: Home sp3 Condition: Stable sp3 Diagnosis - Hypertension resolved, generalized malaise sp3 Followup: sp3 - With: Private Physician - When: As needed - Reason: Recheck today's complaints Discharge Instructions: - Discharge Summary Sheet sp3 - Hypertension, Adult sp3 Forms: - Medication Reconciliation Form sp3 - Thank You Letter sp3 - Antibiotic Education sp3 - Prescription Opioid Use sp3 Signatures: Dispatcher [employer] Thuy Romero RN RN ap3 Danna Boyer RN RN vg1 Bren Dyer MD MD sp3
[2021-02-07 20:03] VITALS: TEMP 98.6
[2021-02-07 20:06] VITALS: BP 142/81; O2SAT 100
--- NOTE | 2021-02-09 17:02 | EKG ---
Test Date: 2021-02-07 Test Time: 17:35:13 Continuity Person: ABEBA MEASUREMENT RESULTS: Intervals: Rate: 92 FL: 150 QRSD: 78 QT: 344 QTc: 425 [place]: P: 38 FL: 150 QRS: 56 T: 46 INTERPRETIVE STATEMENTS: Normal sinus rhythm Normal ECG Compared to ECG 03/22/2019 17:10:13 No significant changes Electronically Signed On 02-09-21 17:00:10 EXTRACT OPERATOR by Jae Howard
== END 2021-02-07 19:46 | disposition home or self-care (01) ==
LOC: ER 17:13
DX: I10 Essential (primary) hypertension (principal); R53.81 Other malaise; E11.9 Type 2 diabetes mellitus without complications
CPT/HCPCS: 82947; 93005; 99284

== ENCOUNTER 2024-12-20 14:36 | Emergency (ER) | payer BC ==
[2024-12-20 15:40] LABS: Absolute Lymphocytes (CBC) 1.5 K/uL (0.7-4.9); Hematocrit 44.3 % (39.6-49.0); Hemoglobin 15.1 g/dL (13.6-17.9); MCH 29.8 pg (27.0-35.0); MCHC 34.0 g/dL (32.0-36.0); MCV 87.7 fL (80-100); MPV 9.6 fL (7.6-11.3); Nucleated RBC Absolute Count 0.0 (0-0); Nucleated Red Blood Cells % 0.1 % (0-0); RBC Red Blood Cell Count 5.05 M/uL (4.33-5.43); White Blood Count 7.10 thou/uL (4.3-10.9)
[2024-12-20 15:48] LABS: PT Prothrombin Time 11.2 SECONDS (10-13.0); PTT, Activated Partial Thromb 33.9 SECONDS (27.2-37.4); Protime INR 0.99
--- NOTE | 2024-12-20 15:52 | RAD REPORT ---
Stone Protocol CLINICAL INDICATION: Male, 59 years old.FLANK PAIN TECHNIQUE: CT abdomen and pelvis was performed, without IV contrast, as per department protocol using a CT stone protocol. Axial, sagittal and coronal reconstructions were obtained. One or more of the following dose reduction techniques were used: Automated exposure control, adjustment of the mA and/o r kV according to the patient size, and/or iterative reconstruction. Unless otherwise specified, incidental findings do not require dedicated imaging follow-up. [id number]. IV CONTRAST: Not administered. COMPARISON: 02/15/2016 FINDINGS: The lack of intravenous contrast limits the sensitivity of this exam for evaluation of solid visceral organs, vascular structures, and retroperitoneum. LOWER CHEST: No acute process identified. No significant pericardial effusion. Moderate coronary alexy ry calcifications. UPPER GI: No significant abnormality. LIVER: Hepatic steatosis, but otherwise unremarkable. GALLBLADDER/BILE DUCTS: Cholecystectomy.? PANCREAS: No mass, ductal dilation, or cinda-pancreatic fluid. SPLEEN: Within normal limits. ADRENALS: No adrenal masses. KIDNEYS AND URETERS: No hydronephrosis. Limited evaluation for renal lesions in the absence of IV con trast. No renal calculi. ABDOMINAL AORTA AND OTHER VESSELS: Normal caliber aorta and IVC. In position coils near the spleen. PERITONEUM: No abnormal free fluid. No free air. LYMPH NODES: No pathologic lymphadenopathy. ABDOMINAL WALL: Unremarkable SMALL BOWEL/COLON: Small bowel has normal course and caliber. No colonic wall thickening or pericolon ic inflammatory changes. Normal appendix. Mild diverticulosis without diverticulitis. URINARY BLADDER: Underdistended but grossly unremarkable. REPRODUCTIVE ORGANS: No pathologic process. MUSCULOSKELETAL: No acute or suspicious osseous abnormality. ADDITIONAL FINDINGS: None. IMPRESSION: No acute findings within the abdomen or pelvis. No appendicitis. No urinary tract calculi.
--- NOTE | 2024-12-20 15:58 | RAD REPORT ---
EXAM: Chest Single View HISTORY: 59 years Male near syncope COMPARISON: 03/22/2019 FINDINGS: LUNGS/PLEURA: The lungs are clear. No pleural effusions or pneumothorax. No pulmonary edema. CARDIAC/MEDIASTINUM: The cardiac silhouette is within normal limits. UPPER ABDOMEN: No significant abnormality. BONES: No acute abnormality. LINES/TUBES/OTHER: N/A IMPRESSION: No evidence of acute cardiopulmonary disease.
--- NOTE | 2024-12-20 15:58 | RAD REPORT ---
EXAMINATION: Head Brain Wo Cont CLINICAL INDICATION: Male, 59 years old.Headache;Weakness TECHNIQUE: Axial CT images from the skull base to the vertex without intravenous contrast. Coronal an d sagittal reformatted images were created from the data set. One or more of the following dose reduction techniques were used: Automated exposure control, adjustment of the mA and/or kV according to patient size, and/or iterative reconstruction. Unless otherwise specified, incidental findings do not require dedicated imaging follow-up. [id number]. COMPARISON: 06/09/2018 FINDINGS: INTRACRANIAL: No acute intracranial hemorrhage. No acute large vascular territory infarct. No hydro cephalus. No mass effect or midline shift. No significant white matter disease. Streak artifact from embolization coils at the left cavernous carotid. VASCULATURE: No visualized abnormalities in the arteries or dural venous sinuses. SCALP/SKULL: No calvarial fracture identified. No acute soft tissue abnormality. SINUSES: The visualized paranasal sinuses are mostly clear. No significant mastoid fluid. IMPRESSION: No acute intracranial abnormality.
[2024-12-20 16:05] LABS: ALT/SGPT 30 U/L (16-61); AST/SGOT 17 U/L (15-37); Albumin 4.0 g/dL (3.4-5.0); Albumin/Globulin Ratio 1.0 (1.1-1.8); Alkaline Phosphatase 95 U/L (45-117); Anion Gap 10.7 mEq/L (5.0-15.0); BUN Blood Urea Nitrogen 14 mg/dL (7-18); Bilirubin Indirect, Calculated 0.3 mg/dL (0.2-0.8); Globulin 3.9 g/dL (2.3-3.5); Glucose Level 160 mg/dL (74-106); Magnesium 2.1 mg/dL (1.6-2.4); Potassium 3.7 mEq/L (3.5-5.1); Troponin High Sensitivity 6.0 pg/mL (<58.9)
--- NOTE | 2024-12-20 16:33 | ER ---
Nurse's Notes [facility] Name: You Sanchez Age: 59 yrs Sex: Male : 1965 Arrival Date: 12/20/2024 Time: 14:36 Bed 17 Private MD: Diagnosis: Headache;Weakness Presentation: 12/20 15:08 Chief complaint: Patient states: WENT TO GET A DRINK FROM STORE, HAD A SHARP PAIN IN dd2 HEAD THAT LASTED A COUPLE MINUTES AND THEN BEGAN TO HAVE PRESSURE BEHIND HIS NOSE. PT REPORTS HE WENT TO LIE DOWN FOR A NAP AND BEGAN HAVING WEAKNESS ALL OVER, WORSE BLE. PT ALSO REPORTS RT FLANK PAIN X 2 WEEKS. Coronavirus screen: At this time, the client does not indicate any symptoms associated with coronavirus-19. Ebola Screen: No symptoms or risks identified at this time. Initial Sepsis Screen: Does the patient meet any 2 criteria? No. Patient's initial sepsis screen is negative. Does the patient have a suspected source of infection? No. Patient's initial sepsis screen is negative. Risk Assessment: Do you want to hurt yourself or someone else? Patient reports no desire to harm self or others. Onset of symptoms was December 20, 2024. 15:08 Method Of Arrival: EMS: [facility] dd2 15:08 Acuity: SEPIDEH 3 dd2 15:16 Care prior to arrival: Medication(s) given: Tylenol, 1000 mg, IV initiated. 20 GA, in dd2 the right forearm, Glucose check: 199. Triage Assessment: 15:16 Headache History: The patient has had previous headaches and this one is less severe dd2 than previous episodes. General: Appears in no apparent distress. uncomfortable, Behavior is calm, cooperative, appropriate for age. Pain: Complains of pain in face Pain currently is 6 out of 10 on a pain scale. Quality of pain is described as pressure, Pain began suddenly, Also complains of no other associated symptoms. Neuro: Level of Consciousness is awake, alert, obeys commands, Oriented to person, place, time, situation, Appropriate for age [employer] Drag Operator are equal bilaterally Moves all extremities. Gait is steady, Speech is normal, Facial symmetry appears normal, Pupils are PERRLA, Intact Reports weakness in right leg and left leg, GENERALIZED. Cardiovascular: No deficits noted. Respiratory: No deficits noted. Airway is patent Respiratory effort is even, unlabored, Respiratory pattern is regular, symmetrical. GI: Abdomen is round non-distended, Abd is soft and non tender X 4 quads. : Reports pain in right flank(s). Derm: No deficits noted. No signs and/or symptoms reported regarding the dermatologic system. Musculoskeletal: No deficits noted. No signs and/or symptoms reported regarding the musculoskeletal system. Circulation, motion, and sensation intact. Range of motion: intact in all extremities. Historical: - Allergies: 15:16 No Known Allergies; dd2 - PMHx: 15:16 Aneurysm; Anxiety; Diabetes - NIDDM; GERD; Sleep Apnea; dd2 - PSHx: 15:16 Splenectomy; dd2 - Immunization history:: Adult Immunizations unknown. - Infectious Disease History:: Denies. - Social history:: Smoking status: Patient denies any tobacco usage or history of. Screenin:29 [facility] ED Fall Risk Assessment (Adult) History of falling in the last 3 months, dd2 including since admission No falls in past 3 months (0 pts) Confusion or Disorientation No (0 pts) Intoxicated or Sedated No (0 pts) Impaired Gait No (0 pts) Mobility Assist Device Used No (0 pt) Altered Elimination No (0 pt) Score/Fall Risk Level 0 - 2 = Low Risk Oriented to surroundings, Maintained a safe environment, Educated pt \T\ family on fall prevention, incl call for assistance when getting out of bed, Assessed \T\ reinforced patient's understanding of fall precautions, Hourly rounding (assess needs \T\ fall precautionary measures) done. Abuse screen: Denies threats or abuse. Denies injuries from another. Nutritional screening: No deficits noted. Tuberculosis screening: No symptoms or risk factors identified. Assessment: 15:29 Reassessment: see triage assessment. dd2 Vital Signs: 15:08 BP 139 / 84; Pulse 85; Resp 16; Temp 98.2; Pulse Ox 96% on R/A; dd2 15:30 BP 129 / 74; Pulse 69; Resp 16; Pulse Ox 94% on R/A; dd2 16:00 BP 130 / 77; Pulse 67; Resp 16; Pulse Ox 95% on R/A; dd2 16:45 BP 116 / 87; Pulse 69; Resp 16; Pulse Ox 96% on R/A; dd2 16:55 BP 125 / 78 Supine; Pulse 72; ts3 16:55 BP 140 / 81 Sitting; Pulse 75; ts3 16:55 BP 139 / 82 Standing; Pulse 90; ts3 [place] Coma Score: 15:29 Eye Response: spontaneous(4). Motor Response: obeys commands(6). Verbal Response: dd2 oriented(5). Total: 15. ED Course: 14:48 Patient arrived in ED. bd 14:48 [facility] Rocha FNP-C [facility]. kb 14:48 Bismark Newell DO is Attending Physician. kb 15:15 CT Head Brain wo Cont In Process Unspecified. EDMS 15:16 Triage completed. dd2 15:16 Arm band placed on right wrist. dd2 15:19 CT Stone Protocol In Process Unspecified. EDMS 15:22 Chest Single View XRAY In Process Unspecified. EDMS 15:29 Patient has correct armband on for positive identification. Bed in low position. Call dd2 light in reach. Side rails up X 1. Client placed on continuous cardiac and pulse oximetry monitoring. NIBP monitoring applied. press operator instant print shop on. Door closed. Noise minimized. Warm blanket given. Pillow given. Verbal reassurance given. 15:29 No provider procedures requiring assistance completed. Initial lab(s) drawn, by me, dd2 sent to lab. Maintain EMS IV. Dressing intact. Good blood return noted. Site clean \T\ dry. Gauge \T\ site: 20 rt forearm . Flushed with 10 mL NS IV is patent, is intact, with fluids infusing freely, with good blood return. Patient maintains SpO2 saturation greater than 95% on room air. 16:50 EKG done, by ED staff, reviewed by Ronda ACKERMAN. dd2 17:11 SHEILA WANG, RN is Primary Nurse. dd2 17:11 Provided Education on: D/C EDUCATION. dd2 17:11 IV discontinued, intact, bleeding controlled, No redness/swelling at site. Pressure dd2 dressing applied. Administered Medications: No medications were administered Medication: 15:29 VIS not applicable for this client. dd2 Outcome: 16:32 Discharge ordered by . ravi 17:11 Discharged to home ambulatory, dd2 17:11 Condition: stable 17:11 Discharge instructions given to patient, significant other, Instructed on discharge instructions, follow up and referral plans. Demonstrated understanding of instructions, follow-up care, 17:12 Patient left the ED. dd2 Signatures: Dispatcher [employer] Ronda Almanzar, MEKA PAGAN-Linnea Eric DIANA, RN RN dd2 Radha Cisneros ts3
--- NOTE | 2024-12-20 16:33 | EDPHYS ---
Physician Documentation [facility] Name: You Sanchez Age: 59 yrs Sex: Male : 1965 Arrival Date: 12/20/2024 Time: 14:36 Bed 17 Private MD: ED Physician Bismark Newell HPI: 12/20 14:51 This 59 yrs old Male presents to ER via Unassigned with complaints of Headache kb and weakness. 14:51 Patient is a 59-year-old male who presents for sudden onset of headache to the frontal kb area of his head that started while he was getting associated at the grocery store. States it was a sharp pain that only lasted a few seconds then resolved. States he put his soda in a shopping park and started walking towards a front whenever he started feeling pressure to the frontal aspect of his head. Decided to go home at that point. States once he was at home he was talking with his and felt weakness in the legs. States he took clonazepam and 2 aspirin prior to EMS arrival.. Historical: - Allergies: 15:16 No Known Allergies; dd2 - PMHx: 15:16 Aneurysm; Anxiety; Diabetes - NIDDM; GERD; Sleep Apnea; dd2 - PSHx: 15:16 Splenectomy; dd2 - Immunization history:: Adult Immunizations unknown. - Infectious Disease History:: Denies. - Social history:: Smoking status: Patient denies any tobacco usage or history of. ROS: 14:51 Constitutional: As per HPI kb Exam: 14:51 Constitutional: This is a well developed, well nourished patient who is awake, alert, kb and in no acute distress. Head/Face: Normocephalic, atraumatic. ENT: Moist Mucous membranes Cardiovascular: Regular rate Respiratory: Respirations even and unlabored. No increased work of breathing. Talking in full sentences Abdomen/GI: Soft, non-tender. No distention Skin: Warm, dry with normal turgor. Normal color. MS/ Extremity: Pulses equal, no cyanosis. Neurovascular intact. Full, normal range of motion. Neuro: Awake and alert, GCS 15, oriented to person, place, time, and situation. 14:51 Back: CVA tenderness, that is mild, is noted on the right, 17:29 ECG was reviewed by the Attending Physician. kb Vital Signs: 15:08 BP 139 / 84; Pulse 85; Resp 16; Temp 98.2; Pulse Ox 96% on R/A; dd2 15:30 BP 129 / 74; Pulse 69; Resp 16; Pulse Ox 94% on R/A; dd2 16:00 BP 130 / 77; Pulse 67; Resp 16; Pulse Ox 95% on R/A; dd2 16:45 BP 116 / 87; Pulse 69; Resp 16; Pulse Ox 96% on R/A; dd2 16:55 BP 125 / 78 Supine; Pulse 72; ts3 16:55 BP 140 / 81 Sitting; Pulse 75; ts3 16:55 BP 139 / 82 Standing; Pulse 90; ts3 [place] Coma Score: 15:29 Eye Response: spontaneous(4). Motor Response: obeys commands(6). Verbal Response: dd2 oriented(5). Total: 15. MDM: 14:49 Medical Screening Exam initiated kb 14:51 Data reviewed: vital signs, nurses notes. Historians other than the Patient: EMS: [facility]. 16:28 Differential Diagnosis: cardiac arrhythmia, cerebrovascular accident, emotional kb response, transient ischemic attack, dehydration, generalized weakness. Consideration of Admission/Observation Escalation of care including admission/observation considered. admission considered for symptoms, but headache improved, discussed all results with who states pt has these same symptoms every so often and they can go home. Discussed outpatient follow up and return precautions. . Counseling: I had a detailed discussion with the patient and/or guardian regarding the historical points, exam findings, and any diagnostic results supporting the discharge/admit diagnosis, lab results, radiology results, the need for outpatient follow up, a family practitioner, to return to the emergency department if symptoms worsen or persist or if there are any questions or concerns that arise at home. 12/20 14:50 Order name: Basic Metabolic Panel; Complete Time: 16:10 kb 12/20 14:50 Order name: CBC with Diff; Complete Time: 15:41 kb 12/20 14:50 Order name: Hepatic Function; Complete Time: 16:10 kb 12/20 14:50 Order name: Magnesium; Complete Time: 16:10 kb 12/20 14:50 Order name: Protime (+inr); Complete Time: 15:52 kb 12/20 14:50 Order name: Ptt, Activated; Complete Time: 15:52 kb 12/20 14:50 Order name: Troponin High Sensitivity; Complete Time: 16:10 kb 12/20 14:50 Order name: CT Head Brain wo Cont; Complete Time: 16:10 kb 12/20 14:50 Order name: Chest Single View XRAY; Complete Time: 16:10 kb 12/20 14:50 Order name: CT Stone Protocol; Complete Time: 15:53 kb 12/20 14:50 Order name: EKG; Complete Time: 14:51 kb 12/20 14:50 Order name: Cardiac monitoring; Complete Time: 16:33 kb 12/20 14:50 Order name: EKG - Nurse/Tech; Complete Time: 16:50 kb 12/20 14:50 Order name: IV Saline Lock; Complete Time: 16:33 kb 12/20 14:50 Order name: Labs collected and sent; Complete Time: 16:33 kb 12/20 14:50 Order name: NPO; Complete Time: 16:33 kb 12/20 14:50 Order name: O2 Per Protocol; Complete Time: 16:33 kb 12/20 14:50 Order name: O2 Sat Monitoring; Complete Time: 16:33 kb 12/20 14:50 Order name: Orthostatics; Complete Time: 16:54 kb EC:29 Rate is 67 beats/min. Rhythm is regular. QRS Pisek is Normal. UT interval is normal at kb 172 msec. QRS interval is normal at 82 msec. QT interval is normal at 399 msec. Administered Medications: No medications were administered Disposition: 18:27 I was immediately available on-site in the Emergency Department for consultation in the ms3 care of the patient. Disposition Summary: 12/20/24 16:32 Discharge Ordered Notes: Location: Home kb Condition: Stable kb Diagnosis - Headache kb - Weakness kb Followup: kb - With: Emergency Department - When: As needed - Reason: Worsening of condition Followup: kb - With: Private Physician - When: 2 - 3 days - Reason: Recheck today's complaints, Continuance of care, Re-evaluation by your physician Discharge Instructions: - Discharge Summary Sheet kb - Weakness, [id number] kb - General Headache Without Cause, [id number] kb Forms: - Medication Reconciliation Form kb - Antibiotic Education kb - Prescription Opioid Use kb - Patient Portal Instructions kb - Leadership Thank You Letter kb Signatures: Dispatcher [employer] EDRonda Varghese RESEARCHER-C RESEARCHER-CkBismark Garcias, DO ms3 SHEILA WANG, RN RN dd2 Corrections: (The following items were deleted from the chart) 14:51 14:51 Stone Protocol+CT.RAD.BRZ ordered. EDMS EDMS
[2024-12-20 23:48] VITALS: TEMP 98.2
[2024-12-20 23:51] VITALS: O2SAT 96
[2024-12-20 23:53] VITALS: BP 139/82
== END 2024-12-20 17:12 | disposition home or self-care (01) ==
LOC: ER 14:36
DX: R51.9 Headache, unspecified (principal); R53.1 Weakness; E11.9 Type 2 diabetes mellitus without complications; F41.9 Anxiety disorder, unspecified
CPT/HCPCS: 36415; 70450; 71045; 74176; 76377; 80048; 80076; 83735; 84484; 85025; 85610; 85730; 93005; 99284